=== PATIENT | male | born 1930 | race Caucasian/White ===

== ENCOUNTER 2016-05-31 15:38 | Emergency (ER) | payer MEDICARE, OTHER ==
[2016-05-31] MEDS ORDERED: ONDANSETRON 4MG/2ML VIAL (J2405) As Ordered ONE (16:37)
[2016-05-31 16:49] LABS: BASO # 0.1 K/mm3 (0.0-0.2); BASO % 1.1 % (0.0-1.0); EOS # 0.1 K/mm3 (0.0-0.50); EOS % 0.9 % (0.0-3.0); LARGE UNSTAINED CELL # 0.2 K/mm3 (0.0-0.4); LARGE UNSTAINED CELL % 1.6 % (0.0-4.0); LYMPH # 1.1 K/mm3 (1.5-4.5); LYMPH % 7.3 % (24.0-44.0); MEAN CORPUSCULAR HEMOGLOBIN 31.6 pg (27.0-33.0); MEAN CORPUSCULAR HGB CONC 35.2 g/dl (32.0-36.5); MEAN CORPUSCULAR VOLUME 89.7 fl (80.0-96.0); MONO # 0.8 K/mm3 (0.0-0.8); MONO % 6.9 % (0.0-5.0); NEUTROPHILS % 82.2 % (36.0-66.0); PLATELET COUNT, AUTOMATED 173 k/mm3 (150-450); RED CELL DISTRIBUTION WIDTH 14.6 % (11.5-14.5); WHITE BLOOD COUNT 12.2 K/mm3 (4.0-10.0)
[2016-05-31 16:56] LABS: INR 1.61
[2016-05-31 17:14] LABS: ALBUMIN/GLOBULIN RATIO 1.54 (1.00-1.93); ALKALINE PHOSPHATASE 74 U/L (45-117); ALT/SGPT 21 U/L (12-78); AMYLASE 29 U/L (25-115); ANION GAP 8 MEQ/L (8-16); AST/SGOT 18 U/L (15-37); BILIRUBIN,DIRECT 0.3 MG/DL (0.0-0.2); BILIRUBIN,TOTAL 1.1 MG/DL (0.2-1.0); BLOOD UREA NITROGEN 18 MG/DL (7-18); CALCIUM LEVEL 8.5 MG/DL (8.8-10.2); CARBON DIOXIDE LEVEL 27 MEQ/L (21-32); CHLORIDE LEVEL 103 MEQ/L (98-107); CREATININE FOR GFR 1.11 MG/DL (0.70-1.30); GLOMERULAR FILTRATION RATE > 60.0 (>35); GLUCOSE, FASTING 122 MG/DL (83-110); POTASSIUM SERUM 4.4 MEQ/L (3.5-5.1); SODIUM LEVEL 138 MEQ/L (136-145); TOTAL PROTEIN 6.6 GM/DL (6.4-8.2)
[2016-05-31 17:23] LABS: DIGOXIN LEVEL 0.5 NG/ML (0.5-2.0)
--- NOTE | 2016-05-31 19:16 | EDDOCDS ---
Physician Documentation [facility] Name: Brandon Esqueda Age: 85 yrs Sex: Male : 1930 Arrival Date: 05/31/2016 Time: 15:38 Bed 18 Private MD: [facility] Disposition: 05/31/16 19:02 Discharged to Home/Self Care. Impression: Malaise and fatigue. - Condition is Stable. - Discharge Instructions: Weakness, Fatigue. - Medication Reconciliation, Local Pharmacy Hours form. - Follow up: [facility]; When: 2 - 3 days; Reason: Recheck today's complaints, Continuance of care. - Problem is an ongoing problem. - Symptoms are unchanged. Historical: - Allergies: no known allergies; - Home Meds: 1. warfarin 5 mg Oral tab 2.5 mg nightly all week except for Saturday (Last dose: 05/30/2016) 2. Vitamin C Oral 500 mg daily (Last dose: 05/31/2016 08:00) 3. Vitamin D Oral daily (Last dose: 05/31/2016 08:00) 4. Vitamin D3 1,000 unit oral cap daily (Last dose: 05/31/2016 08:00) 5. ranitidine HCl 150 mg Oral tab 1 tab 2 times per day (Last dose: 05/31/2016 08:00) 6. metoprolol tartrate 25 mg Oral tab 0.5 tab 2 times per day (Last dose: 05/31/2016 08:00) 7. tamsulosin 0.4 mg oral cp24 1 cap once daily 8. simvastatin 20 mg Oral tab 0.5 tab once daily (Last dose: 05/30/2016) 9. digoxin 125 mcg Oral tab 1 tab saturday/saturday/saturday M, W, F (Last dose: 05/30/2016) 10. bicalutamide 50 mg oral tab 1 tab once daily (Last dose: 05/31/2016 08:00) - PMHx: Atrial Fib; High Cholesterol; Hypertension; prostate CA; TIA 1994; [place] 1994; - PSHx: Appendectomy; - Social history: Smoking status: Patient states was never smoker of tobacco. Patient/guardian denies using alcohol, street drugs, No barriers to communication noted, The patient speaks fluent Swedish, Speaks appropriately for age. - Family history: Not pertinent. - : The pt / caregiver states he / she is on anticoagulants: coumadin. Home medication list is obtained from the patient, family members. - Exposure Risk Screening:: None identified. - History obtained from: daughter. Vital Signs: 05/31 15:40 BP 151 / 90; Pulse 117; Resp 18 S; Temp 97.7(O); Weight 59.87 kg / 131.99 lbs (R); gr2 Height 5 ft. 6 in. (167.64 cm) (R); Pain 6/10; 16:33 BP 122 / 66 (auto/); jjr 16:33 Pulse 104 MON; Pulse Ox 98% ; jjr 16:47 Pulse 104 MON; Pulse Ox 90% ; jjr 16:48 BP 144 / 98 (auto/); jjr 17:03 BP 130 / 91 (auto/); jjr 17:33 BP 156 / 87 (auto/); mlb1 17:33 Pulse 114 MON; Pulse Ox 98% ; mlb1 17:48 BP 145 / 105 (auto/); mlb1 17:48 Pulse 104 MON; Pulse Ox 93% ; mlb1 18:03 BP 147 / 97 (auto/); mlb1 18:03 Pulse 112 MON; Pulse Ox 95% ; mlb1 18:18 BP 139 / 80 (auto/); kas2 18:18 Pulse 108 MON; Pulse Ox 94% ; kas2 18:48 BP 149 / 82 (auto/); kas2 18:48 Pulse 106 MON; Pulse Ox 97% ; kas2 19:03 BP 130 / 90 (auto/); kas2 19:03 Pulse 106 MON; Pulse Ox 96% ; kas2 19:04 BP 136 / 79 (auto/); kas2 19:04 Pulse 106 MON; Pulse Ox 96% ; kas2 19:06 BP 136 / 79; Pulse 104; Resp 18; Temp 98.9(TE); Pulse Ox 96% on R/A; Pain 0/10; mdr 15:40 Body Mass Index 21.31 (59.87 kg, 167.64 cm) gr2 15:40 UNABLE TO OBTAIN O2, MACHINE ISN'T READING. gr2 MDM: 16:31 NS 0.9% 1000 ml IV at bolus once ordered. ke 16:31 Ondansetron 4 mg IVP once ordered. ke 16:31 IV Saline Lock ordered. ke 16:31 Undress patient appropriately for examination ordered. ke 16:32 Amylase Ordered. EDMS 16:32 Basic Metabolic Profile Ordered. EDMS 16:32 CBC with Diff Ordered. EDMS 16:32 Cardiac Injury Profile Ordered. EDMS 16:32 Lipase Ordered. EDMS 16:32 Liver Profile Ordered. EDMS 16:32 Prothrombin Time Profile\E\INR Ordered. EDMS 16:32 Troponin Ordered. EDMS 16:32 Urinalysis Ordered. EDMS 16:32 Urine Culture Ordered. EDMS 16:33 Abdomen, Flat\E\Upright,PA Chest Ordered. EDMS 16:33 NOTHING BY MOUTH+DIET ordered. EDMS 16:47 DIGOXIN LEVEL Ordered. EDMS 16:57 Financial registration complete. [facility] 16:58 [facility] Payment Agreement was scanned into [employer] and attached to record. gjb 18:32 Basic Metabolic Profile Reviewed. ke 18:32 CBC with Diff Reviewed. ke 18:32 Liver Profile Reviewed. ke 18:32 Prothrombin Time Profile\E\INR Reviewed. ke 18:32 Amylase Reviewed. ke 18:32 Cardiac Injury Profile Reviewed. ke 18:32 Lipase Reviewed. ke 18:32 Troponin Reviewed. ke 18:32 DIGOXIN LEVEL Reviewed. ke 18:59 Urinalysis Reviewed. ke Administered Medications: 16:41 Drug: NS 0.9% 1000 ml [sodium chloride 0.9 % injection solution] Route: IV; Rate: mlb1 bolus; Site: left antecubital; 16:42 Drug: Ondansetron 4 mg [ondansetron HCl 2 mg/mL intravenous solution (2 mL)] Route: mlb1 IVP; Site: left antecubital; Signatures: Dispatcher [facility] EDNV James Maya, HVAC INSTRUCTOR HVAC INSTRUCTOR Katherine Bai RN RN ttb Beck, Gabriela gjb Smith, Kim, RN RN kristin2 Evan Jordan RN mlb1 The chart was reviewed and I authenticate all verbal orders and agree with the evaluation and treatment provided.Corrections: (The following items were deleted from the chart) 16:47 16:42 DIGOXIN LEVEL+LAB ordered. EDNV EDMS Attachments: 16:58 [facility] Payment Agreement gj MTDD
--- NOTE | 2016-05-31 19:16 | EDDOCDS ---
Nurse's Notes [facility] Name: Brandon Esqueda Age: 85 yrs Sex: Male : 1930 Arrival Date: 05/31/2016 Time: 15:38 Bed 18 Private MD: [facility] [place] Diagnosis: Malaise and fatigue Presentation: 05/31 15:46 Presenting complaint: Patient states: "I can't fit my feet up". Leg cramping at night. ttb Pt was seen at [facility] yesterday -- treated for leg pain/weakness with orthotics, ect. Main complaint is pt felt lightheaded around 6am this morning. Possibly constipated and decreased appetite. Some chest pain this morning, pt states, "their common". Adult Sepsis Screening: The patient does not have new or worsening altered mentation. Patient's respiratory rate is less than 22. Systolic blood pressure is greater than 100. Patient has a qSOFA score of 0- Negative Sepsis Screen. Suicide/Homicide risk assessment- the patient denies having any suicidal and/or homicidal ideations and does not present with any other emotional, behavioral or mental health complaints. Status: Patient is not a automotive service porter or dependent. Transition of care: patient was not received from another setting of care. 15:46 Acuity: ANGELIQUE Level 3 ttb 15:46 Method Of Arrival: Walkin/Carried/Asstd ttb Triage Assessment: 15:52 General: Appears in no apparent distress, well nourished, well groomed, Behavior is ttb appropriate for age, cooperative, pleasant. Pain: Denies pain. Neurological: Level of Consciousness is awake, alert, Speech is normal, Facial symmetry appears normal. Neurological: Reports lightheadedness . Cardiovascular: Chest pain pt states he felt some this morning. None now.. Respiratory: No deficits noted. Airway is patent Respiratory effort is even, unlabored, Denies cough, shortness of breath. GI: Reports constipation, Denies nausea, vomiting, pain. Derm: Skin is normal. Injury Description: No known injury. Historical: - Allergies: no known allergies; - Home Meds: 1. warfarin 5 mg Oral tab 2.5 mg nightly all week except for Saturday (Last dose: 05/30/2016) 2. Vitamin C Oral 500 mg daily (Last dose: 05/31/2016 08:00) 3. Vitamin D Oral daily (Last dose: 05/31/2016 08:00) 4. Vitamin D3 1,000 unit oral cap daily (Last dose: 05/31/2016 08:00) 5. ranitidine HCl 150 mg Oral tab 1 tab 2 times per day (Last dose: 05/31/2016 08:00) 6. metoprolol tartrate 25 mg Oral tab 0.5 tab 2 times per day (Last dose: 05/31/2016 08:00) 7. tamsulosin 0.4 mg oral cp24 1 cap once daily 8. simvastatin 20 mg Oral tab 0.5 tab once daily (Last dose: 05/30/2016) 9. digoxin 125 mcg Oral tab 1 tab saturday/saturday/saturday M, W, F (Last dose: 05/30/2016) 10. bicalutamide 50 mg oral tab 1 tab once daily (Last dose: 05/31/2016 08:00) - PMHx: Atrial Fib; High Cholesterol; Hypertension; prostate CA; TIA 1994; [place] 1994; - PSHx: Appendectomy; - Social history: Smoking status: Patient states was never smoker of tobacco. Patient/guardian denies using alcohol, street drugs, No barriers to communication noted, The patient speaks fluent Slovenian, Speaks appropriately for age. - Family history: Not pertinent. - : The pt / caregiver states he / she is on anticoagulants: coumadin. Home medication list is obtained from the patient, family members. - Exposure Risk Screening:: None identified. - History obtained from: daughter. Screenin:12 Screening information is obtained from the patient. Fall risk: At risk due to age, The mlb1 following interventions are performed due to a positive Fall Risk Screen: Fall Risk is added to Special Handling on the patient Summary Screen. A Fall Risk Bracelet was applied to the patient. Side Rails are placed in the up position. A Call Grier is given with instruction to call for help when getting out of bed. Fall Alert bracelet is placed on the patient. Assistance ADL's: Requires assistance with meal preparation, this assistance is provided by family members, medication administration, assistance is provided by family members. Abuse/DV Screen: The patient / caregiver reports he/she is: not in a situation that causes fear, pain or injury. Nutritional screening: No deficits noted. Advance Directives: There is no active DNR order. home support is adequate. Assessment: 16:20 General: Appears in no apparent distress, Behavior is anxious, cooperative. Pain: mlb1 Denies pain. Neurological: Reports weakness. Neurological: Level of Consciousness is awake, alert, Oriented to person, place, time, Moves all extremities. Full function Speech is normal, Reports. Respiratory: Airway is patent Respiratory effort is even, unlabored, Breath sounds are clear bilaterally. Derm: No deficits noted. 17:30 General: Appears in no apparent distress, comfortable, to be sleeping. Respiratory: mlb1 Airway is patent Respiratory effort is even, unlabored. 18:09 General: Appears in no apparent distress, comfortable, to be sleeping. Respiratory: mlb1 Airway is patent Respiratory effort is even, unlabored. 19:03 General: Verbal report given by Casey Jordan RN. Assumed care of patient at this time.. kas2 Vital Signs: 15:40 BP 151 / 90; Pulse 117; Resp 18 S; Temp 97.7(O); Weight 59.87 kg (R); Height 5 ft. 6 gr2 in. (167.64 cm) (R); Pain 6/10; 16:33 BP 122 / 66 (auto/); jjr 16:33 Pulse 104 MON; Pulse Ox 98% ; jjr 16:47 Pulse 104 MON; Pulse Ox 90% ; jjr 16:48 BP 144 / 98 (auto/); jjr 17:03 BP 130 / 91 (auto/); jjr 17:33 BP 156 / 87 (auto/); mlb1 17:33 Pulse 114 MON; Pulse Ox 98% ; mlb1 17:48 BP 145 / 105 (auto/); mlb1 17:48 Pulse 104 MON; Pulse Ox 93% ; mlb1 18:03 BP 147 / 97 (auto/); mlb1 18:03 Pulse 112 MON; Pulse Ox 95% ; mlb1 18:18 BP 139 / 80 (auto/); kas2 18:18 Pulse 108 MON; Pulse Ox 94% ; kas2 18:48 BP 149 / 82 (auto/); kas2 18:48 Pulse 106 MON; Pulse Ox 97% ; kas2 19:03 BP 130 / 90 (auto/); kas2 19:03 Pulse 106 MON; Pulse Ox 96% ; kas2 19:04 BP 136 / 79 (auto/); kas2 19:04 Pulse 106 MON; Pulse Ox 96% ; kas2 19:06 BP 136 / 79; Pulse 104; Resp 18; Temp 98.9(TE); Pulse Ox 96% on R/A; Pain 0/10; mdr 15:40 Body Mass Index 21.31 (59.87 kg, 167.64 cm) gr2 15:40 UNABLE TO OBTAIN O2, MACHINE ISN'T READING. gr2 Vitals: 15:40 Log In Time: May 31, 2016 at 15:40. gr2 ED Course: 15:39 Patient visited by Baljit Osuna. gr2 15:39 [facility] is Private Physician. gr2 15:39 Patient moved to Waiting gr2 15:43 Patient visited by Baljit Osuna. gr2 15:43 Patient moved to Pre RCE gr2 15:49 Triage Initiated ttb 16:12 Patient moved to 18 mcp 16:15 [facility] FNP [facility]. ke 16:15 Patient visited by James Maya FNP. ke 16:15 Patient visited by James Maya FNP. ke 16:21 The patient / caregiver is instructed regarding the plan of care and ED course. mlb1 Accompanied by Family Member, Patient has correct armband on for positive identification. Placed in gown. Bed in low position. Call light in reach. Side rails up X2. monitor tech on. Pulse ox on. NIBP on. 16:35 CBC with Diff Sent. mlb1 16:35 Cardiac Injury Profile Sent. mlb1 16:35 Lipase Sent. mlb1 16:35 Liver Profile Sent. mlb1 16:35 Prothrombin Time Profile\\E\\INR Sent. mlb1 16:35 Troponin Sent. mlb1 16:35 Inserted saline lock: 20 gauge in left antecubital area and blood collected. The mlb1 patient tolerated the procedure well. Labs drawn. (by ED staff). Sent per order to lab. 16:46 Patient visited by James Maya FNP. ke 16:58 [facility] Payment Agreement was scanned into [employer] and attached to record. gjb 17:03 Patient name changed from Brandon\\S\\\\S\\Esqueda\\S\\ to Brandon\\S\\ \\S\\Dheeraj. EDMS 17:16 Patient visited by James Maya FNP. ke 17:51 Patient visited by James Maya FNP. ke 18:12 Patient visited by Evan Jordan RN. mlb1 18:12 No procedures done that require assistance. mlb1 18:34 Patient visited by James Maya FNP. ke 18:56 Carmen Bond RN is Primary Nurse. [facility] 19:01 [facility] [place] is Referral Physician. ke 19:07 Patient visited by Richard Laura PCA. mdr 19:11 Discontinued IV bleeding controlled, pressure dressing applied, No redness/swelling at [facility] site. 19:12 Patient visited by Carmen Bond RN. [facility] Administered Medications: 16:41 Drug: NS 0.9% 1000 ml [sodium chloride 0.9 % injection solution] Route: IV; Rate: mlb1 bolus; Site: left antecubital; 16:42 Drug: Ondansetron 4 mg [ondansetron HCl 2 mg/mL intravenous solution (2 mL)] Route: mlb1 IVP; Site: left antecubital; Order Results: Lab Order: Amylase; SPEC'M 05/31/16 16:29 Test: AMYLASE; Value: 29; Range: 25-115; Units: U/L; Status: F Lab Order: Basic Metabolic Profile; SPEC'M 05/31/16 16:29 Test: GLUCOSE, FASTING; Value: 122; Range: 83-110; Abnormal: Above high normal; Units: MG/DL; Status: F Test: BLOOD UREA NITROGEN; Value: 18; Range: 7-18; Units: MG/DL; Status: F Test: CREATININE FOR GFR; Value: 1.11; Range: 0.70-1.30; Units: MG/DL; Status: F Test: GLOMERULAR FILTRATION RATE; Value: > 60.0; Range: >35; Status: F Test: SODIUM LEVEL; Value: 138; Range: 136-145; Units: MEQ/L; Status: F Test: POTASSIUM SERUM; Value: 4.4; Range: 3.5-5.1; Units: MEQ/L; Status: F Test: CHLORIDE LEVEL; Value: 103; Range: 98-107; Units: MEQ/L; Status: F Test: CARBON DIOXIDE LEVEL; Value: 27; Range: 21-32; Units: MEQ/L; Status: F Test: ANION GAP; Value: 8; Range: 8-16; Units: MEQ/L; Status: F Test: CALCIUM LEVEL; Value: 8.5; Range: 8.8-10.2; Abnormal: Below low normal; Units: MG/DL; Status: F Test Note: ; Units are mL/min/1.73 m2 Chronic Kidney Disease Staging per NKF: Stage I & II GFR >=60 Normal to Mildly Decreased Stage III GFR 30-59 Moderately Decreased Stage IV GFR 15-29 Severely Decreased Stage V GFR <15 Very Little GFR Left ESRD GFR <15 on AUDITING CODER Lab Order: CBC with Diff; SPEC'M 05/31/16 16:29 Test: WHITE BLOOD COUNT; Value: 12.2; Range: 4.0-10.0; Abnormal: Above high normal; Units: K/mm3; Status: F Test: RED BLOOD COUNT; Value: 3.94; Range: 4.30-6.10; Abnormal: Below low normal; Units: M/mm3; Status: F Test: HEMOGLOBIN; Value: 12.4; Range: 14.0-18.0; Abnormal: Below low normal; Units: g/dl; Status: F Test: HEMATOCRIT; Value: 35.3; Range: 42.0-52.0; Abnormal: Below low normal; Units: %; Status: F Test: MEAN CORPUSCULAR VOLUME; Value: 89.7; Range: 80.0-96.0; Units: fl; Status: F Test: MEAN CORPUSCULAR HEMOGLOBIN; Value: 31.6; Range: 27.0-33.0; Units: pg; Status: F Test: MEAN CORPUSCULAR HGB CONC; Value: 35.2; Range: 32.0-36.5; Units: g/dl; Status: F Test: RED CELL DISTRIBUTION WIDTH; Value: 14.6; Range: 11.5-14.5; Abnormal: Above high normal; Units: %; Status: F Test: PLATELET COUNT, AUTOMATED; Value: 173; Range: 150-450; Units: k/mm3; Status: F Test: NEUTROPHILS %; Value: 82.2; Range: 36.0-66.0; Abnormal: Above high normal; Units: %; Status: F Test: LYMPH %; Value: 7.3; Range: 24.0-44.0; Abnormal: Below low normal; Units: %; Status: F Test: MONO %; Value: 6.9; Range: 0.0-5.0; Abnormal: Above high normal; Units: %; Status: F Test: EOS %; Value: 0.9; Range: 0.0-3.0; Units: %; Status: F Test: BASO %; Value: 1.1; Range: 0.0-1.0; Abnormal: Above high normal; Units: %; Status: F Test: LARGE UNSTAINED CELL %; Value: 1.6; Range: 0.0-4.0; Units: %; Status: F Test: NEUTROPHILS #; Value: 10.0; Range: 1.8-7.7; Abnormal: Above high normal; Units: K/mm3; Status: F Test: LYMPH #; Value: 1.1; Range: 1.5-4.5; Abnormal: Below low normal; Units: K/mm3; Status: F Test: MONO #; Value: 0.8; Range: 0.0-0.8; Units: K/mm3; Status: F Test: EOS #; Value: 0.1; Range: 0.0-0.50; Units: K/mm3; Status: F Test: BASO #; Value: 0.1; Range: 0.0-0.2; Units: K/mm3; Status: F Test: LARGE UNSTAINED CELL #; Value: 0.2; Range: 0.0-0.4; Units: K/mm3; Status: F Lab Order: Cardiac Injury Profile; SPEC'M 05/31/16 16:29 Test: CPK CREATINE PHOSPHOKINASE; Value: 93; Range: 39-308; Units: U/L; Status: F Test: CK-MB VALUE MASS; Value: 1.5; Range: 0.0-3.6; Units: NG/ML; Status: F Test: MB/CK RELATIVE INDEX; Value: 1.61; Range: < OR =4; Status: F Test Note: ; DIAGNOSIS CRITERIA MMB ng/ml Relative Index (RI) NON-AMI < or = 5 N/A [place] > 5 < or = 4 AMI > 5 > 4 Lab Order: Lipase; SPEC'M 05/31/16 16:29 Test: LIPASE; Value: 86; Range: 73-393; Units: U/L; Status: F Lab Order: Liver Profile; [facility] 05/31/16 16:29 Test: AST/SGOT; Value: 18; Range: 15-37; Units: U/L; Status: F Test: ALT/SGPT; Value: 21; Range: 12-78; Units: U/L; Status: F Test: ALKALINE PHOSPHATASE; Value: 74; Range: 45-117; Units: U/L; Status: F Test: BILIRUBIN,TOTAL; Value: 1.1; Range: 0.2-1.0; Abnormal: Above high normal; Units: MG/DL; Status: F Test: BILIRUBIN,DIRECT; Value: 0.3; Range: 0.0-0.2; Abnormal: Above high normal; Units: MG/DL; Status: F Test: TOTAL PROTEIN; Value: 6.6; Range: 6.4-8.2; Units: GM/DL; Status: F Test: ALBUMIN; Value: 4.0; Range: 3.2-5.2; Units: GM/DL; Status: F Test: ALBUMIN/GLOBULIN RATIO; Value: 1.54; Range: 1.00-1.93; Status: F Lab Order: Prothrombin Time Profile\\E\\INR; [facility] 05/31/16 16:29 Test: PROTHROMBIN TIME; Value: 19.2; Range: 12.3-14.5; Abnormal: Above high normal; Units: SECONDS; Status: F Test: INR; Value: 1.61; Status: F Test Note: ; THERAPUTIC HUMAN INR VALUES INDICATIONS NORMAL RANGES PROPHYLAXIS/TREATMENT OF: VENOUS THROMBOSIS 2.0-3.0 PULMONARY EMBOLISM 2.0-3.0 PREVENTION OF SYSTEMIC EMBOLISM FROM: TISSUE HEART VALVES 2.0-3.0 ACUTE MYOCARDIAL INFARCTION 2.0-3.0 VALVULAR HEART DISEASE 2.0-3.0 ATRIAL FIBRILLATION 2.0-3.0 MECHANICAL VALVES(HIGH RISK) 2.5-3.5 RECURRENT MYOCARDIAL INFARCTION 2.5-3.5 Lab Order: Troponin; [facility] 05/31/16 16:29 Test: TROPONIN I; Value: < 0.02; Range: < 0.10; Units: NG/ML; Status: F Test Note: ; Troponin I Reference Interval for [employer] [place] LOCI: 99th Percentile= 0.00-0.045 ng/ml Risk Stratification: <= 0.10 ng/ml Decreased Risk for Adverse Clinical Events. 0.10-1.50 ng/ml Increased Risk for Adverse Clinical Events. Evaluation of additional criterion and/or repeat testing in 2-6 hours is suggested to rule out myocardial damage. >= 1.50 ng/ml Indicative of Myocardial Injury. Lab Order: Urinalysis; SPEC'M 05/31/16 18:31 Test: APPEARANCE, URINE; Value: CLEAR; Range: CLEAR; Status: F Test: COLOR, URINE; Value: YELLOW; Range: YELLOW; Status: F Test: PH,URINE; Value: 5.0; Range: 5.0-9.0; Units: UNITS; Status: F Test: SPECIFIC GRAVITY URINE AUTO; Value: 1.009; Range: 1.002-1.035; Status: F Test: PROTEIN, URINE AUTO; Value: NEGATIVE; Range: NEGATIVE; Units: mg/dL; Status: F Test: GLUCOSE, URINE (UA) AUTO; Value: NEGATIVE; Range: NEGATIVE; Units: mg/dL; Status: F Test: KETONE, URINE AUTO; Value: NEGATIVE; Range: NEGATIVE; Units: mg/dL; Status: F Test: UROBILINOGEN, URINE AUTO; Value: 0.2; Range: 0.0-2.0; Units: mg/dL; Status: F Test: BILIRUBIN, URINE AUTO; Value: NEGATIVE; Range: NEGATIVE; Status: F Test: NITRITE, URINE AUTO; Value: NEGATIVE; Range: NEGATIVE; Status: F Test: LEUKOCYTE ESTERASE, URINE AUTO; Value: NEGATIVE; Range: NEGATIVE; Status: F Test: BLOOD, URINE BLOOD; Value: 1+; Range: NEGATIVE; Abnormal: Above high normal; Status: F Test: WBC, URINE AUTO; Value: 0; Range: 0-3; Units: /HPF; Status: F Test: RBC, URINE AUTO; Value: 5; Range: 0-3; Abnormal: Above high normal; Units: /HPF; Status: F Test: BACTERIA, URINE AUTO; Value: 1+; Range: NEGATIVE; Abnormal: Above high normal; Status: F Test: SQUAMOUS EPITHELIAL CELL UR AU; Value: 0; Range: 0-6; Units: /HPF; Status: F Test: MUCUS, URINE; Value: SMALL; Range: NEGATIVE; Status: F Test: HYALINE CAST, URINE AUTO; Value: 0; Range: 0-1; Units: /LPF; Status: F Lab Order: DIGOXIN LEVEL; SPEC'M 05/31/16 16:29 Test: DIGOXIN LEVEL; Value: 0.5; Range: 0.5-2.0; Units: NG/ML; Status: F Outcome: 19:02 Discharge ordered by Provider. pa 19:12 Discharge Assessment: patient administered narcotics - no. The following High Risk [facility] Discharge criteria are identified: None. Discharged to home via wheelchair, with family. Condition: good Condition: stable Condition: improved. 19:12 No special radiology studies were completed. Property :Personal belongings accompany Pt.[facility] 19:16 Patient left the ED. [facility] Signatures: Dispatcher [employer] EDMS Meaghan Madison, RN RN James Gomez, DIRECTOR OF SCIENTIFIC RESEARCH DIRECTOR OF SCIENTIFIC RESEARCH Evan Maloney RN RN mlb1 Kiera Osuna RN RN jjr Conner, Teresa, RN RN Baljit Smith gr2 Richard Laura, PEDIATRIC PATHOLOGIST PEDIATRIC PATHOLOGIST Alyson Leone Kim,RN RN kas2 MTDD
--- NOTE | 2016-05-31 19:24 | REP ---
Abdominal series 05/31/2016 Indication: Weakness Comparison AP chest 04/06/2016 Findings: Cardiac silhouette i there are atherosclerotic changes are noted in the thoracic aorta. Small amount of fibrotic scarring is present in the lung bases, left greater than right Impression : mild cardiomegaly Small amount of bibasilar fibrotic scarring, left greater than right Flat and upright KUB 05/31/2016 Indication: weakness Findings: There is moderate retained colonic stool. The bowel gas pattern is nonspecific and there is no free intraperitoneal air. Artery calcifications are noted left upper quadrant There is a 5 mm calcification projected over the lower pole right kidney Bones are mildly osteopenic Impression 1. Moderate retained colonic stool with nonspecific bowel gas pattern. No free intraperitoneal air. 2. 5 x 2 mm calcification projected over lower pole right kidney Signed by Yumiko Metzger MD 05/31/2016 07:16 P
--- NOTE | 2016-06-02 20:17 | EDDOCDS ---
Physician Documentation [facility] Name: Brandon Esqueda Age: 85 yrs Sex: Male : 1930 Arrival Date: 05/31/2016 Time: 15:38 Bed 18 Private MD: [facility] Disposition: 05/31/16 19:02 Discharged to Home/Self Care. Impression: Malaise and fatigue. - Condition is Stable. - Discharge Instructions: Weakness, Fatigue. - Medication Reconciliation, Local Pharmacy Hours form. - Follow up: [facility]; When: 2 - 3 days; Reason: Recheck today's complaints, Continuance of care. - Problem is an ongoing problem. - Symptoms are unchanged. Historical: - Allergies: no known allergies; - Home Meds: 1. warfarin 5 mg Oral tab 2.5 mg nightly all week except for Saturday (Last dose: 05/30/2016) 2. Vitamin C Oral 500 mg daily (Last dose: 05/31/2016 08:00) 3. Vitamin D Oral daily (Last dose: 05/31/2016 08:00) 4. Vitamin D3 1,000 unit oral cap daily (Last dose: 05/31/2016 08:00) 5. ranitidine HCl 150 mg Oral tab 1 tab 2 times per day (Last dose: 05/31/2016 08:00) 6. metoprolol tartrate 25 mg Oral tab 0.5 tab 2 times per day (Last dose: 05/31/2016 08:00) 7. tamsulosin 0.4 mg oral cp24 1 cap once daily 8. simvastatin 20 mg Oral tab 0.5 tab once daily (Last dose: 05/30/2016) 9. digoxin 125 mcg Oral tab 1 tab saturday/saturday/saturday M, W, F (Last dose: 05/30/2016) 10. bicalutamide 50 mg oral tab 1 tab once daily (Last dose: 05/31/2016 08:00) - PMHx: Atrial Fib; High Cholesterol; Hypertension; prostate CA; TIA 1994; [place] 1994; - PSHx: Appendectomy; - Social history: Smoking status: Patient states was never smoker of tobacco. Patient/guardian denies using alcohol, street drugs, No barriers to communication noted, The patient speaks fluent Swedish, Speaks appropriately for age. - Family history: Not pertinent. - : The pt / caregiver states he / she is on anticoagulants: coumadin. Home medication list is obtained from the patient, family members. - Exposure Risk Screening:: None identified. - History obtained from: daughter. Vital Signs: 05/31 15:40 BP 151 / 90; Pulse 117; Resp 18 S; Temp 97.7(O); Weight 59.87 kg / 131.99 lbs (R); gr2 Height 5 ft. 6 in. (167.64 cm) (R); Pain 6/10; 16:33 BP 122 / 66 (auto/); jjr 16:33 Pulse 104 MON; Pulse Ox 98% ; jjr 16:47 Pulse 104 MON; Pulse Ox 90% ; jjr 16:48 BP 144 / 98 (auto/); jjr 17:03 BP 130 / 91 (auto/); jjr 17:33 BP 156 / 87 (auto/); mlb1 17:33 Pulse 114 MON; Pulse Ox 98% ; mlb1 17:48 BP 145 / 105 (auto/); mlb1 17:48 Pulse 104 MON; Pulse Ox 93% ; mlb1 18:03 BP 147 / 97 (auto/); mlb1 18:03 Pulse 112 MON; Pulse Ox 95% ; mlb1 18:18 BP 139 / 80 (auto/); kas2 18:18 Pulse 108 MON; Pulse Ox 94% ; kas2 18:48 BP 149 / 82 (auto/); kas2 18:48 Pulse 106 MON; Pulse Ox 97% ; kas2 19:03 BP 130 / 90 (auto/); kas2 19:03 Pulse 106 MON; Pulse Ox 96% ; kas2 19:04 BP 136 / 79 (auto/); kas2 19:04 Pulse 106 MON; Pulse Ox 96% ; kas2 19:06 BP 136 / 79; Pulse 104; Resp 18; Temp 98.9(TE); Pulse Ox 96% on R/A; Pain 0/10; mdr 15:40 Body Mass Index 21.31 (59.87 kg, 167.64 cm) gr2 15:40 UNABLE TO OBTAIN O2, MACHINE ISN'T READING. gr2 MDM: 16:31 NS 0.9% 1000 ml IV at bolus once ordered. ke 16:31 Ondansetron 4 mg IVP once ordered. ke 16:31 IV Saline Lock ordered. ke 16:31 Undress patient appropriately for examination ordered. ke 16:32 Amylase Ordered. EDMS 16:32 Basic Metabolic Profile Ordered. EDMS 16:32 CBC with Diff Ordered. EDMS 16:32 Cardiac Injury Profile Ordered. EDMS 16:32 Lipase Ordered. EDMS 16:32 Liver Profile Ordered. EDMS 16:32 Prothrombin Time Profile\E\INR Ordered. EDMS 16:32 Troponin Ordered. EDMS 16:32 Urinalysis Ordered. EDMS 16:32 Urine Culture Ordered. EDMS 16:33 Abdomen, Flat\E\Upright,PA Chest Ordered. EDMS 16:33 NOTHING BY MOUTH+DIET ordered. EDMS 16:47 DIGOXIN LEVEL Ordered. EDMS 16:57 Financial registration complete. [facility] 16:58 [facility] Payment Agreement was scanned into [employer] and attached to record. gjb 18:32 Basic Metabolic Profile Reviewed. ke 18:32 CBC with Diff Reviewed. ke 18:32 Liver Profile Reviewed. ke 18:32 Prothrombin Time Profile\E\INR Reviewed. ke 18:32 Amylase Reviewed. ke 18:32 Cardiac Injury Profile Reviewed. ke 18:32 Lipase Reviewed. ke 18:32 Troponin Reviewed. ke 18:32 DIGOXIN LEVEL Reviewed. ke 18:59 Urinalysis Reviewed. 06/01 07:50 T-Sheet-- Draft Copy was scanned into [employer] and attached to record. gb Administered Medications: 05/31 16:41 Drug: NS 0.9% 1000 ml [sodium chloride 0.9 % injection solution] Route: IV; Rate: mlb1 bolus; Site: left antecubital; 16:42 Drug: Ondansetron 4 mg [ondansetron HCl 2 mg/mL intravenous solution (2 mL)] Route: mlb1 IVP; Site: left antecubital; Signatures: Dispatcher [employer] EDNY Fatemeh Bartholomew, Bg Reg James Quiles, MACHINE OPERATOR CANE CUTTER MACHINE OPERATOR CANE CUTTER Katherine Bai RN RN Alyson Hoffman Kim, RN RN kas2 Evan Jordan RN mlb1 The chart was reviewed and I authenticate all verbal orders and agree with the evaluation and treatment provided.Corrections: (The following items were deleted from the chart) 16:47 16:42 DIGOXIN LEVEL+LAB ordered. EDMS EDMS Attachments: 16:58 [facility] [place] Payment Agreement gjb 06/01 07:50 T-Sheet-- Draft Copy gb Chart Complete MTDD
--- NOTE | 2016-06-02 20:17 | EDDOCDS ---
Physician Documentation [facility] Name: Brandon Esqueda Age: 85 yrs Sex: Male : 1930 Arrival Date: 05/31/2016 Time: 15:38 Bed 18 Private MD: [facility] Disposition: 05/31/16 19:02 Discharged to Home/Self Care. Impression: Malaise and fatigue. - Condition is Stable. - Discharge Instructions: Weakness, Fatigue. - Medication Reconciliation, Local Pharmacy Hours form. - Follow up: [facility]; When: 2 - 3 days; Reason: Recheck today's complaints, Continuance of care. - Problem is an ongoing problem. - Symptoms are unchanged. Historical: - Allergies: no known allergies; - Home Meds: 1. warfarin 5 mg Oral tab 2.5 mg nightly all week except for Saturday (Last dose: 05/30/2016) 2. Vitamin C Oral 500 mg daily (Last dose: 05/31/2016 08:00) 3. Vitamin D Oral daily (Last dose: 05/31/2016 08:00) 4. Vitamin D3 1,000 unit oral cap daily (Last dose: 05/31/2016 08:00) 5. ranitidine HCl 150 mg Oral tab 1 tab 2 times per day (Last dose: 05/31/2016 08:00) 6. metoprolol tartrate 25 mg Oral tab 0.5 tab 2 times per day (Last dose: 05/31/2016 08:00) 7. tamsulosin 0.4 mg oral cp24 1 cap once daily 8. simvastatin 20 mg Oral tab 0.5 tab once daily (Last dose: 05/30/2016) 9. digoxin 125 mcg Oral tab 1 tab saturday/saturday/saturday M, W, F (Last dose: 05/30/2016) 10. bicalutamide 50 mg oral tab 1 tab once daily (Last dose: 05/31/2016 08:00) - PMHx: Atrial Fib; High Cholesterol; Hypertension; prostate CA; TIA 1994; [place] 1994; - PSHx: Appendectomy; - Social history: Smoking status: Patient states was never smoker of tobacco. Patient/guardian denies using alcohol, street drugs, No barriers to communication noted, The patient speaks fluent Frisian, Speaks appropriately for age. - Family history: Not pertinent. - : The pt / caregiver states he / she is on anticoagulants: coumadin. Home medication list is obtained from the patient, family members. - Exposure Risk Screening:: None identified. - History obtained from: daughter. Vital Signs: 05/31 15:40 BP 151 / 90; Pulse 117; Resp 18 S; Temp 97.7(O); Weight 59.87 kg / 131.99 lbs (R); gr2 Height 5 ft. 6 in. (167.64 cm) (R); Pain 6/10; 16:33 BP 122 / 66 (auto/); jjr 16:33 Pulse 104 MON; Pulse Ox 98% ; jjr 16:47 Pulse 104 MON; Pulse Ox 90% ; jjr 16:48 BP 144 / 98 (auto/); jjr 17:03 BP 130 / 91 (auto/); jjr 17:33 BP 156 / 87 (auto/); mlb1 17:33 Pulse 114 MON; Pulse Ox 98% ; mlb1 17:48 BP 145 / 105 (auto/); mlb1 17:48 Pulse 104 MON; Pulse Ox 93% ; mlb1 18:03 BP 147 / 97 (auto/); mlb1 18:03 Pulse 112 MON; Pulse Ox 95% ; mlb1 18:18 BP 139 / 80 (auto/); kas2 18:18 Pulse 108 MON; Pulse Ox 94% ; kas2 18:48 BP 149 / 82 (auto/); kas2 18:48 Pulse 106 MON; Pulse Ox 97% ; kas2 19:03 BP 130 / 90 (auto/); kas2 19:03 Pulse 106 MON; Pulse Ox 96% ; kas2 19:04 BP 136 / 79 (auto/); kas2 19:04 Pulse 106 MON; Pulse Ox 96% ; kas2 19:06 BP 136 / 79; Pulse 104; Resp 18; Temp 98.9(TE); Pulse Ox 96% on R/A; Pain 0/10; mdr 15:40 Body Mass Index 21.31 (59.87 kg, 167.64 cm) gr2 15:40 UNABLE TO OBTAIN O2, MACHINE ISN'T READING. gr2 MDM: 16:31 NS 0.9% 1000 ml IV at bolus once ordered. ke 16:31 Ondansetron 4 mg IVP once ordered. ke 16:31 IV Saline Lock ordered. ke 16:31 Undress patient appropriately for examination ordered. ke 16:32 Amylase Ordered. EDMS 16:32 Basic Metabolic Profile Ordered. EDMS 16:32 CBC with Diff Ordered. EDMS 16:32 Cardiac Injury Profile Ordered. EDMS 16:32 Lipase Ordered. EDMS 16:32 Liver Profile Ordered. EDMS 16:32 Prothrombin Time Profile\E\INR Ordered. EDMS 16:32 Troponin Ordered. EDMS 16:32 Urinalysis Ordered. EDMS 16:32 Urine Culture Ordered. EDMS 16:33 Abdomen, Flat\E\Upright,PA Chest Ordered. EDMS 16:33 NOTHING BY MOUTH+DIET ordered. EDMS 16:47 DIGOXIN LEVEL Ordered. EDMS 16:57 Financial registration complete. [facility] 16:58 [facility] Payment Agreement was scanned into [employer] and attached to record. gjb 18:32 Basic Metabolic Profile Reviewed. ke 18:32 CBC with Diff Reviewed. ke 18:32 Liver Profile Reviewed. ke 18:32 Prothrombin Time Profile\E\INR Reviewed. ke 18:32 Amylase Reviewed. ke 18:32 Cardiac Injury Profile Reviewed. ke 18:32 Lipase Reviewed. ke 18:32 Troponin Reviewed. ke 18:32 DIGOXIN LEVEL Reviewed. ke 18:59 Urinalysis Reviewed. 06/01 07:50 T-Sheet-- Draft Copy was scanned into [employer] and attached to record. gb Administered Medications: 05/31 16:41 Drug: NS 0.9% 1000 ml [sodium chloride 0.9 % injection solution] Route: IV; Rate: mlb1 bolus; Site: left antecubital; 16:42 Drug: Ondansetron 4 mg [ondansetron HCl 2 mg/mL intravenous solution (2 mL)] Route: mlb1 IVP; Site: left antecubital; Signatures: Dispatcher [employer] EDOK Fatemeh Bartholomew, Bg Reg James Quiles, TOUR NARRATOR TOUR NARRATOR Katherine Bai RN RN Alyson Hoffman Kim, RN RN kas2 Evan Jordan RN mlb1 The chart was reviewed and I authenticate all verbal orders and agree with the evaluation and treatment provided.Corrections: (The following items were deleted from the chart) 16:47 16:42 DIGOXIN LEVEL+LAB ordered. EDMS EDMS Attachments: 16:58 [facility] [place] Payment Agreement gjb 06/01 07:50 T-Sheet-- Draft Copy gb Chart Complete MTDD
--- NOTE | 2016-06-02 20:17 | EDDOCDS ---
Nurse's Notes [facility] Name: Brandon Esqueda Age: 85 yrs Sex: Male : 1930 Arrival Date: 05/31/2016 Time: 15:38 Bed 18 Private MD: [facility] [place] Diagnosis: Malaise and fatigue Presentation: 05/31 15:46 Presenting complaint: Patient states: "I can't fit my feet up". Leg cramping at night. ttb Pt was seen at [facility] yesterday -- treated for leg pain/weakness with orthotics, ect. Main complaint is pt felt lightheaded around 6am this morning. Possibly constipated and decreased appetite. Some chest pain this morning, pt states, "their common". Adult Sepsis Screening: The patient does not have new or worsening altered mentation. Patient's respiratory rate is less than 22. Systolic blood pressure is greater than 100. Patient has a qSOFA score of 0- Negative Sepsis Screen. Suicide/Homicide risk assessment- the patient denies having any suicidal and/or homicidal ideations and does not present with any other emotional, behavioral or mental health complaints. 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 Transition of care: patient was not received from another setting of care. 15:46 Acuity: ANGELIQUE Level 3 ttb 15:46 Method Of Arrival: Walkin/Carried/Asstd ttb Triage Assessment: 15:52 General: Appears in no apparent distress, well nourished, well groomed, Behavior is ttb appropriate for age, cooperative, pleasant. Pain: Denies pain. Neurological: Level of Consciousness is awake, alert, Speech is normal, Facial symmetry appears normal. Neurological: Reports lightheadedness . Cardiovascular: Chest pain pt states he felt some this morning. None now.. Respiratory: No deficits noted. Airway is patent Respiratory effort is even, unlabored, Denies cough, shortness of breath. GI: Reports constipation, Denies nausea, vomiting, pain. Derm: Skin is normal. Injury Description: No known injury. Historical: - Allergies: no known allergies; - Home Meds: 1. warfarin 5 mg Oral tab 2.5 mg nightly all week except for Saturday (Last dose: 05/30/2016) 2. Vitamin C Oral 500 mg daily (Last dose: 05/31/2016 08:00) 3. Vitamin D Oral daily (Last dose: 05/31/2016 08:00) 4. Vitamin D3 1,000 unit oral cap daily (Last dose: 05/31/2016 08:00) 5. ranitidine HCl 150 mg Oral tab 1 tab 2 times per day (Last dose: 05/31/2016 08:00) 6. metoprolol tartrate 25 mg Oral tab 0.5 tab 2 times per day (Last dose: 05/31/2016 08:00) 7. tamsulosin 0.4 mg oral cp24 1 cap once daily 8. simvastatin 20 mg Oral tab 0.5 tab once daily (Last dose: 05/30/2016) 9. digoxin 125 mcg Oral tab 1 tab saturday/saturday/saturday M, W, F (Last dose: 05/30/2016) 10. bicalutamide 50 mg oral tab 1 tab once daily (Last dose: 05/31/2016 08:00) - PMHx: Atrial Fib; High Cholesterol; Hypertension; prostate CA; TIA 1994; RI 1994; - PSHx: Appendectomy; - Social history: Smoking status: Patient states was never smoker of tobacco. Patient/guardian denies using alcohol, street drugs, No barriers to communication noted, The patient speaks fluent Azeri, Speaks appropriately for age. - Family history: Not pertinent. - : The pt / caregiver states he / she is on anticoagulants: coumadin. Home medication list is obtained from the patient, family members. - Exposure Risk Screening:: None identified. - History obtained from: daughter. Screenin:12 Screening information is obtained from the patient. Fall risk: At risk due to age, The mlb1 following interventions are performed due to a positive Fall Risk Screen: Fall Risk is added to Special Handling on the patient Summary Screen. A Fall Risk Bracelet was applied to the patient. Side Rails are placed in the up position. A Call Grier is given with instruction to call for help when getting out of bed. Fall Alert bracelet is placed on the patient. Assistance ADL's: Requires assistance with meal preparation, this assistance is provided by family members, medication administration, assistance is provided by family members. Abuse/DV Screen: The patient / caregiver reports he/she is: not in a situation that causes fear, pain or injury. Nutritional screening: No deficits noted. Advance Directives: There is no active DNR order. home support is adequate. Assessment: 16:20 General: Appears in no apparent distress, Behavior is anxious, cooperative. Pain: mlb1 Denies pain. Neurological: Reports weakness. Neurological: Level of Consciousness is awake, alert, Oriented to person, place, time, Moves all extremities. Full function Speech is normal, Reports. Respiratory: Airway is patent Respiratory effort is even, unlabored, Breath sounds are clear bilaterally. Derm: No deficits noted. 17:30 General: Appears in no apparent distress, comfortable, to be sleeping. Respiratory: mlb1 Airway is patent Respiratory effort is even, unlabored. 18:09 General: Appears in no apparent distress, comfortable, to be sleeping. Respiratory: mlb1 Airway is patent Respiratory effort is even, unlabored. 19:03 General: Verbal report given by Casey Jordan RN. Assumed care of patient at this time.. kas2 Vital Signs: 15:40 BP 151 / 90; Pulse 117; Resp 18 S; Temp 97.7(O); Weight 59.87 kg (R); Height 5 ft. 6 gr2 in. (167.64 cm) (R); Pain 6/10; 16:33 BP 122 / 66 (auto/); jjr 16:33 Pulse 104 MON; Pulse Ox 98% ; jjr 16:47 Pulse 104 MON; Pulse Ox 90% ; jjr 16:48 BP 144 / 98 (auto/); jjr 17:03 BP 130 / 91 (auto/); jjr 17:33 BP 156 / 87 (auto/); mlb1 17:33 Pulse 114 MON; Pulse Ox 98% ; mlb1 17:48 BP 145 / 105 (auto/); mlb1 17:48 Pulse 104 MON; Pulse Ox 93% ; mlb1 18:03 BP 147 / 97 (auto/); mlb1 18:03 Pulse 112 MON; Pulse Ox 95% ; mlb1 18:18 BP 139 / 80 (auto/); kas2 18:18 Pulse 108 MON; Pulse Ox 94% ; kas2 18:48 BP 149 / 82 (auto/); kas2 18:48 Pulse 106 MON; Pulse Ox 97% ; kas2 19:03 BP 130 / 90 (auto/); kas2 19:03 Pulse 106 MON; Pulse Ox 96% ; kas2 19:04 BP 136 / 79 (auto/); kas2 19:04 Pulse 106 MON; Pulse Ox 96% ; kas2 19:06 BP 136 / 79; Pulse 104; Resp 18; Temp 98.9(TE); Pulse Ox 96% on R/A; Pain 0/10; mdr 15:40 Body Mass Index 21.31 (59.87 kg, 167.64 cm) gr2 15:40 UNABLE TO OBTAIN O2, MACHINE ISN'T READING. gr2 Vitals: 15:40 Log In Time: May 31, 2016 at 15:40. gr2 ED Course: 15:39 Patient visited by Baljit Osuna. gr2 15:39 [facility] is Private Physician. gr2 15:39 Patient moved to Waiting gr2 15:43 Patient visited by Baljit Osuna. gr2 15:43 Patient moved to Pre RCE gr2 15:49 Triage Initiated ttb 16:12 Patient moved to 18 mcp 16:15 [facility] ke 16:15 Patient visited by James Maya FNP. ke 16:15 Patient visited by James Maya FNP. ke 16:21 The patient / caregiver is instructed regarding the plan of care and ED course. mlb1 Accompanied by Family Member, Patient has correct armband on for positive identification. Placed in gown. Bed in low position. Call light in reach. Side rails up X2. laborer gold leaf on. Pulse ox on. NIBP on. 16:35 CBC with Diff Sent. mlb1 16:35 Cardiac Injury Profile Sent. mlb1 16:35 Lipase Sent. mlb1 16:35 Liver Profile Sent. mlb1 16:35 Prothrombin Time Profile\\E\\INR Sent. mlb1 16:35 Troponin Sent. mlb1 16:35 Inserted saline lock: 20 gauge in left antecubital area and blood collected. The mlb1 patient tolerated the procedure well. Labs drawn. (by ED staff). Sent per order to lab. 16:46 Patient visited by James Maya FNP. ke 16:58 [facility] Payment Agreement was scanned into [employer] and attached to record. gjb 17:03 Patient name changed from Brandon\\S\\\\S\\Esqueda\\S\\ to Brandon\\S\\ \\S\\Dheeraj. EDMS 17:16 Patient visited by James Maya FNP. ke 17:51 Patient visited by James Maya FNP. ke 18:12 Patient visited by Evan Jordan RN. mlb1 18:12 No procedures done that require assistance. mlb1 18:34 Patient visited by James Maya FNP. ke 18:56 Carmen BondRN is Primary Nurse. [facility] 19:01 [facility] [place] is Referral Physician. ke 19:07 Patient visited by Richard Laura PCA. mdr 19:11 Discontinued IV bleeding controlled, pressure dressing applied, No redness/swelling at [facility] site. 19:12 Patient visited by Carmen Bond RN. [facility] 20:00 Abdomen, Flat\\E\\Upright,PA Chest Returned. EDMS 06/01 07:50 T-Sheet-- Draft Copy was scanned into [employer] and attached to record. gb Administered Medications: 05/31 16:41 Drug: NS 0.9% 1000 ml [sodium chloride 0.9 % injection solution] Route: IV; Rate: mlb1 bolus; Site: left antecubital; 16:42 Drug: Ondansetron 4 mg [ondansetron HCl 2 mg/mL intravenous solution (2 mL)] Route: mlb1 IVP; Site: left antecubital; Order Results: Lab Order: Amylase; SPEC'M 05/31/16 16:29 Test: AMYLASE; Value: 29; Range: 25-115; Units: U/L; Status: F Lab Order: Basic Metabolic Profile; SPEC'M 05/31/16 16:29 Test: GLUCOSE, FASTING; Value: 122; Range: 83-110; Abnormal: Above high normal; Units: MG/DL; Status: F Test: BLOOD UREA NITROGEN; Value: 18; Range: 7-18; Units: MG/DL; Status: F Test: CREATININE FOR GFR; Value: 1.11; Range: 0.70-1.30; Units: MG/DL; Status: F Test: GLOMERULAR FILTRATION RATE; Value: > 60.0; Range: >35; Status: F Test: SODIUM LEVEL; Value: 138; Range: 136-145; Units: MEQ/L; Status: F Test: POTASSIUM SERUM; Value: 4.4; Range: 3.5-5.1; Units: MEQ/L; Status: F Test: CHLORIDE LEVEL; Value: 103; Range: 98-107; Units: MEQ/L; Status: F Test: CARBON DIOXIDE LEVEL; Value: 27; Range: 21-32; Units: MEQ/L; Status: F Test: ANION GAP; Value: 8; Range: 8-16; Units: MEQ/L; Status: F Test: CALCIUM LEVEL; Value: 8.5; Range: 8.8-10.2; Abnormal: Below low normal; Units: MG/DL; Status: F Test Note: ; Units are mL/min/1.73 m2 Chronic Kidney Disease Staging per NKF: Stage I & II GFR >=60 Normal to Mildly Decreased Stage III GFR 30-59 Moderately Decreased Stage IV GFR 15-29 Severely Decreased Stage V GFR <15 Very Little GFR Left ESRD GFR <15 on SHOE STICKS REPAIRER Lab Order: CBC with Diff; SPEC'M 05/31/16 16:29 Test: WHITE BLOOD COUNT; Value: 12.2; Range: 4.0-10.0; Abnormal: Above high normal; Units: K/mm3; Status: F Test: RED BLOOD COUNT; Value: 3.94; Range: 4.30-6.10; Abnormal: Below low normal; Units: M/mm3; Status: F Test: HEMOGLOBIN; Value: 12.4; Range: 14.0-18.0; Abnormal: Below low normal; Units: g/dl; Status: F Test: HEMATOCRIT; Value: 35.3; Range: 42.0-52.0; Abnormal: Below low normal; Units: %; Status: F Test: MEAN CORPUSCULAR VOLUME; Value: 89.7; Range: 80.0-96.0; Units: fl; Status: F Test: MEAN CORPUSCULAR HEMOGLOBIN; Value: 31.6; Range: 27.0-33.0; Units: pg; Status: F Test: MEAN CORPUSCULAR HGB CONC; Value: 35.2; Range: 32.0-36.5; Units: g/dl; Status: F Test: RED CELL DISTRIBUTION WIDTH; Value: 14.6; Range: 11.5-14.5; Abnormal: Above high normal; Units: %; Status: F Test: PLATELET COUNT, AUTOMATED; Value: 173; Range: 150-450; Units: k/mm3; Status: F Test: NEUTROPHILS %; Value: 82.2; Range: 36.0-66.0; Abnormal: Above high normal; Units: %; Status: F Test: LYMPH %; Value: 7.3; Range: 24.0-44.0; Abnormal: Below low normal; Units: %; Status: F Test: MONO %; Value: 6.9; Range: 0.0-5.0; Abnormal: Above high normal; Units: %; Status: F Test: EOS %; Value: 0.9; Range: 0.0-3.0; Units: %; Status: F Test: BASO %; Value: 1.1; Range: 0.0-1.0; Abnormal: Above high normal; Units: %; Status: F Test: LARGE UNSTAINED CELL %; Value: 1.6; Range: 0.0-4.0; Units: %; Status: F Test: NEUTROPHILS #; Value: 10.0; Range: 1.8-7.7; Abnormal: Above high normal; Units: K/mm3; Status: F Test: LYMPH #; Value: 1.1; Range: 1.5-4.5; Abnormal: Below low normal; Units: K/mm3; Status: F Test: MONO #; Value: 0.8; Range: 0.0-0.8; Units: K/mm3; Status: F Test: EOS #; Value: 0.1; Range: 0.0-0.50; Units: K/mm3; Status: F Test: BASO #; Value: 0.1; Range: 0.0-0.2; Units: K/mm3; Status: F Test: LARGE UNSTAINED CELL #; Value: 0.2; Range: 0.0-0.4; Units: K/mm3; Status: F Lab Order: Cardiac Injury Profile; SPEC'M 05/31/16 16:29 Test: CPK CREATINE PHOSPHOKINASE; Value: 93; Range: 39-308; Units: U/L; Status: F Test: CK-MB VALUE MASS; Value: 1.5; Range: 0.0-3.6; Units: NG/ML; Status: F Test: MB/CK RELATIVE INDEX; Value: 1.61; Range: < OR =4; Status: F Test Note: ; DIAGNOSIS CRITERIA MMB ng/ml Relative Index (RI) NON-AMI < or = 5 N/A [place] > 5 < or = 4 AMI > 5 > 4 Lab Order: Lipase; [facility] 05/31/16 16:29 Test: LIPASE; Value: 86; Range: 73-393; Units: U/L; Status: F Lab Order: Liver Profile; [facility] 05/31/16 16:29 Test: AST/SGOT; Value: 18; Range: 15-37; Units: U/L; Status: F Test: ALT/SGPT; Value: 21; Range: 12-78; Units: U/L; Status: F Test: ALKALINE PHOSPHATASE; Value: 74; Range: 45-117; Units: U/L; Status: F Test: BILIRUBIN,TOTAL; Value: 1.1; Range: 0.2-1.0; Abnormal: Above high normal; Units: MG/DL; Status: F Test: BILIRUBIN,DIRECT; Value: 0.3; Range: 0.0-0.2; Abnormal: Above high normal; Units: MG/DL; Status: F Test: TOTAL PROTEIN; Value: 6.6; Range: 6.4-8.2; Units: GM/DL; Status: F Test: ALBUMIN; Value: 4.0; Range: 3.2-5.2; Units: GM/DL; Status: F Test: ALBUMIN/GLOBULIN RATIO; Value: 1.54; Range: 1.00-1.93; Status: F Lab Order: Prothrombin Time Profile\\E\\INR; [facility] 05/31/16 16:29 Test: PROTHROMBIN TIME; Value: 19.2; Range: 12.3-14.5; Abnormal: Above high normal; Units: SECONDS; Status: F Test: INR; Value: 1.61; Status: F Test Note: ; THERAPUTIC HUMAN INR VALUES INDICATIONS NORMAL RANGES PROPHYLAXIS/TREATMENT OF: VENOUS THROMBOSIS 2.0-3.0 PULMONARY EMBOLISM 2.0-3.0 PREVENTION OF SYSTEMIC EMBOLISM FROM: TISSUE HEART VALVES 2.0-3.0 ACUTE MYOCARDIAL INFARCTION 2.0-3.0 VALVULAR HEART DISEASE 2.0-3.0 ATRIAL FIBRILLATION 2.0-3.0 MECHANICAL VALVES(HIGH RISK) 2.5-3.5 RECURRENT MYOCARDIAL INFARCTION 2.5-3.5 Lab Order: Troponin; SPEC'M 05/31/16 16:29 Test: TROPONIN I; Value: < 0.02; Range: < 0.10; Units: NG/ML; Status: F Test Note: ; Troponin I Reference Interval for [employer] LOCI: 99th Percentile= 0.00-0.045 ng/ml Risk Stratification: <= 0.10 ng/ml Decreased Risk for Adverse Clinical Events. 0.10-1.50 ng/ml Increased Risk for Adverse Clinical Events. Evaluation of additional criterion and/or repeat testing in 2-6 hours is suggested to rule out myocardial damage. >= 1.50 ng/ml Indicative of Myocardial Injury. Lab Order: Urinalysis; SPEC'M 05/31/16 18:31 Test: APPEARANCE, URINE; Value: CLEAR; Range: CLEAR; Status: F Test: COLOR, URINE; Value: YELLOW; Range: YELLOW; Status: F Test: PH,URINE; Value: 5.0; Range: 5.0-9.0; Units: UNITS; Status: F Test: SPECIFIC GRAVITY URINE AUTO; Value: 1.009; Range: 1.002-1.035; Status: F Test: PROTEIN, URINE AUTO; Value: NEGATIVE; Range: NEGATIVE; Units: mg/dL; Status: F Test: GLUCOSE, URINE (UA) AUTO; Value: NEGATIVE; Range: NEGATIVE; Units: mg/dL; Status: F Test: KETONE, URINE AUTO; Value: NEGATIVE; Range: NEGATIVE; Units: mg/dL; Status: F Test: UROBILINOGEN, URINE AUTO; Value: 0.2; Range: 0.0-2.0; Units: mg/dL; Status: F Test: BILIRUBIN, URINE AUTO; Value: NEGATIVE; Range: NEGATIVE; Status: F Test: NITRITE, URINE AUTO; Value: NEGATIVE; Range: NEGATIVE; Status: F Test: LEUKOCYTE ESTERASE, URINE AUTO; Value: NEGATIVE; Range: NEGATIVE; Status: F Test: BLOOD, URINE BLOOD; Value: 1+; Range: NEGATIVE; Abnormal: Above high normal; Status: F Test: WBC, URINE AUTO; Value: 0; Range: 0-3; Units: /HPF; Status: F Test: RBC, URINE AUTO; Value: 5; Range: 0-3; Abnormal: Above high normal; Units: /HPF; Status: F Test: BACTERIA, URINE AUTO; Value: 1+; Range: NEGATIVE; Abnormal: Above high normal; Status: F Test: SQUAMOUS EPITHELIAL CELL UR AU; Value: 0; Range: 0-6; Units: /HPF; Status: F Test: MUCUS, URINE; Value: SMALL; Range: NEGATIVE; Status: F Test: HYALINE CAST, URINE AUTO; Value: 0; Range: 0-1; Units: /LPF; Status: F Lab Order: Urine Culture; SPEC'M 05/31/16 18:31 Test: URINE CULTURE; Value: URINE CULTURE RESULT NO GROWTH; Status: F Lab Order: DIGOXIN LEVEL; SPEC'M 05/31/16 16:29 Test: DIGOXIN LEVEL; Value: 0.5; Range: 0.5-2.0; Units: NG/ML; Status: F Radiology Order: Abdomen, Flat\\E\\Upright,PA Chest Test: Abdomen, Flat\\E\\Upright,PA Chest REASON FOR EXAMINATION: weakness; Abdominal series 05/31/2016; ; Indication: Weakness; ; Comparison AP chest 04/06/2016; ; Findings: Cardiac silhouette i there are atherosclerotic changes are noted in; the thoracic aorta. Small amount of fibrotic scarring is present in the lung; bases, left greater than right; ; Impression : mild cardiomegaly; ; Small amount of bibasilar fibrotic scarring, left greater than right; ; ; ; Flat and upright KUB 05/31/2016; ; Indication: weakness; ; Findings: There is moderate retained colonic stool. The bowel gas pattern is; nonspecific and there is no free intraperitoneal air. Artery calcifications are; noted left upper quadrant; ; There is a 5 mm calcification projected over the lower pole right kidney; ; Bones are mildly osteopenic; ; Impression; 1. Moderate retained colonic stool with nonspecific bowel gas pattern. No free; intraperitoneal air.; ; ; 2. 5 x 2 mm calcification projected over lower pole right kidney; ; ; ; ; Signed by; Yumiko Metzger MD 05/31/2016 07:16 P; Outcome: 19:02 Discharge ordered by Provider. pa 19:12 Discharge Assessment: patient administered narcotics - no. The following High Risk [facility] Discharge criteria are identified: None. Discharged to home via wheelchair, with family. Condition: good Condition: stable Condition: improved. 19:12 No special radiology studies were completed. Property :Personal belongings accompany Pt.kas2 19:16 Patient left the ED. kas2 Signatures: Dispatcher [employer] EDMS Meaghan Madison, RN RN Fatemeh Mirza, James De La O, BUILDING MAINTENANCE SUPERINTENDENT BUILDING MAINTENANCE SUPERINTENDENT Evan Maloney RN RN mlb1 Kiera Osuna RN RN Katherine Oliveira RN RN Blajit Smith gr2 Richard Laura, [employer] DEVELOPMENT SPECIALIST Alyson Leone KimRN RN [facility] Chart Complete MTDD
== END 2016-05-31 19:16 | disposition home or self-care (01) ==
LOC: M ED 15:38
DX: R53.83 Other fatigue (principal); R53.81 Other malaise; I48.91 Unspecified atrial fibrillation; I10 Essential (primary) hypertension; C61 Malignant neoplasm of prostate; E78.00 Pure hypercholesterolemia, unspecified; Z86.73 Personal history of transient ischemic attack (TIA), and cerebral infarction without residual deficits; Z79.01 Long term (current) use of anticoagulants; Z79.899 Other long term (current) drug therapy
CPT/HCPCS: 36415; 74022; 80048; 80076; 80162; 81001; 82150; 82550; 82553; 83690; 84484; 85025; 85610; 87086; 96374; 99284; J2405

== ENCOUNTER 2016-08-20 04:25 | Emergency (ER) | payer MEDICARE, OTHER ==
[~2016-08-20] VITALS: Ht 167.6 cm; Wt 59.9 kg
[2016-08-20] MEDS ORDERED: COUM2TAB10 PO (04:47)
[2016-08-20] MEDS ORDERED: SIMV40TA2 PO (04:47)
[2016-08-20] MEDS ORDERED: VITA500055 PO (04:47)
[2016-08-20] MEDS ORDERED: BICA50TA2 PO (04:47)
[2016-08-20] MEDS ORDERED: VITA500C10 PO (04:47)
[2016-08-20] MEDS ORDERED: METO25TA74 PO (04:47)
[2016-08-20] MEDS ORDERED: DIGO0.127 PO (04:47)
[2016-08-20] MEDS ORDERED: RANI1TAB6 PO (04:47)
[2016-08-20] MEDS ORDERED: TESS100C PO (07:47)
--- NOTE | 2016-08-20 07:48 | REP ---
Clinical: Acute cough . Comparison: 05/31/2016 of the . Technique: PA and lateral. Findings: The mediastinum and cardiac silhouette are normal. The lung wilder demonstrate chronic stable changes and without acute consolidation, effusion, or pneumothorax. The skeletal structures are intact and normal. Impression: 1. No acute cardiopulmonary process. Signed by Atif Oswald MD 08/20/2016 07:39 A
[2016-08-20 08:05] VITALS: BP 124/77
== END 2016-08-20 08:09 | disposition home or self-care (01) ==
LOC: M ED 05:49
DX: J06.9 Acute upper respiratory infection, unspecified (principal); I10 Essential (primary) hypertension; I48.91 Unspecified atrial fibrillation; I25.10 Atherosclerotic heart disease of native coronary artery without angina pectoris; Z86.73 Personal history of transient ischemic attack (TIA), and cerebral infarction without residual deficits; Z85.46 Personal history of malignant neoplasm of prostate; Z79.899 Other long term (current) drug therapy; Z79.01 Long term (current) use of anticoagulants; Z87.891 Personal history of nicotine dependence

== ENCOUNTER 2017-05-25 09:26 | Emergency (ER) | payer MEDICARE, OTHER ==
[2017-05-25 10:22] LABS: BASO # 0.1 10^3/uL (0.0-0.2); BASO % 0.7 % (0.0-1.0); EOS # 0.1 10^3/uL (0.0-0.50); EOS % 0.8 % (0.0-3.0); IMMATURE GRANULOCYTE % 0.4 % (0-0); LYMPH # 1.6 10^3/uL (1.5-4.5); LYMPH % 15.5 % (24.0-44.0); MEAN CORPUSCULAR HEMOGLOBIN 32.1 pg (27.0-33.0); MEAN CORPUSCULAR HGB CONC 34.3 g/dl (32.0-36.5); MEAN CORPUSCULAR VOLUME 93.8 fl (80.0-96.0); MONO # 0.7 10^3/uL (0.0-0.8); MONO % 6.8 % (0.0-5.0); NEUTROPHILS # 7.9 10^3/uL (1.8-7.7); NEUTROPHILS % 75.8 % (36.0-66.0); WHITE BLOOD COUNT 10.4 10^3/uL (4.0-10.0)
[2017-05-25 10:45] LABS: INR 1.99
[2017-05-25 10:54] LABS: ADD MANUAL DIFFER NO; DIFF SLIDE NUMBER 121; PLATELET COUNT, AUTOMATED 95 10^3/uL (150-450)
[2017-05-25 10:55] LABS: IMMATURE PLATELET FRACTION % 2.8 % (0.0-10.9)
[2017-05-25 11:25] LABS: ANION GAP 5 MEQ/L (8-16); BLOOD UREA NITROGEN 20 MG/DL (7-18); CALCIUM LEVEL 8.4 MG/DL (8.8-10.2); CARBON DIOXIDE LEVEL 29 MEQ/L (21-32); CHLORIDE LEVEL 106 MEQ/L (98-107); CREATININE FOR GFR 1.06 MG/DL (0.70-1.30); GLOMERULAR FILTRATION RATE > 60.0 (>35); GLUCOSE, FASTING 92 MG/DL (83-110); MAGNESIUM LEVEL 2.2 MG/DL (1.8-2.4); POTASSIUM SERUM 4.4 MEQ/L (3.5-5.1); SODIUM LEVEL 140 MEQ/L (136-145)
[2017-05-25 11:47] LABS: DIGOXIN LEVEL 0.5 NG/ML (0.5-2.0)
[2017-05-25] MEDS: NS 500 ML IV (12:00)
== END 2017-05-25 17:30 | disposition home or self-care (01) ==
LOC: M ED 09:26
DX: R55 Syncope and collapse (principal); I10 Essential (primary) hypertension; I48.91 Unspecified atrial fibrillation; K21.9 Gastro-esophageal reflux disease without esophagitis; Z86.73 Personal history of transient ischemic attack (TIA), and cerebral infarction without residual deficits; Z85.46 Personal history of malignant neoplasm of prostate; Z79.899 Other long term (current) drug therapy; Z79.01 Long term (current) use of anticoagulants
CPT/HCPCS: 93005

== ENCOUNTER 2017-06-06 07:58 | Emergency (ER) | payer MEDICARE, OTHER ==
[2017-06-06 09:33] LABS: BASO # 0.1 10^3/uL (0.0-0.2); BASO % 0.7 % (0.0-1.0); EOS # 0.1 10^3/uL (0.0-0.50); EOS % 0.9 % (0.0-3.0); HEMATOCRIT 35.8 % (42.0-52.0); HEMOGLOBIN 12.3 g/dl (14.0-18.0); IMMATURE GRANULOCYTE # 0.1 10^3/uL (0-0); IMMATURE GRANULOCYTE % 0.7 % (0-0); LYMPH # 1.9 10^3/uL (1.5-4.5); LYMPH % 12.8 % (24.0-44.0); MEAN CORPUSCULAR HEMOGLOBIN 32.3 pg (27.0-33.0); MEAN CORPUSCULAR HGB CONC 34.4 g/dl (32.0-36.5); MONO # 1.2 10^3/uL (0.0-0.8); MONO % 7.7 % (0.0-5.0); NEUTROPHILS # 11.5 10^3/uL (1.8-7.7); NEUTROPHILS % 77.2 % (36.0-66.0); PLATELET COUNT, AUTOMATED 255 10^3/uL (150-450); RED BLOOD COUNT 3.81 10^6/uL (4.30-6.10); RED CELL DISTRIBUTION WIDTH 13.8 % (11.5-14.5); WHITE BLOOD COUNT 14.9 10^3/uL (4.0-10.0)
[2017-06-06 09:54] LABS: ANION GAP 6 MEQ/L (8-16); BLOOD UREA NITROGEN 20 MG/DL (7-18); C REACTIVE PROTEIN QUANTITATIV 0.89 MG/DL (0.00-0.30); CARBON DIOXIDE LEVEL 28 MEQ/L (21-32); CHLORIDE LEVEL 104 MEQ/L (98-107); CREATININE FOR GFR 0.98 MG/DL (0.70-1.30); GLOMERULAR FILTRATION RATE > 60.0 (>35); GLUCOSE, FASTING 97 MG/DL (83-110); POTASSIUM SERUM 4.5 MEQ/L (3.5-5.1); SODIUM LEVEL 138 MEQ/L (136-145)
[2017-06-06 09:55] LABS: PROTHROMBIN TIME 23.4 SECONDS (12.4-14.5)
[2017-06-06 09:56] LABS: PARTIAL THROMBOPLASTIN TIME 39.7 SECONDS (26.8-37.9)
[2017-06-06 09:57] LABS: LACTIC ACID SEPSIS PROTOCOL 1.7 MMOL/L (0.4-2.0)
[2017-06-06 10:09] LABS: ERYTHROCYTE SEDIMENTATION RATE 28 mm/hr (0-30)
[2017-06-06 10:13] LABS: D-DIMER QUANT < 270.0 ng/ml (<500)
== END 2017-06-06 12:46 | disposition home or self-care (01) ==
LOC: M ED 07:58
DX: L95.9 Vasculitis limited to the skin, unspecified (principal); R06.02 Shortness of breath; I10 Essential (primary) hypertension; I48.91 Unspecified atrial fibrillation; E78.5 Hyperlipidemia, unspecified; K21.9 Gastro-esophageal reflux disease without esophagitis; I25.2 Old myocardial infarction; H26.9 Unspecified cataract; Z86.73 Personal history of transient ischemic attack (TIA), and cerebral infarction without residual deficits; Z79.899 Other long term (current) drug therapy; Z79.01 Long term (current) use of anticoagulants
CPT/HCPCS: 73630

== ENCOUNTER 2017-06-26 19:32 | Inpatient (IN) | payer MEDICARE, OTHER ==
[2017-06-26] MEDS: WARFARIN SOD 3 MG TAB PO (21:00)
[2017-06-26] MEDS: BICALUTAMIDE 50 MG TAB PO (21:00)
[2017-06-26] MEDS: FAMOTIDINE 20 MG TAB PO (21:00)
[2017-06-26] MEDS: SIMVASTATIN 20 MG TAB PO (21:00)
[2017-06-26 21:45] LABS: BASO # 0.1 10^3/uL (0.0-0.2); BASO % 0.5 % (0.0-1.0); EOS # 0.1 10^3/uL (0.0-0.50); HEMATOCRIT 36.5 % (42.0-52.0); HEMOGLOBIN 12.3 g/dl (14.0-18.0); IMMATURE GRANULOCYTE # 0.1 10^3/uL (0-0); IMMATURE GRANULOCYTE % 0.5 % (0-0); LYMPH # 0.6 10^3/uL (1.5-4.5); LYMPH % 5.8 % (24.0-44.0); MEAN CORPUSCULAR HEMOGLOBIN 31.7 pg (27.0-33.0); MEAN CORPUSCULAR HGB CONC 33.7 g/dl (32.0-36.5); MEAN CORPUSCULAR VOLUME 94.1 fl (80.0-96.0); MONO # 0.9 10^3/uL (0.0-0.8); MONO % 9.6 % (0.0-5.0); NEUTROPHILS % 82.6 % (36.0-66.0); PLATELET COUNT, AUTOMATED 158 10^3/uL (150-450); RED BLOOD COUNT 3.88 10^6/uL (4.30-6.10); RED CELL DISTRIBUTION WIDTH 14.6 % (11.5-14.5); WHITE BLOOD COUNT 9.6 10^3/uL (4.0-10.0)
[2017-06-26 21:57] LABS: INR 2.43; PROTHROMBIN TIME 27.4 SECONDS (12.4-14.5)
[2017-06-26 21:58] LABS: PARTIAL THROMBOPLASTIN TIME 49.7 SECONDS (26.8-37.9)
[2017-06-26 22:15] LABS: ALBUMIN/GLOBULIN RATIO 1.21 (1.00-1.93); ALKALINE PHOSPHATASE 68 U/L (45-117); ALT/SGPT 19 U/L (12-78); ANION GAP 8 MEQ/L (8-16); AST/SGOT 20 U/L (7-37); BILIRUBIN,DIRECT 0.3 MG/DL (0.0-0.2); BLOOD UREA NITROGEN 13 MG/DL (7-18); CALCIUM LEVEL 8.6 MG/DL (8.8-10.2); CARBON DIOXIDE LEVEL 25 MEQ/L (21-32); CHLORIDE LEVEL 105 MEQ/L (98-107); CPK CREATINE PHOSPHOKINASE 96 U/L (39-308); CREATININE FOR GFR 1.03 MG/DL (0.70-1.30); GLOMERULAR FILTRATION RATE > 60.0 (>35); GLUCOSE, FASTING 115 MG/DL (70-100); LIPASE 137 U/L (73-393); POTASSIUM SERUM 4.1 MEQ/L (3.5-5.1); SODIUM LEVEL 138 MEQ/L (136-145); TOTAL PROTEIN 7.3 GM/DL (6.4-8.2); TROPONIN I 0.02 NG/ML (< 0.10)
[2017-06-26 22:24] LABS: DIGOXIN LEVEL 0.6 NG/ML (0.5-2.0); MB/CK RELATIVE INDEX 1.04 (< OR =4); NT-PRO BNP 6720 PG/ML (<450)
[2017-06-26 22:26] LABS: INFLUENZA A AMPLIFICATION POSITIVE (NEGATIVE); INFLUENZA B AMPLIFICATION NEGATIVE (NEGATIVE)
[2017-06-26] MEDS: FUROSEMIDE 40 MG/4 ML VIAL (J1940) IV (22:59)
[2017-06-26] MEDS: NITROGLYCERIN 2% OINT 1 GM *U/D* PKT TOP (22:59)
[2017-06-27] MEDS ORDERED: guaiFENesin DM LIQ 10ML UD PO (00:15)
[2017-06-27] MEDS: METOPROLOL TART 25 MG TABLET PO ×6 (00:15→23:39)
[2017-06-27] MEDS: METOPROLOL 5 MG/5 ML VIAL IV (00:26)
[2017-06-27] MEDS ORDERED: SALIVA SUBSTITUTE(MOUTHKOTE) BTL MT (00:30)
[2017-06-27] MEDS ORDERED: ONDANSETRON 4MG/2ML VIAL (J2405) IV (01:15)
[2017-06-27] MEDS: ACETAMINOPHEN TAB 650MG DOSE (2X325MG) PO ×2 (04:43→23:41)
[2017-06-27] MEDS: SLF 3 ML SYR IV ×4 (05:01→20:38)
[2017-06-27 05:31] LABS: HEMATOCRIT 34.1 % (42.0-52.0); HEMOGLOBIN 11.5 g/dl (14.0-18.0); MEAN CORPUSCULAR HEMOGLOBIN 31.4 pg (27.0-33.0); MEAN CORPUSCULAR HGB CONC 33.7 g/dl (32.0-36.5); MEAN CORPUSCULAR VOLUME 93.2 fl (80.0-96.0); PLATELET COUNT, AUTOMATED 165 10^3/uL (150-450); RED BLOOD COUNT 3.66 10^6/uL (4.30-6.10); RED CELL DISTRIBUTION WIDTH 14.5 % (11.5-14.5); WHITE BLOOD COUNT 9.1 10^3/uL (4.0-10.0)
[2017-06-27 05:44] LABS: INR 2.44; PROTHROMBIN TIME 27.5 SECONDS (12.4-14.5)
[2017-06-27 05:51] LABS: ANION GAP 9 MEQ/L (8-16); BLOOD UREA NITROGEN 15 MG/DL (7-18); CALCIUM LEVEL 8.4 MG/DL (8.8-10.2); CARBON DIOXIDE LEVEL 28 MEQ/L (21-32); CHLORIDE LEVEL 99 MEQ/L (98-107); CREATININE FOR GFR 1.04 MG/DL (0.70-1.30); GLOMERULAR FILTRATION RATE > 60.0 (>35); GLUCOSE, FASTING 106 MG/DL (70-100); POTASSIUM SERUM 3.7 MEQ/L (3.5-5.1); SODIUM LEVEL 136 MEQ/L (136-145)
[2017-06-27] MEDS ORDERED: METOPROLOL SUCC *XL* 25MG TAB (TopROL *XL*) PO (09:00)
[2017-06-27] MEDS ORDERED: FAMOTIDINE 20 MG TAB PO (09:00)
[2017-06-27] MEDS: VITAMIN D 1,000 INTERNATIONAL UNITS TABLET PO (09:39)
[2017-06-27] MEDS: TAMSULOSIN 0.4 MG CAP PO (09:40)
[2017-06-27] MEDS: FUROSEMIDE 20 MG/2 ML VIAL (J1940) IV (09:40)
[2017-06-27] MEDS: ASCORBIC ACID 500 MG TAB PO (09:40)
[2017-06-27] MEDS: OSELTAMIVIR PHOSPHATE 30MG CAPSULE PO ×2 (09:40→20:26)
[2017-06-27] MEDS: FAMOTIDINE 20 MG TAB PO ×2 (09:42→20:26)
[2017-06-27] MEDS: BICALUTAMIDE 50 MG TAB PO (20:26)
[2017-06-27] MEDS: WARFARIN SOD 2 MG TAB PO (20:26)
[2017-06-27] MEDS: SIMVASTATIN 20 MG TAB PO (20:26)
[2017-06-28] MEDS: SLF 3 ML SYR IV ×3 (06:12→22:00)
[2017-06-28] MEDS: METOPROLOL TART 25 MG TABLET PO ×3 (06:12→17:24)
[2017-06-28 06:19] LABS: HEMATOCRIT 35.3 % (42.0-52.0); HEMOGLOBIN 11.9 g/dl (14.0-18.0); MEAN CORPUSCULAR HEMOGLOBIN 31.4 pg (27.0-33.0); MEAN CORPUSCULAR HGB CONC 33.7 g/dl (32.0-36.5); MEAN CORPUSCULAR VOLUME 93.1 fl (80.0-96.0); PLATELET COUNT, AUTOMATED 169 10^3/uL (150-450); RED BLOOD COUNT 3.79 10^6/uL (4.30-6.10); RED CELL DISTRIBUTION WIDTH 14.8 % (11.5-14.5); WHITE BLOOD COUNT 7.2 10^3/uL (4.0-10.0)
[2017-06-28 06:30] LABS: PROTHROMBIN TIME 31.6 SECONDS (12.4-14.5)
[2017-06-28 06:35] LABS: ANION GAP 7 MEQ/L (8-16); BLOOD UREA NITROGEN 22 MG/DL (7-18); CALCIUM LEVEL 8.5 MG/DL (8.8-10.2); CARBON DIOXIDE LEVEL 32 MEQ/L (21-32); CHLORIDE LEVEL 97 MEQ/L (98-107); CREATININE FOR GFR 1.05 MG/DL (0.70-1.30); GLOMERULAR FILTRATION RATE > 60.0 (>35); GLUCOSE, FASTING 98 MG/DL (70-100); POTASSIUM SERUM 3.7 MEQ/L (3.5-5.1); SODIUM LEVEL 136 MEQ/L (136-145)
[2017-06-28] MEDS: VITAMIN D 1,000 INTERNATIONAL UNITS TABLET PO (08:21)
[2017-06-28] MEDS: TAMSULOSIN 0.4 MG CAP PO (08:22)
[2017-06-28] MEDS: ASCORBIC ACID 500 MG TAB PO (08:22)
[2017-06-28] MEDS: DIGOXIN 0.125 MG TAB PO (08:22)
[2017-06-28] MEDS: FAMOTIDINE 20 MG TAB PO ×2 (08:22→22:31)
[2017-06-28] MEDS: OSELTAMIVIR PHOSPHATE 30MG CAPSULE PO ×2 (08:22→22:31)
[2017-06-28] MEDS: FUROSEMIDE 20 MG/2 ML VIAL (J1940) IV (08:22)
[2017-06-28] MEDS: WARFARIN SOD 3 MG TAB PO (22:31)
[2017-06-28] MEDS: BICALUTAMIDE 50 MG TAB PO (22:31)
[2017-06-28] MEDS: ACETAMINOPHEN TAB 650MG DOSE (2X325MG) PO (22:31)
[2017-06-28] MEDS: SIMVASTATIN 20 MG TAB PO (22:31)
[2017-06-29] MEDS: METOPROLOL TART 25 MG TABLET PO ×4 (00:31→17:48)
[2017-06-29] MEDS: SLF 3 ML SYR IV ×3 (05:52→22:14)
[2017-06-29 07:02] LABS: HEMATOCRIT 36.3 % (42.0-52.0); HEMOGLOBIN 12.4 g/dl (14.0-18.0); MEAN CORPUSCULAR HEMOGLOBIN 31.3 pg (27.0-33.0); MEAN CORPUSCULAR HGB CONC 34.2 g/dl (32.0-36.5); MEAN CORPUSCULAR VOLUME 91.7 fl (80.0-96.0); PLATELET COUNT, AUTOMATED 173 10^3/uL (150-450); RED BLOOD COUNT 3.96 10^6/uL (4.30-6.10); RED CELL DISTRIBUTION WIDTH 14.6 % (11.5-14.5); WHITE BLOOD COUNT 6.2 10^3/uL (4.0-10.0)
[2017-06-29 07:18] LABS: ANION GAP 5 MEQ/L (8-16); BLOOD UREA NITROGEN 28 MG/DL (7-18); CALCIUM LEVEL 8.5 MG/DL (8.8-10.2); CARBON DIOXIDE LEVEL 34 MEQ/L (21-32); CHLORIDE LEVEL 98 MEQ/L (98-107); CREATININE FOR GFR 0.96 MG/DL (0.70-1.30); GLOMERULAR FILTRATION RATE > 60.0 (>35); GLUCOSE, FASTING 94 MG/DL (70-100); POTASSIUM SERUM 3.6 MEQ/L (3.5-5.1); SODIUM LEVEL 137 MEQ/L (136-145)
[2017-06-29 07:19] LABS: INR 3.32; PROTHROMBIN TIME 35.3 SECONDS (12.4-14.5)
[2017-06-29] MEDS: FUROSEMIDE 20 MG/2 ML VIAL (J1940) IV (09:28)
[2017-06-29] MEDS: VITAMIN D 1,000 INTERNATIONAL UNITS TABLET PO (09:28)
[2017-06-29] MEDS: OSELTAMIVIR PHOSPHATE 30MG CAPSULE PO ×2 (09:29→22:13)
[2017-06-29] MEDS: ASCORBIC ACID 500 MG TAB PO (09:29)
[2017-06-29] MEDS: FAMOTIDINE 20 MG TAB PO ×2 (09:29→22:14)
[2017-06-29] MEDS: TAMSULOSIN 0.4 MG CAP PO (09:29)
[2017-06-29] MEDS: SIMVASTATIN 20 MG TAB PO (22:13)
[2017-06-29] MEDS: ACETAMINOPHEN TAB 650MG DOSE (2X325MG) PO (22:14)
[2017-06-29] MEDS: BICALUTAMIDE 50 MG TAB PO (22:14)
[2017-06-30] MEDS: METOPROLOL TART 25 MG TABLET PO ×4 (00:02→17:34)
[2017-06-30] MEDS: SLF 3 ML SYR IV ×3 (06:02→20:10)
[2017-06-30 06:29] LABS: HEMATOCRIT 35.8 % (42.0-52.0); HEMOGLOBIN 12.5 g/dl (14.0-18.0); MEAN CORPUSCULAR HEMOGLOBIN 31.6 pg (27.0-33.0); MEAN CORPUSCULAR HGB CONC 34.9 g/dl (32.0-36.5); MEAN CORPUSCULAR VOLUME 90.6 fl (80.0-96.0); PLATELET COUNT, AUTOMATED 196 10^3/uL (150-450); RED BLOOD COUNT 3.95 10^6/uL (4.30-6.10); RED CELL DISTRIBUTION WIDTH 14.6 % (11.5-14.5); WHITE BLOOD COUNT 6.8 10^3/uL (4.0-10.0)
[2017-06-30 06:38] LABS: INR 3.92; PROTHROMBIN TIME 40.4 SECONDS (12.4-14.5)
[2017-06-30 06:45] LABS: ANION GAP 7 MEQ/L (8-16); BLOOD UREA NITROGEN 27 MG/DL (7-18); CALCIUM LEVEL 8.5 MG/DL (8.8-10.2); CARBON DIOXIDE LEVEL 33 MEQ/L (21-32); CHLORIDE LEVEL 95 MEQ/L (98-107); CREATININE FOR GFR 0.92 MG/DL (0.70-1.30); GLOMERULAR FILTRATION RATE > 60.0 (>35); GLUCOSE, FASTING 95 MG/DL (70-100); POTASSIUM SERUM 3.2 MEQ/L (3.5-5.1); SODIUM LEVEL 135 MEQ/L (136-145)
[2017-06-30] MEDS: VITAMIN D 1,000 INTERNATIONAL UNITS TABLET PO (09:31)
[2017-06-30] MEDS: OSELTAMIVIR PHOSPHATE 30MG CAPSULE PO ×2 (09:32→20:10)
[2017-06-30] MEDS: FUROSEMIDE 20 MG/2 ML VIAL (J1940) IV (09:32)
[2017-06-30] MEDS: ASCORBIC ACID 500 MG TAB PO (09:32)
[2017-06-30] MEDS: TAMSULOSIN 0.4 MG CAP PO (09:32)
[2017-06-30] MEDS: FAMOTIDINE 20 MG TAB PO ×2 (09:33→20:10)
[2017-06-30] MEDS: POTASSIUM CHLORIDE 10 MEQ SR TABLET PO ×2 (14:00→20:10)
[2017-06-30] MEDS: SIMVASTATIN 20 MG TAB PO (20:10)
[2017-06-30] MEDS: BICALUTAMIDE 50 MG TAB PO (20:17)
[2017-07-01] MEDS: METOPROLOL TART 25 MG TABLET PO ×4 (00:53→18:30)
[2017-07-01] MEDS: SLF 3 ML SYR IV ×3 (05:52→20:14)
[2017-07-01 06:10] LABS: HEMATOCRIT 41.1 % (42.0-52.0); HEMOGLOBIN 14.1 g/dl (14.0-18.0); MEAN CORPUSCULAR HEMOGLOBIN 31.1 pg (27.0-33.0); MEAN CORPUSCULAR HGB CONC 34.3 g/dl (32.0-36.5); MEAN CORPUSCULAR VOLUME 90.5 fl (80.0-96.0); PLATELET COUNT, AUTOMATED 233 10^3/uL (150-450); RED BLOOD COUNT 4.54 10^6/uL (4.30-6.10); RED CELL DISTRIBUTION WIDTH 14.4 % (11.5-14.5); WHITE BLOOD COUNT 8.4 10^3/uL (4.0-10.0)
[2017-07-01 06:23] LABS: PROTHROMBIN TIME 38.5 SECONDS (12.4-14.5)
[2017-07-01 06:29] LABS: ANION GAP 7 MEQ/L (8-16); BLOOD UREA NITROGEN 23 MG/DL (7-18); CARBON DIOXIDE LEVEL 30 MEQ/L (21-32); CHLORIDE LEVEL 98 MEQ/L (98-107); CREATININE FOR GFR 0.99 MG/DL (0.70-1.30); GLOMERULAR FILTRATION RATE > 60.0 (>35); GLUCOSE, FASTING 103 MG/DL (70-100); POTASSIUM SERUM 4.4 MEQ/L (3.5-5.1); SODIUM LEVEL 135 MEQ/L (136-145)
[2017-07-01] MEDS: ASCORBIC ACID 500 MG TAB PO (08:41)
[2017-07-01] MEDS: OSELTAMIVIR PHOSPHATE 30MG CAPSULE PO ×2 (08:41→20:08)
[2017-07-01] MEDS: TAMSULOSIN 0.4 MG CAP PO (08:41)
[2017-07-01] MEDS: VITAMIN D 1,000 INTERNATIONAL UNITS TABLET PO (08:41)
[2017-07-01] MEDS: FAMOTIDINE 20 MG TAB PO ×2 (08:41→20:08)
[2017-07-01] MEDS: DIGOXIN 0.125 MG TAB PO (08:41)
[2017-07-01] MEDS: POTASSIUM CHLORIDE 10 MEQ SR TABLET PO ×2 (08:42→20:08)
[2017-07-01] MEDS: SIMVASTATIN 20 MG TAB PO (20:08)
[2017-07-01] MEDS: BICALUTAMIDE 50 MG TAB PO (20:11)
[2017-07-02] MEDS: METOPROLOL TART 25 MG TABLET PO ×5 (00:13→17:33)
[2017-07-02] MEDS: SLF 3 ML SYR IV ×3 (05:43→21:35)
[2017-07-02 05:57] LABS: HEMATOCRIT 39.2 % (42.0-52.0); HEMOGLOBIN 13.5 g/dl (14.0-18.0); MEAN CORPUSCULAR HEMOGLOBIN 31.2 pg (27.0-33.0); MEAN CORPUSCULAR HGB CONC 34.4 g/dl (32.0-36.5); MEAN CORPUSCULAR VOLUME 90.5 fl (80.0-96.0); PLATELET COUNT, AUTOMATED 252 10^3/uL (150-450); RED BLOOD COUNT 4.33 10^6/uL (4.30-6.10); RED CELL DISTRIBUTION WIDTH 14.5 % (11.5-14.5)
[2017-07-02 06:03] LABS: INR 2.39
[2017-07-02 06:19] LABS: ANION GAP 4 MEQ/L (8-16); BLOOD UREA NITROGEN 21 MG/DL (7-18); CALCIUM LEVEL 8.8 MG/DL (8.8-10.2); CARBON DIOXIDE LEVEL 30 MEQ/L (21-32); CHLORIDE LEVEL 101 MEQ/L (98-107); CREATININE FOR GFR 1.07 MG/DL (0.70-1.30); GLOMERULAR FILTRATION RATE > 60.0 (>35); GLUCOSE, FASTING 115 MG/DL (70-100); POTASSIUM SERUM 4.9 MEQ/L (3.5-5.1); SODIUM LEVEL 135 MEQ/L (136-145)
[2017-07-02] MEDS: FAMOTIDINE 20 MG TAB PO ×2 (09:17→21:34)
[2017-07-02] MEDS: TAMSULOSIN 0.4 MG CAP PO (09:17)
[2017-07-02] MEDS: ASCORBIC ACID 500 MG TAB PO (09:18)
[2017-07-02] MEDS: VITAMIN D 1,000 INTERNATIONAL UNITS TABLET PO (09:18)
[2017-07-02] MEDS: POTASSIUM CHLORIDE 10 MEQ SR TABLET PO ×2 (09:18→21:34)
[2017-07-02] MEDS: SIMVASTATIN 20 MG TAB PO (21:34)
[2017-07-02] MEDS: BICALUTAMIDE 50 MG TAB PO (21:34)
[2017-07-03] MEDS: METOPROLOL TART 25 MG TABLET PO ×3 (00:04→12:26)
[2017-07-03 05:44] LABS: HEMATOCRIT 37.5 % (42.0-52.0); HEMOGLOBIN 12.6 g/dl (14.0-18.0); MEAN CORPUSCULAR HEMOGLOBIN 30.4 pg (27.0-33.0); MEAN CORPUSCULAR HGB CONC 33.6 g/dl (32.0-36.5); MEAN CORPUSCULAR VOLUME 90.6 fl (80.0-96.0); PLATELET COUNT, AUTOMATED 261 10^3/uL (150-450); RED BLOOD COUNT 4.14 10^6/uL (4.30-6.10); RED CELL DISTRIBUTION WIDTH 14.6 % (11.5-14.5); WHITE BLOOD COUNT 8.1 10^3/uL (4.0-10.0)
[2017-07-03 05:53] LABS: INR 1.96
[2017-07-03] MEDS: SLF 3 ML SYR IV (05:56)
[2017-07-03 06:12] LABS: ANION GAP 6 MEQ/L (8-16); BLOOD UREA NITROGEN 20 MG/DL (7-18); CALCIUM LEVEL 8.4 MG/DL (8.8-10.2); CARBON DIOXIDE LEVEL 29 MEQ/L (21-32); CHLORIDE LEVEL 104 MEQ/L (98-107); CREATININE FOR GFR 0.89 MG/DL (0.70-1.30); GLOMERULAR FILTRATION RATE > 60.0 (>35); GLUCOSE, FASTING 105 MG/DL (70-100); POTASSIUM SERUM 4.5 MEQ/L (3.5-5.1); SODIUM LEVEL 139 MEQ/L (136-145)
[2017-07-03] MEDS: FAMOTIDINE 20 MG TAB PO (08:31)
[2017-07-03] MEDS: ASCORBIC ACID 500 MG TAB PO (08:31)
[2017-07-03] MEDS: POTASSIUM CHLORIDE 10 MEQ SR TABLET PO (08:31)
[2017-07-03] MEDS: TAMSULOSIN 0.4 MG CAP PO (08:31)
[2017-07-03] MEDS: DIGOXIN 0.125 MG TAB PO (08:33)
[2017-07-03] MEDS: VITAMIN D 1,000 INTERNATIONAL UNITS TABLET PO (08:34)
== END 2017-07-03 12:59 | disposition home health service (06) | DRG 195 ==
LOC: M ED INP 06-27 00:19 → M MSPAV 06-28 03:48 → M PCU 06-27 01:09 → M ED 19:32
DX: J10.1 Influenza due to other identified influenza virus with other respiratory manifestations (principal); Z66 Do not resuscitate; E87.6 Hypokalemia; I48.91 Unspecified atrial fibrillation; I25.10 Atherosclerotic heart disease of native coronary artery without angina pectoris; I50.9 Heart failure, unspecified; K21.9 Gastro-esophageal reflux disease without esophagitis; I25.2 Old myocardial infarction; Z79.01 Long term (current) use of anticoagulants; Z79.899 Other long term (current) drug therapy; Z98.41 Cataract extraction status, right eye; Z98.42 Cataract extraction status, left eye; Z85.46 Personal history of malignant neoplasm of prostate

== ENCOUNTER 2017-07-17 20:50 | Emergency (ER) | payer MEDICARE, OTHER ==
[2017-07-17 21:31] LABS: HEMATOCRIT 34.3 % (42.0-52.0); HEMOGLOBIN 11.5 g/dl (14.0-18.0); MEAN CORPUSCULAR HEMOGLOBIN 31.5 pg (27.0-33.0); MEAN CORPUSCULAR HGB CONC 33.5 g/dl (32.0-36.5); PLATELET COUNT, AUTOMATED 238 10^3/uL (150-450); RED BLOOD COUNT 3.65 10^6/uL (4.30-6.10); RED CELL DISTRIBUTION WIDTH 15.1 % (11.5-14.5); WHITE BLOOD COUNT 9.5 10^3/uL (4.0-10.0)
[2017-07-17 21:50] LABS: ANION GAP 7 MEQ/L (8-16); BLOOD UREA NITROGEN 14 MG/DL (7-18); CALCIUM LEVEL 8.2 MG/DL (8.8-10.2); CARBON DIOXIDE LEVEL 28 MEQ/L (21-32); CHLORIDE LEVEL 105 MEQ/L (98-107); CREATININE FOR GFR 1.06 MG/DL (0.70-1.30); GLOMERULAR FILTRATION RATE > 60.0 (>35); GLUCOSE, FASTING 115 MG/DL (70-100); POTASSIUM SERUM 3.7 MEQ/L (3.5-5.1); SODIUM LEVEL 140 MEQ/L (136-145)
[2017-07-17 21:55] LABS: KETONE, URINE AUTO RFX NEGATIVE (NEGATIVE); LEUKOCYTE ESTERASE UR AUTO RFX NEGATIVE (NEGATIVE); MUCUS, URINE RFX SMALL (NEGATIVE); NITRITE, URINE AUTO RFX NEGATIVE (NEGATIVE); RBC, URINE AUTO RFX 2 /HPF (0-3); SPECIFIC GRAVITY UR AUTO RFX 1.006 (1.002-1.035); SQUAM EPITHELIAL CELL UR AURFX 0 /HPF (0-6); WBC, URINE AUTO RFX 0 /HPF (0-3)
== END 2017-07-17 22:39 | disposition home or self-care (01) ==
LOC: M ED 20:50
DX: N39.3 Stress incontinence (female) (male) (principal); I10 Essential (primary) hypertension; Z85.46 Personal history of malignant neoplasm of prostate; Z79.899 Other long term (current) drug therapy; Z79.01 Long term (current) use of anticoagulants
CPT/HCPCS: 80048

== ENCOUNTER 2017-09-05 09:07 | Inpatient (IN) | payer MEDICARE, OTHER ==
[2017-09-05 09:33] LABS: BASO # 0.1 10^3/uL (0.0-0.2); BASO % 0.6 % (0.0-1.0); EOS # 0.1 10^3/uL (0.0-0.50); HEMATOCRIT 38.7 % (42.0-52.0); IMMATURE GRANULOCYTE % 0.7 % (0-3.0); LYMPH # 2.3 10^3/uL (1.5-4.5); LYMPH % 27.9 % (24.0-44.0); MEAN CORPUSCULAR HEMOGLOBIN 31.6 pg (27.0-33.0); MEAN CORPUSCULAR HGB CONC 33.6 g/dl (32.0-36.5); MEAN CORPUSCULAR VOLUME 94.2 fl (80.0-96.0); MONO # 1.1 10^3/uL (0.0-0.8); NEUTROPHILS # 4.6 10^3/uL (1.8-7.7); NEUTROPHILS % 56.8 % (36.0-66.0); PLATELET COUNT, AUTOMATED 216 10^3/uL (150-450); RED BLOOD COUNT 4.11 10^6/uL (4.30-6.10); RED CELL DISTRIBUTION WIDTH 14.2 % (11.5-14.5); WHITE BLOOD COUNT 8.1 10^3/uL (4.0-10.0)
[2017-09-05 09:43] LABS: INR 2.47; PROTHROMBIN TIME 27.8 SECONDS (12.4-14.5)
[2017-09-05 09:44] LABS: PARTIAL THROMBOPLASTIN TIME 40.4 SECONDS (26.8-37.9)
[2017-09-05 10:04] LABS: ANION GAP 7 MEQ/L (8-16); BLOOD UREA NITROGEN 16 MG/DL (7-18); CALCIUM LEVEL 8.4 MG/DL (8.8-10.2); CARBON DIOXIDE LEVEL 27 MEQ/L (21-32); CHLORIDE LEVEL 104 MEQ/L (98-107); CPK CREATINE PHOSPHOKINASE 79 U/L (39-308); GLOMERULAR FILTRATION RATE > 60.0 (>35); GLUCOSE, FASTING 99 MG/DL (70-100); MAGNESIUM LEVEL 2.1 MG/DL (1.8-2.4); POTASSIUM SERUM 3.8 MEQ/L (3.5-5.1); SODIUM LEVEL 138 MEQ/L (136-145); TROPONIN I < 0.02 NG/ML (< 0.10)
[2017-09-05 10:10] LABS: CK-MB VALUE MASS 1.6 NG/ML (<3.6); MB/CK RELATIVE INDEX 2.02 (< OR =4)
[2017-09-05] MEDS: DERMABOND TOPICAL SKIN ADHESIVE TOP (10:23)
[2017-09-05] MEDS ORDERED: ISOVUE-370 76% 100ML VIAL (Q9967) As Ordered (10:34)
[2017-09-05 10:48] LABS: ALBUMIN 4.2 GM/DL (3.2-5.2); ALBUMIN/GLOBULIN RATIO 1.45 (1.00-1.93); ALKALINE PHOSPHATASE 62 U/L (45-117); ALT/SGPT 18 U/L (12-78); AST/SGOT 23 U/L (7-37); BILIRUBIN,DIRECT 0.2 MG/DL (0.0-0.2); BILIRUBIN,TOTAL 0.8 MG/DL (0.2-1.0); DIGOXIN LEVEL 0.4 NG/ML (0.5-2.0); LIPASE 91 U/L (73-393); TOTAL PROTEIN 7.1 GM/DL (6.4-8.2)
[2017-09-05] MEDS ORDERED: ONDANSETRON 4MG/2ML VIAL (J2405) IV (13:00)
[2017-09-05] MEDS: TETANUS/DIPHTHERIA TOX ADSORB ADULT 0.5ML SYR/VIAL (90714) IM (13:08)
[2017-09-05] MEDS: ASCORBIC ACID 500 MG TAB PO (13:52)
[2017-09-05] MEDS: LR 1,000 ML IV (13:52)
[2017-09-05] MEDS: LACTOBACILLUS ACIDOPHILUS CAP (BACID) PO (18:58)
[2017-09-05 19:30] LABS: CK-MB VALUE MASS 1.4 NG/ML (<3.6); CPK CREATINE PHOSPHOKINASE 68 U/L (39-308); MB/CK RELATIVE INDEX 2.05 (< OR =4); TROPONIN I 0.04 NG/ML (< 0.10)
[2017-09-05] MEDS: WARFARIN SOD 2 MG TAB PO (21:09)
[2017-09-05] MEDS: METOPROLOL TART 12.5 MG PER 1/2 TAB PO (21:09)
[2017-09-05] MEDS: BICALUTAMIDE 50 MG TAB PO (21:09)
[2017-09-05] MEDS: VANCOMYCIN ORAL SOL 250MG/5ML ORAL SYRINGE PO (21:10)
[2017-09-05] MEDS: FAMOTIDINE 20 MG TAB PO (21:11)
[2017-09-05] MEDS: SIMVASTATIN 10 MG TAB PO (21:11)
[2017-09-06] MEDS: ACETAMINOPHEN TAB 650MG DOSE (2X325MG) PO ×3 (00:19→23:31)
[2017-09-06] MEDS: VANCOMYCIN ORAL SOL 250MG/5ML ORAL SYRINGE PO ×5 (06:00→23:31)
[2017-09-06 06:54] LABS: HEMATOCRIT 34.3 % (42.0-52.0); HEMOGLOBIN 11.8 g/dl (13.5-17.5); MEAN CORPUSCULAR HEMOGLOBIN 31.8 pg (27.0-33.0); MEAN CORPUSCULAR HGB CONC 34.4 g/dl (32.0-36.5); MEAN CORPUSCULAR VOLUME 92.5 fl (80.0-96.0); PLATELET COUNT, AUTOMATED 157 10^3/uL (150-450); RED BLOOD COUNT 3.71 10^6/uL (4.30-6.10)
[2017-09-06 07:13] LABS: INR 2.79; PROTHROMBIN TIME 30.6 SECONDS (12.4-14.5)
[2017-09-06 07:17] LABS: ANION GAP 7 MEQ/L (8-16); BLOOD UREA NITROGEN 15 MG/DL (7-18); CALCIUM LEVEL 8.4 MG/DL (8.8-10.2); CARBON DIOXIDE LEVEL 28 MEQ/L (21-32); CHLORIDE LEVEL 105 MEQ/L (98-107); GLOMERULAR FILTRATION RATE > 60.0 (>35); GLUCOSE, FASTING 81 MG/DL (70-100); MAGNESIUM LEVEL 1.8 MG/DL (1.8-2.4); POTASSIUM SERUM 4.1 MEQ/L (3.5-5.1); SODIUM LEVEL 140 MEQ/L (136-145)
[2017-09-06] MEDS: FAMOTIDINE 20 MG TAB PO ×2 (08:37→20:48)
[2017-09-06] MEDS: DIGOXIN 0.125 MG TAB PO (08:37)
[2017-09-06] MEDS: TAMSULOSIN 0.4 MG CAP PO (08:37)
[2017-09-06] MEDS: ASCORBIC ACID 500 MG TAB PO (08:37)
[2017-09-06] MEDS: LACTOBACILLUS ACIDOPHILUS CAP (BACID) PO ×3 (08:37→17:13)
[2017-09-06] MEDS: VITAMIN D (CHOLECALCIFEROL) 400 INTERNATIONAL UNITS TAB PO (08:37)
[2017-09-06] MEDS: METOPROLOL TART 12.5 MG PER 1/2 TAB PO ×2 (08:38→20:48)
[2017-09-06 11:27] LABS: BEDSIDE GLUCOSE 108 MG/DL (83-110)
[2017-09-06] MEDS: WARFARIN SOD 3 MG TAB PO (17:14)
[2017-09-06] MEDS: BICALUTAMIDE 50 MG TAB PO (20:48)
[2017-09-06] MEDS: SIMVASTATIN 10 MG TAB PO (20:48)
[2017-09-07 05:49] LABS: HEMATOCRIT 33.4 % (42.0-52.0); HEMOGLOBIN 11.3 g/dl (13.5-17.5); MEAN CORPUSCULAR HGB CONC 33.8 g/dl (32.0-36.5); MEAN CORPUSCULAR VOLUME 91.5 fl (80.0-96.0); PLATELET COUNT, AUTOMATED 171 10^3/uL (150-450); RED BLOOD COUNT 3.65 10^6/uL (4.30-6.10)
[2017-09-07 06:02] LABS: INR 2.98; PROTHROMBIN TIME 32.3 SECONDS (12.4-14.5)
[2017-09-07 06:07] LABS: ANION GAP 6 MEQ/L (8-16); BLOOD UREA NITROGEN 15 MG/DL (7-18); CALCIUM LEVEL 8.2 MG/DL (8.8-10.2); CARBON DIOXIDE LEVEL 28 MEQ/L (21-32); CHLORIDE LEVEL 106 MEQ/L (98-107); CREATININE FOR GFR 0.84 MG/DL (0.70-1.30); GLOMERULAR FILTRATION RATE > 60.0 (>35); GLUCOSE, FASTING 88 MG/DL (70-100); POTASSIUM SERUM 4.1 MEQ/L (3.5-5.1); SODIUM LEVEL 140 MEQ/L (136-145)
[2017-09-07] MEDS: VANCOMYCIN ORAL SOL 250MG/5ML ORAL SYRINGE PO ×4 (06:23→23:25)
[2017-09-07] MEDS: ASCORBIC ACID 500 MG TAB PO (10:12)
[2017-09-07] MEDS: LACTOBACILLUS ACIDOPHILUS CAP (BACID) PO ×3 (10:13→18:32)
[2017-09-07] MEDS: VITAMIN D (CHOLECALCIFEROL) 400 INTERNATIONAL UNITS TAB PO (10:13)
[2017-09-07] MEDS: FAMOTIDINE 20 MG TAB PO ×2 (10:13→20:54)
[2017-09-07] MEDS: TAMSULOSIN 0.4 MG CAP PO (10:13)
[2017-09-07] MEDS: ACETAMINOPHEN TAB 650MG DOSE (2X325MG) PO ×2 (10:26→20:55)
[2017-09-07] MEDS: METOPROLOL TART 12.5 MG PER 1/2 TAB PO ×2 (10:26→20:54)
[2017-09-07] MEDS: WARFARIN SOD 2 MG TAB PO (18:32)
[2017-09-07] MEDS: SIMVASTATIN 10 MG TAB PO (20:55)
[2017-09-07] MEDS: BICALUTAMIDE 50 MG TAB PO (20:55)
[2017-09-08] MEDS: ACETAMINOPHEN TAB 650MG DOSE (2X325MG) PO ×4 (01:20→23:53)
[2017-09-08] MEDS: VANCOMYCIN ORAL SOL 250MG/5ML ORAL SYRINGE PO ×4 (05:26→23:50)
[2017-09-08 06:12] LABS: HEMATOCRIT 35.8 % (42.0-52.0); HEMOGLOBIN 12.4 g/dl (13.5-17.5); MEAN CORPUSCULAR HEMOGLOBIN 31.5 pg (27.0-33.0); MEAN CORPUSCULAR HGB CONC 34.6 g/dl (32.0-36.5); MEAN CORPUSCULAR VOLUME 90.9 fl (80.0-96.0); PLATELET COUNT, AUTOMATED 176 10^3/uL (150-450); RED BLOOD COUNT 3.94 10^6/uL (4.30-6.10); RED CELL DISTRIBUTION WIDTH 13.8 % (11.5-14.5); WHITE BLOOD COUNT 7.9 10^3/uL (4.0-10.0)
[2017-09-08 06:23] LABS: INR 2.62; PROTHROMBIN TIME 29.1 SECONDS (12.4-14.5)
[2017-09-08 06:30] LABS: ANION GAP 5 MEQ/L (8-16); BLOOD UREA NITROGEN 10 MG/DL (7-18); CALCIUM LEVEL 8.5 MG/DL (8.8-10.2); CARBON DIOXIDE LEVEL 28 MEQ/L (21-32); CHLORIDE LEVEL 106 MEQ/L (98-107); CREATININE FOR GFR 0.87 MG/DL (0.70-1.30); GLOMERULAR FILTRATION RATE > 60.0 (>35); GLUCOSE, FASTING 92 MG/DL (70-100); MAGNESIUM LEVEL 2.2 MG/DL (1.8-2.4); POTASSIUM SERUM 3.9 MEQ/L (3.5-5.1); SODIUM LEVEL 139 MEQ/L (136-145)
[2017-09-08] MEDS: METOPROLOL TART 12.5 MG PER 1/2 TAB PO ×2 (09:00→21:03)
[2017-09-08] MEDS: TAMSULOSIN 0.4 MG CAP PO (09:14)
[2017-09-08] MEDS: VITAMIN D (CHOLECALCIFEROL) 400 INTERNATIONAL UNITS TAB PO (09:14)
[2017-09-08] MEDS: LACTOBACILLUS ACIDOPHILUS CAP (BACID) PO ×3 (09:14→18:19)
[2017-09-08] MEDS: FAMOTIDINE 20 MG TAB PO ×2 (09:14→21:02)
[2017-09-08] MEDS: ASCORBIC ACID 500 MG TAB PO (09:14)
[2017-09-08] MEDS: SENOKOT S TAB PO ×2 (13:45→21:02)
[2017-09-08] MEDS: WARFARIN SOD 2 MG TAB PO (18:20)
[2017-09-08] MEDS: SIMVASTATIN 10 MG TAB PO (21:02)
[2017-09-08] MEDS: BICALUTAMIDE 50 MG TAB PO (21:02)
[2017-09-09] MEDS: VANCOMYCIN ORAL SOL 250MG/5ML ORAL SYRINGE PO ×2 (05:11→12:00)
[2017-09-09 06:00] LABS: HEMATOCRIT 37.1 % (42.0-52.0); HEMOGLOBIN 12.7 g/dl (13.5-17.5); MEAN CORPUSCULAR HEMOGLOBIN 31.2 pg (27.0-33.0); MEAN CORPUSCULAR HGB CONC 34.2 g/dl (32.0-36.5); MEAN CORPUSCULAR VOLUME 91.2 fl (80.0-96.0); PLATELET COUNT, AUTOMATED 205 10^3/uL (150-450); RED BLOOD COUNT 4.07 10^6/uL (4.30-6.10); RED CELL DISTRIBUTION WIDTH 13.9 % (11.5-14.5); WHITE BLOOD COUNT 8.3 10^3/uL (4.0-10.0)
[2017-09-09 06:12] LABS: INR 2.65; PROTHROMBIN TIME 29.4 SECONDS (12.4-14.5)
[2017-09-09 06:21] LABS: ANION GAP 5 MEQ/L (8-16); BLOOD UREA NITROGEN 11 MG/DL (7-18); CARBON DIOXIDE LEVEL 29 MEQ/L (21-32); CHLORIDE LEVEL 105 MEQ/L (98-107); CREATININE FOR GFR 0.95 MG/DL (0.70-1.30); GLOMERULAR FILTRATION RATE > 60.0 (>35); GLUCOSE, FASTING 92 MG/DL (70-100); MAGNESIUM LEVEL 2.2 MG/DL (1.8-2.4); POTASSIUM SERUM 3.9 MEQ/L (3.5-5.1); SODIUM LEVEL 139 MEQ/L (136-145)
[2017-09-09] MEDS: LACTOBACILLUS ACIDOPHILUS CAP (BACID) PO ×2 (08:55→12:00)
[2017-09-09] MEDS: FAMOTIDINE 20 MG TAB PO (08:55)
[2017-09-09] MEDS: TAMSULOSIN 0.4 MG CAP PO (08:56)
[2017-09-09] MEDS: ASCORBIC ACID 500 MG TAB PO (08:56)
[2017-09-09] MEDS: VITAMIN D (CHOLECALCIFEROL) 400 INTERNATIONAL UNITS TAB PO (08:56)
[2017-09-09] MEDS: SENOKOT S TAB PO (08:56)
[2017-09-09] MEDS: METOPROLOL TART 12.5 MG PER 1/2 TAB PO (08:56)
[2017-09-09] MEDS: DIGOXIN 0.125 MG TAB PO (08:57)
[2017-09-09] MEDS: CALCIUM CARBONATE 500 MG CHEW U/D PO (12:00)
== END 2017-09-09 14:25 | disposition home or self-care (01) | DRG 373 ==
LOC: M MSPAV 09-06 14:26 → M ED 09:07 → M ED INP 13:00
DX: A04.72 Enterocolitis due to Clostridium difficile, not specified as recurrent (principal); I48.91 Unspecified atrial fibrillation; N40.0 Benign prostatic hyperplasia without lower urinary tract symptoms; K21.9 Gastro-esophageal reflux disease without esophagitis; I25.10 Atherosclerotic heart disease of native coronary artery without angina pectoris; E78.5 Hyperlipidemia, unspecified; E86.0 Dehydration; B97.89 Other viral agents as the cause of diseases classified elsewhere; Z79.01 Long term (current) use of anticoagulants; Z79.899 Other long term (current) drug therapy; I25.2 Old myocardial infarction; Z85.46 Personal history of malignant neoplasm of prostate; Z86.73 Personal history of transient ischemic attack (TIA), and cerebral infarction without residual deficits; Z98.41 Cataract extraction status, right eye; Z98.42 Cataract extraction status, left eye

== ENCOUNTER 2018-01-04 07:13 | Inpatient (IN) | payer MEDICARE, OTHER ==
[2018-01-04] MEDS: NS 1,000 ML IV ×2 (07:47→18:22)
[2018-01-04 07:57] LABS: BASO # 0.1 10^3/uL (0.0-0.2); BASO % 0.5 % (0.0-1.0); HEMATOCRIT 37.8 % (42.0-52.0); IMMATURE GRANULOCYTE % 0.4 % (0-3.0); LYMPH % 10.3 % (24.0-44.0); MEAN CORPUSCULAR HEMOGLOBIN 32.1 pg (27.0-33.0); MEAN CORPUSCULAR HGB CONC 34.4 g/dl (32.0-36.5); MEAN CORPUSCULAR VOLUME 93.3 fl (80.0-96.0); MONO # 0.3 10^3/uL (0.0-0.8); MONO % 2.7 % (0.0-5.0); NEUTROPHILS # 8.3 10^3/uL (1.8-7.7); NEUTROPHILS % 86.1 % (36.0-66.0); PLATELET COUNT, AUTOMATED 175 10^3/uL (150-450); RED BLOOD COUNT 4.05 10^6/uL (4.30-6.10); WHITE BLOOD COUNT 9.6 10^3/uL (4.0-10.0)
[2018-01-04] MEDS: ONDANSETRON 4MG/2ML VIAL (J2405) IV (07:59)
[2018-01-04] MEDS: NS 500 ML IV (08:00)
[2018-01-04] MEDS: MORPHINE 4 MG/ML 1ML VIAL/SYRINGE (J2270) IV (08:00)
[2018-01-04 08:07] LABS: INR 1.14; PROTHROMBIN TIME 14.8 SECONDS (12.1-14.4)
[2018-01-04 08:28] LABS: ALBUMIN 4.3 GM/DL (3.2-5.2); ALBUMIN/GLOBULIN RATIO 1.48 (1.00-1.93); ALKALINE PHOSPHATASE 67 U/L (45-117); ALT/SGPT 19 U/L (12-78); ANION GAP 11 MEQ/L (8-16); AST/SGOT 23 U/L (7-37); BILIRUBIN,DIRECT 0.3 MG/DL (0.0-0.2); BILIRUBIN,TOTAL 1.2 MG/DL (0.2-1.0); BLOOD UREA NITROGEN 18 MG/DL (7-18); CALCIUM LEVEL 9.3 MG/DL (8.8-10.2); CARBON DIOXIDE LEVEL 23 MEQ/L (21-32); CHLORIDE LEVEL 104 MEQ/L (98-107); CPK CREATINE PHOSPHOKINASE 98 U/L (39-308); CREATININE FOR GFR 1.01 MG/DL (0.70-1.30); GLOMERULAR FILTRATION RATE > 60.0 (>35); GLUCOSE, FASTING 146 MG/DL (70-100); LIPASE 65 U/L (73-393); POTASSIUM SERUM 4.5 MEQ/L (3.5-5.1); SODIUM LEVEL 138 MEQ/L (136-145); TOTAL PROTEIN 7.2 GM/DL (6.4-8.2); TROPONIN I 0.02 NG/ML (< 0.10)
[2018-01-04 08:29] LABS: CK-MB VALUE MASS 3.5 NG/ML (<3.6); MB/CK RELATIVE INDEX 3.57 (< OR =4)
[2018-01-04] MEDS ORDERED: ISOVUE-370 76% 100ML VIAL (Q9967) As Ordered (08:55)
[2018-01-04 13:53] LABS: DIGOXIN LEVEL 0.5 NG/ML (0.5-2.0)
[2018-01-04] MEDS ORDERED: ceFAZolin 1GM INJ (J0690 PER 500MG) As Ordered ×2 (15:07→15:08)
[2018-01-04] MEDS: ceFAZolin SOD 1 GM in D5W MINI-BAG PLUS 50 ML IV ×2 (15:12→22:51)
[2018-01-04] MEDS ORDERED: SUCCINYLCHOLINE 100 MG/5 ML SYRINGE (J0330) As Ordered (15:20)
[2018-01-04] MEDS ORDERED: LIDOCAINE 2% INJ 100 MG/5 ML SDV (FOR ANES.) As Ordered (15:20)
[2018-01-04] MEDS ORDERED: ROCURONIUM BROMIDE 50 MG/5 ML VIAL As Ordered (15:20)
[2018-01-04] MEDS ORDERED: PROPOFOL 200 MG/20 ML VIAL As Ordered (15:20)
[2018-01-04] MEDS ORDERED: fentaNYL 100 MCG/2 ML INJECTION (J3010) As Ordered (15:21)
[2018-01-04] MEDS ORDERED: PHENYLephrine HCL 500 MCG/5 ML (100MCG/ML) SYRINGE (J2370) As Ordered (15:45)
[2018-01-04] MEDS ORDERED: dexameTHASONE 4 MG/ML 1ML VIAL (J1100) As Ordered (15:52)
[2018-01-04] MEDS ORDERED: NEOSTIGMINE 10 MG/10 ML VIAL (J2710) As Ordered ×2 (16:06→16:07)
[2018-01-04] MEDS ORDERED: ONDANSETRON 4MG/2ML VIAL (J2405) As Ordered (16:06)
[2018-01-04] MEDS ORDERED: GLYCOPYRROLATE INJ 0.2 MG/ML 2 ML VIAL As Ordered (16:07)
[2018-01-04] MEDS: BUPIVACAINE/EPIN 0.25% 30 ML VIAL As Ordered (16:37)
[2018-01-04] MEDS ORDERED: PROMETHAZINE INJ 25 MG/ML VIAL (J2550) IV (16:45)
[2018-01-04] MEDS ORDERED: MORPHINE 4 MG/ML 1ML VIAL/SYRINGE (J2270) IV (16:45)
[2018-01-04] MEDS ORDERED: METOPROLOL 5 MG/5 ML VIAL As Ordered (16:46)
[2018-01-04] MEDS: LR 1,000 ML IV (17:00)
[2018-01-04] MEDS ORDERED: fentaNYL 100 MCG/2 ML INJECTION (J3010) IV (17:00)
[2018-01-04] MEDS ORDERED: ONDANSETRON 4MG/2ML VIAL (J2405) IV (17:00)
[2018-01-04] MEDS ORDERED: MORPHINE 10 MG/ML 1ML VIAL (J2270) IV (17:00)
[2018-01-04] MEDS: rOPINIRole 0.25 MG TAB(REQUIP) PO (21:31)
[2018-01-04] MEDS: DOCUSATE SODIUM 100 MG CAP PO (21:31)
[2018-01-04] MEDS: METOPROLOL TART 12.5 MG PER 1/2 TAB PO (21:32)
[2018-01-04] MEDS: SIMVASTATIN 10 MG TAB PO (21:32)
[2018-01-05] MEDS: NS 1,000 ML IV ×4 (02:35→19:42)
[2018-01-05 06:30] LABS: HEMATOCRIT 35.3 % (42.0-52.0); HEMOGLOBIN 11.8 g/dl (13.5-17.5); MEAN CORPUSCULAR HEMOGLOBIN 31.9 pg (27.0-33.0); MEAN CORPUSCULAR HGB CONC 33.4 g/dl (32.0-36.5); MEAN CORPUSCULAR VOLUME 95.4 fl (80.0-96.0); PLATELET COUNT, AUTOMATED 177 10^3/uL (150-450); RED CELL DISTRIBUTION WIDTH 14.3 % (11.5-14.5); WHITE BLOOD COUNT 15.3 10^3/uL (4.0-10.0)
[2018-01-05] MEDS: ceFAZolin SOD 1 GM in D5W MINI-BAG PLUS 50 ML IV ×3 (06:31→22:22)
[2018-01-05 06:53] LABS: ANION GAP 9 MEQ/L (8-16); BLOOD UREA NITROGEN 15 MG/DL (7-18); CALCIUM LEVEL 8.4 MG/DL (8.8-10.2); CARBON DIOXIDE LEVEL 25 MEQ/L (21-32); CHLORIDE LEVEL 106 MEQ/L (98-107); CREATININE FOR GFR 0.96 MG/DL (0.70-1.30); GLOMERULAR FILTRATION RATE > 60.0 (>35); GLUCOSE, FASTING 99 MG/DL (70-100); SODIUM LEVEL 140 MEQ/L (136-145)
[2018-01-05] MEDS: NORCO, ANEXSIA 5/325MG TABLET (HYDROcodone/ACETAMINOPHEN) PO (06:53)
[2018-01-05] MEDS: METOPROLOL TART 12.5 MG PER 1/2 TAB PO ×4 (08:06→21:06)
[2018-01-05] MEDS: DOCUSATE SODIUM 100 MG CAP PO ×2 (08:07→21:05)
[2018-01-05] MEDS: TAMSULOSIN 0.4 MG CAP PO (08:07)
[2018-01-05 10:47] LABS: APPEARANCE, URINE CLEAR (CLEAR); BACTERIA, URINE AUTO NEGATIVE (NEGATIVE); BILIRUBIN, URINE AUTO NEGATIVE (NEGATIVE); BLOOD, URINE BLOOD 3+ (NEGATIVE); COLOR, URINE YELLOW (YELLOW); GLUCOSE, URINE (UA) AUTO NEGATIVE (NEGATIVE); KETONE, URINE AUTO TRACE mg/dL (NEGATIVE); LEUKOCYTE ESTERASE, URINE AUTO NEGATIVE (NEGATIVE); MUCUS, URINE SMALL (NEGATIVE); NITRITE, URINE AUTO NEGATIVE (NEGATIVE); PROTEIN, URINE AUTO NEGATIVE (NEGATIVE); RBC, URINE AUTO 18 /HPF (0-3); SPECIFIC GRAVITY URINE AUTO 1.021 (1.002-1.035); SQUAMOUS EPITHELIAL CELL UR AU 0 /HPF (0-6); UROBILINOGEN, URINE AUTO 0.2 mg/dL (0.0-2.0); WBC, URINE AUTO 1 /HPF (0-3)
[2018-01-05] MEDS: FINASTERIDE 5 MG TAB PO (13:01)
[2018-01-05 18:58] LABS: ANION GAP 8 MEQ/L (8-16); BLOOD UREA NITROGEN 14 MG/DL (7-18); CALCIUM LEVEL 8.2 MG/DL (8.8-10.2); CARBON DIOXIDE LEVEL 26 MEQ/L (21-32); CHLORIDE LEVEL 106 MEQ/L (98-107); CREATININE FOR GFR 0.96 MG/DL (0.70-1.30); GLOMERULAR FILTRATION RATE > 60.0 (>35); GLUCOSE, FASTING 109 MG/DL (70-100); SODIUM LEVEL 140 MEQ/L (136-145)
[2018-01-05 18:59] LABS: MAGNESIUM LEVEL 1.6 MG/DL (1.8-2.4)
[2018-01-05] MEDS: MAG SULF 1GM/100ML (MAG RUN) 1 GM in APPROPRIATE DILUENT 1 EA IV ×2 (19:42→21:05)
[2018-01-05] MEDS ORDERED: METOPROLOL TART 25 MG TABLET PO (21:00)
[2018-01-05] MEDS: SIMVASTATIN 10 MG TAB PO (21:05)
[2018-01-05] MEDS: rOPINIRole 0.25 MG TAB(REQUIP) PO (21:05)
[2018-01-05] MEDS: ONDANSETRON 4MG/2ML VIAL (J2405) IV (21:11)
[2018-01-05] MEDS: ACETAMINOPHEN TAB 650MG DOSE (2X325MG) PO (21:11)
[2018-01-05] MEDS: METOCLOPRAMIDE INJ 10MG/2ML VIAL (J2765) IV (22:22)
[2018-01-05] MEDS: IPRATROPIUM 0.5MG/ALBUTEROL 2.5MG INH SOL UD 3ML (DUONEB)(J7620) NEB (22:53)
[2018-01-05] MEDS: diphenhydrAMINE INJ 50MG/ML VIAL (J1200) IV (22:59)
[2018-01-05] MEDS: methylPREDNISolone INJ 125 MG/2 ML VIAL (J2930) IV (22:59)
[2018-01-05 23:14] LABS: BEDSIDE GLUCOSE 131 MG/DL (83-110)
[2018-01-05] MEDS: FAMOTIDINE IV BAG 20 MG in APPROPRIATE DILUENT 1 EA IV (23:38)
[2018-01-06] MEDS: METOPROLOL 5 MG/5 ML VIAL IV (00:07)
[2018-01-06] MEDS: METOPROLOL TART 12.5 MG PER 1/2 TAB PO ×2 (02:53→03:02)
[2018-01-06] MEDS: NS 1,000 ML IV ×2 (05:00→21:53)
[2018-01-06 05:14] LABS: HEMATOCRIT 35.2 % (42.0-52.0); HEMOGLOBIN 11.8 g/dl (13.5-17.5); MEAN CORPUSCULAR HEMOGLOBIN 31.7 pg (27.0-33.0); MEAN CORPUSCULAR HGB CONC 33.5 g/dl (32.0-36.5); MEAN CORPUSCULAR VOLUME 94.6 fl (80.0-96.0); PLATELET COUNT, AUTOMATED 174 10^3/uL (150-450); RED BLOOD COUNT 3.72 10^6/uL (4.30-6.10); RED CELL DISTRIBUTION WIDTH 14.4 % (11.5-14.5); WHITE BLOOD COUNT 15.2 10^3/uL (4.0-10.0)
[2018-01-06 05:37] LABS: ANION GAP 10 MEQ/L (8-16); BLOOD UREA NITROGEN 15 MG/DL (7-18); C REACTIVE PROTEIN QUANTITATIV 4.76 MG/DL (0.00-0.30); CARBON DIOXIDE LEVEL 24 MEQ/L (21-32); CHLORIDE LEVEL 108 MEQ/L (98-107); CREATININE FOR GFR 0.93 MG/DL (0.70-1.30); GLOMERULAR FILTRATION RATE > 60.0 (>35); GLUCOSE, FASTING 151 MG/DL (70-100); POTASSIUM SERUM 3.7 MEQ/L (3.5-5.1); SODIUM LEVEL 142 MEQ/L (136-145)
[2018-01-06] MEDS: ceFAZolin SOD 1 GM in D5W MINI-BAG PLUS 50 ML IV (06:19)
[2018-01-06 08:01] LABS: MAGNESIUM LEVEL 2.2 MG/DL (1.8-2.4)
[2018-01-06] MEDS: FINASTERIDE 5 MG TAB PO (08:19)
[2018-01-06] MEDS: DOCUSATE SODIUM 100 MG CAP PO ×2 (08:19→21:54)
[2018-01-06] MEDS: DIGOXIN 0.125 MG TAB PO (08:19)
[2018-01-06] MEDS: TAMSULOSIN 0.4 MG CAP PO (08:19)
[2018-01-06] MEDS: POTASSIUM CHLORIDE 10 MEQ SR TABLET PO (08:20)
[2018-01-06] MEDS: METOPROLOL TART 25 MG TABLET PO ×3 (08:20→17:36)
[2018-01-06] MEDS: PIPERACILLIN/TAZOBACTAM SOD 3.375 GM in D5W MINI-BAG PLUS 50 ML IV ×3 (08:20→21:53)
[2018-01-06 08:44] LABS: LACTIC ACID SEPSIS PROTOCOL 1.8 MMOL/L (0.4-2.0)
[2018-01-06] MEDS: SIMVASTATIN 10 MG TAB PO (21:54)
[2018-01-06] MEDS: rOPINIRole 0.25 MG TAB(REQUIP) PO (21:54)
[2018-01-07] MEDS: METOPROLOL TART 25 MG TABLET PO ×4 (00:34→17:53)
[2018-01-07] MEDS: PIPERACILLIN/TAZOBACTAM SOD 3.375 GM in D5W MINI-BAG PLUS 50 ML IV ×4 (03:57→20:08)
[2018-01-07 05:57] LABS: HEMATOCRIT 30.3 % (42.0-52.0); MEAN CORPUSCULAR HEMOGLOBIN 31.5 pg (27.0-33.0); MEAN CORPUSCULAR VOLUME 95.6 fl (80.0-96.0); PLATELET COUNT, AUTOMATED 140 10^3/uL (150-450); RED BLOOD COUNT 3.17 10^6/uL (4.30-6.10); RED CELL DISTRIBUTION WIDTH 14.3 % (11.5-14.5); WHITE BLOOD COUNT 14.4 10^3/uL (4.0-10.0)
[2018-01-07 06:08] LABS: ANION GAP 5 MEQ/L (8-16); BLOOD UREA NITROGEN 24 MG/DL (7-18); C REACTIVE PROTEIN QUANTITATIV 3.17 MG/DL (0.00-0.30); CALCIUM LEVEL 7.7 MG/DL (8.8-10.2); CARBON DIOXIDE LEVEL 26 MEQ/L (21-32); CHLORIDE LEVEL 111 MEQ/L (98-107); CREATININE FOR GFR 0.92 MG/DL (0.70-1.30); GLOMERULAR FILTRATION RATE > 60.0 (>35); GLUCOSE, FASTING 111 MG/DL (70-100); POTASSIUM SERUM 4.2 MEQ/L (3.5-5.1); SODIUM LEVEL 142 MEQ/L (136-145)
[2018-01-07] MEDS: TAMSULOSIN 0.4 MG CAP PO (09:35)
[2018-01-07] MEDS: SENNA 8.6 MG TAB (SENOKOT) PO ×2 (09:35→20:04)
[2018-01-07] MEDS: DOCUSATE SODIUM 100 MG CAP PO ×2 (09:35→20:04)
[2018-01-07] MEDS: FINASTERIDE 5 MG TAB PO (09:35)
[2018-01-07] MEDS: METOCLOPRAMIDE INJ 10MG/2ML VIAL (J2765) IV ×2 (12:21→20:04)
[2018-01-07] MEDS: ACETAMINOPHEN TAB 650MG DOSE (2X325MG) PO (12:23)
[2018-01-07] MEDS: NS 1,000 ML IV ×2 (14:22→20:30)
[2018-01-07] MEDS: rOPINIRole 0.25 MG TAB(REQUIP) PO (20:03)
[2018-01-07] MEDS: SIMVASTATIN 10 MG TAB PO (20:04)
[2018-01-08] MEDS: PIPERACILLIN/TAZOBACTAM SOD 3.375 GM in D5W MINI-BAG PLUS 50 ML IV ×4 (03:34→20:54)
[2018-01-08] MEDS: METOPROLOL TART 25 MG TABLET PO ×4 (05:21→23:51)
[2018-01-08 06:17] LABS: HEMATOCRIT 32.6 % (42.0-52.0); HEMOGLOBIN 10.8 g/dl (13.5-17.5); MEAN CORPUSCULAR HEMOGLOBIN 31.2 pg (27.0-33.0); MEAN CORPUSCULAR HGB CONC 33.1 g/dl (32.0-36.5); MEAN CORPUSCULAR VOLUME 94.2 fl (80.0-96.0); PLATELET COUNT, AUTOMATED 153 10^3/uL (150-450); RED BLOOD COUNT 3.46 10^6/uL (4.30-6.10); WHITE BLOOD COUNT 13.1 10^3/uL (4.0-10.0)
[2018-01-08 06:43] LABS: ANION GAP 7 MEQ/L (8-16); BLOOD UREA NITROGEN 17 MG/DL (7-18); C REACTIVE PROTEIN QUANTITATIV 1.82 MG/DL (0.00-0.30); CALCIUM LEVEL 7.6 MG/DL (8.8-10.2); CARBON DIOXIDE LEVEL 25 MEQ/L (21-32); CHLORIDE LEVEL 107 MEQ/L (98-107); CREATININE FOR GFR 0.77 MG/DL (0.70-1.30); GLOMERULAR FILTRATION RATE > 60.0 (>35); GLUCOSE, FASTING 93 MG/DL (70-100); POTASSIUM SERUM 3.8 MEQ/L (3.5-5.1); SODIUM LEVEL 139 MEQ/L (136-145)
[2018-01-08] MEDS: DOCUSATE SODIUM 100 MG CAP PO ×2 (08:50→20:58)
[2018-01-08] MEDS: TAMSULOSIN 0.4 MG CAP PO (09:00)
[2018-01-08] MEDS: DIGOXIN 0.125 MG TAB PO (09:00)
[2018-01-08] MEDS: FINASTERIDE 5 MG TAB PO (09:00)
[2018-01-08] MEDS: NS 1,000 ML IV (09:01)
[2018-01-08] MEDS ORDERED: SLF 3 ML SYR IV (17:00)
[2018-01-08] MEDS: NORCO, ANEXSIA 5/325MG TABLET (HYDROcodone/ACETAMINOPHEN) PO (17:09)
[2018-01-08] MEDS: SIMVASTATIN 10 MG TAB PO (20:55)
[2018-01-08] MEDS: APIXABAN 2.5 MG TAB (ELIQUIS) PO (20:55)
[2018-01-08] MEDS: rOPINIRole 0.25 MG TAB(REQUIP) PO (20:55)
[2018-01-08] MEDS: SLF 3 ML SYR IV (20:56)
[2018-01-09] MEDS: PIPERACILLIN/TAZOBACTAM SOD 3.375 GM in D5W MINI-BAG PLUS 50 ML IV ×4 (03:57→21:34)
[2018-01-09] MEDS: METOPROLOL TART 25 MG TABLET PO (05:18)
[2018-01-09] MEDS: SLF 3 ML SYR IV ×3 (05:21→21:34)
[2018-01-09 06:33] LABS: MEAN CORPUSCULAR HEMOGLOBIN 31.8 pg (27.0-33.0); MEAN CORPUSCULAR HGB CONC 34.4 g/dl (32.0-36.5); MEAN CORPUSCULAR VOLUME 92.5 fl (80.0-96.0); PLATELET COUNT, AUTOMATED 187 10^3/uL (150-450); RED BLOOD COUNT 3.46 10^6/uL (4.30-6.10); RED CELL DISTRIBUTION WIDTH 14.2 % (11.5-14.5); WHITE BLOOD COUNT 11.4 10^3/uL (4.0-10.0)
[2018-01-09 06:57] LABS: ANION GAP 9 MEQ/L (8-16); BLOOD UREA NITROGEN 14 MG/DL (7-18); C REACTIVE PROTEIN QUANTITATIV 1.56 MG/DL (0.00-0.30); CALCIUM LEVEL 7.9 MG/DL (8.8-10.2); CARBON DIOXIDE LEVEL 25 MEQ/L (21-32); CHLORIDE LEVEL 106 MEQ/L (98-107); CREATININE FOR GFR 0.75 MG/DL (0.70-1.30); GLOMERULAR FILTRATION RATE > 60.0 (>35); GLUCOSE, FASTING 92 MG/DL (70-100); POTASSIUM SERUM 3.6 MEQ/L (3.5-5.1); SODIUM LEVEL 140 MEQ/L (136-145)
[2018-01-09] MEDS: FINASTERIDE 5 MG TAB PO (08:10)
[2018-01-09] MEDS: APIXABAN 2.5 MG TAB (ELIQUIS) PO ×2 (08:10→21:34)
[2018-01-09] MEDS: DOCUSATE SODIUM 100 MG CAP PO ×2 (08:10→21:00)
[2018-01-09] MEDS: TAMSULOSIN 0.4 MG CAP PO (08:10)
[2018-01-09] MEDS: ACETAMINOPHEN TAB 650MG DOSE (2X325MG) PO (08:38)
[2018-01-09] MEDS: METOPROLOL TART 50 MG TAB PO (21:33)
[2018-01-09] MEDS: rOPINIRole 0.25 MG TAB(REQUIP) PO (21:33)
[2018-01-09] MEDS: SIMVASTATIN 10 MG TAB PO (21:34)
[2018-01-10] MEDS: PIPERACILLIN/TAZOBACTAM SOD 3.375 GM in D5W MINI-BAG PLUS 50 ML IV ×2 (04:58→08:54)
[2018-01-10] MEDS: SLF 3 ML SYR IV (06:00)
[2018-01-10 06:08] LABS: HEMATOCRIT 33.7 % (42.0-52.0); HEMOGLOBIN 11.6 g/dl (13.5-17.5); MEAN CORPUSCULAR HEMOGLOBIN 31.2 pg (27.0-33.0); MEAN CORPUSCULAR HGB CONC 34.4 g/dl (32.0-36.5); MEAN CORPUSCULAR VOLUME 90.6 fl (80.0-96.0); PLATELET COUNT, AUTOMATED 220 10^3/uL (150-450); RED BLOOD COUNT 3.72 10^6/uL (4.30-6.10); RED CELL DISTRIBUTION WIDTH 14.2 % (11.5-14.5); WHITE BLOOD COUNT 11.5 10^3/uL (4.0-10.0)
[2018-01-10 06:19] LABS: ANION GAP 9 MEQ/L (8-16); BLOOD UREA NITROGEN 12 MG/DL (7-18); C REACTIVE PROTEIN QUANTITATIV 2.08 MG/DL (0.00-0.30); CALCIUM LEVEL 8.1 MG/DL (8.8-10.2); CARBON DIOXIDE LEVEL 25 MEQ/L (21-32); CHLORIDE LEVEL 104 MEQ/L (98-107); CREATININE FOR GFR 0.78 MG/DL (0.70-1.30); GLOMERULAR FILTRATION RATE > 60.0 (>35); GLUCOSE, FASTING 91 MG/DL (70-100); POTASSIUM SERUM 3.5 MEQ/L (3.5-5.1); SODIUM LEVEL 138 MEQ/L (136-145)
[2018-01-10] MEDS: ACETAMINOPHEN TAB 650MG DOSE (2X325MG) PO (06:48)
[2018-01-10] MEDS: FINASTERIDE 5 MG TAB PO (08:52)
[2018-01-10] MEDS: TAMSULOSIN 0.4 MG CAP PO (08:52)
[2018-01-10] MEDS: DIGOXIN 0.125 MG TAB PO (08:52)
[2018-01-10] MEDS: APIXABAN 2.5 MG TAB (ELIQUIS) PO (08:52)
[2018-01-10] MEDS: METOPROLOL SUCC *XL* 25MG TAB (TopROL *XL*) PO (08:53)
[2018-01-10] MEDS: POTASSIUM CHLORIDE 10 MEQ SR TABLET PO (08:53)
[2018-01-10] MEDS: DOCUSATE SODIUM 100 MG CAP PO (08:54)
== END 2018-01-10 13:30 | disposition home or self-care (01) | DRG 351 ==
LOC: M PCU 01-05 23:45 → M SDC 01-06 12:55 → M PCU 01-06 12:56 → M ED 07:13 → M SDC 13:26 → M MSPAV 18:24
PROC: 0YQ80ZZ Repair Left Femoral Region, Open Approach (ICD-10-PCS; principal; 2018-01-04 15:34)
DX: K41.30 Unilateral femoral hernia, with obstruction, without gangrene, not specified as recurrent (principal); K91.89 Other postprocedural complications and disorders of digestive system; I48.2 Chronic atrial fibrillation; K21.9 Gastro-esophageal reflux disease without esophagitis; N40.0 Benign prostatic hyperplasia without lower urinary tract symptoms; Z85.46 Personal history of malignant neoplasm of prostate; Z79.899 Other long term (current) drug therapy; Z79.01 Long term (current) use of anticoagulants; R33.9 Retention of urine, unspecified; D72.829 Elevated white blood cell count, unspecified; G25.81 Restless legs syndrome; E78.5 Hyperlipidemia, unspecified; I25.10 Atherosclerotic heart disease of native coronary artery without angina pectoris; M51.24 Other intervertebral disc displacement, thoracic region

== ENCOUNTER 2018-01-24 12:24 | Emergency (ER) | payer MEDICARE, OTHER ==
[2018-01-24 13:10] LABS: BASO # 0.1 10^3/uL (0.0-0.2); BASO % 0.9 % (0.0-1.0); EOS # 0.2 10^3/uL (0.0-0.50); EOS % 2.2 % (0.0-3.0); HEMATOCRIT 35.9 % (42.0-52.0); HEMOGLOBIN 12.2 g/dl (13.5-17.5); IMMATURE GRANULOCYTE % 0.4 % (0-3.0); LYMPH # 1.9 10^3/uL (1.5-4.5); LYMPH % 22.8 % (24.0-44.0); MEAN CORPUSCULAR HEMOGLOBIN 31.9 pg (27.0-33.0); MONO # 0.7 10^3/uL (0.0-0.8); MONO % 8.3 % (0.0-5.0); NEUTROPHILS # 5.4 10^3/uL (1.8-7.7); NEUTROPHILS % 65.4 % (36.0-66.0); PLATELET COUNT, AUTOMATED 201 10^3/uL (150-450); RED BLOOD COUNT 3.82 10^6/uL (4.30-6.10); RED CELL DISTRIBUTION WIDTH 14.3 % (11.5-14.5); WHITE BLOOD COUNT 8.2 10^3/uL (4.0-10.0)
[2018-01-24 13:24] LABS: INR 1.26
[2018-01-24 13:25] LABS: PARTIAL THROMBOPLASTIN TIME 32.5 SECONDS (25.4-37.6)
[2018-01-24 13:32] LABS: ANION GAP 9 MEQ/L (8-16); BLOOD UREA NITROGEN 15 MG/DL (7-18); CALCIUM LEVEL 8.8 MG/DL (8.8-10.2); CARBON DIOXIDE LEVEL 27 MEQ/L (21-32); CHLORIDE LEVEL 105 MEQ/L (98-107); CPK CREATINE PHOSPHOKINASE 59 U/L (39-308); CREATININE FOR GFR 0.89 MG/DL (0.70-1.30); GLOMERULAR FILTRATION RATE > 60.0 (>35); GLUCOSE, FASTING 98 MG/DL (70-100); POTASSIUM SERUM 4.4 MEQ/L (3.5-5.1); SODIUM LEVEL 141 MEQ/L (136-145); TROPONIN I 0.02 NG/ML (< 0.10)
[2018-01-24 13:37] LABS: CK-MB VALUE MASS 2.1 NG/ML (<3.6); MB/CK RELATIVE INDEX 3.55 (< OR =4)
[2018-01-24] MEDS: NS 1,000 ML IV (15:08)
== END 2018-01-24 18:50 | disposition home or self-care (01) ==
LOC: M ED 12:24
DX: I48.91 Unspecified atrial fibrillation (principal); R94.31 Abnormal electrocardiogram [ECG] [EKG]; I25.10 Atherosclerotic heart disease of native coronary artery without angina pectoris; Z79.899 Other long term (current) drug therapy; Z85.46 Personal history of malignant neoplasm of prostate
CPT/HCPCS: 71045

== ENCOUNTER 2018-05-10 14:18 | Inpatient (IN) | payer MEDICARE, OTHER ==
[~2018-05-10] VITALS: Ht 167.6 cm; Wt 54.7 kg
[~2018-05-10 14:18] MED LIST: ACET1TAB55 PO; ASCO500T PO; BICA50TA9 PO; CLEO300C2 PO; COUM2TAB22 PO; DIGO0.12 PO; DIGO0.127 PO; ELIQ2.5T PO; FINA5TAB2 PO; FLOM0.4C39 PO; METO1TAB32 PO; METO1TAB87 PO; NORCOTAB PO; PRED20TA PO; RANI1TAB6 PO; ROPI0.5T PO; SIMV20TA2 PO; SIMV40TA2 PO; TESS100C PO; VANC125C2 PO; VANC1SUS PO; VITA-137 PO; VITA500046 PO; VITA500055 PO; VITA500C10 PO; WARF4TAB51 PO; ZOFR4TAB14 PO
[2018-05-10] MEDS ORDERED: D400400C PO (14:34)
[2018-05-10] MEDS ORDERED: DONETAB6 PO (14:34)
[2018-05-10] MEDS ORDERED: VITA10006 PO (14:34)
[2018-05-10] MEDS ORDERED: METO25TA4 PO (14:34)
[2018-05-10 15:00] LABS: BASO # 0.1 10^3/uL (0.0-0.2); BASO % 0.6 % (0.0-1.0); EOS # 0.1 10^3/uL (0.0-0.50); EOS % 1.5 % (0.0-3.0); HEMATOCRIT 35.1 % (42.0-52.0); HEMOGLOBIN 11.5 g/dl (13.5-17.5); LYMPH # 2.2 10^3/uL (1.5-4.5); LYMPH % 24.6 % (24.0-44.0); MEAN CORPUSCULAR HEMOGLOBIN 31.2 pg (27.0-33.0); MEAN CORPUSCULAR HGB CONC 32.8 g/dl (32.0-36.5); MEAN CORPUSCULAR VOLUME 95.1 fl (80.0-96.0); MONO # 0.6 10^3/uL (0.0-0.8); MONO % 7.3 % (0.0-5.0); NEUTROPHILS # 5.7 10^3/uL (1.8-7.7); NEUTROPHILS % 65.7 % (36.0-66.0); PLATELET COUNT, AUTOMATED 160 10^3/uL (150-450); RED BLOOD COUNT 3.69 10^6/uL (4.30-6.10); WHITE BLOOD COUNT 8.7 10^3/uL (4.0-10.0)
[2018-05-10 15:10] LABS: INR 1.27
[2018-05-10 15:11] LABS: PARTIAL THROMBOPLASTIN TIME 29.3 SECONDS (25.4-37.6)
[2018-05-10 15:40] LABS: ALBUMIN 3.6 GM/DL (3.2-5.2); ALT/SGPT 16 U/L (12-78); BILIRUBIN,DIRECT 0.3 MG/DL (0.0-0.2); BILIRUBIN,TOTAL 0.9 MG/DL (0.2-1.0); BLOOD UREA NITROGEN 19 MG/DL (7-18); CALCIUM LEVEL 8.4 MG/DL (8.8-10.2); CARBON DIOXIDE LEVEL 27 MEQ/L (21-32); CHLORIDE LEVEL 104 MEQ/L (98-107); CPK CREATINE PHOSPHOKINASE 79 U/L (39-308); CREATININE FOR GFR 1.07 MG/DL (0.70-1.30); DIGOXIN LEVEL 0.5 NG/ML (0.5-2.0); GLOMERULAR FILTRATION RATE > 60.0 (>35); GLUCOSE, FASTING 96 MG/DL (70-100); MB/CK RELATIVE INDEX 2.66 (< OR =4); POTASSIUM SERUM 4.3 MEQ/L (3.5-5.1); SODIUM LEVEL 140 MEQ/L (136-145); TOTAL PROTEIN 6.2 GM/DL (6.4-8.2); TROPONIN I < 0.02 NG/ML (< 0.10)
[2018-05-10 16:30] LABS: INFLUENZA A AMPLIFICATION NEGATIVE (NEGATIVE); INFLUENZA B AMPLIFICATION NEGATIVE (NEGATIVE)
[2018-05-10] MEDS ORDERED: DIGO0.12 PO (16:51)
[2018-05-10] MEDS ORDERED: FLOM0.4C39 PO (16:53)
--- NOTE | 2018-05-10 17:21 | REPVR ---
EXAM: MR Angiogram Head Without Contrast, Arteries EXAM DATE/TIME: 05/10/2018 4:42 PM CLINICAL HISTORY: 87 years old, male; Signs and symptoms; Cognitive deficit; Type not specified; Patient HX: Confusion, slurred speach; Additional info: CVA TECHNIQUE: MR angiogram head without contrast. Exam focused on the arteries. MIP reconstructed images were created and reviewed. COMPARISON: CT Head without contrast 05/10/2018 3:19 PM FINDINGS: Right internal carotid artery: Unremarkable. Intracranial segment is patent with no significant stenosis. No aneurysm. Right anterior cerebral artery: Unremarkable. No occlusion or significant stenosis. No aneurysm. Right middle cerebral artery: Unremarkable. No occlusion or significant stenosis. No aneurysm. Right posterior cerebral artery: Unremarkable. No occlusion or significant stenosis. No aneurysm. Right vertebral artery: Unremarkable. No occlusion or significant stenosis. No aneurysm. Left internal carotid artery: Unremarkable. Intracranial segment is patent with no significant stenosis. No aneurysm. Left anterior cerebral artery: Unremarkable. No occlusion or significant stenosis. No aneurysm. Left middle cerebral artery: Unremarkable. No occlusion or significant stenosis. No aneurysm. Left posterior cerebral artery: Unremarkable. No occlusion or significant stenosis. No aneurysm. Left vertebral artery: Unremarkable. No occlusion or significant stenosis. No aneurysm. Basilar artery: Tortuous basilar artery. IMPRESSION: No acute findings. Electronically signed by: Abdiel Scott On 05/10/2018 17:20:42 PM
--- NOTE | 2018-05-10 17:24 | REPVR ---
EXAM: MR Head Without Contrast EXAM DATE/TIME: 05/10/2018 4:42 PM CLINICAL HISTORY: 87 years old, male; Signs and symptoms; Altered mental status/memory loss and speech disturbance; Unspecified; Patient HX: Confusion, slurred speach; Additional info: Episode of slurred/garbled speech concerning for TIA HX afib TECHNIQUE: MR of the head without contrast. COMPARISON: CT Head without contrast 05/10/2018 3:19 PM FINDINGS: Brain: Multiple foci of T2 lengthening are demonstrated in the subcortical, periventricular and centrum semiovale white matter consistent with age-related small vessel gliosis. Moderate parenchymal volume loss consistent with advanced patient age. No abnormalities demonstrated on diffusion weighted images or ADC map. Ventricles: The degree of ventricular dilatation is normal for age. No pathologic enlargement demonstrated. Bones/joints: Unremarkable. Soft tissues: Normal. Sinuses: Normal as visualized. No acute sinusitis. Mastoid air cells: Normal as visualized. No mastoid effusion. Orbits: Unremarkable. IMPRESSION: 1. Multiple foci of T2 lengthening are demonstrated in the subcortical, periventricular and centrum semiovale white matter consistent with age-related small vessel gliosis. 2. Moderate parenchymal volume loss consistent with advanced patient age. Electronically signed by: Abdiel Scott On 05/10/2018 17:24:08 PM
--- NOTE | 2018-05-10 19:58 | HPEPDOC ---
[facility] Medical History & Physical Date of Admission May 10, 2018 History and Physical PRIMARY CARE PROVIDER: Unknown ATTENDING: Dr. Nelda Palmer CHIEF COMPLAINT: Slurred speech and altered mental status HISTORY OF PRESENT ILLNESS: This is a 87-year-old male past medical history of atrial fibrillation on Eliquis, ? History of CVA, prostate cancer, restless leg syndrome, hyperlipidemia, BPH who presents with lower 70 weakness and slurred speech. Patient notes that he woke up at 6:00am in the morning and noticed left lower extremity weakness, took his pills at 6:30am, went to sleep and woke up at 9:30 AM, during which he was disoriented with notable slurred speech. Upon presentation to the ED, patient's symptoms have resolved. Patient denies headache/chest pain/shortness of breath/palpitations. No nausea vomiting or diarrhea. PAST MEDICAL HISTORY: As per HPI PAST SURGICAL HISTORY: Appendectomy, right inguinal hernia repair, cataract surgery SOCIAL HISTORY: Denies tobacco, alcohol, illicit drug use. FAMILY HISTORY: Noncontributory ALLERGIES: Please see below. REVIEW OF SYSTEMS: HEENT: Denies sore throat/headache CARDIOVASCULAR: Denies chest pain/palpitations RESPIRATORY: Denies shortness of breath/cough GASTROINTESTINAL: denies nausea/vomiting GENITOURINARY: Denies dysuria/urinary urgency. MUSCULOSKELETAL: Denies myalgias/arthralgias NEUROLOGICAL: Slurred speech HOME MEDICATIONS: Please see below. PHYSICAL EXAMINATION: Vitals: (see below) General: No acute distress, laying comfortably in bed. HEENT: Moist mucous membranes. Neck: No JVD or lymphadenopathy Cardiac: Irregularly irregular, No murmurs Pulm: Clear to auscultation b/l. No wheezing, rhonchi Abd: NT/ND + BS Ext: No edema or cyanosis Neuro: Strength 5/5 BUE and BLE. CN 2-12 intact. F to N intact Negative pronator drift. Negative Babinki. Sensation to fine touch intact. NIH 0 LABORATORY DATA: See below. IMAGING: MRI brain on 09/08/17 with no CVA IMPRESSION: 1. Multiple foci of T2 lengthening are demonstrated in the subcortical, periventricular and centrum semiovale white matter consistent with age-related small vessel gliosis. 2. Moderate parenchymal volume loss consistent with advanced patient age. ASSESSMENT/PLAN: 1. Altered mental status with slurred speech, question TIA. Neurology consult to the ED. Continue patient's Eliquis and statin. Neuro checks every 4. MRI brain with no acute CVA. 2. History of atrial fibrillation on eliquis. Rate controlled. 3. History of dementia on Aricept 4. History of prostate cancer will need outpatient follow-up. 5. History of CAD continue home meds 6. Hyperlipidemia on statin DVT prophylaxis: On eliquis Pt will be followed by Dr. Nelda Palmer starting at 7 AM. Vital Signs Vital Signs Date Time Temp Pulse Resp B/P (MAP) Pulse Ox O2 Delivery O2 Flow Rate FiO2 05/10/18 18:03 86 98 Room Air 05/10/18 18:00 143/78 (99) 05/10/18 14:19 96.4 14 Laboratory Data Labs 24H Laboratory Tests 2 05/10/18 14:45: Immature Granulocyte % (Auto) 0.3, White Blood Count 8.7, Red Blood Count 3.69L, Hemoglobin 11.5L, Hematocrit 35.1L, Mean Corpuscular Volume 95.1, Mean Corpuscular Hemoglobin 31.2, Mean Corpuscular Hemoglobin Concent 32.8, Red Cell Distribution Width 13.8, Platelet Count 160, Neutrophils (%) (Auto) 65.7, Lymph ocytes (%) (Auto) 24.6, Monocytes (%) (Auto) 7.3H, Eosinophils (%) (Auto) 1.5, Basophils (%) (Auto) 0.6, Neutrophils # (Auto) 5.7, Lymphocytes # (Auto) 2.2, Monocytes # (Auto) 0.6, Eosinophils # (Auto) 0.1, Basophils # (Auto) 0.1, Nucleated Red Blood Cells % (auto) 0.0, Prothrombin Time 16.0H, Prothromb Time International Ratio 1.27, Activated Partial Thromboplast Time 29.3, Anion Gap 9, Glomerular Filtration Rate > 60.0, Calcium Level 8.4L, Aspartate Amino Transf (AST/SGOT) 17, Alanine Aminotransferase (ALT/SGPT) 16, Alkaline Phosphatase 64, Total Bilirubin 0.9, Direct Bilirubin 0.3H, Total Creatine Kinase 79, Creatine Kinase MB 2.0, Creatine Kinase MB Relative Index 2.66, Troponin I < 0.02, Total Protein 6.2L, Albumin 3.6, Albumin/Globulin Ratio 1.38, Thyroid Stimulating Hormone (TSH) 2.410, Free Thyroxine 1.00, Digoxin Level 0.5 05/10/18 15:23: Influenza Type A (RT-PCR) NEGATIVE, Influenza Type B (RT-PCR) NEGATIVE 05/10/18 16:25: Urine Color YELLOW, Urine Appearance CLEAR, Urine pH 5.0, Urine Specific [place] 1.021, Urine Protein NEGATIVE, Urine Glucose (UA) NEGATIVE, Urine Ketones NEGATIVE, Urine Blood NEGATIVE, Urine Nitrite NEGATIVE, Urine Bilirubin NEGATIVE, Urine Urobilinogen 0.2, Urine Leukocyte Esterase NEGATIVE, Urine WBC (Auto) 1, Urine RBC (Auto) 15H, Urine Hyaline Casts (Auto) 0, Urine Bacteria (Auto) NEGATIVE, Urine Squamous Epithelial Cells 0, Urine Sperm (Auto) CBC/BMP Laboratory Tests 05/10/18 14:45 Red Blood Count 3.69 L, Mean Corpuscular Volume 95.1, Mean Corpuscular Hemoglobin 31.2, Mean Corpuscular Hemoglobin Concent 32.8, Red Cell Distribution Width 13.8, Neutrophils (%) (Auto) 65.7, Lymphocytes (%) (Auto) 24.6, Monocytes (%) (Auto) 7.3 H, Eosinophils (%) (Auto) 1.5, Basophils (%) (Auto) 0.6, Neutrophils # (Auto) 5.7, Lymphocytes # (Auto) 2.2, Monocytes # (Auto) 0.6, Eosinophils # (Auto) 0.1, Basophils # (Auto) 0.1 Home Medications Scheduled (Digoxin) 125 Mcg Tab, 125 MCG PO 3XW SATURDAY, SATURDAY, SATURDAY Apixaban Base (Eliquis) 2.5 Mg Tab, 2.5 MG PO BID Ascorbic Acid (Vitamin C) 1,000 Mg Tab, 1,000 MG PO DAILY Cholecalciferol (Vitamin D3 400) 400 Unit Cap, 400 UNIT PO DAILY Donepezil Hcl (Donepezil HCl) 10 Mg Tab, 5 MG PO DAILY Metoprolol Tartrate (Metoprolol Tartrate) 25 Mg Tab, 12.5 MG PO BID Ranitidine HCl (Ranitidine [address]) 150 Mg Tab, 1 TAB PO BID Simvastatin (Simvastatin) 20 Mg Tab, 10 MG PO QHS Tamsulosin Hydrochloride (Flomax) 0.4 Mg Cap, 0.4 MG PO DAILY Allergies Coded Allergies: No Known Allergies (Unverified , 09/03/17) TIANA BROWN MD May 10, 2018 19:58
[2018-05-10 20:47] VITALS: BP 176/81
[2018-05-10] MEDS: METOPROLOL TART 12.5 MG PER 1/2 TAB PO SCH (21:57)
[2018-05-10] MEDS: FAMOTIDINE 20 MG TAB PO SCH (21:58)
[2018-05-10] MEDS: APIXABAN 2.5 MG TAB (ELIQUIS) PO SCH (21:58)
[2018-05-10 23:59] VITALS: BP 143/77
[2018-05-11 03:27] LABS: BASO # 0.1 10^3/uL (0.0-0.2); BASO % 0.7 % (0.0-1.0); EOS # 0.2 10^3/uL (0.0-0.50); HEMATOCRIT 33.6 % (42.0-52.0); HEMOGLOBIN 11.2 g/dl (13.5-17.5); LYMPH # 2.1 10^3/uL (1.5-4.5); LYMPH % 24.5 % (24.0-44.0); MEAN CORPUSCULAR HEMOGLOBIN 31.3 pg (27.0-33.0); MEAN CORPUSCULAR HGB CONC 33.3 g/dl (32.0-36.5); MEAN CORPUSCULAR VOLUME 93.9 fl (80.0-96.0); MONO # 0.7 10^3/uL (0.0-0.8); MONO % 8.6 % (0.0-5.0); NEUTROPHILS # 5.4 10^3/uL (1.8-7.7); NEUTROPHILS % 63.8 % (36.0-66.0); PLATELET COUNT, AUTOMATED 166 10^3/uL (150-450); RED BLOOD COUNT 3.58 10^6/uL (4.30-6.10); WHITE BLOOD COUNT 8.5 10^3/uL (4.0-10.0)
[2018-05-11 03:40] LABS: CPK CREATINE PHOSPHOKINASE 56 U/L (39-308); MB/CK RELATIVE INDEX 2.86 (< OR =4); TROPONIN I < 0.02 NG/ML (< 0.10)
[2018-05-11 03:49] LABS: BLOOD UREA NITROGEN 19 MG/DL (7-18); CALCIUM LEVEL 8.4 MG/DL (8.8-10.2); CARBON DIOXIDE LEVEL 27 MEQ/L (21-32); CHLORIDE LEVEL 106 MEQ/L (98-107); CREATININE FOR GFR 0.92 MG/DL (0.70-1.30); GLOMERULAR FILTRATION RATE > 60.0 (>35); GLUCOSE, FASTING 87 MG/DL (70-100); MAGNESIUM LEVEL 1.8 MG/DL (1.8-2.4); POTASSIUM SERUM 4.3 MEQ/L (3.5-5.1); SODIUM LEVEL 140 MEQ/L (136-145)
[2018-05-11 04:00] VITALS: BP 87/65
[2018-05-11 07:39] LABS: CHOLESTEROL LEVEL 137 MG/DL (<200); CHOLESTEROL RISK RATIO 2.107 (<5); HDL CHOLESTEROL 65 MG/DL (>40); LDL CHOLESTEROL 59 MG/DL (<100); NON-HDL-C 72 MG/DL; TRIGLYCERIDES LEVEL 65 MG/DL (<150)
[2018-05-11 08:00] VITALS: BP 124/74
[2018-05-11 08:11] LABS: HEMOGLOBIN A1c 5.4 %
[2018-05-11] MEDS: APIXABAN 2.5 MG TAB (ELIQUIS) PO SCH ×2 (09:15→20:03)
[2018-05-11] MEDS: FAMOTIDINE 20 MG TAB PO SCH ×2 (09:15→20:02)
[2018-05-11] MEDS: ASCORBIC ACID 500 MG TAB PO SCH (09:15)
[2018-05-11] MEDS: VITAMIN D (CHOLECALCIFEROL) 400 INTERNATIONAL UNITS TAB PO SCH (09:15)
[2018-05-11] MEDS: TAMSULOSIN 0.4 MG CAP PO SCH (09:15)
[2018-05-11] MEDS: METOPROLOL TART 12.5 MG PER 1/2 TAB PO SCH ×2 (09:17→20:03)
[2018-05-11] MEDS: ASPIRIN 81 MG CHEW TABLET PO SCH (11:04)
[2018-05-11 11:48] LABS: CPK CREATINE PHOSPHOKINASE 70 U/L (39-308); MB/CK RELATIVE INDEX 2.29 (< OR =4); TROPONIN I < 0.02 NG/ML (< 0.10)
[2018-05-11 12:00] VITALS: BP 116/67
--- NOTE | 2018-05-11 12:28 | REP ---
REASON: Assess for acute stroke. COMPARISON: 09/05/2017 which showed atrophy. There is no change from the prior exam. There is diffuse cerebellar and cerebral atrophy with ventricular and sulcal dilatation status quo. There is no acute shift in the midline structures. There is no evidence of an acute hemorrhagic or nonhemorrhagic intracranial event. There are no acute extra-axial fluid collections. Once again, there is patchy diffuse lucencies seen throughout the deep cerebral white matter status quo. There is no evidence of a skull fracture. There is no change in the imaged paranasal sinuses or mastoid air cells. IMPRESSION: Stable appearing chronic changes. Electronically Signed by Nael Hackett DO 05/11/2018 10:26 A
--- NOTE | 2018-05-11 12:28 | REP ---
REASON: Chest pain. COMPARISON: Multiple, latest 01/24/2018. There is cardiomegaly accentuated by technique. There are mild fibrotic changes throughout the lung wilder status quo and accentuated by technique. No acute patchy parenchymal opacities or pleural effusions have developed. There is no significant change in the appearance of the osseous structures. IMPRESSION: Stable appearing chronic changes and technique as described above. Electronically Signed by Nael Hackett DO 05/11/2018 10:25 A
--- NOTE | 2018-05-11 13:15 | IPN ---
DATE: 05/11/2018 SUBJECTIVE: The patient tells me that he is feeling better today. He denies any further weakness. He tells me that he feels almost back to normal but is not quite there. He is awake, alert, oriented times three. OBJECTIVE: VITAL SIGNS: Temperature 97.8, pulse 72, respiratory rate 20, blood pressure 124/74, oxygen saturation 97% on room air. GENERAL: He is a pleasant, elderly man lying in bed at a 30-degree angle. He does not appear to be in any acute distress. He speaks in complete sentences. HEENT: Face appears symmetric. Tongue is midline. Cranial nerves II-XII appear to be grossly intact. No elevation of central venous pressure (CVP). CARDIOVASCULAR EXAM: S1, S2 regular, not tachycardic. RESPIRATORY EXAM: Quite clear. ABDOMINAL EXAM: Benign. EXTREMITIES: No clubbing, cyanosis, or edema. He spontaneously moves all four extremities and 5/5 strength in all four extremities. NEUROLOGIC: His neurological exam is nonfocal. No gross focal deficits. LABORATORY STUDIES: WBC 8.5, hemoglobin 11.2, platelet count 166. Chemistry panel: Sodium 140, potassium 4.3, chloride 106, bicarbonate 27, BUN 19, creatinine 0.9, TSH within normal limits. INR is 1.2. UA is fairly unremarkable. Digoxin level is 0.5. Influenza swab is negative. IMAGING: The patient has an MRI and MRA of the brain, which was fairly unremarkable. CT of the head and a chest x-ray are currently pending. ASSESSMENT AND PLAN: This is an 87-year-old man who presented with some slurred speech and left lower extremity weakness, concerning for transient ischemic attack (TIA). PROBLEMS: 1. Left lower extremity weakness and slurred speech. This is possibly a TIA. His symptoms do appear to be resolving but not completely resolved. He does not feel back to normal. I will place a physical therapy (PT) and occupational therapy (OT) evaluation. He does not have any slurred speech at this time. He feels as though that has completely resolved. He has already been ordered for a diet. I do not think that he needs to have any speech evaluation to be completed. Neurologic consult order is in the computer. I will reach out to the neurology service and ensure that a consult is placed. An echocardiogram has been ordered. He had one in June that did not reveal any clot. No repeat has been ordered at this time. The immediate etiology is not immediately clear. I will add on an A1c and lipid panel to the labs. 2. Atrial fibrillation. He is rate controlled with metoprolol, anticoagulated with Eliquis, but he is on a 2-1/2 mg twice a day dosing. He normally takes digoxin 125 mcg three times a week. 3. Dementia. He is on Aricept at home. 4. BPH. He is on Flomax. 5. Dyslipidemia. He is on Zocor. 6. Prostate cancer. He is on Flomax. Should continue to followup in the outpatient setting with urology. 7. Vitamin D deficiency. He is on supplementation. 8. Coronary artery disease. He is on Eliquis, statin and beta hilda. He is not on an aspirin. Will defer to the outpatient providers. 9. Gastroesophageal reflux disease. He is on Pepcid.
--- NOTE | 2018-05-11 15:21 | ECGEPIP ---
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
[2018-05-11 16:00] VITALS: BP 130/69
--- NOTE | 2018-05-11 19:05 | CR ---
DATE OF CONSULTATION: 05/11/2018 REFERRING PHYSICIAN: Dr. Nelda Palmer REASON FOR CONSULTATION: Transient ischemic attack. HISTORY OF PRESENT ILLNESS: Brandon Esqueda is an 87-year-old man with history of chronic atrial fibrillation, prostate cancer, restless leg syndrome, dyslipidemia who presented with slurred speech. According to emergency department physician, the patient was being tested for dementia by his neurologist in [place]. The patient states that he goes to [facility]. The patient states that he woke up and his whole body was hurting. He was feeling shaky. He woke up around 6 a.m. yesterday and felt left leg weakness. He took his pills and went back to sleep. He woke up around 9:30 a.m. and was disoriented with slurred speech. His daughter brought him to [facility] for further evaluation. The patient states that his symptoms have resolved and he feels back to his normal self. The patient lives with his daughter, son-in-law and their children. The patient denies any headaches. He has off-and-on neck and back pain. He states his left ankle hurts sometimes. He uses a walker at his baseline. He denies any falls, loss of consciousness or head injuries. He denies dysphagia, dysarthria, diplopia, urinary incontinence. He denies any seizures. PAST MEDICAL HISTORY: Chronic atrial fibrillation, prostate cancer, restless leg syndrome, dyslipidemia, appendectomy, right inguinal hernia repair, cataract surgery. FAMILY HISTORY: Noncontributory. SOCIAL HISTORY: Denies smoking, alcohol or illicit drugs. 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 He goes to [facility]. HOME MEDICATIONS: - Eliquis 2.5 mg by mouth twice a day - vitamin D3 400 units by mouth daily - Aricept 5 mg by mouth daily - metoprolol 12.5 mg by mouth twice a day - ranitidine 150 mg by mouth twice a day - Zocor 20 mg by mouth daily - Flomax 0.4 mg by mouth daily - digoxin 125 mg by mouth three times a week ALLERGIES: None. REVIEW OF SYSTEMS: All systems were reviewed and found to be noncontributory except as mentioned in history of present illness. PHYSICAL EXAMINATION: Temperature 97.8, pulse 72, respiratory rate 20, blood pressure 124/74, 97% saturation on room air. Heart: Regular rate and rhythm. Lungs: Clear to auscultation. Abdomen: Soft, nontender, nondistended. No pedal edema. No musculoskeletal abnormalities or rash. No dysmetria or ataxia. No signs of meningeal irritation. The patient is awake, alert, oriented to place and person. He knows it is April. He is unable to tell me date, month or day of week. He is unable to tell me name of president. His recall is 0/3 at 5 minutes. He is unable to do serial 7s. Speech is normal with normal comprehension and repetition. Extraocular muscles are intact. No facial weakness. Tongue and uvula are midline. Visual wilder are full to confrontation. Pupils are 4 mm, reactive to light bilaterally. 5/5 strength in all four extremities. Deep tendon reflexes are 1+ in arms and knees and absent at ankles. He has slightly decreased cold, pinprick, vibration sensation in his feet. Gait is unsteady without wide-based. DIAGNOSTIC STUDIES: His MRI scan of brain showed small vessel ischemic disease of brain without acute disease. MRA brain was reportedly unremarkable. His hemoglobin is 11.2 with normal basic metabolic profile. ASSESSMENT: 1. Suspected transient ischemic attack. 2. 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 3. Atrial fibrillation. PLAN: 1. Aspirin 81 mg by mouth daily. 2. Eliquis 2.5 mg by mouth twice a day. 3. He should use a walker and exercise fall precautions. 4. Carotid ultrasound to complete workup of his transient ischemic attack. 5. Followup with patient's neurologist in [place]. It appears to me that he goes to [facility] in [place].
[2018-05-11 20:00] VITALS: BP 142/79
[2018-05-11] MEDS: SIMVASTATIN 10 MG TAB PO SCH (20:02)
[2018-05-11] MEDS: DONEPEZIL 5 MG TAB PO SCH (20:03)
[2018-05-12] VITALS (7 sets, daily range): BP systolic 104–138; BP diastolic 62–90
[2018-05-12 05:13] LABS: BASO # 0.1 10^3/uL (0.0-0.2); BASO % 0.6 % (0.0-1.0); EOS # 0.2 10^3/uL (0.0-0.50); EOS % 1.9 % (0.0-3.0); HEMOGLOBIN 12.1 g/dl (13.5-17.5); LYMPH # 2.2 10^3/uL (1.5-4.5); LYMPH % 27.9 % (24.0-44.0); MEAN CORPUSCULAR HEMOGLOBIN 31.3 pg (27.0-33.0); MEAN CORPUSCULAR HGB CONC 33.6 g/dl (32.0-36.5); MONO # 0.8 10^3/uL (0.0-0.8); MONO % 9.4 % (0.0-5.0); NEUTROPHILS # 4.8 10^3/uL (1.8-7.7); NEUTROPHILS % 59.9 % (36.0-66.0); PLATELET COUNT, AUTOMATED 174 10^3/uL (150-450); RED BLOOD COUNT 3.87 10^6/uL (4.30-6.10)
[2018-05-12 05:33] LABS: BLOOD UREA NITROGEN 19 MG/DL (7-18); CALCIUM LEVEL 8.6 MG/DL (8.8-10.2); CARBON DIOXIDE LEVEL 27 MEQ/L (21-32); CHLORIDE LEVEL 105 MEQ/L (98-107); CREATININE FOR GFR 1.02 MG/DL (0.70-1.30); GLOMERULAR FILTRATION RATE > 60.0 (>35); GLUCOSE, FASTING 96 MG/DL (70-100); POTASSIUM SERUM 4.2 MEQ/L (3.5-5.1); SODIUM LEVEL 138 MEQ/L (136-145)
[2018-05-12] MEDS ORDERED: DIGOXIN 0.125 MG TAB PO SCH (09:00)
[2018-05-12] MEDS: TAMSULOSIN 0.4 MG CAP PO SCH (09:45)
[2018-05-12] MEDS: ASCORBIC ACID 500 MG TAB PO SCH (09:45)
[2018-05-12] MEDS: FAMOTIDINE 20 MG TAB PO SCH ×2 (09:45→20:37)
[2018-05-12] MEDS: APIXABAN 2.5 MG TAB (ELIQUIS) PO SCH ×2 (09:45→20:37)
[2018-05-12] MEDS: ASPIRIN 81 MG CHEW TABLET PO SCH (09:45)
[2018-05-12] MEDS: VITAMIN D (CHOLECALCIFEROL) 400 INTERNATIONAL UNITS TAB PO SCH (09:45)
--- NOTE | 2018-05-12 12:56 | REP ---
Duplex carotid sonography: History: TIA. Findings: Antegrade flow was observed in both vertebral arteries. Right carotid: The right common carotid artery is unremarkable on two-dimensional scanning. There is mixed plaquing with some shadowing plaque in the proximal ICA and bulb on the right side on two-dimensional scanning. Color flow and spectral Doppler interrogation are unremarkable on the right. Velocity chart right carotid: Right CCA PSV 47 cm/S, right ICA PSV 75, EDV 13 right ECA PSV 28, right ICA/CCA ratio 1.6. Impression: 16-49% category narrowing in the right ICA by Doppler velocity criteria. Left carotid: The left common carotid artery shows diffuse intimal thickening and minimal soft plaquing. There is mixed plaquing in the bulb, proximal ICA and proximal ECA. The left ICA is markedly tortuous. Color flow and spectral Doppler interrogation are unremarkable however. Velocity chart left carotid: Left CCA PSV 63 cm/S, left ICA PSV 16, 15 left ECA PSV 49 left ICA/CCA ratio 1.0. Impression: 16-49% category narrowing in the left ICA by Doppler velocity criteria. Left ICA is quite tortuous. Electronically Signed by Norman Hubbard MD 05/12/2018 08:02 P
--- NOTE | 2018-05-12 13:21 | IPN ---
DATE: 05/12/2018 SUBJECTIVE: The patient tells me that he is feeling well at this time, tells me his feeling back to normal. He denies weakness, lightheadedness, slurred speech, chest pain or shortness of breath. OBJECTIVE: VITAL SIGNS: Temperature 97.5, pulse 68, respiratory rate 18, blood pressure 120/66, oxygen saturation 98% on room air. GENERAL: He is a very pleasant, slim man lying flat in bed in no acute distress. HEENT: Cranial nerves II through XII are grossly intact. He has moist mucous membranes. No elevation of central venous pressure (CVP). CARDIOVASCULAR EXAM: S1, S2 irregularly irregular, not tachycardic. RESPIRATORY EXAM: Quite clear. ABDOMINAL EXAM: Benign. EXTREMITIES: No clubbing, cyanosis, or edema. NEUROLOGIC: Normal, reveals no gross focal deficits. LABORATORY STUDIES: WBC 8.0, hemoglobin 12.1, platelet count 174. Chemistry panel: Sodium 138, potassium 4.2, chloride 105, bicarbonate 27, BUN 19, creatinine 1.0. IMAGING: No new imaging. ASSESSMENT/PLAN: This is an 87-year-old man with suspected transient ischemic attack (TIA). PROBLEMS: 1. Suspected TIA. He presents with left lower extremity weakness and slurred speech. Appears to have all resolved. The MRI/MRA have been unrevealing. We are currently awaiting the results of an echocardiogram, carotid duplex, and physical therapy/occupational therapy (PT/OT) evaluations. As of his last visit he was not cleared. He has had aspirin 81 mg added to his regimen of Eliquis. He is also on simvastatin. Lipid panel reveals LDL 59. Neurology has seen and evaluated him and feels he would benefit from further neurology outpatient FU through the [place] in [place]. At this time he is doing quite well. His appears to have resolved. 2. Atrial fibrillation. He is rate controlled with metoprolol, anticoagulated with Eliquis. He is also on digoxin 125 mcg three times a week. 3. Dementia. He is on Aricept. He has actually quite oriented and with it during my visits with him. 4. Benign prostatic hypertrophy (BPH). He is on Flomax. 5. Dyslipidemia. He is on Zocor. 6. Prostate cancer. He is on Flomax. He should continue to followup in the outpatient setting with urology as he did prior to his hospitalization. No acute events related to this during this stay. 7. Vitamin D deficiency. He is on supplementation. 8. Coronary artery disease. He is on aspirin, beta-hilda, statin. 9. Gastroesophageal reflux disease. He is on Pepcid. DISPOSITION: If his echocardiogram and carotid duplex are unrevealing, and he clears physical therapy/occupational therapy (PT/OT) I suspect he could be discharged as early as tomorrow.
[2018-05-12] MEDS: IBUPROFEN 400 MG TAB PO PRN (16:46)
[2018-05-12] MEDS: DONEPEZIL 5 MG TAB PO SCH (20:37)
[2018-05-12] MEDS: SIMVASTATIN 10 MG TAB PO SCH (20:37)
[2018-05-13] VITALS (7 sets, daily range): BP systolic 103–148; BP diastolic 62–97
[2018-05-13 05:57] LABS: BASO # 0.1 10^3/uL (0.0-0.2); BASO % 0.9 % (0.0-1.0); EOS # 0.2 10^3/uL (0.0-0.50); EOS % 1.9 % (0.0-3.0); HEMATOCRIT 34.6 % (42.0-52.0); HEMOGLOBIN 11.5 g/dl (13.5-17.5); LYMPH # 1.6 10^3/uL (1.5-4.5); LYMPH % 20.3 % (24.0-44.0); MEAN CORPUSCULAR HEMOGLOBIN 30.7 pg (27.0-33.0); MEAN CORPUSCULAR HGB CONC 33.2 g/dl (32.0-36.5); MEAN CORPUSCULAR VOLUME 92.5 fl (80.0-96.0); MONO # 0.7 10^3/uL (0.0-0.8); MONO % 9.1 % (0.0-5.0); NEUTROPHILS # 5.2 10^3/uL (1.8-7.7); NEUTROPHILS % 67.4 % (36.0-66.0); PLATELET COUNT, AUTOMATED 176 10^3/uL (150-450); RED BLOOD COUNT 3.74 10^6/uL (4.30-6.10); WHITE BLOOD COUNT 7.7 10^3/uL (4.0-10.0)
[2018-05-13 06:20] LABS: BLOOD UREA NITROGEN 22 MG/DL (7-18); CALCIUM LEVEL 8.3 MG/DL (8.8-10.2); CARBON DIOXIDE LEVEL 25 MEQ/L (21-32); CHLORIDE LEVEL 107 MEQ/L (98-107); CREATININE FOR GFR 0.85 MG/DL (0.70-1.30); GLOMERULAR FILTRATION RATE > 60.0 (>35); GLUCOSE, FASTING 102 MG/DL (70-100); MAGNESIUM LEVEL 1.8 MG/DL (1.8-2.4); POTASSIUM SERUM 4.1 MEQ/L (3.5-5.1); SODIUM LEVEL 139 MEQ/L (136-145)
--- NOTE | 2018-05-13 07:14 | ECHO ---
DATE OF PROCEDURE: 05/12/2018 REFERRING PHYSICIAN: Dr. Alonzo Jung. INDICATION: Transient cerebral ischemia, unspecified. HEIGHT: 158 cm. WEIGHT: 62 kg. 2D MEASUREMENTS: Left atrium: 3.5 cm Left atrial volume index: 48 Aortic root: 3.1 cm Proximal ascending aorta: 3.9 cm Ventricular septum: 1.25 cm Posterior wall: 1.17 cm Left ventricle diastole: 4.3 cm Inferior vena cava: 1.9 cm DOPPLER MEASUREMENTS: Moderate aortic regurgitation. Aortic valve velocity: 167 cm/s LVOT velocity: 102 cm/s LVOT VTI: 19.6 cm Very mild mitral regurgitation. Very mild tricuspid regurgitation. Estimated right ventricular systolic pressure 27-32 mmHg assuming an atrial pressure of 5-10 mmHg. Mild to moderate regurgitation. DESCRIPTION: Rhythm was atrial fibrillation with controlled ventricular response. No pericardial effusion. Image quality was fair. This was a 2D, M-mode, color flow Doppler, and pulsed wave Doppler examination and included mitral annular tissue Doppler. CONCLUSIONS: 1. Borderline concentric left ventricular hypertrophy. Normal regional LV wall motion and wall thickening. Normal LV systolic function. LVEF 50% by visual estimate. Unable to determine LV diastolic function in the setting of atrial fibrillation. 2. Moderate aortic valve sclerosis of a 3-cusp aortic valve. No aortic stenosis. Moderate aortic regurgitation. 3. Mild mitral annular calcification. Very mild mitral regurgitation. 4. Mild dilatation of the proximal ascending aorta. 5. Severe left atrial dilatation by left atrial volume index. 1. Mild concentric left ventricular hypertrophy. Hyperdynamic left ventricular systolic function. LVEF 75% by visual estimate. No regional wall motion abnormalities. 2. Moderate left atrial dilatation. 3. Suggestive of severe elevation of estimated right ventricle systolic pressure (75 mmHg).
[2018-05-13] MEDS: TAMSULOSIN 0.4 MG CAP PO SCH (08:22)
[2018-05-13] MEDS: ASCORBIC ACID 500 MG TAB PO SCH (08:22)
[2018-05-13] MEDS: FAMOTIDINE 20 MG TAB PO SCH ×2 (08:22→20:23)
[2018-05-13] MEDS: VITAMIN D (CHOLECALCIFEROL) 400 INTERNATIONAL UNITS TAB PO SCH (08:22)
[2018-05-13] MEDS: ASPIRIN 81 MG CHEW TABLET PO SCH (08:22)
[2018-05-13] MEDS: APIXABAN 2.5 MG TAB (ELIQUIS) PO SCH ×2 (08:22→20:23)
[2018-05-13] MEDS: IBUPROFEN 400 MG TAB PO PRN (08:29)
[2018-05-13] MEDS: METOPROLOL TART 12.5 MG PER 1/2 TAB PO SCH ×2 (09:39→20:23)
--- NOTE | 2018-05-13 15:03 | IPN ---
DATE: 05/13/2018 SUBJECTIVE: The patient is seen and examined in the room today. The patient stated he has been complaining about palpitations during exertion. Denies any fever or chills. Denies any chest pain or shortness of breath. OBJECTIVE: VITAL SIGNS: Temperature is 97.6, pulse is 120, respiratory rate 20, blood pressure is 148/72, pulse oximetry is 96% in room air. GENERAL: No sign of acute distress, alert and oriented times three. HEENT: Normocephalic, atraumatic. Extraocular motor grossly intact. CARDIOVASCULAR: Positive S1, S2, irregularly irregular. Tachycardic during exertion. LUNGS: Clear to auscultation bilaterally. ABDOMEN: Soft, nontender, nondistended. Bowel sounds present. EXTREMITIES: No edema. LABORATORY DATA: WBC is 7.7, hemoglobin 11.5, hematocrit 34.6, platelet count is 176. Sodium is 139, potassium 4.1, chloride 107, carbon dioxide 25, BUN 22, creatinine 0.85, GFR greater than 60, fasting glucose 102, calcium 8.3, magnesium 1.8. ASSESSMENT AND PLAN: 1. Suspected transient ischemic attack (TIA). The patient presented with left lower extremity weakness and slurred speech. MRI/MRA reviewed. Echocardiogram reviewed. Carotid ultrasounds reviewed. The patient passed physical therapy. The patient is on aspirin, Eliquis, and Zocor. 2. Atrial fibrillation. The patient is anticoagulated with Eliquis. Previously, the patient was on metoprolol. At home, the patient is also taking digoxin. On 05/12/2018, the patient had three episodes of cardiac pause. It lasted about 3.16 second, 2.56 seconds, and 2.32 seconds. At the time, beta hilda was discontinued and since then at rest, the patient's heart rate is running around the 90s. During any type of exertion, the patient's heart rate can go up to as high as around 140s to 150s. Discussed with on-call cardiology. We will discontinue the Aricept and restart the patient on the metoprolol. Continue to monitor heart rate. The patient does have a reversible cause for the pause. The patient is not a candidate for a pacemaker at this moment. At baseline, the patient is quite active. 3. Dementia. Due to the cardiac pause, the patient's Aricept will be discontinued. 4. Benign prostatic hypertrophy (BPH), on Flomax. 5. Prostate cancer. Continue to follow with urology. 6. Coronary artery disease, on aspirin, metoprolol and statin. 7. Gastroesophageal reflux disease, on Pepcid. DISPOSITION: Due to the uncontrolled heart rate, the patient's cardiac medication is being adjusted. The case was discussed with the on-call corporate security officer. If heart rate is under better control, we anticipate discharge in the next 24-48 hours.
[2018-05-13] MEDS: SIMVASTATIN 10 MG TAB PO SCH (20:23)
[2018-05-14] VITALS (7 sets, daily range): BP systolic 85–157; BP diastolic 55–87
[2018-05-14 05:48] LABS: BASO # 0.1 10^3/uL (0.0-0.2); BASO % 0.7 % (0.0-1.0); EOS # 0.1 10^3/uL (0.0-0.50); EOS % 1.4 % (0.0-3.0); HEMATOCRIT 36.7 % (42.0-52.0); HEMOGLOBIN 12.3 g/dl (13.5-17.5); LYMPH # 1.8 10^3/uL (1.5-4.5); LYMPH % 23.4 % (24.0-44.0); MEAN CORPUSCULAR HEMOGLOBIN 31.2 pg (27.0-33.0); MEAN CORPUSCULAR HGB CONC 33.5 g/dl (32.0-36.5); MEAN CORPUSCULAR VOLUME 93.1 fl (80.0-96.0); MONO # 0.5 10^3/uL (0.0-0.8); MONO % 6.8 % (0.0-5.0); NEUTROPHILS # 5.1 10^3/uL (1.8-7.7); NEUTROPHILS % 67.3 % (36.0-66.0); PLATELET COUNT, AUTOMATED 189 10^3/uL (150-450); RED BLOOD COUNT 3.94 10^6/uL (4.30-6.10); WHITE BLOOD COUNT 7.6 10^3/uL (4.0-10.0)
[2018-05-14 06:10] LABS: BLOOD UREA NITROGEN 19 MG/DL (7-18); CALCIUM LEVEL 8.3 MG/DL (8.8-10.2); CARBON DIOXIDE LEVEL 26 MEQ/L (21-32); CHLORIDE LEVEL 106 MEQ/L (98-107); CREATININE FOR GFR 0.96 MG/DL (0.70-1.30); GLOMERULAR FILTRATION RATE > 60.0 (>35); GLUCOSE, FASTING 102 MG/DL (70-100); MAGNESIUM LEVEL 1.8 MG/DL (1.8-2.4); POTASSIUM SERUM 4.2 MEQ/L (3.5-5.1); SODIUM LEVEL 139 MEQ/L (136-145)
[2018-05-14] MEDS: METOPROLOL TART 25 MG TABLET PO SCH ×2 (09:07→21:43)
[2018-05-14] MEDS: FAMOTIDINE 20 MG TAB PO SCH ×2 (09:07→21:43)
[2018-05-14] MEDS: VITAMIN D (CHOLECALCIFEROL) 400 INTERNATIONAL UNITS TAB PO SCH (09:07)
[2018-05-14] MEDS: TAMSULOSIN 0.4 MG CAP PO SCH (09:07)
[2018-05-14] MEDS: ASPIRIN 81 MG CHEW TABLET PO SCH (09:07)
[2018-05-14] MEDS: ASCORBIC ACID 500 MG TAB PO SCH (09:07)
[2018-05-14] MEDS: APIXABAN 2.5 MG TAB (ELIQUIS) PO SCH ×2 (09:07→21:43)
--- NOTE | 2018-05-14 18:46 | IPNPDOC ---
Text Note Date of Service The patient was seen on 05/14/18. NOTE SUBJECTIVE: The patient is seen and examined in the room today. Patient denies palpitation during the encounter. Patient still has uncontrolled heart rate with minimal movement. No pause is noted on telemetry. OBJECTIVE: VITAL SIGNS: Listed below. GENERAL: No sign of acute distress, alert and oriented times three. HEENT: Normocephalic, atraumatic. Extraocular motor grossly intact. CARDIOVASCULAR: Positive S1, S2, irregularly irregular. Tachycardic during exertion. LUNGS: Clear to auscultation bilaterally. ABDOMEN: Soft, nontender, nondistended. Bowel sounds present. EXTREMITIES: No edema. LABORATORY DATA: Listed below. ASSESSMENT AND PLAN: #. Uncontrolled atrial fibrillation. - The patient is anticoagulated with Eliquis. - On 05/12/2018, the patient had three episodes of cardiac pauses. It lasted about 3.16 second, 2.56 seconds, and 2.32 seconds. At that time, beta hilda was discontinued. Since then the patient's heart rate is running around the 90s at rest. During any type of movement, the patient's heart rate can go up to as high as around 140s to 150s. Discussed with on-call cardiology. Aricept has been discontinued. Will titrate the dosage of metoprolol. The patient is not a candidate for a pacemaker at this moment due to reversible cause of uncontrolled atrial fib. At baseline, the patient is quite active. #. Suspected transient ischemic attack (TIA). - The patient presented with left lower extremity weakness and slurred speech. MRI/MRA reviewed. Echocardiogram reviewed. Carotid ultrasounds reviewed. The patient passed physical therapy. The patient is on aspirin, Eliquis, and Zocor. #. Dementia. Due to the cardiac pause, the patient's Aricept will be discontinued. #. Benign prostatic hypertrophy (BPH), on Flomax. #. Prostate cancer. Continue to follow with urology. #. Coronary artery disease, on aspirin, metoprolol and statin. #. Gastroesophageal reflux disease, on Pepcid. VS,Fishbone, I+O VS, Fishbone, I+O Laboratory Tests 05/14/18 05:22 Red Blood Count 3.94 L, Mean Corpuscular Volume 93.1, Mean Corpuscular Hemoglobin 31.2, Mean Corpuscular Hemoglobin Concent 33.5, Red Cell Distribution Width 13.5, Neutrophils (%) (Auto) 67.3 H, Lymphocytes (%) (Auto) 23.4 L, Monocytes (%) (Auto) 6.8 H, Eosinophils (%) (Auto) 1.4, Basophils (%) (Auto) 0.7, Neutrophils # (Auto) 5.1, Lymphocytes # (Auto) 1.8, Monocytes # (Auto) 0.5, Eosinophils # (Auto) 0.1, Basophils # (Auto) 0.1, Calcium Level 8.3 L Vital Signs Date Time Temp Pulse Resp B/P (MAP) Pulse Ox O2 Delivery O2 Flow Rate FiO2 05/14/18 16:00 97.6 75 18 122/76 (91) 94 Room Air I&O- Last 24 Hours up to 6 AM 05/14/18 06:00 Intake Total 1760 ml Output Total 1535 ml Balance 225 ml SHILOH VELEZ DO May 14, 2018 18:46
[2018-05-14] MEDS: SIMVASTATIN 10 MG TAB PO SCH (21:43)
[2018-05-15] MEDS ORDERED: LORazepam 0.5 MG TAB PO ONE (02:00)
[2018-05-15] MEDS ORDERED: METOPROLOL TART 25 MG TABLET PO ONE (02:00)
[2018-05-15] MEDS ORDERED: LORazepam 2 MG/ML VIAL (J2060) IV STA (02:06)
[2018-05-15 04:00] VITALS: BP 114/65
[2018-05-15 05:58] LABS: BASO # 0.1 10^3/uL (0.0-0.2); BASO % 0.6 % (0.0-1.0); EOS % 0.4 % (0.0-3.0); HEMATOCRIT 36.2 % (42.0-52.0); LYMPH # 1.8 10^3/uL (1.5-4.5); LYMPH % 15.9 % (24.0-44.0); MEAN CORPUSCULAR HEMOGLOBIN 30.5 pg (27.0-33.0); MEAN CORPUSCULAR HGB CONC 33.1 g/dl (32.0-36.5); MEAN CORPUSCULAR VOLUME 91.9 fl (80.0-96.0); MONO # 0.8 10^3/uL (0.0-0.8); MONO % 6.6 % (0.0-5.0); NEUTROPHILS # 8.7 10^3/uL (1.8-7.7); NEUTROPHILS % 76.1 % (36.0-66.0); PLATELET COUNT, AUTOMATED 223 10^3/uL (150-450); RED BLOOD COUNT 3.94 10^6/uL (4.30-6.10); WHITE BLOOD COUNT 11.4 10^3/uL (4.0-10.0)
[2018-05-15 06:19] LABS: BLOOD UREA NITROGEN 24 MG/DL (7-18); CALCIUM LEVEL 8.3 MG/DL (8.8-10.2); CARBON DIOXIDE LEVEL 24 MEQ/L (21-32); CHLORIDE LEVEL 105 MEQ/L (98-107); CREATININE FOR GFR 1.04 MG/DL (0.70-1.30); GLOMERULAR FILTRATION RATE > 60.0 (>35); GLUCOSE, FASTING 96 MG/DL (70-100); MAGNESIUM LEVEL 1.8 MG/DL (1.8-2.4); POTASSIUM SERUM 4.3 MEQ/L (3.5-5.1); SODIUM LEVEL 138 MEQ/L (136-145)
[2018-05-15 08:00] VITALS: BP 120/56
[2018-05-15] MEDS: ASPIRIN 81 MG CHEW TABLET PO SCH (10:04)
[2018-05-15] MEDS: VITAMIN D (CHOLECALCIFEROL) 400 INTERNATIONAL UNITS TAB PO SCH (10:05)
[2018-05-15] MEDS: ASCORBIC ACID 500 MG TAB PO SCH (10:06)
[2018-05-15] MEDS: TAMSULOSIN 0.4 MG CAP PO SCH (10:11)
[2018-05-15] MEDS: METOPROLOL TART 25 MG TABLET PO SCH ×2 (10:14→20:26)
[2018-05-15] MEDS: APIXABAN 2.5 MG TAB (ELIQUIS) PO SCH ×2 (10:15→20:25)
[2018-05-15] MEDS: FAMOTIDINE 20 MG TAB PO SCH ×2 (10:16→20:25)
[2018-05-15 12:00] VITALS: BP 125/85
[2018-05-15] MEDS ORDERED: SLF 3 ML SYR IV PRN (14:15)
[2018-05-15 16:00] VITALS: BP 122/58
--- NOTE | 2018-05-15 19:04 | IPNPDOC ---
Text Note Date of Service The patient was seen on 05/15/18. NOTE SUBJECTIVE: The patient is seen and examined in the room today. Patient was confused yesterday night. He was very agitated also. During morning encounter, patient was not fully oriented but he was not agitated. Discussed with patient's daughter over the phone. Patient has had intermittent confusion prior to hospitalization. She is in process of obtaining additional help for patient at home. No pause is noted on telemetry. OBJECTIVE: VITAL SIGNS: Listed below. GENERAL: No sign of acute distress, alert and oriented times three. HEENT: Normocephalic, atraumatic. Extraocular motor grossly intact. CARDIOVASCULAR: Positive S1, S2, irregularly irregular. LUNGS: Clear to auscultation bilaterally. ABDOMEN: Soft, nontender, nondistended. Bowel sounds present. EXTREMITIES: No edema. LABORATORY DATA: Listed below. ASSESSMENT AND PLAN: #. Uncontrolled atrial fibrillation. - Anticoagulated with Eliquis. - Aricept has been discontinued. Titrating metoprolol. The patient is not a candidate for a pacemaker at this moment due to reversible cause of uncontrolled atrial fib. #. Dementia with delirium. - Due to the cardiac pause, the patient's Aricept will be discontinued. - Delirium improved. Discussed with patient's caregiver (Daughter). They are in processing applying additional help for the patient at home. #. Suspected transient ischemic attack (TIA). - The patient presented with left lower extremity weakness and slurred speech. MRI/MRA reviewed. Echocardiogram reviewed. Carotid ultrasounds reviewed. The patient passed physical therapy. The patient is on aspirin, Eliquis, and Zocor. #. Benign prostatic hypertrophy (BPH), on Flomax. #. Prostate cancer. Continue to follow with urology. #. Coronary artery disease, on aspirin, metoprolol and statin. #. Gastroesophageal reflux disease, on Pepcid. # DVT prophylaxis. On Eliquis. VS,Fishbone, I+O VS, Fishbone, I+O Laboratory Tests 05/15/18 05:13 Red Blood Count 3.94 L, Mean Corpuscular Volume 91.9, Mean Corpuscular Hemoglobin 30.5, Mean Corpuscular Hemoglobin Concent 33.1, Red Cell Distribution Width 13.4, Neutrophils (%) (Auto) 76.1 H, Lymphocytes (%) (Auto) 15.9 L, Monocytes (%) (Auto) 6.6 H, Eosinophils (%) (Auto) 0.4, Basophils (%) (Auto) 0 .6, Neutrophils # (Auto) 8.7 H, Lymphocytes # (Auto) 1.8, Monocytes # (Auto) 0.8, Eosinophils # (Auto) 0.0, Basophils # (Auto) 0.1, Calcium Level 8.3 L Vital Signs Date Time Temp Pulse Resp B/P (MAP) Pulse Ox O2 Delivery O2 Flow Rate FiO2 05/15/18 16:00 98.1 63 18 122/58 (79) 99 Room Air I&O- Last 24 Hours up to 6 AM 05/15/18 06:00 Intake Total 1020 ml Output Total 350 ml Balance 670 ml SHILOH VELEZ DO May 15, 2018 19:04
[2018-05-15 20:00] VITALS: BP 96/62
[2018-05-15 20:22] VITALS: BP 120/80
[2018-05-15] MEDS: SIMVASTATIN 10 MG TAB PO SCH (20:25)
[2018-05-15] MEDS: SLF 3 ML SYR IV SCH (20:26)
[2018-05-16] VITALS (7 sets, daily range): BP systolic 98–151; BP diastolic 60–97
[2018-05-16] MEDS: SLF 3 ML SYR IV SCH ×3 (05:03→22:00)
[2018-05-16 06:12] LABS: BASO # 0.1 10^3/uL (0.0-0.2); BASO % 0.9 % (0.0-1.0); EOS # 0.1 10^3/uL (0.0-0.50); EOS % 1.6 % (0.0-3.0); HEMATOCRIT 34.3 % (42.0-52.0); LYMPH % 25.4 % (24.0-44.0); MEAN CORPUSCULAR HEMOGLOBIN 31.8 pg (27.0-33.0); MONO # 0.7 10^3/uL (0.0-0.8); MONO % 8.7 % (0.0-5.0); NEUTROPHILS % 62.9 % (36.0-66.0); PLATELET COUNT, AUTOMATED 191 10^3/uL (150-450); RED BLOOD COUNT 3.77 10^6/uL (4.30-6.10); WHITE BLOOD COUNT 7.9 10^3/uL (4.0-10.0)
[2018-05-16 06:31] LABS: BLOOD UREA NITROGEN 23 MG/DL (7-18); CALCIUM LEVEL 8.6 MG/DL (8.8-10.2); CARBON DIOXIDE LEVEL 26 MEQ/L (21-32); CHLORIDE LEVEL 107 MEQ/L (98-107); CREATININE FOR GFR 0.94 MG/DL (0.70-1.30); GLOMERULAR FILTRATION RATE > 60.0 (>35); GLUCOSE, FASTING 96 MG/DL (70-100); POTASSIUM SERUM 4.4 MEQ/L (3.5-5.1); SODIUM LEVEL 140 MEQ/L (136-145)
[2018-05-16] MEDS: ASPIRIN 81 MG CHEW TABLET PO SCH (08:19)
[2018-05-16] MEDS: TAMSULOSIN 0.4 MG CAP PO SCH (08:19)
[2018-05-16] MEDS: VITAMIN D (CHOLECALCIFEROL) 400 INTERNATIONAL UNITS TAB PO SCH (08:19)
[2018-05-16] MEDS: APIXABAN 2.5 MG TAB (ELIQUIS) PO SCH ×2 (08:19→20:05)
[2018-05-16] MEDS: ASCORBIC ACID 500 MG TAB PO SCH (08:20)
[2018-05-16] MEDS: FAMOTIDINE 20 MG TAB PO SCH ×2 (08:20→20:05)
[2018-05-16] MEDS: METOPROLOL TART 25 MG TABLET PO SCH ×2 (08:27→20:05)
--- NOTE | 2018-05-16 16:56 | IPNPDOC ---
Text Note Date of Service The patient was seen on 05/16/18. NOTE SUBJECTIVE: The patient is seen and examined in the room today. Patient remembers the place, month, year but he does not remember the name of president. Patient denies palpitation. No agitation is noted. OBJECTIVE: VITAL SIGNS: Listed below. GENERAL: No sign of acute distress, alert and oriented times three. HEENT: Normocephalic, atraumatic. Extraocular motor grossly intact. CARDIOVASCULAR: Positive S1, S2, irregularly irregular. LUNGS: Clear to auscultation bilaterally. ABDOMEN: Soft, nontender, nondistended. Bowel sounds present. EXTREMITIES: No edema. LABORATORY DATA: Listed below. ASSESSMENT AND PLAN: #. Uncontrolled atrial fibrillation. - Anticoagulated with Eliquis. - Aricept has been discontinued. Titrating metoprolol. The patient is not a candidate for a pacemaker at this moment due to reversible cause of uncontrolled atrial fib. Heart rate is under better control. #. Dementia with delirium. - Due to the cardiac pause, the patient's Aricept will be discontinued. - Delirium on 05/15/18. Discussed with patient's caregiver (Daughter). She is considering [facility] placement. #. Suspected transient ischemic attack (TIA). - The patient presented with left lower extremity weakness and slurred speech. MRI/MRA reviewed. Echocardiogram reviewed. Carotid ultrasounds reviewed. The patient passed physical therapy. The patient is on aspirin, Eliquis, and Zocor. #. Benign prostatic hypertrophy (BPH), on Flomax. #. Prostate cancer. Continue to follow with urology. #. Coronary artery disease, on aspirin, metoprolol and statin. #. Gastroesophageal reflux disease, on Pepcid. # DVT prophylaxis. On Eliquis. VS,Fishbone, I+O VS, Fishbone, I+O Laboratory Tests 05/16/18 05:48 Red Blood Count 3.77 L, Mean Corpuscular Volume 91.0, Mean Corpuscular Hemoglobin 31.8, Mean Corpuscular Hemoglobin Concent 35.0, Red Cell Distribution Width 13.7, Neutrophils (%) (Auto) 62.9, Lymphocytes (%) (Auto) 25.4, Monocytes (%) (Auto) 8.7 H, Eosinophils (%) (Auto) 1.6, Basophils (%) (Auto) 0.9, Neutrophils # (Auto) 5.0, Lymphocytes # (Auto) 2.0, Monocytes # (Auto) 0.7, Eosinophils # (Auto) 0.1, Basophils # (Auto) 0.1, Calcium Level 8.6 L Vital Signs Date Time Temp Pulse Resp B/P (MAP) Pulse Ox O2 Delivery O2 Flow Rate FiO2 05/16/18 16:00 96.6 84 18 139/68 (91) 99 Room Air I&O- Last 24 Hours up to 6 AM 05/16/18 05:59 Intake Total 880 ml Output Total 1025 ml Balance -145 ml SHILOH VELEZ DO May 16, 2018 16:56
[2018-05-16] MEDS: SIMVASTATIN 10 MG TAB PO SCH (20:05)
[2018-05-16] MEDS: IBUPROFEN 400 MG TAB PO PRN (20:06)
[2018-05-17 04:45] VITALS: BP 105/55
[2018-05-17 05:01] LABS: BASO # 0.1 10^3/uL (0.0-0.2); BASO % 0.9 % (0.0-1.0); EOS # 0.2 10^3/uL (0.0-0.50); EOS % 1.6 % (0.0-3.0); HEMATOCRIT 34.7 % (42.0-52.0); HEMOGLOBIN 11.8 g/dl (13.5-17.5); LYMPH # 2.1 10^3/uL (1.5-4.5); LYMPH % 21.8 % (24.0-44.0); MEAN CORPUSCULAR HEMOGLOBIN 31.1 pg (27.0-33.0); MEAN CORPUSCULAR VOLUME 91.6 fl (80.0-96.0); MONO # 0.9 10^3/uL (0.0-0.8); MONO % 9.5 % (0.0-5.0); NEUTROPHILS # 6.4 10^3/uL (1.8-7.7); NEUTROPHILS % 65.8 % (36.0-66.0); PLATELET COUNT, AUTOMATED 191 10^3/uL (150-450); RED BLOOD COUNT 3.79 10^6/uL (4.30-6.10); WHITE BLOOD COUNT 9.8 10^3/uL (4.0-10.0)
[2018-05-17 05:23] LABS: BLOOD UREA NITROGEN 27 MG/DL (7-18); CALCIUM LEVEL 8.1 MG/DL (8.8-10.2); CARBON DIOXIDE LEVEL 25 MEQ/L (21-32); CHLORIDE LEVEL 107 MEQ/L (98-107); CREATININE FOR GFR 0.98 MG/DL (0.70-1.30); GLOMERULAR FILTRATION RATE > 60.0 (>35); GLUCOSE, FASTING 99 MG/DL (70-100); MAGNESIUM LEVEL 1.8 MG/DL (1.8-2.4); POTASSIUM SERUM 4.1 MEQ/L (3.5-5.1); SODIUM LEVEL 140 MEQ/L (136-145)
[2018-05-17] MEDS: SLF 3 ML SYR IV SCH ×3 (06:00→20:40)
[2018-05-17 07:49] VITALS: BP 126/81
[2018-05-17] MEDS: TAMSULOSIN 0.4 MG CAP PO SCH (08:34)
[2018-05-17] MEDS: METOPROLOL TART 25 MG TABLET PO SCH ×2 (08:34→20:57)
[2018-05-17] MEDS: APIXABAN 2.5 MG TAB (ELIQUIS) PO SCH ×2 (08:34→20:40)
[2018-05-17] MEDS: ASPIRIN 81 MG CHEW TABLET PO SCH (08:34)
[2018-05-17] MEDS: ASCORBIC ACID 500 MG TAB PO SCH (08:35)
[2018-05-17] MEDS: FAMOTIDINE 20 MG TAB PO SCH ×2 (08:35→20:40)
[2018-05-17] MEDS: VITAMIN D (CHOLECALCIFEROL) 400 INTERNATIONAL UNITS TAB PO SCH (08:35)
[2018-05-17 12:00] VITALS: BP 90/56
[2018-05-17 16:00] VITALS: BP 134/61
--- NOTE | 2018-05-17 17:17 | IPNPDOC ---
Text Note Date of Service The patient was seen on 05/17/18. NOTE SUBJECTIVE: The patient is seen and examined in the room today. Patient still does not remember the name of president. Patient understands that he may need half-way care placement. Patient denies palpitation. No agitation is noted. OBJECTIVE: VITAL SIGNS: Listed below. GENERAL: No sign of acute distress, alert and oriented times three. HEENT: Normocephalic, atraumatic. Extraocular motor grossly intact. CARDIOVASCULAR: Positive S1, S2, irregularly irregular. LUNGS: Clear to auscultation bilaterally. ABDOMEN: Soft, nontender, nondistended. Bowel sounds present. EXTREMITIES: No edema. LABORATORY DATA: Listed below. ASSESSMENT AND PLAN: #. Uncontrolled atrial fibrillation. - Anticoagulated with Eliquis. - Aricept has been discontinued. The patient is not a candidate for a pacemaker at this moment due to reversible cause of uncontrolled atrial fib. - On metoprolol 50mg BID. #. Dementia with delirium. - Due to the cardiac pause, the patient's Aricept will be discontinued. - Delirium on 05/15/18. No recurrence since. Discussed with patient's caregiver (Daughter). She is considering senior care placement. #. Suspected transient ischemic attack (TIA). - The patient presented with left lower extremity weakness and slurred speech. MRI/MRA reviewed. Echocardiogram reviewed. Carotid ultrasounds reviewed. The patient passed physical therapy. The patient is on aspirin, Eliquis, and Zocor. #. Benign prostatic hypertrophy (BPH), on Flomax. #. Prostate cancer. Continue to follow with urology in outpatient setting. . #. Coronary artery disease, on aspirin, metoprolol and statin. #. Gastroesophageal reflux disease, on Pepcid. # DVT prophylaxis. On Eliquis. VS,Fishbone, I+O VS, Fishbone, I+O Laboratory Tests 05/17/18 04:28 Red Blood Count 3.79 L, Mean Corpuscular Volume 91.6, Mean Corpuscular Hem oglobin 31.1, Mean Corpuscular Hemoglobin Concent 34.0, Red Cell Distribution Width 13.7, Neutrophils (%) (Auto) 65.8, Lymphocytes (%) (Auto) 21.8 L, Monocytes (%) (Auto) 9.5 H, Eosinophils (%) (Auto) 1.6, Basophils (%) (Auto) 0.9, Neutrophils # (Auto) 6.4, Lymphocytes # (Auto) 2.1, Monocytes # (Auto) 0.9 H, Eosinophils # (Auto) 0.2, Basophils # (Auto) 0.1, Calcium Level 8.1 L Vital Signs Date Time Temp Pulse Resp B/P (MAP) Pulse Ox O2 Delivery O2 Flow Rate FiO2 05/17/18 12:00 98.4 92 18 90/56 (67) 96 Room Air I&O- Last 24 Hours up to 6 AM 05/17/18 06:00 Intake Total 660 ml Output Total 250 ml Balance 410 ml SHILOH VELEZ DO May 17, 2018 17:17
[2018-05-17 19:23] VITALS: BP 115/69
[2018-05-17] MEDS: SIMVASTATIN 10 MG TAB PO SCH (20:40)
[2018-05-17 22:00] VITALS: BP 132/74
[2018-05-18 02:00] VITALS: BP 120/61
[2018-05-18 06:00] VITALS: BP 122/85
[2018-05-18] MEDS: SLF 3 ML SYR IV SCH ×3 (06:00→20:01)
[2018-05-18] MEDS: ASPIRIN 81 MG CHEW TABLET PO SCH (09:00)
[2018-05-18] MEDS: APIXABAN 2.5 MG TAB (ELIQUIS) PO SCH ×2 (09:08→20:00)
[2018-05-18] MEDS: ASCORBIC ACID 500 MG TAB PO SCH (09:08)
[2018-05-18] MEDS: VITAMIN D (CHOLECALCIFEROL) 400 INTERNATIONAL UNITS TAB PO SCH (09:09)
[2018-05-18] MEDS: FAMOTIDINE 20 MG TAB PO SCH ×2 (09:09→20:00)
[2018-05-18] MEDS: TAMSULOSIN 0.4 MG CAP PO SCH (09:09)
[2018-05-18] MEDS: METOPROLOL TART 25 MG TABLET PO SCH ×2 (09:09→20:00)
[2018-05-18 09:26] LABS: HEMATOCRIT 39.8 % (42.0-52.0); HEMOGLOBIN 13.2 g/dl (13.5-17.5); MEAN CORPUSCULAR HEMOGLOBIN 31.2 pg (27.0-33.0); MEAN CORPUSCULAR HGB CONC 33.2 g/dl (32.0-36.5); MEAN CORPUSCULAR VOLUME 94.1 fl (80.0-96.0); PLATELET COUNT, AUTOMATED 234 10^3/uL (150-450); RED BLOOD COUNT 4.23 10^6/uL (4.30-6.10); WHITE BLOOD COUNT 9.6 10^3/uL (4.0-10.0)
[2018-05-18 09:32] LABS: BLOOD UREA NITROGEN 22 MG/DL (7-18); CARBON DIOXIDE LEVEL 28 MEQ/L (21-32); CHLORIDE LEVEL 106 MEQ/L (98-107); CREATININE FOR GFR 1.05 MG/DL (0.70-1.30); GLOMERULAR FILTRATION RATE > 60.0 (>35); GLUCOSE, FASTING 204 MG/DL (70-100); MAGNESIUM LEVEL 1.9 MG/DL (1.8-2.4); POTASSIUM SERUM 4.4 MEQ/L (3.5-5.1); SODIUM LEVEL 140 MEQ/L (136-145)
[2018-05-18 10:00] VITALS: BP 121/81
--- NOTE | 2018-05-18 13:46 | IPNPDOC ---
Text Note Date of Service The patient was seen on 05/18/18. NOTE SUBJECTIVE: The patient is seen and examined in the room today. Patient does remember the name of current president today. Denies palpitation. Discussed with patient's daughter, she is in process of applying intermediate placement for the patient. OBJECTIVE: VITAL SIGNS: Listed below. GENERAL: No sign of acute distress, alert and oriented times three. HEENT: Normocephalic, atraumatic. Extraocular motor grossly intact. CARDIOVASCULAR: Positive S1, S2, irregularly irregular. LUNGS: Clear to auscultation bilaterally. ABDOMEN: Soft, nontender, nondistended. Bowel sounds present. EXTREMITIES: No edema. LABORATORY DATA: Listed below. ASSESSMENT AND PLAN: #. Atrial fibrillation. - Anticoagulated with Eliquis. - Aricept has been discontinued. The patient is not a candidate for a pacemaker at this moment due to reversible cause of uncontrolled atrial fib. - On metoprolol 50mg BID. - Patient passed physical therapy. #. Dementia with delirium. - Due to the cardiac pauses, the patient's Aricept will be discontinued. - Delirium on 05/15/18. No recurrence. Discussed with patient's caregiver (Daughter). She is in process of nursing house placement application. #. Suspected transient ischemic attack (TIA). - The patient presented with left lower extremity weakness and slurred speech. MRI/MRA reviewed. Echocardiogram reviewed. Carotid ultrasounds reviewed. The patient passed physical therapy. The patient is on aspirin, Eliquis, and Zocor. #. Benign prostatic hypertrophy (BPH), on Flomax. #. Prostate cancer. Continue to follow with urology in outpatient setting. #. Coronary artery disease, on aspirin, metoprolol and statin. #. Gastroesophageal reflux disease, on Pepcid. # DVT prophylaxis. On Eliquis. VS,Fishbone, I+O VS, Fishbone, I+O Laboratory Tests 05/18/18 08:31 Red Blood Count 4.23 L, Mean Corpuscular Volume 94.1, Mean Corpuscular Hemoglobin 31.2, Mean Corpuscular Hemoglobin Concent 33.2, Red Cell Distribution Width 13.8, Calcium Level 9.0 Vital Signs Date Time Temp Pulse Resp B/P (MAP) Pulse Ox O2 Delivery O2 Flow Rate FiO2 05/18/18 09:09 77 121/84 05/18/18 06:00 97.7 18 98 Room Air I&O- Last 24 Hours up to 6 AM 05/18/18 05:59 Intake Total 840 ml Output Total 250 ml Balance 590 ml SHILOH VELEZ DO May 18, 2018 13:46
[2018-05-18 14:00] VITALS: BP 118/57
[2018-05-18 18:00] VITALS: BP 121/76
[2018-05-18] MEDS: SIMVASTATIN 10 MG TAB PO SCH (19:59)
[2018-05-18 22:00] VITALS: BP 122/56
[2018-05-19] MEDS: IBUPROFEN 400 MG TAB PO PRN (01:43)
[2018-05-19 02:00] VITALS: BP 140/77
[2018-05-19] MEDS: SLF 3 ML SYR IV SCH ×3 (05:22→20:29)
[2018-05-19 05:44] LABS: HEMATOCRIT 35.1 % (42.0-52.0); HEMOGLOBIN 11.9 g/dl (13.5-17.5); MEAN CORPUSCULAR HGB CONC 33.9 g/dl (32.0-36.5); MEAN CORPUSCULAR VOLUME 91.4 fl (80.0-96.0); PLATELET COUNT, AUTOMATED 200 10^3/uL (150-450); RED BLOOD COUNT 3.84 10^6/uL (4.30-6.10); WHITE BLOOD COUNT 8.4 10^3/uL (4.0-10.0)
[2018-05-19 06:00] VITALS: BP 102/59
[2018-05-19 06:11] LABS: BLOOD UREA NITROGEN 19 MG/DL (7-18); CALCIUM LEVEL 8.6 MG/DL (8.8-10.2); CARBON DIOXIDE LEVEL 27 MEQ/L (21-32); CHLORIDE LEVEL 108 MEQ/L (98-107); CREATININE FOR GFR 0.94 MG/DL (0.70-1.30); GLOMERULAR FILTRATION RATE > 60.0 (>35); GLUCOSE, FASTING 99 MG/DL (70-100); MAGNESIUM LEVEL 1.8 MG/DL (1.8-2.4); POTASSIUM SERUM 4.4 MEQ/L (3.5-5.1); SODIUM LEVEL 141 MEQ/L (136-145)
[2018-05-19] MEDS: ASPIRIN 81 MG CHEW TABLET PO SCH (08:58)
[2018-05-19] MEDS: TAMSULOSIN 0.4 MG CAP PO SCH (08:58)
[2018-05-19] MEDS: ASCORBIC ACID 500 MG TAB PO SCH (08:58)
[2018-05-19] MEDS: FAMOTIDINE 20 MG TAB PO SCH ×2 (08:58→20:26)
[2018-05-19] MEDS: VITAMIN D (CHOLECALCIFEROL) 400 INTERNATIONAL UNITS TAB PO SCH (08:59)
[2018-05-19] MEDS: APIXABAN 2.5 MG TAB (ELIQUIS) PO SCH ×2 (09:00→20:26)
[2018-05-19] MEDS: METOPROLOL TART 25 MG TABLET PO SCH ×2 (09:26→20:28)
[2018-05-19 10:00] VITALS: BP 102/49
[2018-05-19 14:00] VITALS: BP 121/63
--- NOTE | 2018-05-19 16:24 | IPNPDOC ---
Text Note Date of Service The patient was seen on 05/19/18. NOTE SUBJECTIVE: The patient is seen and examined in the room today. Denies palpitation. No acute event is reported. . OBJECTIVE: VITAL SIGNS: Listed below. GENERAL: No sign of acute distress, alert and oriented times three. HEENT: Normocephalic, atraumatic. Extraocular motor grossly intact. CARDIOVASCULAR: Positive S1, S2, irregularly irregular. LUNGS: Clear to auscultation bilaterally. ABDOMEN: Soft, nontender, nondistended. Bowel sounds present. EXTREMITIES: No edema. LABORATORY DATA: Listed below. ASSESSMENT AND PLAN: #. Atrial fibrillation. - Anticoagulated with Eliquis. - Aricept has been discontinued since 05/12/18. The patient is not a candidate for a pacemaker at this moment due to reversible cause of uncontrolled atrial fib. - On metoprolol 50mg BID. - Patient passed physical therapy. Waiting for placement. #. Dementia with delirium. - Due to the cardiac pauses, the patient's Aricept will be discontinued. - Delirium on 05/15/18. No recurrence. Discussed with patient's caregiver (Daughter). She is in process of nursing house placement application. #. Suspected transient ischemic attack (TIA). - The patient presented with left lower extremity weakness and slurred speech. MRI/MRA reviewed. Echocardiogram reviewed. Carotid ultrasounds reviewed. The patient passed physical therapy. The patient is on aspirin, Eliquis, and Zocor. #. Benign prostatic hypertrophy (BPH), on Flomax. #. Prostate cancer. Continue to follow with urology in outpatient setting. #. Coronary artery disease, on aspirin, metoprolol and statin. #. Gastroesophageal reflux disease, on Pepcid. # DVT prophylaxis. On Eliquis. VS,Fishbone, I+O VS, Fishbone, I+O Laboratory Tests 05/19/18 05:26 Calcium Level 8.6 L 05/19/18 05:27 Red Blood Count 3.84 L, Mean Corpuscular Volume 91.4, Mean Corpuscular Hemoglobin 31.0, Mean Corpuscular Hemoglobin Concent 33.9, Red Cell Distribution Width 13.6 Vital Signs Date Time Temp Pulse Resp B/P (MAP) Pulse Ox O2 Delivery O2 Flow Rate FiO2 05/19/18 14:00 97.6 75 20 121/63 (82) 97 Room Air I&O- Last 24 Hours up to 6 AM 05/19/18 06:00 Intake Total 840 ml Output Total 550 ml Balance 290 ml SHILOH VELEZ DO May 19, 2018 16:24
[2018-05-19 18:00] VITALS: BP 124/68
[2018-05-19] MEDS: SIMVASTATIN 10 MG TAB PO SCH (20:27)
[2018-05-19 22:00] VITALS: BP 132/74
[2018-05-20 02:00] VITALS: BP 114/60
[2018-05-20] MEDS: SLF 3 ML SYR IV SCH ×3 (04:44→22:00)
[2018-05-20 05:46] LABS: HEMATOCRIT 36.3 % (42.0-52.0); HEMOGLOBIN 12.4 g/dl (13.5-17.5); MEAN CORPUSCULAR HEMOGLOBIN 31.6 pg (27.0-33.0); MEAN CORPUSCULAR HGB CONC 34.2 g/dl (32.0-36.5); MEAN CORPUSCULAR VOLUME 92.6 fl (80.0-96.0); PLATELET COUNT, AUTOMATED 200 10^3/uL (150-450); RED BLOOD COUNT 3.92 10^6/uL (4.30-6.10); WHITE BLOOD COUNT 8.1 10^3/uL (4.0-10.0)
[2018-05-20 06:00] VITALS: BP 124/68
[2018-05-20 06:19] LABS: BLOOD UREA NITROGEN 21 MG/DL (7-18); CALCIUM LEVEL 8.4 MG/DL (8.8-10.2); CARBON DIOXIDE LEVEL 27 MEQ/L (21-32); CHLORIDE LEVEL 106 MEQ/L (98-107); CREATININE FOR GFR 0.97 MG/DL (0.70-1.30); GLOMERULAR FILTRATION RATE > 60.0 (>35); GLUCOSE, FASTING 95 MG/DL (70-100); MAGNESIUM LEVEL 1.9 MG/DL (1.8-2.4); POTASSIUM SERUM 4.2 MEQ/L (3.5-5.1); SODIUM LEVEL 139 MEQ/L (136-145)
[2018-05-20] MEDS: VITAMIN D (CHOLECALCIFEROL) 400 INTERNATIONAL UNITS TAB PO SCH (07:54)
[2018-05-20] MEDS: APIXABAN 2.5 MG TAB (ELIQUIS) PO SCH ×2 (07:55→20:02)
[2018-05-20] MEDS: FAMOTIDINE 20 MG TAB PO SCH ×2 (07:55→20:02)
[2018-05-20] MEDS: ASCORBIC ACID 500 MG TAB PO SCH (07:55)
[2018-05-20] MEDS: TAMSULOSIN 0.4 MG CAP PO SCH (07:55)
[2018-05-20] MEDS: METOPROLOL TART 25 MG TABLET PO SCH ×2 (07:55→20:03)
[2018-05-20] MEDS: ASPIRIN 81 MG CHEW TABLET PO SCH (07:55)
[2018-05-20 10:00] VITALS: BP 139/81
--- NOTE | 2018-05-20 12:16 | IPNPDOC ---
Date Seen The patient was seen on 05/20/18. Progress Note SUBJECTIVE: The patient reports feeling well that he would like to get up and walk more otherwise he has no specific complaints today OBJECTIVE: VITAL SIGNS: Listed below. GENERAL: Lying comfortably in bed in no acute distress he is awake and alert HEENT: Normocephalic, atraumatic. Extraocular motor grossly intact. CARDIOVASCULAR: Positive S1, S2, irregularly irregular. LUNGS: Clear to auscultation bilaterally. ABDOMEN: Soft, nontender, nondistended. Bowel sounds present. EXTREMITIES: No edema. LABORATORY DATA: Listed below. ASSESSMENT AND PLAN: 1. Atrial fibrillation: Overnight telemetry. No concerning causes however he did have some episodes of tachycardia prior to him receiving metoprolol this morning his Aricept has been discontinued since 1216 the case was reportedly discussed with Dr. Estes cardiology who declined any pacemaker offering given that the patient has been on Aricept the potential reversible cause for bradycardia arrhythmia. The patient continues to require some degree of metoprolol my suspicion is on the long-term he will require a pacemaker however this decision will be made outpatient as per cardiology's drug recommendations which have been related to me 2. Dementia with delirium.:Unfortunately as outlined above his Aricept and had to be discontinued, he is cleared PT and OT however appears he did not return to his previous living environment and that his daughter is seeking out Medicaid and possibly penitentiary placement spelled discuss further with PT as well as PFS tomorrow. I suspect he may require a locked unit I will encourage ambulat ion twice a day 3. Suspected transient ischemic attack (TIA). : The patient presented with left lower extremity weakness and slurred speech. MRI/MRA reviewed. Echocardiogram reviewed. Carotid ultrasounds reviewed. The patient is on aspirin, Eliquis, and Zocor. No definitive etiology has been identified 4. Benign prostatic hypertrophy (BPH), on Flomax. 5. Prostate cancer. Continue to follow with urology in outpatient setting. 6. Coronary artery disease, on aspirin, metoprolol and statin. 7. Gastroesophageal reflux disease, on Pepcid. 8. DVT prophylaxis. On Eliquis. Disposition pending PFS possibly penitentiary facility placement VS, I&O, 24H, Fishbone Vital Signs/I&O Vital Signs Date Time Temp Pulse Resp B/P (MAP) Pulse Ox O2 Delivery O2 Flow Rate FiO2 05/20/18 10:00 97.6 69 19 139/81 (100) 98 Room Air I&O- Last 24 Hours up to 6 AM 05/20/18 05:59 Intake Total 1720 ml Output Total 1300 ml Balance 420 ml Laboratory Data 24H LABS Laboratory Tests 2 05/20/18 05:12: Nucleated Red Blood Cells % (auto) 0.0, Anion Gap 6L, Glomerular Filtration Rate > 60.0, Blood Urea Nitrogen 21H, Creatinine 0.97, Sodium Level 139, Potassium Level 4.2, Chloride Level 106, Carbon Dioxide Level 27, Calcium Level 8.4L, Magnesium Level 1.9 CBC/BMP Laboratory Tests 05/20/18 05:12 Red Blood Count 3.92 L, Mean Corpuscular Volume 92.6, Mean Corpuscular Hemoglobin 31.6, Mean Corpuscular Hemoglobin Concent 34.2, Red Cell Distribution Width 13.8, Calcium Level 8.4 L STEVO IQBAL MD May 20, 2018 12:16
[2018-05-20 14:00] VITALS: BP 98/62
[2018-05-20 18:00] VITALS: BP 116/68
[2018-05-20] MEDS: SIMVASTATIN 10 MG TAB PO SCH (20:02)
[2018-05-20 22:00] VITALS: BP 122/69
[2018-05-21 02:00] VITALS: BP 115/60
[2018-05-21] MEDS: SLF 3 ML SYR IV SCH ×2 (05:01→08:37)
[2018-05-21 06:00] VITALS: BP 123/90
[2018-05-21 06:12] LABS: HEMATOCRIT 42.6 % (42.0-52.0); HEMOGLOBIN 14.3 g/dl (13.5-17.5); MEAN CORPUSCULAR HEMOGLOBIN 31.6 pg (27.0-33.0); MEAN CORPUSCULAR HGB CONC 33.6 g/dl (32.0-36.5); MEAN CORPUSCULAR VOLUME 94.2 fl (80.0-96.0); PLATELET COUNT, AUTOMATED 254 10^3/uL (150-450); RED BLOOD COUNT 4.52 10^6/uL (4.30-6.10); WHITE BLOOD COUNT 11.3 10^3/uL (4.0-10.0)
[2018-05-21 06:24] LABS: BLOOD UREA NITROGEN 22 MG/DL (7-18); CALCIUM LEVEL 8.8 MG/DL (8.8-10.2); CARBON DIOXIDE LEVEL 27 MEQ/L (21-32); CHLORIDE LEVEL 105 MEQ/L (98-107); CREATININE FOR GFR 1.18 MG/DL (0.70-1.30); GLOMERULAR FILTRATION RATE > 60.0 (>35); GLUCOSE, FASTING 129 MG/DL (70-100); MAGNESIUM LEVEL 1.9 MG/DL (1.8-2.4); POTASSIUM SERUM 4.5 MEQ/L (3.5-5.1); SODIUM LEVEL 138 MEQ/L (136-145)
[2018-05-21] MEDS: ASCORBIC ACID 500 MG TAB PO SCH (08:34)
[2018-05-21] MEDS: APIXABAN 2.5 MG TAB (ELIQUIS) PO SCH ×2 (08:34→20:13)
[2018-05-21] MEDS: ASPIRIN 81 MG CHEW TABLET PO SCH (08:34)
[2018-05-21] MEDS: VITAMIN D (CHOLECALCIFEROL) 400 INTERNATIONAL UNITS TAB PO SCH (08:34)
[2018-05-21] MEDS: FAMOTIDINE 20 MG TAB PO SCH ×2 (08:34→20:13)
[2018-05-21] MEDS: TAMSULOSIN 0.4 MG CAP PO SCH (08:34)
[2018-05-21] MEDS: METOPROLOL TART 25 MG TABLET PO SCH ×2 (08:35→20:14)
[2018-05-21 10:00] VITALS: BP 101/55
--- NOTE | 2018-05-21 10:51 | IPNPDOC ---
Date Seen The patient was seen on 05/21/18. Progress Note SUBJECTIVE: The patient reports feeling well he is happy that he is up and walking more OBJECTIVE: VITAL SIGNS: Listed below. GENERAL: Lying comfortably in bed in no acute distress he is awake and alert HEENT: Normocephalic, atraumatic. Extraocular motor grossly intact. CARDIOVASCULAR: Positive S1, S2, irregularly irregular mildly tachycardic this morning. LUNGS: Clear to auscultation bilaterally. ABDOMEN: Soft, nontender, nondistended. Bowel sounds present. EXTREMITIES: No edema. LABORATORY DATA: Listed below. ASSESSMENT AND PLAN: 1. Atrial fibrillation: Overnight telemetry. He has had episodes of tachycardia rare episodes of bradycardia at this time, Aricept has been discontinued since 1216 the case was reportedly discussed with Dr. Estes cardiology who declined any pacemaker offering given that the patient has been on Aricept the potential reversible cause for bradycardia arrhythmia. The patient continues to require some degree of metoprolol my suspicion is on the long-term he will require a pacemaker however this decision will be made outpatient as per cardiology's drug recommendations which have been related to me 2. Dementia with delirium:Unfortunately as outlined above his Aricept and had to be discontinued, he is cleared PT and OT however appears he did not return to his previous living environment and that his daughter is seeking out Medicaid and possibly half-way placement. 3. Suspected transient ischemic attack (TIA). : The patient presented with left lower extremity weakness and slurred speech. MRI/MRA reviewed. Echocardiogram reviewed. Carotid ultrasounds reviewed. The patient is on aspirin, Eliquis, and Zocor. No definitive etiology has been identified 4. Benign prostatic hypertrophy (BPH), on Flomax. 5. Prostate cancer. Continue to follow with urology in outpatient setting. 6. Coronary artery disease, on aspirin, metoprolol and statin. 7. Gastroesophageal reflux disease, on Pepcid. 8. DVT prophylaxis. On Eliquis. Disposition pending PFS possibly half-way facility placement VS, I&O, 24H, Onurbonbrittaney Vital Signs/I&O Vital Signs Date Time Temp Pulse Resp B/P (MAP) Pulse Ox O2 Delivery O2 Flow Rate FiO2 05/21/18 10:00 97.6 68 18 101/55 (70) 98 Room Air I&O- Last 24 Hours up to 6 AM 05/21/18 06:00 Intake Total 740 ml Output Total 500 ml Balance 240 ml Laboratory Data 24H LABS Laboratory Tests 2 05/21/18 05:46: Nucleated Red Blood Cells % (auto) 0.0, Anion Gap 6L, Glomerular Filtration Rate > 60.0, Blood Urea Nitrogen 22H, Creatinine 1.18, Sodium Level 138, Potassium Level 4.5, Chloride Level 105, Carbon Dioxide Level 27, Calcium Level 8.8, Magnesium Level 1.9 CBC/BMP Laboratory Tests 05/21/18 05:46 Red Blood Count 4.52, Mean Corpuscular Volume 94.2, Mean Corpuscular Hemoglobin 31.6, Mean Corpuscular Hemoglobin Concent 33.6, Red Cell Distribution Width 13.8, Calcium Level 8.8 STEVO IQBAL MD May 21, 2018 10:51
[2018-05-21 14:00] VITALS: BP 108/57
[2018-05-21 18:00] VITALS: BP 138/81
[2018-05-21] MEDS: SIMVASTATIN 10 MG TAB PO SCH (20:13)
[2018-05-21 22:00] VITALS: BP 107/55
[2018-05-22 02:00] VITALS: BP 101/54
[2018-05-22 06:00] VITALS: BP 119/70
[2018-05-22 06:05] LABS: HEMATOCRIT 37.7 % (42.0-52.0); HEMOGLOBIN 12.6 g/dl (13.5-17.5); MEAN CORPUSCULAR HGB CONC 33.4 g/dl (32.0-36.5); MEAN CORPUSCULAR VOLUME 92.6 fl (80.0-96.0); PLATELET COUNT, AUTOMATED 209 10^3/uL (150-450); RED BLOOD COUNT 4.07 10^6/uL (4.30-6.10); WHITE BLOOD COUNT 8.5 10^3/uL (4.0-10.0)
[2018-05-22 06:30] LABS: BLOOD UREA NITROGEN 23 MG/DL (7-18); CALCIUM LEVEL 8.8 MG/DL (8.8-10.2); CARBON DIOXIDE LEVEL 30 MEQ/L (21-32); CHLORIDE LEVEL 107 MEQ/L (98-107); CREATININE FOR GFR 1.04 MG/DL (0.70-1.30); GLOMERULAR FILTRATION RATE > 60.0 (>35); GLUCOSE, FASTING 95 MG/DL (70-100); MAGNESIUM LEVEL 1.9 MG/DL (1.8-2.4); POTASSIUM SERUM 4.9 MEQ/L (3.5-5.1); SODIUM LEVEL 141 MEQ/L (136-145)
[2018-05-22] MEDS: APIXABAN 2.5 MG TAB (ELIQUIS) PO SCH ×2 (09:25→20:03)
[2018-05-22] MEDS: TAMSULOSIN 0.4 MG CAP PO SCH (09:25)
[2018-05-22] MEDS: VITAMIN D (CHOLECALCIFEROL) 400 INTERNATIONAL UNITS TAB PO SCH (09:26)
[2018-05-22] MEDS: ASCORBIC ACID 500 MG TAB PO SCH (09:26)
[2018-05-22] MEDS: ASPIRIN 81 MG CHEW TABLET PO SCH (09:26)
[2018-05-22] MEDS: METOPROLOL TART 25 MG TABLET PO SCH ×3 (09:26→21:45)
[2018-05-22] MEDS: FAMOTIDINE 20 MG TAB PO SCH ×2 (09:26→20:04)
[2018-05-22 10:00] VITALS: BP 114/82
--- NOTE | 2018-05-22 13:29 | IPNPDOC ---
Date Seen The patient was seen on 05/22/18. Progress Note SUBJECTIVE: The patient reports feeling well he is happy he wants to know when he is going to be able to leave the hospital OBJECTIVE: VITAL SIGNS: Listed below. GENERAL: Lying comfortably in bed in no acute distress he is awake and alert he is jovial HEENT: Normocephalic, atraumatic. Extraocular motor grossly intact. CARDIOVASCULAR: Positive S1, S2, irregularly irregular not tachycardic this morn ing. LUNGS: Clear to auscultation bilaterally. ABDOMEN: Soft, nontender, nondistended. Bowel sounds present. EXTREMITIES: No edema. LABORATORY DATA: Listed below. ASSESSMENT AND PLAN: 1. Atrial fibrillation: He has had episodes of tachycardia no further episodes of bradycardia at this time, Aricept has been discontinued since 1216 the case was reportedly discussed with Dr. Estes cardiology who declined any pacemaker offering given that the patient has been on Aricept the potential reversible cause for bradycardia arrhythmia. The patient continues to require some degree of metoprolol my suspicion is on the long-term he will require a pacemaker however this decision will be made outpatient as per cardiology's drug recommendations which have been related to me. It appears as it may be wearing off is having very rare bradycardic episodes but more tachycardic episodes and as such I'm titrating up on his metoprolol from 25 mg twice a day a 25 mg 3 times a day with holding parameters. 2. Dementia with delirium:Unfortunately as outlined above his Aricept and had to be discontinued, he is cleared PT and OT however appears he did not return to his previous living environment and that his daughter is seeking out Medicaid and possibly [place] [facility] placement. 3. Suspected transient ischemic attack (TIA). : The patient presented with left lower extremity weakness and slurred speech. MRI/MRA reviewed. Echocardiogram reviewed. Carotid ultrasounds reviewed. The patient is on aspirin, Eliquis, and Zocor. No definitive etiology has been identified 4. Benign prostatic hypertrophy (BPH), on Flomax. 5. Prostate cancer. Continue to follow with urology in outpatient setting. 6. Coronary artery disease, on aspirin, metoprolol and statin. 7. Gastroesophageal reflux disease, on Pepcid. 8. DVT prophylaxis. On Eliquis. Disposition pending PFS possibly [place] [facility] facility placement he may end up becoming altered level care status VS, I&O, 24H, Fishbone Vital Signs/I&O Vital Signs Date Time Temp Pulse Resp B/P (MAP) Pulse Ox O2 Delivery O2 Flow Rate FiO2 05/22/18 10:00 98.0 90 17 114/82 (93) 98 Room Air I&O- Last 24 Hours up to 6 AM 05/22/18 06:00 Intake Total 1480 ml Output Total 650 ml Balance 830 ml Laboratory Data 24H LABS Laboratory Tests 2 05/22/18 05:51: Nucleated Red Blood Cells % (auto) 0.0, Anion Gap 4L, Glomerular Filtration Rate > 60.0, Blood Urea Nitrogen 23H, Creatinine 1.04, Sodium Level 141, Potassium Level 4.9, Chloride Level 107, Carbon Dioxide Level 30, Calcium Level 8.8, M agnesium Level 1.9 CBC/BMP Laboratory Tests 05/22/18 05:51 Red Blood Count 4.07 L, Mean Corpuscular Volume 92.6, Mean Corpuscular Hemoglobin 31.0, Mean Corpuscular Hemoglobin Concent 33.4, Red Cell Distribution Width 13.8, Calcium Level 8.8 STEVO IQBAL MD May 22, 2018 13:29
[2018-05-22 14:00] VITALS: BP 113/56
[2018-05-22 18:00] VITALS: BP 127/78
[2018-05-22] MEDS: SIMVASTATIN 10 MG TAB PO SCH (20:03)
[2018-05-22 22:00] VITALS: BP 135/75
[2018-05-23 02:00] VITALS: BP 150/74
[2018-05-23] MEDS: METOPROLOL TART 25 MG TABLET PO SCH ×3 (05:13→21:20)
[2018-05-23 06:00] VITALS: BP 150/70
[2018-05-23 06:08] LABS: HEMATOCRIT 35.9 % (42.0-52.0); HEMOGLOBIN 12.2 g/dl (13.5-17.5); MEAN CORPUSCULAR HEMOGLOBIN 31.5 pg (27.0-33.0); MEAN CORPUSCULAR VOLUME 92.8 fl (80.0-96.0); PLATELET COUNT, AUTOMATED 203 10^3/uL (150-450); RED BLOOD COUNT 3.87 10^6/uL (4.30-6.10); WHITE BLOOD COUNT 8.3 10^3/uL (4.0-10.0)
[2018-05-23 06:28] LABS: BLOOD UREA NITROGEN 23 MG/DL (7-18); CALCIUM LEVEL 8.6 MG/DL (8.8-10.2); CARBON DIOXIDE LEVEL 28 MEQ/L (21-32); CHLORIDE LEVEL 105 MEQ/L (98-107); CREATININE FOR GFR 0.93 MG/DL (0.70-1.30); GLOMERULAR FILTRATION RATE > 60.0 (>35); GLUCOSE, FASTING 102 MG/DL (70-100); POTASSIUM SERUM 4.4 MEQ/L (3.5-5.1); SODIUM LEVEL 140 MEQ/L (136-145)
[2018-05-23] MEDS: VITAMIN D (CHOLECALCIFEROL) 400 INTERNATIONAL UNITS TAB PO SCH (09:36)
[2018-05-23] MEDS: ASCORBIC ACID 500 MG TAB PO SCH (09:36)
[2018-05-23] MEDS: ASPIRIN 81 MG CHEW TABLET PO SCH (09:36)
[2018-05-23] MEDS: FAMOTIDINE 20 MG TAB PO SCH ×2 (09:36→20:04)
[2018-05-23] MEDS: APIXABAN 2.5 MG TAB (ELIQUIS) PO SCH ×2 (09:37→20:05)
[2018-05-23] MEDS: TAMSULOSIN 0.4 MG CAP PO SCH (09:37)
[2018-05-23 10:00] VITALS: BP 109/59
[2018-05-23 14:00] VITALS: BP 120/61
[2018-05-23] MEDS ORDERED: METOPROLOL TART 25 MG TABLET PO ONE (16:15)
[2018-05-23 18:00] VITALS: BP 125/71
[2018-05-23] MEDS: SIMVASTATIN 10 MG TAB PO SCH (20:04)
[2018-05-23] MEDS: IBUPROFEN 400 MG TAB PO PRN (20:05)
[2018-05-23 22:00] VITALS: BP 111/72
[2018-05-24 02:00] VITALS: BP 119/71
[2018-05-24] MEDS: METOPROLOL TART 25 MG TABLET PO SCH ×3 (05:32→20:34)
[2018-05-24 05:57] LABS: HEMATOCRIT 36.1 % (42.0-52.0); HEMOGLOBIN 12.2 g/dl (13.5-17.5); MEAN CORPUSCULAR HGB CONC 33.8 g/dl (32.0-36.5); MEAN CORPUSCULAR VOLUME 91.9 fl (80.0-96.0); PLATELET COUNT, AUTOMATED 194 10^3/uL (150-450); RED BLOOD COUNT 3.93 10^6/uL (4.30-6.10)
[2018-05-24 06:00] VITALS: BP 130/68
[2018-05-24 06:22] LABS: BLOOD UREA NITROGEN 23 MG/DL (7-18); CALCIUM LEVEL 8.4 MG/DL (8.8-10.2); CARBON DIOXIDE LEVEL 27 MEQ/L (21-32); CHLORIDE LEVEL 107 MEQ/L (98-107); CREATININE FOR GFR 1.03 MG/DL (0.70-1.30); GLOMERULAR FILTRATION RATE > 60.0 (>35); GLUCOSE, FASTING 92 MG/DL (70-100); MAGNESIUM LEVEL 1.9 MG/DL (1.8-2.4); POTASSIUM SERUM 4.6 MEQ/L (3.5-5.1); SODIUM LEVEL 139 MEQ/L (136-145)
[2018-05-24] MEDS: TAMSULOSIN 0.4 MG CAP PO SCH (09:03)
[2018-05-24] MEDS: APIXABAN 2.5 MG TAB (ELIQUIS) PO SCH ×2 (09:04→20:34)
[2018-05-24] MEDS: FAMOTIDINE 20 MG TAB PO SCH ×2 (09:04→20:34)
[2018-05-24] MEDS: ASCORBIC ACID 500 MG TAB PO SCH (09:04)
[2018-05-24] MEDS: VITAMIN D (CHOLECALCIFEROL) 400 INTERNATIONAL UNITS TAB PO SCH (09:04)
[2018-05-24] MEDS: ASPIRIN 81 MG CHEW TABLET PO SCH (09:04)
[2018-05-24] MEDS: SIMVASTATIN 10 MG TAB PO SCH (20:34)
[2018-05-25] MEDS: METOPROLOL TART 25 MG TABLET PO SCH ×3 (05:14→20:34)
[2018-05-25 05:58] LABS: HEMATOCRIT 37.1 % (42.0-52.0); HEMOGLOBIN 12.5 g/dl (13.5-17.5); MEAN CORPUSCULAR HEMOGLOBIN 31.1 pg (27.0-33.0); MEAN CORPUSCULAR HGB CONC 33.7 g/dl (32.0-36.5); MEAN CORPUSCULAR VOLUME 92.3 fl (80.0-96.0); PLATELET COUNT, AUTOMATED 199 10^3/uL (150-450); RED BLOOD COUNT 4.02 10^6/uL (4.30-6.10); WHITE BLOOD COUNT 8.7 10^3/uL (4.0-10.0)
[2018-05-25 06:00] VITALS: BP 119/69
[2018-05-25 06:17] LABS: BLOOD UREA NITROGEN 24 MG/DL (7-18); CALCIUM LEVEL 8.6 MG/DL (8.8-10.2); CARBON DIOXIDE LEVEL 27 MEQ/L (21-32); CHLORIDE LEVEL 106 MEQ/L (98-107); CREATININE FOR GFR 0.93 MG/DL (0.70-1.30); GLOMERULAR FILTRATION RATE > 60.0 (>35); GLUCOSE, FASTING 100 MG/DL (70-100); MAGNESIUM LEVEL 1.9 MG/DL (1.8-2.4); POTASSIUM SERUM 4.4 MEQ/L (3.5-5.1); SODIUM LEVEL 140 MEQ/L (136-145)
[2018-05-25] MEDS: TAMSULOSIN 0.4 MG CAP PO SCH (08:45)
[2018-05-25] MEDS: ASPIRIN 81 MG CHEW TABLET PO SCH (08:46)
[2018-05-25] MEDS: APIXABAN 2.5 MG TAB (ELIQUIS) PO SCH ×2 (08:46→20:07)
[2018-05-25] MEDS: ASCORBIC ACID 500 MG TAB PO SCH (08:46)
[2018-05-25] MEDS: FAMOTIDINE 20 MG TAB PO SCH ×2 (08:46→20:07)
[2018-05-25] MEDS: VITAMIN D (CHOLECALCIFEROL) 400 INTERNATIONAL UNITS TAB PO SCH (08:46)
[2018-05-25] MEDS: IBUPROFEN 400 MG TAB PO PRN (20:06)
[2018-05-25] MEDS: SIMVASTATIN 10 MG TAB PO SCH (20:07)
[2018-05-26] MEDS: METOPROLOL TART 25 MG TABLET PO SCH ×3 (05:46→20:11)
[2018-05-26 06:00] VITALS: BP 124/73
[2018-05-26] MEDS: ASPIRIN 81 MG CHEW TABLET PO SCH (09:14)
[2018-05-26] MEDS: ASCORBIC ACID 500 MG TAB PO SCH (09:14)
[2018-05-26] MEDS: APIXABAN 2.5 MG TAB (ELIQUIS) PO SCH ×2 (09:14→20:11)
[2018-05-26] MEDS: TAMSULOSIN 0.4 MG CAP PO SCH (09:14)
[2018-05-26] MEDS: FAMOTIDINE 20 MG TAB PO SCH ×2 (09:14→20:11)
[2018-05-26] MEDS: VITAMIN D (CHOLECALCIFEROL) 400 INTERNATIONAL UNITS TAB PO SCH (09:14)
[2018-05-26] MEDS: SIMVASTATIN 10 MG TAB PO SCH (20:11)
[2018-05-26 22:00] VITALS: BP 132/90
[2018-05-27] MEDS: METOPROLOL TART 25 MG TABLET PO SCH ×3 (06:14→20:46)
[2018-05-27] MEDS: FAMOTIDINE 20 MG TAB PO SCH ×2 (08:42→20:46)
[2018-05-27] MEDS: TAMSULOSIN 0.4 MG CAP PO SCH (08:42)
[2018-05-27] MEDS: APIXABAN 2.5 MG TAB (ELIQUIS) PO SCH ×2 (08:42→20:46)
[2018-05-27] MEDS: ASPIRIN 81 MG CHEW TABLET PO SCH (08:42)
[2018-05-27] MEDS: ASCORBIC ACID 500 MG TAB PO SCH (08:42)
[2018-05-27] MEDS: VITAMIN D (CHOLECALCIFEROL) 400 INTERNATIONAL UNITS TAB PO SCH (08:42)
[2018-05-27] MEDS: SIMVASTATIN 10 MG TAB PO SCH (20:46)
[2018-05-27 22:00] VITALS: BP 102/60
[2018-05-28] MEDS: METOPROLOL TART 25 MG TABLET PO SCH ×3 (05:23→20:25)
[2018-05-28] MEDS: IBUPROFEN 400 MG TAB PO PRN (05:23)
[2018-05-28 05:55] LABS: BASO # 0.1 10^3/uL (0.0-0.2); BASO % 0.8 % (0.0-1.0); EOS # 0.2 10^3/uL (0.0-0.50); EOS % 1.9 % (0.0-3.0); HEMATOCRIT 39.3 % (42.0-52.0); HEMOGLOBIN 13.3 g/dl (13.5-17.5); LYMPH # 2.7 10^3/uL (1.5-4.5); LYMPH % 28.2 % (24.0-44.0); MEAN CORPUSCULAR HEMOGLOBIN 31.3 pg (27.0-33.0); MEAN CORPUSCULAR HGB CONC 33.8 g/dl (32.0-36.5); MEAN CORPUSCULAR VOLUME 92.5 fl (80.0-96.0); MONO # 0.7 10^3/uL (0.0-0.8); MONO % 7.5 % (0.0-5.0); NEUTROPHILS # 5.9 10^3/uL (1.8-7.7); NEUTROPHILS % 60.9 % (36.0-66.0); PLATELET COUNT, AUTOMATED 200 10^3/uL (150-450); RED BLOOD COUNT 4.25 10^6/uL (4.30-6.10); WHITE BLOOD COUNT 9.7 10^3/uL (4.0-10.0)
[2018-05-28 06:00] VITALS: BP 142/80
[2018-05-28 06:24] LABS: BLOOD UREA NITROGEN 24 MG/DL (7-18); CALCIUM LEVEL 8.7 MG/DL (8.8-10.2); CARBON DIOXIDE LEVEL 29 MEQ/L (21-32); CHLORIDE LEVEL 105 MEQ/L (98-107); CREATININE FOR GFR 0.98 MG/DL (0.70-1.30); GLOMERULAR FILTRATION RATE > 60.0 (>35); GLUCOSE, FASTING 94 MG/DL (70-100); MAGNESIUM LEVEL 1.8 MG/DL (1.8-2.4); POTASSIUM SERUM 4.3 MEQ/L (3.5-5.1); SODIUM LEVEL 138 MEQ/L (136-145)
[2018-05-28] MEDS: APIXABAN 2.5 MG TAB (ELIQUIS) PO SCH ×2 (08:17→20:24)
[2018-05-28] MEDS: VITAMIN D (CHOLECALCIFEROL) 400 INTERNATIONAL UNITS TAB PO SCH (08:17)
[2018-05-28] MEDS: FAMOTIDINE 20 MG TAB PO SCH ×2 (08:17→20:24)
[2018-05-28] MEDS: ASCORBIC ACID 500 MG TAB PO SCH (08:17)
[2018-05-28] MEDS: ASPIRIN 81 MG CHEW TABLET PO SCH (08:17)
[2018-05-28] MEDS: TAMSULOSIN 0.4 MG CAP PO SCH (08:17)
[2018-05-28] MEDS ORDERED: SENOKOT S TAB PO PRN (10:45)
[2018-05-28] MEDS: SIMVASTATIN 10 MG TAB PO SCH (20:24)
[2018-05-29 05:31] VITALS: BP 131/58
[2018-05-29] MEDS: IBUPROFEN 400 MG TAB PO PRN (05:31)
[2018-05-29] MEDS: METOPROLOL TART 25 MG TABLET PO SCH ×2 (05:31→14:00)
[2018-05-29 05:52] LABS: BASO # 0.1 10^3/uL (0.0-0.2); BASO % 0.8 % (0.0-1.0); EOS # 0.2 10^3/uL (0.0-0.50); EOS % 2.3 % (0.0-3.0); HEMATOCRIT 40.9 % (42.0-52.0); HEMOGLOBIN 13.8 g/dl (13.5-17.5); LYMPH # 2.5 10^3/uL (1.5-4.5); LYMPH % 26.9 % (24.0-44.0); MEAN CORPUSCULAR HEMOGLOBIN 31.4 pg (27.0-33.0); MEAN CORPUSCULAR HGB CONC 33.7 g/dl (32.0-36.5); MEAN CORPUSCULAR VOLUME 93.2 fl (80.0-96.0); MONO # 0.7 10^3/uL (0.0-0.8); MONO % 7.5 % (0.0-5.0); NEUTROPHILS # 5.7 10^3/uL (1.8-7.7); NEUTROPHILS % 61.8 % (36.0-66.0); PLATELET COUNT, AUTOMATED 220 10^3/uL (150-450); RED BLOOD COUNT 4.39 10^6/uL (4.30-6.10); WHITE BLOOD COUNT 9.2 10^3/uL (4.0-10.0)
[2018-05-29 06:00] VITALS: BP 131/58
[2018-05-29 06:09] LABS: BLOOD UREA NITROGEN 21 MG/DL (7-18); CALCIUM LEVEL 8.7 MG/DL (8.8-10.2); CARBON DIOXIDE LEVEL 30 MEQ/L (21-32); CHLORIDE LEVEL 105 MEQ/L (98-107); CREATININE FOR GFR 1.04 MG/DL (0.70-1.30); GLOMERULAR FILTRATION RATE > 60.0 (>35); GLUCOSE, FASTING 107 MG/DL (70-100); POTASSIUM SERUM 4.8 MEQ/L (3.5-5.1); SODIUM LEVEL 141 MEQ/L (136-145)
[2018-05-29] MEDS: TAMSULOSIN 0.4 MG CAP PO SCH (08:37)
[2018-05-29] MEDS: ASPIRIN 81 MG CHEW TABLET PO SCH (08:37)
[2018-05-29] MEDS: APIXABAN 2.5 MG TAB (ELIQUIS) PO SCH (08:37)
[2018-05-29] MEDS: ASCORBIC ACID 500 MG TAB PO SCH (08:40)
[2018-05-29] MEDS: FAMOTIDINE 20 MG TAB PO SCH (08:40)
[2018-05-29] MEDS: VITAMIN D (CHOLECALCIFEROL) 400 INTERNATIONAL UNITS TAB PO SCH (08:41)
[2018-05-29] MEDS ORDERED: METO25TA4 PO (09:55)
[2018-05-29] MEDS ORDERED: ASPI1TAB PO (09:55)
--- NOTE | 2018-05-29 10:39 | DS.PDOC ---
Discharge Summary General Date of Admission May 10, 2018 at 18:55 Date of Discharge 05/29/2018 Discharge Summary PROCEDURES PERFORMED DURING STAY: [None]. ADMITTING DIAGNOSES / DISCHARGE DIAGNOSES: A. fib; with complications of bradycardia / tachycardia Dementia with Delirium Possible TIA BPH Prostate CA CAD DLP GERD DVT prophylaxis COMPLICATIONS/CHIEF COMPLAINT: Confusion HISTORY OF PRESENT ILLNESS: Patient is an 87-year-old male with a PMHx of A. fib (on Eliquis), DLP, Hx of CVA, Prostate CA, RLS, who presented to the ER with complaints of slurred speech and confusion. Patient was admitted to hospitalist service for potential TIA. Neurology was called on consultation. HOSPITAL COURSE: A. fib; with complications of bradycardia / tachycardia - Currently, patient remains rate controlled; he is asymptomatic - denies chest pain, shortness of breath or palpitations - During hospital course patient had bradycardic episodes; case was discussed with cardiology, Dr. Johns; Donepezil was discontinued / BB were held - Later patient became tachycardic and metoprolol was reintroduced and adjusted dose - Physical without any abnormalities - c/w metoprolol at adjusted dose - c/w for anticoagulation with Eliquis - Cardiology had recommended that no pacemaker is required at this point; however we will have outpatient follow-up with cardiology Dementia with Delirium - s/p Aricept (re: Bradycardia) Possible TIA - No focal neurologic weakness on exam - Head CT 05/10: Stable appearing chronic changes. - MRI Brain 05/10: Multiple foci of T2 lengthening are demonstrated in the subco rtical, periventricular and centrum semiovale white matter consistent with age- related small vessel gliosis. Moderate parenchymal volume loss consistent with advanced patient age. - MRA Brain 05/10: No acute findings. - Duplex Carotid US 05/10: 16-49% category narrowing in the left ICA by Doppler velocity criteria. Left ICA is quite tortuous. 16-49% category narrowing in the right ICA by Doppler velocity criteria. - Neurology has seen patient - c/w ASA, Eliquis, Simvastatin BPH - c/w Tamsulosin Prostate CA - c/w outpatient f/u with Urology CAD - c/w ASA, Metoprolol and Simvastatin DLP - c/w Simvastatin GERD - Famotidine DVT prophylaxis - on full anticoagulation with Eliquis DISCHARGE MEDICATIONS: Please see below. ALLERGIES: Please see below. PHYSICAL EXAMINATION ON DISCHARGE: Vitals (See below) General: Lying in bed, no acute distress, comfortable, Awake / Alert HEENT: NC, AT CVS: RRR, +S1S2 Lungs: Fair air entry b/l, -w/r/r Abdomen: Soft, ND, NT Extremities: - Edema, - Calf tenderness LABORATORY DATA: Please see below. ACTIVITY: [As tolerated]. DISCHARGE PLAN: Follow up with [facility], Cardiology and Neurology within 7 days Remain compliant with treatment plan and medications Return to the ER if you experience any problems DISPOSITION: Home with 17/12 care DISCHARGE CONDITION: [Stable]. TIME SPENT ON DISCHARGE: Greater than [35] minutes. Vital Signs/I&Os Vital Signs Date Time Temp Pulse Resp B/P (MAP) Pulse Ox O2 Delivery O2 Flow Rate FiO2 05/29/18 06:00 97.8 53 16 131/58 (82) 92 Room Air I&O- Last 24 Hours up to 6 AM 05/29/18 06:00 Intake Total 1170 ml Output Total 0 ml Balance 1170 ml Laboratory Data Labs 24H Laboratory Tests 2 05/29/18 05:37: Immature Granulocyte % (Auto) 0.7, White Blood Count 9.2, Red Blood Count 4.39, Hemoglobin 13.8, Hematocrit 40.9L, Mean Corpuscular Volume 93.2, Mean Corpuscular Hemoglobin 31.4, Mean Corpuscular Hemoglobin Concent 33.7, Red Cell Distribution Width 13.7, Platelet Count 220, Neutrophils (%) (Auto) 61.8, Lymphocytes (%) (Auto) 26.9, Monocytes (%) (Auto) 7.5H, Eosinophils (%) (Auto) 2.3, Basophils (%) (Auto) 0.8, Neutrophils # (Auto) 5.7, Lymphocytes # (Auto) 2.5, Monocytes # (Auto) 0.7, Eosinophils # (Auto) 0.2, Basophils # (Auto) 0.1, Nucleated Red Blood Cells % (auto) 0.0, Anion Gap 6L, Glomerular Filtration Rate > 60.0, Blood Urea Nitrogen 21H, Creatinine 1.04, Sodium Level 141, Potassium Level 4.8, Chloride Level 105, Carbon Dioxide Level 30, Calcium Level 8.7L, Magnesium Level 2.0 CBC/BMP Laboratory Tests 05/29/18 05:37 Red Blood Count 4.39, Mean Corpuscular Volume 93.2, Mean Corpuscular Hemoglobin 31.4, Mean Corpuscular Hemoglobin Concent 33.7, Red Cell Distribution Width 13.7, Neutrophils (%) (Auto) 61.8, Lymphocytes (%) (Auto) 26.9, Monocytes (%) (Auto) 7.5 H, Eosinophils (%) (Auto) 2.3, Basophils (%) (Auto) 0.8, Neutrophils # (Auto) 5.7, Lymphocytes # (Auto) 2.5, Monocytes # (Auto) 0.7, Eosinophils # (Auto) 0.2, Basophils # (Auto) 0.1, Calcium Level 8.7 L Discharge Medications Scheduled Apixaban Base (Eliquis) 2.5 Mg Tab, 2.5 MG PO BID, (Reported) Ascorbic Acid (Vitamin C) 1,000 Mg Tab, 1,000 MG PO DAILY, (Reported) Aspirin (Aspirin 81) 81 Mg Tab, 1 TAB PO DAILY for pain Cholecalciferol (Vitamin D3 400) 400 Unit Cap, 400 UNIT PO DAILY, (Reported) Metoprolol Tartrate (Metoprolol Tartrate) 25 Mg Tab, 25 MG PO TID Ranitidine HCl (Ranitidine [address]) 150 Mg Tab, 1 TAB PO BID, (Reported) Simvastatin (Simvastatin) 20 Mg Tab, 10 MG PO QHS, (Reported) Tamsulosin Hydrochloride (Flomax) 0.4 Mg Cap, 0.4 MG PO DAILY, (Reported) Allergies Coded Allergies: No Known Allergies (Unverified , 09/03/17) ASHLEE HOLMAN MD May 29, 2018 10:39
== END 2018-05-29 14:30 | disposition home or self-care (01) | DRG 69 ==
LOC: M ED 14:18 → M ED INP 18:55 → M PCU 20:37 → M MSPAV 05-17 19:18
PROVIDERS: ADMIT Internal Medicine; ATTEND Internal Medicine
DX: G45.9 Transient cerebral ischemic attack, unspecified (principal); F02.81 Dementia in other diseases classified elsewhere, unspecified severity, with behavioral disturbance; N40.0 Benign prostatic hyperplasia without lower urinary tract symptoms; K21.9 Gastro-esophageal reflux disease without esophagitis; I48.2 Chronic atrial fibrillation; C61 Malignant neoplasm of prostate; I25.10 Atherosclerotic heart disease of native coronary artery without angina pectoris; Z86.73 Personal history of transient ischemic attack (TIA), and cerebral infarction without residual deficits; R00.1 Bradycardia, unspecified; Z79.899 Other long term (current) drug therapy; Z79.01 Long term (current) use of anticoagulants; E78.5 Hyperlipidemia, unspecified; E55.9 Vitamin D deficiency, unspecified; G30.9 Alzheimer's disease, unspecified; Z79.82 Long term (current) use of aspirin

== ENCOUNTER 2018-07-05 05:52 | Inpatient (IN) | payer MEDICARE, OTHER ==
[~2018-07-05] VITALS: Ht 167.6 cm; Wt 48.6 kg
[~2018-07-05 05:52] MED LIST changes: +ASPI1TAB PO; +D400400C PO; +DONETAB6 PO; +METO25TA4 PO; +VITA10006 PO
[2018-07-05 07:54] LABS: BASO # 0.1 10^3/uL (0.0-0.2); BASO % 0.4 % (0.0-1.0); EOS % 0.1 % (0.0-3.0); HEMATOCRIT 38.2 % (42.0-52.0); HEMOGLOBIN 12.9 g/dl (13.5-17.5); LYMPH % 7.7 % (24.0-44.0); MEAN CORPUSCULAR HEMOGLOBIN 31.5 pg (27.0-33.0); MEAN CORPUSCULAR HGB CONC 33.8 g/dl (32.0-36.5); MEAN CORPUSCULAR VOLUME 93.4 fl (80.0-96.0); NEUTROPHILS # 10.3 10^3/uL (1.8-7.7); NEUTROPHILS % 83.6 % (36.0-66.0); PLATELET COUNT, AUTOMATED 184 10^3/uL (150-450); RED BLOOD COUNT 4.09 10^6/uL (4.30-6.10); WHITE BLOOD COUNT 12.3 10^3/uL (4.0-10.0)
[2018-07-05 08:05] LABS: APPEARANCE, URINE CLEAR (CLEAR); BACTERIA, URINE AUTO NEGATIVE (NEGATIVE); BILIRUBIN, URINE AUTO NEGATIVE (NEGATIVE); BLOOD, URINE BLOOD 2+ (NEGATIVE); COLOR, URINE YELLOW (YELLOW); GLUCOSE, URINE (UA) AUTO NEGATIVE (NEGATIVE); KETONE, URINE AUTO TRACE mg/dL (NEGATIVE); LEUKOCYTE ESTERASE, URINE AUTO NEGATIVE (NEGATIVE); MUCUS, URINE SMALL (NEGATIVE); NITRITE, URINE AUTO NEGATIVE (NEGATIVE); PROTEIN, URINE AUTO NEGATIVE (NEGATIVE); RBC, URINE AUTO 109 /HPF (0-3); SPECIFIC GRAVITY URINE AUTO 1.017 (1.002-1.035); SQUAMOUS EPITHELIAL CELL UR AU 0 /HPF (0-6); UROBILINOGEN, URINE AUTO 0.2 mg/dL (0.0-2.0); WBC, URINE AUTO 3 /HPF (0-3)
[2018-07-05 08:34] LABS: ALBUMIN 4.1 GM/DL (3.2-5.2); ALT/SGPT 16 U/L (12-78); BILIRUBIN,DIRECT 0.3 MG/DL (0.0-0.2); BILIRUBIN,TOTAL 1.2 MG/DL (0.2-1.0); BLOOD UREA NITROGEN 15 MG/DL (7-18); CALCIUM LEVEL 8.6 MG/DL (8.8-10.2); CARBON DIOXIDE LEVEL 26 MEQ/L (21-32); CHLORIDE LEVEL 99 MEQ/L (98-107); CK-MB VALUE MASS < 1.0 NG/ML (<3.6); CPK CREATINE PHOSPHOKINASE 63 U/L (39-308); CREATININE FOR GFR 1.03 MG/DL (0.70-1.30); FREE THYROXINE INDEX 3.6 % (1.4-3.8); GLOMERULAR FILTRATION RATE > 60.0 (>35); GLUCOSE, FASTING 111 MG/DL (70-100); MB/CK RELATIVE INDEX 1.59 (< OR =4); NT-PRO BNP 3888 PG/ML (<450); POTASSIUM SERUM 4.2 MEQ/L (3.5-5.1); SODIUM LEVEL 132 MEQ/L (136-145); T UPTAKE 36 % (33-40); THYROXINE (T4) 9.9 UG/DL (4.5-12.0); TOTAL PROTEIN 7.5 GM/DL (6.4-8.2); TROPONIN I < 0.02 NG/ML (< 0.10)
[2018-07-05] MEDS ORDERED: ISOVUE-370 76% 100ML VIAL (Q9967) As Ordered ONE (09:09)
[2018-07-05] MEDS ORDERED: FUROSEMIDE 20 MG/2 ML VIAL (J1940) IV ONE (09:15)
[2018-07-05] MEDS ORDERED: ATENOLOL 25 MG TAB PO ONE (09:15)
--- NOTE | 2018-07-05 09:22 | REP ---
CT BRAIN WITHOUT CONTRAST: CT brain performed without IV contrast. Comparison 05/10/2018. There is moderate atrophy. There is no midline shift or mass effect. There are patchy periventricular small vessel ischemic changes as seen on prior study. There is no acute intracranial hemorrhage or extra-axial fluid collection. Vascular calcifications are seen in the carotid siphons. IMPRESSION: Stable chronic findings as above. No acute intracranial process identified. Electronically Signed by Abiel Llamas MD 07/05/2018 07:18 P
--- NOTE | 2018-07-05 09:41 | REP ---
CHEST, TWO VIEWS: Two views of the chest are performed and compared to a prior studies, most recent of which is 05/10/2018. Mild stable bibasilar fibrotic changes seen. There is no acute infiltrate. There is mild cardiomegaly. There is calcification and tortuosity of the thoracic aorta. The mediastinal silhouette is unchanged. There is osteopenia with mild degenerative changes of the spine. IMPRESSION: Mild cardiomegaly and chronic fibrotic change. No acute infiltrate. Electronically Signed by Abiel Llamas MD 07/05/2018 07:19 P
[2018-07-05] MEDS ORDERED: METO1TAB32 PO (09:48)
--- NOTE | 2018-07-05 10:01 | HPEPDOC ---
[facility] Medical History & Physical Date of Admission Jul 05, 2018 History and Physical CHIEF COMPLAINT: Weakness HISTORY OF PRESENT ILLNESS: Several day history of weakness. Recently discharged on 05/29/18 from hospital for confusion. States he has been having difficulty with ambulation secondary to weakness. Denies any other medical complaints. Possible dietary non-compliance. Is aware of issues with tachycardia. PAST MEDICAL HISTORY: #A. fib #tachy/alexandre syndrome? #Dementia with Delirium #Possible TIA #BPH #Prostate CA #CAD #DLP #GERD HOME MEDICATIONS: Please see below. PHYSICAL EXAMINATION: Vitals (See below) General: Lying in bed, no acute distress, comfortable, elderly HEENT: NC, AT, EOMI, PERRL CVS: +S1S2, tachycardic Lungs: CTA B/L Abdomen: Soft, ND, NT, +BS Extremities: no edema Neuro: no gross focal deficits, strength 5/5 b/l upper/lower extremities, sensation intact throughout Psych: AAOx3, in good spirits LABORATORY DATA: See below. MICROBIOLOGY: Please see below. ASSESSMENT: 87 yo male for generalized weakness, gait dysfunction found to be tachycardic. #generalized weakness - no obvious etiology - will check cultures #tachycardia/a-fib/tachy-alexandre? - admit to telemetry - resume home beta blockers - dosage unknown? - consider transition to [facility] - Eliquis for a/c #Dementia with Delirium #BPH - flomax #Prostate CA #CAD - asa, metoprolol, simvastatin #DLP - simvastatin #GERD - famotidine #DVT prophylaxis - Eliquis Vital Signs Vital Signs Date Time Temp Pulse Resp B/P (MAP) Pulse Ox O2 Delivery O2 Flow Rate FiO2 07/05/18 09:30 116 18 134/73 (93) 93 Room Air 07/05/18 05:58 97.9 Laboratory Data Labs 24H Laboratory Tests 2 07/05/18 07:40: Immature Granulocyte % (Auto) 0.2, White Blood Count 12.3H, Red Blood Count 4.09L, Hemoglobin 12.9L, Hematocrit 38.2L, Mean Corpuscular Volume 93.4, Mean Corpuscular Hemoglobin 31.5, Mean Corpuscular Hemoglobin Concent 33.8, Red Cell Distribution Width 14.3, Platelet Count 184, Neutrophils (%) (Auto) 83.6H, Lymphocytes (%) (Auto) 7.7L, Monocytes (%) (Auto) 8.0H, Eosinophils (%) (Auto) 0.1, Basophils (%) (Auto) 0.4, Neutrophils # (Auto) 10.3H, Lymphocytes # (Auto) 1.0L, Monocytes # (Auto) 1.0H, Eosinophils # (Auto) 0.0, Basophils # (Auto) 0.1, Nucleated Red Blood Cells % (auto) 0.0, Anion Gap 7L, Glomerular Filtration Rate > 60.0, Lactic Acid Level 1.4, Calcium Level 8.6L, Aspartate Amino Transf (AST/SGOT) 19, Alanine Aminotransferase (ALT/SGPT) 16, Alkaline Phosphatase 70, Total Bilirubin 1.2H, Direct Bilirubin 0.3H, Total Creatine Kinase 63, Creatine Kinase MB < 1.0, Creatine Kinase MB Relative Index 1.59, Troponin I < 0.02, HV-Ucb-[id number]-Type Natriuretic Peptide 3888H, Total Protein 7.5, Albumin 4.1, Albumin/Globulin Ratio 1.21, Thyroid Stimulating Hormone (TSH) 2.610, Free Thyroxine Index 3.6, Thyroxine (T4) 9.9, Triiodothyronine (T3) Uptake 36 07/05/18 07:41: Urine Appearance CLEAR, Urine Color YELLOW, Urine pH 5.0, Urine Specific [place] 1.017, Urine Protein NEGATIVE, Urine Glucose (UA) NEGATIVE, Urine Ketones TRACEH, Urine Urobilinogen 0.2, Urine Bilirubin NEGATIVE, Urine Leukocyte Esterase NEGATIVE, Urine Blood 2+H, Urine Nitrite NEGATIVE, Urine WBC (Auto) 3, Urine RBC (Auto) 109H, Urine Hyaline Casts (Auto) 0, Urine Bacteria (Auto) NEGATIVE, Urine Squamous Epithelial Cells 0, Urine Mucus (Auto) SMALL, Urine Sperm (Auto) CBC/BMP Laboratory Tests 07/05/18 07:40 Red Blood Count 4.09 L, Mean Corpuscular Volume 93.4, Mean Corpuscular Hemoglobin 31.5, Mean Corpuscular Hemoglobin Concent 33.8, Red Cell Distribution Width 14.3, Neutrophils (%) (Auto) 83.6 H, Lymphocytes (%) (Auto) 7.7 L, Monocytes (%) (Auto) 8.0 H, Eosinophils (%) (Auto) 0.1, Basophils (%) (Auto) 0.4, Neutrophils # (Auto) 10.3 H, Lymphocytes # (Auto) 1.0 L, Monocytes # (Auto) 1.0 H, Eosinophils # (Auto) 0.0, Basophils # (Auto) 0.1 Microbiology Microbiology 07/05/18 Blood Culture, Received Pending 07/05/18 Urine Culture, Received Pending Home Medications Scheduled Apixaban Base (Eliquis) 2.5 Mg Tab, 2.5 MG PO BID Ascorbic Acid (Vitamin C) 1,000 Mg Tab, 1,000 MG PO DAILY Cholecalciferol (Vitamin D3 400) 400 Unit Cap, 400 UNIT PO DAILY Metoprolol Tartrate (Metoprolol Tartrate) 25 Mg Tab, 25 MG PO TID PRESCRIBED FOR TID DOSING, PT STATES ONLY TAKES AT DAILY AT NOON Ranitidine HCl (Ranitidine [address]) 150 Mg Tab, 1 TAB PO BID Simvastatin (Simvastatin) 20 Mg Tab, 10 MG PO QHS Tamsulosin Hydrochloride (Flomax) 0.4 Mg Cap, 0.4 MG PO DAILY Allergies Coded Allergies: No Known Allergies (Unverified , 09/03/17) TALIA PATE MD Jul 05, 2018 10:01
--- NOTE | 2018-07-05 10:09 | REP ---
CT ANGIOGRAM CHEST: TECHNIQUE: Axial contrast enhanced images from the thoracic inlet to the upper abdomen using 100 mL Isovue 370 intravenous contrast material with multiplanar reformations. There is no CT evidence of pulmonary embolism. There is moderate atherosclerotic calcification of the thoracic aorta with mild ectasia of the ascending thoracic aorta 4.1 cm in maximum diameter. There is mild cardiomegaly. There is bilateral gynecomastia. I see no evidence of mediastinal, hilar, or chest wall adenopathy. There is no pleural or pericardial effusion. Mild coarsened interstitial infiltrates are seen in the right middle and lower lobes. Otherwise there are scattered mild fibrotic changes. Visualized upper abdominal structures are unremarkable. There is an old compression deformity of the lower thoracic vertebral body. IMPRESSION: No CT evidence of pulmonary embolism. Coarsened mild interstitial infiltrates in the right middle and lower lobes. No other acute abnormalities. Electronically Signed by Abiel Llamas MD 07/05/2018 07:20 P
[2018-07-05] MEDS ORDERED: METO25TA4 PO (10:13)
[2018-07-05] MEDS: ASCORBIC ACID 500 MG TAB PO SCH (11:29)
[2018-07-05] MEDS: TAMSULOSIN 0.4 MG CAP PO SCH (11:29)
[2018-07-05] MEDS: APIXABAN 2.5 MG TAB (ELIQUIS) PO SCH ×2 (11:29→21:04)
[2018-07-05] MEDS: VITAMIN D (CHOLECALCIFEROL) 400 INTERNATIONAL UNITS TAB PO SCH (14:47)
[2018-07-05] MEDS: METOPROLOL TART 25 MG TABLET PO SCH ×2 (14:49→21:05)
[2018-07-05 14:55] VITALS: BP 122/80
--- NOTE | 2018-07-05 19:17 | ECGEPIP ---
Stationary ECG Study [facility] - ED Test Date: 2018-07-05 Pat Name: KATIE MCCLURE Department: Room: - Gender: M [employer] 1930 Requested By: VICKI HODGES Order Number: [id number] Reading MD: Devante Mckinney Measurements Intervals Rewey Rate: 95 P: MD: 0 QRS: -40 QRSD: 94 T: 167 QT: 354 QTc: 445 Interpretive Statements ATRIAL FIBRILLATION MARKED LEFT AXIS DEVIATION ST DEVIATION AND MODERATE T-WAVE ABNORMALITY, CONSIDER LATERAL ISCHEMIA POOR R WAVE PROGRESSION CW 05/10/[address] T WAVE CHANGES Electronically Signed On 07-05-2018 19:16:54 EST by Devante Mckinney
[2018-07-05 20:00] VITALS: BP 97/68
[2018-07-05] MEDS: SIMVASTATIN 10 MG TAB PO SCH (21:04)
[2018-07-05 23:59] VITALS: BP 89/56
[2018-07-06] VITALS (8 sets, daily range): BP systolic 91–154; BP diastolic 52–84
[2018-07-06 05:41] LABS: HEMATOCRIT 38.8 % (42.0-52.0); HEMOGLOBIN 13.3 g/dl (13.5-17.5); MEAN CORPUSCULAR HEMOGLOBIN 31.2 pg (27.0-33.0); MEAN CORPUSCULAR HGB CONC 34.3 g/dl (32.0-36.5); MEAN CORPUSCULAR VOLUME 91.1 fl (80.0-96.0); PLATELET COUNT, AUTOMATED 197 10^3/uL (150-450); RED BLOOD COUNT 4.26 10^6/uL (4.30-6.10); WHITE BLOOD COUNT 9.9 10^3/uL (4.0-10.0)
[2018-07-06] MEDS: METOPROLOL TART 25 MG TABLET PO SCH (05:47)
[2018-07-06 05:58] LABS: BLOOD UREA NITROGEN 20 MG/DL (7-18); CALCIUM LEVEL 8.6 MG/DL (8.8-10.2); CARBON DIOXIDE LEVEL 29 MEQ/L (21-32); CHLORIDE LEVEL 97 MEQ/L (98-107); CREATININE FOR GFR 1.12 MG/DL (0.70-1.30); GLOMERULAR FILTRATION RATE > 60.0 (>35); GLUCOSE, FASTING 103 MG/DL (70-100); POTASSIUM SERUM 3.4 MEQ/L (3.5-5.1); SODIUM LEVEL 133 MEQ/L (136-145)
--- NOTE | 2018-07-06 07:16 | IPNPDOC ---
Text Note Date of Service The patient was seen on 07/06/18. NOTE Subjective: Patient seen and examined at bedside. No acute overnight events reported. Complains of some abdominal pain this morning. Objective: PHYSICAL EXAMINATION: Vitals (See below) General: Lying in bed, no acute distress, comfortable, elderly HEENT: NC, AT, EOMI, PERRL CVS: +S1S2, tachycardic Lungs: CTA B/L Abdomen: Soft, ND, NT, +BS Extremities: no edema Neuro: no gross focal deficits, strength 5/5 b/l upper/lower extremities, sensation intact throughout Psych: AAOx3, in good spirits ASSESSMENT: 87 yo male for generalized weakness, gait dysfunction found to be t achycardic. #generalized weakness - no obvious etiology - w/u pending - cultures, ct abd/pel #abd pain - no clear etiology - imaging pending #tachycardia/a-fib/tachy-alexandre? - admit to telemetry - decreasing BB dosage - if continues to be tachy/hypotensive will start digoxin - d/w cardiology assistance appreciated - Eliquis for a/c #Dementia with Delirium #BPH - flomax #Prostate CA #CAD - asa, metoprolol, simvastatin #DLP - simvastatin #GERD - famotidine #DVT prophylaxis - Eliquis VS,Fishbone, I+O VS, Fishbone, I+O Laboratory Tests 07/05/18 07:40 Red Blood Count 4.09 L, Mean Corpuscular Volume 93.4, Mean Corpuscular Hemoglobin 31.5, Mean Corpuscular Hemoglobin Concent 33.8, Red Cell Distribution Width 14.3, Neutrophils (%) (Auto) 83.6 H, Lymphocytes (%) (Auto) 7.7 L, Monocytes (%) (Auto) 8.0 H, Eosinophils (%) (Auto) 0.1, Basophils (%) (Auto) 0.4, Neutrophils # (Auto) 10.3 H, Lymphocytes # (Auto) 1.0 L, Monocytes # (Auto) 1.0 H, Eosinophils # (Auto) 0.0, Basophils # (Auto) 0.1 07/06/18 04:44 Red Blood Count 4.26 L, Mean Corpuscular Volume 91.1, Mean Corpuscular Hemoglobin 31.2, Mean Corpuscular Hemoglobin Concent 34.3, Red Cell Distribution Width 14.6 H, Calcium Level 8.6 L Vital Signs Date Time Temp Pulse Resp B/P (MAP) Pulse Ox O2 Delivery O2 Flow Rate FiO2 07/06/18 05:47 72 116/65 07/06/18 04:00 99.6 18 93 07/05/18 14:43 Room Air I&O- Last 24 Hours up to 6 AM 07/06/18 06:00 Intake Total 0 ml Output Total 400 ml Balance -400 ml TALIA PATE MD Jul 06, 2018 07:15
[2018-07-06 07:46] LABS: LIPASE 66 U/L (73-393); MAGNESIUM LEVEL 2.1 MG/DL (1.8-2.4)
[2018-07-06] MEDS ORDERED: POTASSIUM CHLORIDE 10 MEQ SR TABLET PO ONE (08:00)
[2018-07-06] MEDS: TAMSULOSIN 0.4 MG CAP PO SCH (09:08)
[2018-07-06] MEDS: VITAMIN D (CHOLECALCIFEROL) 400 INTERNATIONAL UNITS TAB PO SCH (09:09)
[2018-07-06] MEDS: APIXABAN 2.5 MG TAB (ELIQUIS) PO SCH ×2 (09:09→21:00)
[2018-07-06] MEDS: ASCORBIC ACID 500 MG TAB PO SCH (09:09)
[2018-07-06] MEDS: METOPROLOL TART 12.5 MG PER 1/2 TAB PO SCH ×3 (09:33→21:07)
--- NOTE | 2018-07-06 12:37 | REP ---
CT ABDOMEN AND PELVIS WITHOUT IV CONTRAST: CT abdomen and pelvis performed without IV contrast. Sagittal and coronal reconstruction images are performed. In the visualized lung bases there are again mild interstitial infiltrates in the right lower lobe as seen on prior CT of the chest 07/05/2018. Liver, spleen, adrenals, pancreas, and kidneys are grossly unremarkable. There is a small amount of excreted contrast in the renal collecting systems bilaterally without hydronephrosis. The contrast is from yesterday's CT of the chest with contrast. Urinary bladder is mild to moderately distended with excreted contrast material with no definite filling defect. There is moderate atherosclerotic calcification of the abdominal aorta without aneurysm. There is no adenopathy, free air or free fluid. I see no bowel wall thickening. I see no pelvic mass. There are a few sigmoid diverticula present. There is no acute diverticulitis. Previously noted left inguinal hernia is still apparent with only fat internally. Previously noted trapped small bowel loop is not seen in the hernia. There are mild degenerative changes of the spine. There is an old compression deformity of the T11 vertebral body. IMPRESSION: No evidence of acute intraabdominal or pelvic pathology as discussed above. Electronically Signed by Abiel Llamas MD 07/06/2018 07:04 P
[2018-07-06] MEDS ORDERED: METOPROLOL TART 12.5 MG PER 1/2 TAB PO SCH (14:00)
[2018-07-06] MEDS: SIMVASTATIN 10 MG TAB PO SCH (21:00)
[2018-07-07] VITALS (7 sets, daily range): BP systolic 88–107; BP diastolic 50–80
[2018-07-07] MEDS: METOPROLOL TART 12.5 MG PER 1/2 TAB PO SCH ×3 (05:11→22:19)
[2018-07-07 05:31] LABS: HEMATOCRIT 35.4 % (42.0-52.0); HEMOGLOBIN 11.9 g/dl (13.5-17.5); MEAN CORPUSCULAR HEMOGLOBIN 31.2 pg (27.0-33.0); MEAN CORPUSCULAR HGB CONC 33.6 g/dl (32.0-36.5); MEAN CORPUSCULAR VOLUME 92.7 fl (80.0-96.0); PLATELET COUNT, AUTOMATED 184 10^3/uL (150-450); RED BLOOD COUNT 3.82 10^6/uL (4.30-6.10); WHITE BLOOD COUNT 7.9 10^3/uL (4.0-10.0)
[2018-07-07 05:42] LABS: BLOOD UREA NITROGEN 24 MG/DL (7-18); CALCIUM LEVEL 8.3 MG/DL (8.8-10.2); CARBON DIOXIDE LEVEL 27 MEQ/L (21-32); CHLORIDE LEVEL 100 MEQ/L (98-107); CREATININE FOR GFR 1.06 MG/DL (0.70-1.30); GLOMERULAR FILTRATION RATE > 60.0 (>35); GLUCOSE, FASTING 102 MG/DL (70-100); POTASSIUM SERUM 4.4 MEQ/L (3.5-5.1); SODIUM LEVEL 135 MEQ/L (136-145)
--- NOTE | 2018-07-07 07:54 | IPNPDOC ---
Text Note Date of Service The patient was seen on 07/07/18. NOTE Subjective: Patient seen and examined at bedside. No acute overnight events reported. No medical complaints this morning. Objective: PHYSICAL EXAMINATION: Vitals (See below) General: Lying in bed, no acute distress, comfortable, elderly HEENT: NC, AT, EOMI, PERRL CVS: +S1S2, tachycardic Lungs: CTA B/L Abdomen: Soft, ND, NT, +BS Extremities: no edema Neuro: no gross focal deficits, strength 5/5 b/l upper/lower extremities, sensation intact throughout Psych: AAOx3, in good spirits ASSESSMENT: 87 yo male for generalized weakness, gait dysfunction found to be tachycardic. #generalized weakness - improving - no obvious etiology - w/u negative to date - PT/OT #abd pain - resolved #tachycardia/a-fib/tachy-alexandre? - admit to telemetry - decreasing BB dosage - if continues to be tachy/hypotensive will start digoxin - d/w cardiology assistance appreciated - Dayanna for a/c #Dementia with Delirium #BPH - flomax #Prostate CA #CAD - asa, metoprolol, simvastatin #DLP - simvastatin #GERD - famotidine #DVT prophylaxis - Eliquis VS,Fishbone, I+O VS, Fishbone, I+O Laboratory Tests 07/07/18 04:55 Red Blood Count 3.82 L, Mean Corpuscular Volume 92.7, Mean Corpuscular Hemoglobin 31.2, Mean Corpuscular Hemoglobin Concent 33.6, Red Cell Distribution Width 14.4, Calcium Level 8.3 L Vital Signs Date Time Temp Pulse Resp B/P (MAP) Pulse Ox O2 Delivery O2 Flow Rate FiO2 07/07/18 05:11 118 112/70 07/07/18 04:00 98.2 18 99 07/05/18 14:43 Room Air I&O- Last 24 Hours up to 6 AM 07/07/18 06:00 Intake Total 840 ml Output Total 600 ml Balance 240 ml TALIA PATE MD Jul 07, 2018 07:54
[2018-07-07] MEDS ORDERED: METOPROLOL TART 12.5 MG PER 1/2 TAB PO SCH (09:15)
[2018-07-07] MEDS: APIXABAN 2.5 MG TAB (ELIQUIS) PO SCH ×2 (09:25→19:50)
[2018-07-07] MEDS: ASCORBIC ACID 500 MG TAB PO SCH (09:25)
[2018-07-07] MEDS: VITAMIN D (CHOLECALCIFEROL) 400 INTERNATIONAL UNITS TAB PO SCH (09:25)
[2018-07-07] MEDS: TAMSULOSIN 0.4 MG CAP PO SCH (09:25)
[2018-07-07] MEDS: SLF 3 ML SYR IV SCH ×2 (16:07→22:00)
[2018-07-07] MEDS ORDERED: DIGOXIN INJ 0.5 MG/2 ML AMP (J1160) IV ONE (19:15)
[2018-07-07] MEDS: SIMVASTATIN 10 MG TAB PO SCH (19:50)
[2018-07-08 04:00] VITALS: BP 102/58
[2018-07-08] MEDS: SLF 3 ML SYR IV SCH ×3 (05:56→22:33)
[2018-07-08] MEDS: METOPROLOL TART 12.5 MG PER 1/2 TAB PO SCH ×3 (05:56→21:21)
[2018-07-08 06:00] LABS: HEMATOCRIT 34.8 % (42.0-52.0); HEMOGLOBIN 11.8 g/dl (13.5-17.5); MEAN CORPUSCULAR HEMOGLOBIN 31.1 pg (27.0-33.0); MEAN CORPUSCULAR HGB CONC 33.9 g/dl (32.0-36.5); MEAN CORPUSCULAR VOLUME 91.6 fl (80.0-96.0); PLATELET COUNT, AUTOMATED 185 10^3/uL (150-450); WHITE BLOOD COUNT 8.9 10^3/uL (4.0-10.0)
[2018-07-08 06:09] LABS: BLOOD UREA NITROGEN 23 MG/DL (7-18); CALCIUM LEVEL 8.3 MG/DL (8.8-10.2); CARBON DIOXIDE LEVEL 28 MEQ/L (21-32); CHLORIDE LEVEL 103 MEQ/L (98-107); CREATININE FOR GFR 0.95 MG/DL (0.70-1.30); GLOMERULAR FILTRATION RATE > 60.0 (>35); GLUCOSE, FASTING 104 MG/DL (70-100); POTASSIUM SERUM 4.3 MEQ/L (3.5-5.1); SODIUM LEVEL 136 MEQ/L (136-145)
[2018-07-08 08:00] VITALS: BP 121/69
[2018-07-08] MEDS: VITAMIN D (CHOLECALCIFEROL) 400 INTERNATIONAL UNITS TAB PO SCH (09:02)
[2018-07-08] MEDS: TAMSULOSIN 0.4 MG CAP PO SCH (09:02)
[2018-07-08] MEDS: APIXABAN 2.5 MG TAB (ELIQUIS) PO SCH ×2 (09:02→21:21)
[2018-07-08] MEDS: ASCORBIC ACID 500 MG TAB PO SCH (09:02)
[2018-07-08 09:07] VITALS: BP_SYST 102; BP_SYST 99; BP_DIAS 60; BP_DIAS 68; BP_DIAS 78
[2018-07-08] MEDS ORDERED: METOPROLOL TART 12.5 MG PER 1/2 TAB PO ONE (09:30)
[2018-07-08 11:50] VITALS: BP 128/72
[2018-07-08 15:59] VITALS: BP 113/65
[2018-07-08] MEDS ORDERED: DIGOXIN INJ 0.5 MG/2 ML AMP (J1160) IV ONE ×2 (16:30→22:00)
--- NOTE | 2018-07-08 19:52 | IPN ---
DATE: 07/05/2018 SUBJECTIVE: The patient is seen and examined in the room today. The patient does not have any acute complaints. On telemetry, the patient has been having persistent tachycardia, even during rest. However, the patient denies any palpitations or chest pain. PHYSICAL EXAMINATION: VITAL SIGNS: Temperature 98.6, pulse 100, respirations 18, blood pressure 128/72, pulse oximetry 96% on room air. GENERAL: No sign of acute distress. Alert and awake. HEENT: Normocephalic, atraumatic. Extraocular motors are grossly intact. C CARDIOVASCULAR: Positive S1, S2, tachycardic. Irregularly irregular. LUNGS: Clear to auscultation bilaterally. ABDOMEN: Soft, nontender. Bowel sounds present. EXTREMITIES: No edema. LABORATORY DATA: WBC is 8.9, hemoglobin 11.8, hematocrit 34.8, platelet count is 185. Sodium 136, potassium 4.3, chloride 103, carbon dioxide 28, BUN 23, creatinine 0.95, GFR greater than 60, fasting glucose 104, calcium 8.3. ASSESSMENT AND PLAN: 1. Generalized weakness. The patient is currently being treated for uncontrolled atrial fibrillation. The patient is orthostatic negative. Continue with physical therapy (PT). 2. Uncontrolled atrial fibrillation. Even during rest, the patient will have significant tachycardia. The patient's telemetry reviewed. There is no bradycardia noted. The patient also demonstrates frequent hypotension. The patient is on a low dose of metoprolol. The patient is started on digoxin, loading today. The patient is on Eliquis. 3. Dementia with history of delirium. Continue to monitor. The patient seems to be at his baseline at this time. 4. Benign prostatic hypertrophy (BPH). On Flomax. 5. Coronary artery disease. On metoprolol and simvastatin and aspirin. 6. Dyslipidemia. On statin. 7. History of prostate cancer. Continue outpatient urology followup. 8. Deep vein thrombosis (DVT) prophylaxis. On Eliquis.
[2018-07-08 20:00] VITALS: BP 122/60
[2018-07-08] MEDS: SIMVASTATIN 10 MG TAB PO SCH (21:21)
[2018-07-09] VITALS (9 sets, daily range): BP systolic 88–114; BP diastolic 52–68
[2018-07-09 05:02] LABS: HEMATOCRIT 37.3 % (42.0-52.0); HEMOGLOBIN 12.4 g/dl (13.5-17.5); MEAN CORPUSCULAR HEMOGLOBIN 31.2 pg (27.0-33.0); MEAN CORPUSCULAR HGB CONC 33.2 g/dl (32.0-36.5); MEAN CORPUSCULAR VOLUME 93.7 fl (80.0-96.0); PLATELET COUNT, AUTOMATED 201 10^3/uL (150-450); RED BLOOD COUNT 3.98 10^6/uL (4.30-6.10)
[2018-07-09 05:23] LABS: BLOOD UREA NITROGEN 17 MG/DL (7-18); CALCIUM LEVEL 7.9 MG/DL (8.8-10.2); CARBON DIOXIDE LEVEL 28 MEQ/L (21-32); CHLORIDE LEVEL 101 MEQ/L (98-107); CREATININE FOR GFR 0.86 MG/DL (0.70-1.30); GLOMERULAR FILTRATION RATE > 60.0 (>35); GLUCOSE, FASTING 106 MG/DL (70-100); POTASSIUM SERUM 4.4 MEQ/L (3.5-5.1); SODIUM LEVEL 137 MEQ/L (136-145)
[2018-07-09] MEDS: SLF 3 ML SYR IV SCH ×3 (06:00→21:46)
[2018-07-09] MEDS: METOPROLOL TART 12.5 MG PER 1/2 TAB PO SCH ×3 (06:19→21:46)
[2018-07-09] MEDS: ASPIRIN 81 MG CHEW TABLET PO SCH (07:43)
[2018-07-09] MEDS: VITAMIN D (CHOLECALCIFEROL) 400 INTERNATIONAL UNITS TAB PO SCH (09:06)
[2018-07-09] MEDS: ASCORBIC ACID 500 MG TAB PO SCH (09:07)
[2018-07-09] MEDS: TAMSULOSIN 0.4 MG CAP PO SCH (09:07)
[2018-07-09] MEDS: APIXABAN 2.5 MG TAB (ELIQUIS) PO SCH ×2 (09:07→21:45)
[2018-07-09] MEDS: DIGOXIN 0.125 MG TAB PO SCH (10:43)
[2018-07-09] MEDS: ACETAMINOPHEN TAB 650MG DOSE (2X325MG) PO PRN (14:47)
[2018-07-09 18:53] LABS: BASO # 0.1 10^3/uL (0.0-0.2); BASO % 0.6 % (0.0-1.0); EOS # 0.1 10^3/uL (0.0-0.50); EOS % 0.4 % (0.0-3.0); HEMOGLOBIN 11.9 g/dl (13.5-17.5); MEAN CORPUSCULAR HEMOGLOBIN 31.3 pg (27.0-33.0); MEAN CORPUSCULAR VOLUME 92.1 fl (80.0-96.0); MONO # 1.2 10^3/uL (0.0-0.8); MONO % 8.4 % (0.0-5.0); NEUTROPHILS # 10.6 10^3/uL (1.8-7.7); NEUTROPHILS % 76.2 % (36.0-66.0); PLATELET COUNT, AUTOMATED 210 10^3/uL (150-450); WHITE BLOOD COUNT 13.9 10^3/uL (4.0-10.0)
--- NOTE | 2018-07-09 18:58 | IPNPDOC ---
Text Note Date of Service The patient was seen on 07/09/18. NOTE SUBJECTIVE: The patient is seen and examined in the room this morning. Patient states he feels tired. Patient denies palpitation or chest pain. Denies shortness of breath. PHYSICAL EXAMINATION: VITAL SIGNS: Listed below. GENERAL: No sign of acute distress. Alert and awake. HEENT: Normocephalic, atraumatic. Extraocular motors are grossly intact. CARDIOVASCULAR: Positive S1, S2. Irregularly irregular. LUNGS: Clear to auscultation bilaterally. ABDOMEN: Soft, nontender. Bowel sounds present. EXTREMITIES: No edema. LABORATORY DATA: Listed below. ASSESSMENT AND PLAN: #. Uncontrolled atrial fibrillation. - Patient is on metoprolol. The patient demonstrates frequent hypotension. Started on digoxin. On Eliquis. #. Generalized weakness. - The patient is currently being treated for uncontrolled atrial fibrillation. Continue with physical therapy (PT). #. Dementia with history of delirium. - Continue to monitor. The patient seems to be at his baseline at this time. #. Benign prostatic hypertrophy (BPH). On Flomax. #. Coronary artery disease. On metoprolol and simvastatin and aspirin. #. Dyslipidemia. On statin. #. History of prostate cancer. Continue outpatient urology followup. #. Deep vein thrombosis (DVT) prophylaxis. On Eliquis. VS,Fishbone, I+O VS, Fishbone, I+O Laboratory Tests 07/09/18 04:31 Red Blood Count 3.98 L, Mean Corpuscular Volume 93.7, Mean Corpuscular Hemoglobin 31.2, Mean Corpuscular Hemoglobin Concent 33.2, Red Cell Distribution Width 14.0, Calcium Level 7.9 L Vital Signs Date Time Temp Pulse Resp B/P (MAP) Pulse Ox O2 Delivery O2 Flow Rate FiO2 07/09/18 17:48 100.3 80 20 88/62 (71) 07/09/18 16:00 98 07/05/18 14:43 Room Air I&O- Last 24 Hours up to 6 AM 07/09/18 06:00 Intake Total 1120 ml Output Total 675 ml Balance 445 ml SHILOH VELEZ DO Jul 09, 2018 18:58
--- NOTE | 2018-07-09 19:24 | REP ---
CHEST, SINGLE VIEW: Single view of the chest was performed and compared to prior study of 07/05/2018. There is no acute infiltrate. Heart and mediastinum are unchanged. There is calcification of the thoracic aorta. IMPRESSION: No acute infiltrate. Electronically Signed by Abiel Llamas MD 07/09/2018 08:23 P
[2018-07-09 19:55] LABS: ERYTHROCYTE SEDIMENTATION RATE 29 mm/hr (0-30)
[2018-07-09] MEDS: SIMVASTATIN 10 MG TAB PO SCH (21:45)
[2018-07-10] VITALS (7 sets, daily range): BP systolic 92–133; BP diastolic 50–75
[2018-07-10 05:34] LABS: HEMATOCRIT 35.7 % (42.0-52.0); HEMOGLOBIN 11.9 g/dl (13.5-17.5); MEAN CORPUSCULAR HEMOGLOBIN 31.6 pg (27.0-33.0); MEAN CORPUSCULAR HGB CONC 33.3 g/dl (32.0-36.5); MEAN CORPUSCULAR VOLUME 94.7 fl (80.0-96.0); PLATELET COUNT, AUTOMATED 181 10^3/uL (150-450); RED BLOOD COUNT 3.77 10^6/uL (4.30-6.10); WHITE BLOOD COUNT 12.1 10^3/uL (4.0-10.0)
[2018-07-10 05:55] LABS: BLOOD UREA NITROGEN 18 MG/DL (7-18); CALCIUM LEVEL 8.2 MG/DL (8.8-10.2); CARBON DIOXIDE LEVEL 29 MEQ/L (21-32); CHLORIDE LEVEL 100 MEQ/L (98-107); CREATININE FOR GFR 0.84 MG/DL (0.70-1.30); GLOMERULAR FILTRATION RATE > 60.0 (>35); GLUCOSE, FASTING 106 MG/DL (70-100); POTASSIUM SERUM 4.5 MEQ/L (3.5-5.1); SODIUM LEVEL 135 MEQ/L (136-145)
[2018-07-10] MEDS: METOPROLOL TART 12.5 MG PER 1/2 TAB PO SCH ×2 (06:24→14:00)
[2018-07-10] MEDS: SLF 3 ML SYR IV SCH ×3 (06:24→21:41)
[2018-07-10] MEDS: VITAMIN D (CHOLECALCIFEROL) 400 INTERNATIONAL UNITS TAB PO SCH (08:02)
[2018-07-10] MEDS: ASPIRIN 81 MG CHEW TABLET PO SCH (08:02)
[2018-07-10] MEDS: APIXABAN 2.5 MG TAB (ELIQUIS) PO SCH ×2 (08:02→20:41)
[2018-07-10] MEDS: ASCORBIC ACID 500 MG TAB PO SCH (08:02)
[2018-07-10] MEDS: DIGOXIN 0.125 MG TAB PO SCH (08:03)
[2018-07-10] MEDS: TAMSULOSIN 0.4 MG CAP PO SCH (08:03)
--- NOTE | 2018-07-10 19:24 | IPNPDOC ---
Text Note Date of Service The patient was seen on 07/10/18. NOTE SUBJECTIVE: The patient is seen and examined in the room this morning. No recurrence of fever. Patient states he is feeling better today. Patient denies palpitation or chest pain. Denies shortness of breath. PHYSICAL EXAMINATION: VITAL SIGNS: Listed below. GENERAL: No sign of acute distress. Alert and awake. HEENT: Normocephalic, atraumatic. Extraocular motors are grossly intact. CARDIOVASCULAR: Positive S1, S2. Irregularly irregular. LUNGS: Clear to auscultation bilaterally. ABDOMEN: Soft, nontender. Bowel sounds present. EXTREMITIES: No edema. LABORATORY DATA: Listed below. ASSESSMENT AND PLAN: #. Uncontrolled atrial fibrillation. - Patient is on metoprolol. The patient demonstrates frequent hypotension. Will continue to titrate the dosage and frequency. On digoxin. On Eliquis. # RSV infection. - Continue conservative medical management. No recurrence of fever. #. Generalized weakness. - The patient is currently being treated for uncontrolled atrial fibrillation. Continue with physical therapy (PT). #. Dementia with history of delirium. - Continue to monitor. The patient seems to be at his baseline at this time. #. Benign prostatic hypertrophy (BPH). On Flomax. #. Coronary artery disease. On metoprolol and simvastatin and aspirin. #. Dyslipidemia. On statin. #. History of prostate cancer. Continue outpatient urology followup. #. Deep vein thrombosis (DVT) prophylaxis. On Eliquis. VS,Fishbone, I+O VS, Fishbone, I+O Laboratory Tests 07/10/18 05:08 Red Blood Count 3.77 L, Mean Corpuscular Volume 94.7, Mean Corpuscular Hemoglobin 31.6, Mean Corpuscular Hemoglobin Concent 33.3, Red Cell Distribution Width 14.1, Calcium Level 8.2 L Vital Signs Date Time Temp Pulse Resp B/P (MAP) Pulse Ox O2 Delivery O2 Flow Rate FiO2 07/10/18 14:00 100 114/62 07/10/18 14:00 99.0 18 96 07/05/18 14:43 Room Air I&O- Last 24 Hours up to 6 AM 07/10/18 06:00 Intake Total 540 ml Output Total 975 ml Balance -435 ml SHILOH VELEZ DO Jul 10, 2018 19:24
[2018-07-10] MEDS: SIMVASTATIN 10 MG TAB PO SCH (20:41)
[2018-07-11] MEDS: ACETAMINOPHEN TAB 650MG DOSE (2X325MG) PO PRN (01:51)
[2018-07-11 04:13] LABS: HEMOGLOBIN 11.7 g/dl (13.5-17.5); MEAN CORPUSCULAR HEMOGLOBIN 31.3 pg (27.0-33.0); MEAN CORPUSCULAR HGB CONC 34.4 g/dl (32.0-36.5); MEAN CORPUSCULAR VOLUME 90.9 fl (80.0-96.0); PLATELET COUNT, AUTOMATED 215 10^3/uL (150-450); RED BLOOD COUNT 3.74 10^6/uL (4.30-6.10)
[2018-07-11 04:45] VITALS: BP 107/59
[2018-07-11 04:50] LABS: BLOOD UREA NITROGEN 16 MG/DL (7-18); CALCIUM LEVEL 8.2 MG/DL (8.8-10.2); CARBON DIOXIDE LEVEL 27 MEQ/L (21-32); CHLORIDE LEVEL 100 MEQ/L (98-107); CREATININE FOR GFR 0.87 MG/DL (0.70-1.30); GLOMERULAR FILTRATION RATE > 60.0 (>35); GLUCOSE, FASTING 113 MG/DL (70-100); POTASSIUM SERUM 4.6 MEQ/L (3.5-5.1); SODIUM LEVEL 135 MEQ/L (136-145)
[2018-07-11] MEDS: SLF 3 ML SYR IV SCH ×3 (05:23→20:28)
[2018-07-11 08:00] VITALS: BP 109/61
[2018-07-11] MEDS: VITAMIN D (CHOLECALCIFEROL) 400 INTERNATIONAL UNITS TAB PO SCH (09:00)
[2018-07-11] MEDS: ASCORBIC ACID 500 MG TAB PO SCH (09:14)
[2018-07-11] MEDS: METOPROLOL TART 12.5 MG PER 1/2 TAB PO SCH ×2 (09:14→20:25)
[2018-07-11] MEDS: ASPIRIN 81 MG CHEW TABLET PO SCH (09:14)
[2018-07-11] MEDS: APIXABAN 2.5 MG TAB (ELIQUIS) PO SCH ×2 (09:14→20:25)
[2018-07-11] MEDS: DIGOXIN 0.125 MG TAB PO SCH (09:15)
[2018-07-11] MEDS: TAMSULOSIN 0.4 MG CAP PO SCH (09:15)
[2018-07-11 12:00] VITALS: BP 98/60
[2018-07-11 16:00] VITALS: BP 112/67
--- NOTE | 2018-07-11 19:08 | IPNPDOC ---
Text Note Date of Service The patient was seen on 07/11/18. NOTE SUBJECTIVE: The patient is seen and examined in the room this morning. Denies fever or chill. Patient denies palpitation or chest pain. Denies shortness of breath. PHYSICAL EXAMINATION: VITAL SIGNS: Listed below. GENERAL: No sign of acute distress. Alert and awake. HEENT: Normocephalic, atraumatic. Extraocular motors are grossly intact. CARDIOVASCULAR: Positive S1, S2. Irregularly irregular. LUNGS: Clear to auscultation bilaterally. ABDOMEN: Soft, nontender. Bowel sounds present. EXTREMITIES: No edema. LABORATORY DATA: Listed below. ASSESSMENT AND PLAN: #. Uncontrolled atrial fibrillation. - Patient is on metoprolol. The patient demonstrates frequent hypotension. Titrate dosage and frequency of metoprolol as needed. On digoxin. On Eliquis. # RSV infection. - Continue conservative medical management. No recurrence of fever. #. Generalized weakness. - Atrial fibrillation is under better control. Continue with physical therapy (PT). #. Dementia with history of delirium. - Continue to monitor. The patient seems to be at his baseline at this time. #. Benign prostatic hypertrophy (BPH). On Flomax. #. Coronary artery disease. On metoprolol and simvastatin and aspirin. #. Dyslipidemia. On statin. #. History of prostate cancer. Continue outpatient urology followup. #. Deep vein thrombosis (DVT) prophylaxis. On Eliquis. VS,Fishbone, I+O VS, Fishbone, I+O Laboratory Tests 07/11/18 03:54 Red Blood Count 3.74 L, Mean Corpuscular Volume 90.9, Mean Corpuscular Hemogl obin 31.3, Mean Corpuscular Hemoglobin Concent 34.4, Red Cell Distribution Width 14.0, Calcium Level 8.2 L Vital Signs Date Time Temp Pulse Resp B/P (MAP) Pulse Ox O2 Delivery O2 Flow Rate FiO2 07/11/18 16:00 97.7 96 18 112/67 (82) 94 07/05/18 14:43 Room Air I&O- Last 24 Hours up to 6 AM 07/11/18 06:00 Intake Total 120 ml Output Total 675 ml Balance -555 ml SHILOH VELEZ DO Jul 11, 2018 19:08
[2018-07-11 20:00] VITALS: BP 129/62
[2018-07-11] MEDS: SIMVASTATIN 10 MG TAB PO SCH (20:25)
[2018-07-11 23:59] VITALS: BP 100/52
[2018-07-12 04:00] VITALS: BP 118/58
[2018-07-12 05:31] LABS: HEMATOCRIT 33.6 % (42.0-52.0); MEAN CORPUSCULAR HEMOGLOBIN 30.8 pg (27.0-33.0); MEAN CORPUSCULAR HGB CONC 32.7 g/dl (32.0-36.5); MEAN CORPUSCULAR VOLUME 94.1 fl (80.0-96.0); PLATELET COUNT, AUTOMATED 233 10^3/uL (150-450); RED BLOOD COUNT 3.57 10^6/uL (4.30-6.10); WHITE BLOOD COUNT 9.8 10^3/uL (4.0-10.0)
[2018-07-12 05:49] LABS: BLOOD UREA NITROGEN 18 MG/DL (7-18); CARBON DIOXIDE LEVEL 30 MEQ/L (21-32); CHLORIDE LEVEL 102 MEQ/L (98-107); CREATININE FOR GFR 0.77 MG/DL (0.70-1.30); GLOMERULAR FILTRATION RATE > 60.0 (>35); GLUCOSE, FASTING 102 MG/DL (70-100); POTASSIUM SERUM 4.4 MEQ/L (3.5-5.1); SODIUM LEVEL 136 MEQ/L (136-145)
[2018-07-12] MEDS: SLF 3 ML SYR IV SCH ×4 (06:00→22:07)
[2018-07-12 08:00] VITALS: BP 160/70
[2018-07-12] MEDS: VITAMIN D (CHOLECALCIFEROL) 400 INTERNATIONAL UNITS TAB PO SCH (08:58)
[2018-07-12] MEDS: ASPIRIN 81 MG CHEW TABLET PO SCH (08:58)
[2018-07-12] MEDS: APIXABAN 2.5 MG TAB (ELIQUIS) PO SCH ×2 (08:58→20:49)
[2018-07-12] MEDS: DIGOXIN 0.125 MG TAB PO SCH (08:58)
[2018-07-12] MEDS: TAMSULOSIN 0.4 MG CAP PO SCH (08:59)
[2018-07-12] MEDS: ASCORBIC ACID 500 MG TAB PO SCH (08:59)
[2018-07-12] MEDS: METOPROLOL SUCC *XL* 12.5MG PER 1/2 TAB (TopROL *XL*) PO SCH ×2 (10:24→20:49)
[2018-07-12 12:00] VITALS: BP 114/58
[2018-07-12 16:00] VITALS: BP 130/70
--- NOTE | 2018-07-12 17:02 | IPNPDOC ---
Text Note Date of Service The patient was seen on 07/12/18. NOTE SUBJECTIVE: The patient is seen and examined in the room this morning. Denies fever or chill. Patient states he has been getting better since admission. He denies palpitation or chest pain. Denies shortness of breath. During exertion, patient was noted to have significant tachycardia but patient denies symptoms. PHYSICAL EXAMINATION: VITAL SIGNS: Listed below. GENERAL: No sign of acute distress. Alert and awake. HEENT: Normocephalic, atraumatic. Extraocular motors are grossly intact. CARDIOVASCULAR: Positive S1, S2. Irregularly irregular. LUNGS: Clear to auscultation bilaterally. ABDOMEN: Soft, nontender. Bowel sounds present. EXTREMITIES: No edema. LABORATORY DATA: Listed below. ASSESSMENT AND PLAN: #. Uncontrolled atrial fibrillation. - On metoprolol. Patient demonstrates tachycardia during exertion. Titrate dosage and frequency of metoprolol as needed. On digoxin. On Eliquis. # RSV infection. - Continue conservative medical management. No recurrence of fever. #. Generalized weakness. - Atrial fibrillation is under better control. Continue with physical therapy (PT). #. Dementia with history of delirium. - Continue to monitor. The patient seems to be at his baseline at this time. #. Benign prostatic hypertrophy (BPH). On Flomax. #. Coronary artery disease. On metoprolol and simvastatin and aspirin. #. Dyslipidemia. On statin. #. History of prostate cancer. Continue outpatient urology followup. #. Deep vein thrombosis (DVT) prophylaxis. On Eliquis. VS,Fishbone, I+O VS,Fishbone, I+O VS, Fishbone, I+O Laboratory Tests 07/12/18 04:41 Red Blood Count 3.57 L, Mean Corpuscular Volume 94.1, Mean Corpuscular Hemoglobin 30.8, Mean Corpuscular Hemoglobin Concent 32.7, Red Cell Distribution Width 13.7, Calcium Level 8.0 L Vital Signs Date Time Temp Pulse Resp B/P (MAP) Pulse Ox O2 Delivery O2 Flow Rate FiO2 07/12/18 16:00 96.9 96 18 130/70 (90) 97 I&O- Last 24 Hours up to 6 AM 07/12/18 06:00 Intake Total 720 ml Output Total 425 ml Balance 295 ml SHILOH VELEZ DO Jul 12, 2018 17:02
[2018-07-12 20:00] VITALS: BP 139/62
[2018-07-12] MEDS: SIMVASTATIN 10 MG TAB PO SCH (20:49)
[2018-07-12 23:59] VITALS: BP 131/70
[2018-07-13 04:00] VITALS: BP 106/58
[2018-07-13 06:15] LABS: DIGOXIN LEVEL 1.3 NG/ML (0.5-2.0)
[2018-07-13 08:00] VITALS: BP 110/58
[2018-07-13 08:27] LABS: BASO # 0.1 10^3/uL (0.0-0.2); BASO % 0.6 % (0.0-1.0); EOS # 0.3 10^3/uL (0.0-0.50); EOS % 2.7 % (0.0-3.0); HEMATOCRIT 32.9 % (42.0-52.0); HEMOGLOBIN 10.9 g/dl (13.5-17.5); LYMPH # 2.1 10^3/uL (1.5-4.5); LYMPH % 20.3 % (24.0-44.0); MEAN CORPUSCULAR HEMOGLOBIN 31.6 pg (27.0-33.0); MEAN CORPUSCULAR HGB CONC 33.1 g/dl (32.0-36.5); MEAN CORPUSCULAR VOLUME 95.4 fl (80.0-96.0); MONO # 0.9 10^3/uL (0.0-0.8); MONO % 9.2 % (0.0-5.0); NEUTROPHILS # 6.8 10^3/uL (1.8-7.7); NEUTROPHILS % 66.5 % (36.0-66.0); PLATELET COUNT, AUTOMATED 273 10^3/uL (150-450); RED BLOOD COUNT 3.45 10^6/uL (4.30-6.10); WHITE BLOOD COUNT 10.1 10^3/uL (4.0-10.0)
[2018-07-13 08:31] LABS: BLOOD UREA NITROGEN 18 MG/DL (7-18); CALCIUM LEVEL 8.2 MG/DL (8.8-10.2); CARBON DIOXIDE LEVEL 26 MEQ/L (21-32); CHLORIDE LEVEL 103 MEQ/L (98-107); CREATININE FOR GFR 0.83 MG/DL (0.70-1.30); GLOMERULAR FILTRATION RATE > 60.0 (>35); GLUCOSE, FASTING 105 MG/DL (70-100); MAGNESIUM LEVEL 2.1 MG/DL (1.8-2.4); POTASSIUM SERUM 4.7 MEQ/L (3.5-5.1); SODIUM LEVEL 137 MEQ/L (136-145)
[2018-07-13] MEDS: METOPROLOL SUCC *XL* 12.5MG PER 1/2 TAB (TopROL *XL*) PO SCH (08:45)
[2018-07-13] MEDS: ASCORBIC ACID 500 MG TAB PO SCH (08:45)
[2018-07-13] MEDS: VITAMIN D (CHOLECALCIFEROL) 400 INTERNATIONAL UNITS TAB PO SCH (08:45)
[2018-07-13] MEDS: DIGOXIN 0.125 MG TAB PO SCH (08:46)
[2018-07-13] MEDS: ASPIRIN 81 MG CHEW TABLET PO SCH (08:46)
[2018-07-13] MEDS: TAMSULOSIN 0.4 MG CAP PO SCH (08:46)
[2018-07-13] MEDS: APIXABAN 2.5 MG TAB (ELIQUIS) PO SCH ×2 (08:46→20:20)
[2018-07-13] MEDS: PANTOPRAZOLE 40MG TAB (PROTONIX) PO SCH (10:31)
[2018-07-13 12:00] VITALS: BP 100/52
[2018-07-13] MEDS: SLF 3 ML SYR IV SCH ×2 (13:51→20:22)
[2018-07-13 16:00] VITALS: BP 108/62
--- NOTE | 2018-07-13 18:02 | IPNPDOC ---
Text Note Date of Service The patient was seen on 07/13/18. NOTE SUBJECTIVE: The patient is seen and examined in the room. Patient states he continue to improve. He has noticed his energy level is improving. PHYSICAL EXAMINATION: VITAL SIGNS: Listed below. GENERAL: No sign of acute distress. Alert and awake. HEENT: Normocephalic, atraumatic. Extraocular motors are grossly intact. CARDIOVASCULAR: Positive S1, S2. Irregularly irregular. LUNGS: Clear to auscultation bilaterally. ABDOMEN: Soft, nontender. Bowel sounds present. EXTREMITIES: No edema. LABORATORY DATA: Listed below. ASSESSMENT AND PLAN: #. Uncontrolled atrial fibrillation. - On metoprolol. Patient demonstrates tachycardia during exertion. Titrate dosage and frequency of metoprolol as needed. On digoxin. On Eliquis. - Continue physical therapy. # RSV infection. - Continue conservative medical management. No recurrence of fever. #. Generalized weakness. - Atrial fibrillation is under better control. Continue with physical therapy (PT). #. Dementia with history of delirium. - Continue to monitor. The patient seems to be at his baseline at this time. #. Benign prostatic hypertrophy (BPH). On Flomax. #. Coronary artery disease. On metoprolol and simvastatin and aspirin. #. Dyslipidemia. On statin. #. History of prostate cancer. Continue outpatient urology followup. #. Deep vein thrombosis (DVT) prophylaxis. On Eliquis. VS,Fishbone, I+O VS, Fishbone, I+O Laboratory Tests 07/13/18 05:07 Red Blood Count 3.45 L, Mean Corpuscular Volume 95.4, Mean Corpuscular Hemoglo bin 31.6, Mean Corpuscular Hemoglobin Concent 33.1, Red Cell Distribution Width 13.9, Neutrophils (%) (Auto) 66.5 H, Lymphocytes (%) (Auto) 20.3 L, Monocytes (%) (Auto) 9.2 H, Eosinophils (%) (Auto) 2.7, Basophils (%) (Auto) 0.6, Neutrophils # (Auto) 6.8, Lymphocytes # (Auto) 2.1, Monocytes # (Auto) 0.9 H, Eosinophils # (Auto) 0.3, Basophils # (Auto) 0.1 07/13/18 05:08 Calcium Level 8.2 L Vital Signs Date Time Temp Pulse Resp B/P (MAP) Pulse Ox O2 Delivery O2 Flow Rate FiO2 07/13/18 16:00 98.2 98 17 108/62 (46) 98 I&O- Last 24 Hours up to 6 AM 07/13/18 06:00 Intake Total 1160 ml Output Total 500 ml Balance 660 ml SHILOH VELEZ DO Jul 13, 2018 18:02
[2018-07-13 20:00] VITALS: BP 115/58
[2018-07-13] MEDS: SIMVASTATIN 10 MG TAB PO SCH (20:21)
[2018-07-13] MEDS ORDERED: METOPROLOL SUCC *XL* 25MG TAB (TopROL *XL*) PO SCH (21:00)
[2018-07-13 23:59] VITALS: BP 95/56
--- NOTE | 2018-07-14 01:21 | IPNPDOC ---
Text Note Date of Service The patient was seen on 07/14/18. NOTE Patient was admitted with questionable sick sinus ( tachy/ alexandre) syndrome. It appears he is now being treated for a.fib w/ RVR, attempts being made to control the patients rate with lopressor and digoxin. Pt had 3 seconds sino-atrial arrest overnight, he was alseep during this episode. will recycle pt trops and ekg, check his electrolytes, hold patient AV jose juan blockers ( BB and digitalis), get echo and endorse to day team. Pt may benefit from cardio consult in am . VS,Fishbone, I+O VS, Fishbone, I+O Laboratory Tests 07/13/18 05:07 Red Blood Count 3.45 L, Mean Corpuscular Volume 95.4, Mean Corpuscular Hemoglobin 31.6, Mean Corpuscular Hemoglobin Concent 33.1, Red Cell Distribution Width 13.9, Neutrophils (%) (Auto) 66.5 H, Lymphocytes (%) (Auto) 20.3 L, Monocytes (%) (Auto) 9.2 H, Eosinophils (%) (Auto) 2.7, Basophils (%) (Auto) 0.6, Neutrophils # (Auto) 6.8, Lymphocytes # (Auto) 2.1, Monocytes # (Auto) 0.9 H, Eosinophils # (Auto) 0.3, Basophils # (Auto) 0.1 07/13/18 05:08 Calcium Level 8.2 L Vital Signs Date Time Temp Pulse Resp B/P (MAP) Pulse Ox O2 Delivery O2 Flow Rate FiO2 07/13/18 23:59 98.1 70 18 95/56 (77) 98 I&O- Last 24 Hours up to 6 AM 07/14/18 06:00 Intake Total 1210 ml Output Total 675 ml Balance 535 ml SATURDAY,CALOS ORTIZ Jul 14, 2018 01:21
[2018-07-14 02:02] LABS: MAGNESIUM LEVEL 1.9 MG/DL (1.8-2.4); TROPONIN I 0.02 NG/ML (< 0.10)
[2018-07-14 04:00] VITALS: BP 89/54
[2018-07-14 05:28] LABS: HEMATOCRIT 32.8 % (42.0-52.0); MEAN CORPUSCULAR HEMOGLOBIN 30.9 pg (27.0-33.0); MEAN CORPUSCULAR HGB CONC 33.5 g/dl (32.0-36.5); MEAN CORPUSCULAR VOLUME 92.1 fl (80.0-96.0); PLATELET COUNT, AUTOMATED 280 10^3/uL (150-450); RED BLOOD COUNT 3.56 10^6/uL (4.30-6.10); WHITE BLOOD COUNT 9.3 10^3/uL (4.0-10.0)
[2018-07-14 05:50] LABS: BLOOD UREA NITROGEN 19 MG/DL (7-18); CALCIUM LEVEL 8.3 MG/DL (8.8-10.2); CARBON DIOXIDE LEVEL 29 MEQ/L (21-32); CHLORIDE LEVEL 103 MEQ/L (98-107); CREATININE FOR GFR 0.82 MG/DL (0.70-1.30); GLOMERULAR FILTRATION RATE > 60.0 (>35); GLUCOSE, FASTING 113 MG/DL (70-100); MAGNESIUM LEVEL 2.1 MG/DL (1.8-2.4); SODIUM LEVEL 137 MEQ/L (136-145)
[2018-07-14] MEDS: METOPROLOL TART 12.5 MG PER 1/2 TAB PO SCH ×4 (06:00→23:19)
[2018-07-14] MEDS: SLF 3 ML SYR IV SCH ×3 (06:00→21:42)
[2018-07-14 08:00] VITALS: BP 136/81
[2018-07-14] MEDS: ASPIRIN 81 MG CHEW TABLET PO SCH (09:38)
[2018-07-14] MEDS: PANTOPRAZOLE 40MG TAB (PROTONIX) PO SCH (09:38)
[2018-07-14] MEDS: TAMSULOSIN 0.4 MG CAP PO SCH (09:38)
[2018-07-14] MEDS: VITAMIN D (CHOLECALCIFEROL) 400 INTERNATIONAL UNITS TAB PO SCH (09:39)
[2018-07-14] MEDS: ASCORBIC ACID 500 MG TAB PO SCH (09:39)
[2018-07-14] MEDS: ACETAMINOPHEN TAB 650MG DOSE (2X325MG) PO PRN ×2 (09:55→21:42)
--- NOTE | 2018-07-14 10:09 | ECGEPIP ---
Stationary ECG Study [facility] Test Date: 2018-07-14 Pat Name: KATIE MCCLURE Department: Room: [place] [address] Gender: M Director Foundation: NAINA : 1930 Requested By: CALOS SATURDAY Order Number: [id number] Reading MD: Dk Johns Measurements Intervals [place] Rate: 78 P: FL: 0 QRS: -13 QRSD: 74 T: 210 QT: 366 QTc: 417 Interpretive Statements ATRIAL FIBRILLATION NONSPECIFIC ST & T-WAVE ABNORMALITY Electronically Signed On 07-14-2018 10:08:54 EST by Dk Johns
--- NOTE | 2018-07-14 10:14 | ECGEPIP ---
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
[2018-07-14 12:00] VITALS: BP 117/54
[2018-07-14 16:00] VITALS: BP 98/52
--- NOTE | 2018-07-14 19:08 | ECHO ---
DATE OF STUDY: 07/14/2018 REFERRING PHYSICIAN: Yael Ingram MD INDICATION: Abnormal electrocardiogram (EKG). HEIGHT: 66 inches. WEIGHT 50 kg. DIMENSIONS: IVS 1.6 LV 3.9 LVPW 1.2 LA 3.9 Aorta 3.3 IVC 1.8 Left atrial volume index 43 FINDINGS: The study is of acceptable technical quality. The patient is in atrial fibrillation with heart rate fluctuating between 90 and 120 beats per minute. Left ventricle is normal size. There is hyperdynamic left ventricle (LV) systolic function, I estimate left ventricular ejection fraction (LVEF) around 65% to 70%. There is thickening of the interventricular septum that is out of proportion to the degree of hypertrophy of remaining left ventricular segments. Right ventricle does not appear enlarged. Both atria are severely enlarged, left atrium much more than right. No pericardial effusion is noted. Aortic valve is heavily calcific with prominent sclerosis but mobility of leaflets is preserved. There are also mild mitral degenerative abnormalities. Tricuspid and pulmonic valves appear normal. Inferior vena cava is normal size. Aortic root is normal. Aortic arch was not well seen. Abdominal aorta appears grossly normal. Doppler interrogation reveals no aortic stenosis and approximately mild to moderate or moderate aortic insufficiency. Mitral valve is functionally competent. Mild tricuspid insufficiency is seen. Calculated pulmonary artery pressure is in 30s corresponding to mild pulmonary hypertension. Evaluation of diastolic function is inconclusive due to underlying atrial fibrillation. CONCLUSIONS: 1. Study is of acceptable technical quality. 2. Normal LV size with asymmetrical septal hypertrophy and overall hyperdynamic LV systolic function. 3. Normal RV size and systolic function. 4. Aortic sclerosis but no significant stenosis and approximately moderate insufficiency. 5. Competent mitral valve. 6. Normal central venous pressure and at least mild pulmonary hypertension. 7. Severe biatrial enlargement. COMMENT: Subacute bacterial endocarditis (SBE) prophylaxis is not recommended. The study is very similar to prior echocardiogram from 05/12/2018. The study in April was of better technical quality. [facility]
[2018-07-14 20:00] VITALS: BP 103/60
[2018-07-14] MEDS: SIMVASTATIN 10 MG TAB PO SCH (21:41)
[2018-07-14] MEDS: ENOXAPARIN 40 MG/0.4 ML SYRINGE (J1650) SC SCH (21:42)
--- NOTE | 2018-07-14 22:41 | IPNPDOC ---
Text Note Date of Service The patient was seen on 07/14/18. NOTE SUBJECTIVE: Pt examined at bedside. Pt noted to have 3-sex asymptomatic pause overnight. His Metoprolol and Dig have been held and Cardio will be consulted. Pt has no complaints today. PHYSICAL EXAMINATION: VITAL SIGNS: Listed below. GENERAL: No sign of acute distress. Alert and awake. Pleasantly conversant HEENT: Normocephalic, atraumatic. EOMI, neck supple CARDIOVASCULAR: Irregularly irregular. In Afib LUNGS: Clear to auscultation bilaterally. Mild wheezing b/l ABDOMEN: Soft, nontender, ND. Bowel sounds present. EXTREMITIES: No edema. 2+ radial pulses b/l LABORATORY DATA: Listed below. ASSESSMENT AND PLAN: Uncontrolled atrial fibrillation. - with 3-sec pause on tele overnight. Metoprolol & Dig on hold. Will discuss with Cardio for possible PPM and better management of RVR and soft bp - echo pending. EKG noted. Troponin neg - on Eliquis - Continue physical therapy. RSV infection. continue supportive care Generalized weakness. likely 2/2 uncontrolled Afib on admission, better controlled. Continue PT Dementia with history of delirium. continue reorientation and supportive care. Currently at baseline BPH continue Flomax CAD on asa & statin. Bblocker d/c'ed for hypotension Dyslipidemia continue statin Hx prostate cancer continue outpatient urology followup. DVT ppx: Eliquis DISPO: pending clinical improvement. Possible PPM placement. VS,Fishbone, I+O VS, Fishbone, I+O Laboratory Tests 07/14/18 05:16 Red Blood Count 3.56 L, Mean Corpuscular Volume 92.1, Mean Corpuscular Hemoglobin 30.9, Mean Corpuscular Hemoglobin Concent 33.5, Red Cell Distribution Width 13.8, Calcium Level 8.3 L Vital Signs Date Time Temp Pulse Resp B/P (MAP) Pulse Ox O2 Delivery O2 Flow Rate FiO2 07/14/18 20:00 98.4 99 20 103/60 (74) 98 I&O- Last 24 Hours up to 6 AM 07/14/18 06:00 Intake Total 1210 ml Output Total 875 ml Balance 335 ml GME ATTESTATION GME ATTESTATION My faculty preceptor for this patient encounter was physically present during the encounter and was fully available. All aspects of the patient interview, examination, medical decision making process, and medical care plan development were reviewed and approved by the faculty preceptor. The faculty preceptor is aware and concurs with the plan as stated in the body of this note and will attest to such by his/her cosignature. TANG BARON DO Jul 14, 2018 22:41
[2018-07-14 23:59] VITALS: BP 120/82
[2018-07-15 04:00] VITALS: BP 125/68
[2018-07-15] MEDS: METOPROLOL TART 12.5 MG PER 1/2 TAB PO SCH ×3 (05:49→18:41)
[2018-07-15] MEDS: SLF 3 ML SYR IV SCH ×3 (05:50→20:54)
[2018-07-15 06:01] LABS: HEMATOCRIT 33.1 % (42.0-52.0); HEMOGLOBIN 11.2 g/dl (13.5-17.5); MEAN CORPUSCULAR HEMOGLOBIN 31.8 pg (27.0-33.0); MEAN CORPUSCULAR HGB CONC 33.8 g/dl (32.0-36.5); PLATELET COUNT, AUTOMATED 275 10^3/uL (150-450); RED BLOOD COUNT 3.52 10^6/uL (4.30-6.10); WHITE BLOOD COUNT 9.9 10^3/uL (4.0-10.0)
[2018-07-15 06:22] LABS: BLOOD UREA NITROGEN 20 MG/DL (7-18); CALCIUM LEVEL 8.3 MG/DL (8.8-10.2); CARBON DIOXIDE LEVEL 27 MEQ/L (21-32); CHLORIDE LEVEL 104 MEQ/L (98-107); CREATININE FOR GFR 0.81 MG/DL (0.70-1.30); GLOMERULAR FILTRATION RATE > 60.0 (>35); GLUCOSE, FASTING 101 MG/DL (70-100); MAGNESIUM LEVEL 2.3 MG/DL (1.8-2.4); POTASSIUM SERUM 4.6 MEQ/L (3.5-5.1); SODIUM LEVEL 138 MEQ/L (136-145)
[2018-07-15 08:00] VITALS: BP 114/58
--- NOTE | 2018-07-15 10:16 | CR ---
DATE OF CONSULTATION: 07/15/2018 REFERRING PHYSICIAN: Dr. Bates INDICATION: Atrial fibrillation, suspicion for sick sinus syndrome. HISTORY OF PRESENT ILLNESS: Mr. Esqueda is previously unknown to me. He is a pleasant 87-year-old man who has a history of dementia and chronic atrial fibrillation. He has had several hospitalizations in the last 6 months or so during which there have been issues with his rate control. He originally was on digoxin that looked like it was effective for some time but then he was hospitalized in April and had episodes of bradycardia. Consequently the digoxin was discontinued and eventually also Aricept was discontinued which led to improvement of his heart rate. This time around, he was admitted for generalized weakness and his heart rate if anything was tachycardic, so he was on digoxin and a small dose of metoprolol was added. It has not been terribly effective and I was asked yesterday by Dr. Bates to see him because he started to have episodes of nocturnal bradycardia with pauses exceeding 3 seconds and yet during the day he was tachycardic. It led to discontinuation of digoxin. I gave him yesterday, metoprolol 12.5 mg four times a day and so far it has been successful, during the day his heart rate was much better generally in 80s and 90s. At night time he was bradycardic with heart rate occasionally dropping into high 30s and most of the time in 40s but he did not have any long pauses. This morning he tells me that he feels tired and weak but otherwise well. Unfortunately has not done much ambulation yet even though he did ambulate some yesterday and there had been any real issue with that. PAST MEDICAL HISTORY: 1. Chronic atrial fibrillation. 2. Dementia. 3. Benign prostatic hyperplasia (BPH). 4. History of prostate cancer. 5. Per history there is stated coronary artery disease, but the patient cannot provide any additional information and I could not find any additional information from his admission notes over the last 6 months. 6. Dyslipidemia. 7. Gastroesophageal reflux disease (GERD). SURGICAL HISTORY: Positive for appendectomy, right inguinal hernia repair and cataract surgery. SOCIAL HISTORY: The patient is a . 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 He currently lives with his daughter in his granddaughter's house. Never smoked. Denies any alcohol use. ALLERGIES: No allergies. OUTPATIENT MEDICATIONS: Apixaban 2.5 mg twice a day, vitamin C, vitamin D, metoprolol 25 three times a day, ranitidine 150 mg twice a day, simvastatin 20 mg a day and Flomax 0.4 mg a day. REVIEW OF SYSTEMS: It is somewhat difficult to obtain due to his dementia but he denies any recent fever, chills, nausea or vomiting, chest pain, palpitations and syncope or near-syncope. He does report that he is tired and is difficult for him to walk, but I cannot quite explain why. He does not recall any history of bleeding problems. PHYSICAL EXAMINATION: Mr. Esqueda is a pleasant elderly man who is of fairly small stature. He measures 66 inches and weighs only 49 kg. Currently alert and oriented times three. His jugular venous pulse (JVP) is about 2 cm above clavicle or so. Lungs are reasonably clear to auscultation. I do not appreciate any gallop, rub or murmur. His lungs are clear. Abdomen is soft, no tenderness, or rebound tenderness. Bowel sounds are positive. There is no peripheral edema. His peripheral pulses are fair quality and are palpable. Neurologically he has symmetrical strength. His speech is intact and he answers most questions appropriately even though he does not have any specific recollections of concrete information about his health status. LABORATORY: He has normal basic metabolic panel. He is mildly anemic with hemoglobin 11.2, hematocrit 33, platelet count 275,000. Urinalysis was essentially normal. Digoxin level on the was only 1.3. IMAGING STUDIES: His chest x-ray reveals fairly significant atherosclerosis of thoracic aorta but I do not appreciate any evidence for congestive heart failure and there is no evidence for any distinct infiltrates of cardiomegaly. He has several ECGs, they all reveal atrial fibrillation with variable heart rate and fairly substantial repolarization abnormalities. He had an echocardiogram performed on the interpreted by myself that revealed normal left ventricular systolic function with asymmetrical septal hypertrophy. He did not have any clinically important valvular disease, even though there was approximately moderate aortic insufficiency and the prominent aortic sclerosis. The CVP appeared normal and he had mild pulmonary hypertension and there was severe biatrial enlargement. ASSESSMENT AND PLAN: Mr. Esqueda is an elderly man with dementia and chronic atrial fibrillation who has had trouble with rate control. He had episodes of fairly severe bradycardia in April that resolved after discontinuation of AV jose juan controlling medications but now was admitted with tachycardia and then when the dose of metoprolol was increased he had nocturnal pauses. Currently he is on essentially 25 mg of metoprolol twice a day, even though it is administered in small doses every 6 hours, I would continue monitoring him at least one more day. If there should be evidence for additional episodes of tachy or significant bradycardia I think he probably will need placement of pacemaker because otherwise it will be very challenging to manage his swings in heart rate. I have talked to the patient about it and he has open to this possibility. For that reason, I also discontinued his apixaban and temporally gave him Lovenox that would allow us more flexibility if pacemaker is really needed. At this point though I would wait at least one more day. I will be off for the rest of the week and Dr. Schmitt will provide coverage. ANIL
[2018-07-15] MEDS: ENOXAPARIN 40 MG/0.4 ML SYRINGE (J1650) SC SCH ×2 (10:28→20:54)
[2018-07-15] MEDS: TAMSULOSIN 0.4 MG CAP PO SCH (10:29)
[2018-07-15] MEDS: ASPIRIN 81 MG CHEW TABLET PO SCH (10:29)
[2018-07-15] MEDS: VITAMIN D (CHOLECALCIFEROL) 400 INTERNATIONAL UNITS TAB PO SCH (10:29)
[2018-07-15] MEDS: ASCORBIC ACID 500 MG TAB PO SCH (10:29)
[2018-07-15] MEDS: PANTOPRAZOLE 40MG TAB (PROTONIX) PO SCH (10:29)
[2018-07-15 12:00] VITALS: BP 110/58
[2018-07-15] MEDS: ACETAMINOPHEN TAB 650MG DOSE (2X325MG) PO PRN (13:11)
[2018-07-15 16:00] VITALS: BP 119/72
[2018-07-15 20:00] VITALS: BP 112/65
[2018-07-15] MEDS: SIMVASTATIN 10 MG TAB PO SCH (20:54)
--- NOTE | 2018-07-15 21:05 | IPNPDOC ---
Text Note Date of Service The patient was seen on 07/15/18. NOTE SUBJECTIVE: Pt examined at bedside. Feels better today and no events overni ght. Tele reviewed-had episodes of asymptomatic bradycardia in 40s while asleep, and no additional pauses. HR during the day seems to be well controlled since Dr. Catsano changed Lopressor dosage. Pt has no complaints today. PHYSICAL EXAMINATION: VITAL SIGNS: Listed below. GENERAL: No sign of acute distress. Alert and awake. Pleasantly conversant HEENT: Normocephalic, atraumatic. EOMI, neck supple CARDIOVASCULAR: Irregularly irregular. In Afib LUNGS: Clear to auscultation bilaterally. No w/r/r ABDOMEN: Soft, nontender, ND. Bowel sounds present. EXTREMITIES: No edema. 2+ radial pulses b/l LABORATORY DATA: Listed below. ASSESSMENT AND PLAN: Chronic atrial fibrillation. - No longer having pauses on tele. HR better controlled since Lopressor dosage adjusted. Appreciate Dr. Castano's input. - 07/14 echo noted, with EF 65-70% - Eliquis switched to Lovenox pending possible PPM. Will monitor HR & bp overnight and reassess in am - Continue physical therapy. RSV infection. continue supportive care. On droplet precaution Generalized weakness. improving. likely 2/2 viral infection. Continue PT Dementia with history of delirium. continue reorientation and supportive care BPH continue Flomax CAD on asa & statin. Bblocker d/c'ed for hypotension Dyslipidemia continue statin Hx prostate cancer continue outpatient urology followup. DVT ppx: Lovenox DISPO: monitor HR & bp. Likely d/c tomorrow. VS,Fishbone, I+O VS, Fishbone, I+O Laboratory Tests 07/15/18 05:32 Red Blood Count 3.52 L, Mean Corpuscular Volume 94.0, Mean Corpuscular Hemoglobin 31.8, Mean Corpuscular Hemoglobin Concent 33.8, Red Cell Distribution Width 13.9, Calcium Level 8.3 L Vital Signs Date Time Temp Pulse Resp B/P (MAP) Pulse Ox O2 Delivery O2 Flow Rate FiO2 07/15/18 20:00 97.7 74 18 112/65 (81) 98 07/15/18 16:00 1.0 I&O- Last 24 Hours up to 6 AM 07/15/18 06:00 Intake Total 1200 ml Output Total 1750 ml Balance -550 ml GME ATTESTATION GME ATTESTATION My faculty preceptor for this patient encounter was physically present during the encounter and was fully available. All aspects of the patient interview, examination, medical decision making process, and medical care plan development were reviewed and approved by the faculty preceptor. The faculty preceptor is aware and concurs with the plan as stated in the body of this note and will attest to such by his/her cosignature. TANG BARON DO Jul 15, 2018 21:05
[2018-07-15 23:59] VITALS: BP 103/56
[2018-07-16] MEDS: METOPROLOL TART 12.5 MG PER 1/2 TAB PO SCH ×4 (00:29→18:22)
[2018-07-16 04:00] VITALS: BP 111/55
[2018-07-16] MEDS: SLF 3 ML SYR IV SCH ×3 (04:49→20:09)
[2018-07-16] MEDS: SLF 3 ML SYR IV PRN ×2 (04:49→20:09)
[2018-07-16 05:55] LABS: HEMATOCRIT 32.5 % (42.0-52.0); HEMOGLOBIN 10.6 g/dl (13.5-17.5); MEAN CORPUSCULAR HEMOGLOBIN 30.7 pg (27.0-33.0); MEAN CORPUSCULAR HGB CONC 32.6 g/dl (32.0-36.5); MEAN CORPUSCULAR VOLUME 94.2 fl (80.0-96.0); PLATELET COUNT, AUTOMATED 279 10^3/uL (150-450); RED BLOOD COUNT 3.45 10^6/uL (4.30-6.10); WHITE BLOOD COUNT 8.4 10^3/uL (4.0-10.0)
[2018-07-16 06:06] LABS: BLOOD UREA NITROGEN 21 MG/DL (7-18); CALCIUM LEVEL 7.9 MG/DL (8.8-10.2); CARBON DIOXIDE LEVEL 30 MEQ/L (21-32); CHLORIDE LEVEL 104 MEQ/L (98-107); CREATININE FOR GFR 0.77 MG/DL (0.70-1.30); GLOMERULAR FILTRATION RATE > 60.0 (>35); GLUCOSE, FASTING 103 MG/DL (70-100); MAGNESIUM LEVEL 2.1 MG/DL (1.8-2.4); POTASSIUM SERUM 4.3 MEQ/L (3.5-5.1); SODIUM LEVEL 138 MEQ/L (136-145)
[2018-07-16 08:00] VITALS: BP 135/78
[2018-07-16] MEDS ORDERED: METO1TAB87 PO (08:08)
[2018-07-16] MEDS ORDERED: CHIL81CH2 PO (08:08)
[2018-07-16] MEDS: ENOXAPARIN 40 MG/0.4 ML SYRINGE (J1650) SC SCH ×2 (09:01→20:47)
[2018-07-16] MEDS: TAMSULOSIN 0.4 MG CAP PO SCH (09:01)
[2018-07-16] MEDS: ASPIRIN 81 MG CHEW TABLET PO SCH (09:01)
[2018-07-16] MEDS: VITAMIN D (CHOLECALCIFEROL) 400 INTERNATIONAL UNITS TAB PO SCH (09:01)
[2018-07-16] MEDS: ASCORBIC ACID 500 MG TAB PO SCH (09:01)
[2018-07-16] MEDS: PANTOPRAZOLE 40MG TAB (PROTONIX) PO SCH (09:01)
[2018-07-16 12:00] VITALS: BP 116/63
[2018-07-16 16:00] VITALS: BP 114/66
[2018-07-16 20:00] VITALS: BP 128/64
[2018-07-16] MEDS: SIMVASTATIN 10 MG TAB PO SCH (20:47)
--- NOTE | 2018-07-16 21:21 | IPNPDOC ---
Text Note Date of Service The patient was seen on 07/16/18. NOTE SUBJECTIVE: Pt examined at bedside. Rhinorrhea is improving. No longer expe riencing pauses on tele or bradycardic events. HR & bp overall are well controlled since Lopressor dosage adjusted. Pt has no complaints today. PHYSICAL EXAMINATION: VITAL SIGNS: Listed below. GENERAL: No sign of acute distress. Alert and awake. Pleasantly conversant HEENT: Normocephalic, atraumatic. EOMI, neck supple CARDIOVASCULAR: Irregularly irregular. In Afib, HR controlled LUNGS: Clear to auscultation bilaterally. No w/r/r ABDOMEN: Soft, nontender, ND. Bowel sounds present. EXTREMITIES: No edema. 2+ radial pulses b/l LABORATORY DATA: Listed below. ASSESSMENT AND PLAN: Chronic atrial fibrillation. - No longer having pauses/alexandre on tele. HR better controlled since Lopressor dosage adjusted. Appreciate Dr. Castano's input. Will f/u with Cardio regarding long-term management of cardiac drug regimen prior to discharge. Will switch back to Eliquis as he nears d/c as there are no plans for PPM and he is doing better with new Lopressor dose. - 07/14 echo noted, with EF 65-70% RSV infection. continue supportive care. On droplet precaution Generalized weakness. resolved, cleared PT. Likely 2/2 viral infection Dementia with history of delirium. continue reorientation and supportive care BPH continue Flomax CAD on asa & statin, Bblocker Dyslipidemia continue statin Hx prostate cancer continue outpatient urology followup. DVT ppx: Lovenox DISPO: monitor HR & bp. Possible Bblocker regimen adjustment and likely d/c tomorrow, pending Cardio input. VS,Fishbone, I+O VS, Fishbone, I+O Laboratory Tests 07/16/18 05:09 Red Blood Count 3.45 L, Mean Corpuscular Volume 94.2, Mean Corpuscular Hemoglobin 30.7, Mean Corpuscular Hemoglobin Concent 32.6, Red Cell Distribution Width 13.8, Calcium Level 7.9 L Vital Signs Date Time Temp Pulse Resp B/P (MAP) Pulse Ox O2 Delivery O2 Flow Rate FiO2 07/16/18 20:00 98.1 66 16 128/64 (85) 92 07/15/18 16:00 1.0 I&O- Last 24 Hours up to 6 AM 07/16/18 06:00 Intake Total 620 ml Output Total 600 ml Balance 20 ml GME ATTESTATION GME ATTESTATION My faculty preceptor for this patient encounter was physically present during the encounter and was fully available. All aspects of the patient interview, examination, medical decision making process, and medical care plan development were reviewed and approved by the faculty preceptor. The faculty preceptor is aware and concurs with the plan as stated in the body of this note and will attest to such by his/her cosignature. TANG BARON DO Jul 16, 2018 21:21
[2018-07-16 23:59] VITALS: BP 130/78
[2018-07-17] MEDS: ACETAMINOPHEN TAB 650MG DOSE (2X325MG) PO PRN (00:21)
[2018-07-17] MEDS: METOPROLOL TART 12.5 MG PER 1/2 TAB PO SCH ×3 (00:22→12:34)
[2018-07-17 04:00] VITALS: BP 124/76
[2018-07-17] MEDS: SLF 3 ML SYR IV SCH (05:22)
[2018-07-17 05:31] LABS: HEMATOCRIT 31.6 % (42.0-52.0); HEMOGLOBIN 10.6 g/dl (13.5-17.5); MEAN CORPUSCULAR HEMOGLOBIN 31.3 pg (27.0-33.0); MEAN CORPUSCULAR HGB CONC 33.5 g/dl (32.0-36.5); MEAN CORPUSCULAR VOLUME 93.2 fl (80.0-96.0); PLATELET COUNT, AUTOMATED 286 10^3/uL (150-450); RED BLOOD COUNT 3.39 10^6/uL (4.30-6.10); WHITE BLOOD COUNT 11.1 10^3/uL (4.0-10.0)
[2018-07-17 05:42] LABS: BLOOD UREA NITROGEN 19 MG/DL (7-18); CALCIUM LEVEL 8.3 MG/DL (8.8-10.2); CARBON DIOXIDE LEVEL 29 MEQ/L (21-32); CHLORIDE LEVEL 105 MEQ/L (98-107); CREATININE FOR GFR 0.92 MG/DL (0.70-1.30); GLOMERULAR FILTRATION RATE > 60.0 (>35); GLUCOSE, FASTING 103 MG/DL (70-100); POTASSIUM SERUM 4.2 MEQ/L (3.5-5.1); SODIUM LEVEL 139 MEQ/L (136-145)
[2018-07-17 08:00] VITALS: BP 144/62
[2018-07-17] MEDS: TAMSULOSIN 0.4 MG CAP PO SCH (08:31)
[2018-07-17] MEDS: VITAMIN D (CHOLECALCIFEROL) 400 INTERNATIONAL UNITS TAB PO SCH (08:31)
[2018-07-17] MEDS: ENOXAPARIN 40 MG/0.4 ML SYRINGE (J1650) SC SCH (08:31)
[2018-07-17] MEDS: ASPIRIN 81 MG CHEW TABLET PO SCH (08:31)
[2018-07-17] MEDS: PANTOPRAZOLE 40MG TAB (PROTONIX) PO SCH (08:32)
[2018-07-17] MEDS: ASCORBIC ACID 500 MG TAB PO SCH (08:32)
[2018-07-17] MEDS ORDERED: METO1TAB87 PO (10:07)
--- NOTE | 2018-07-17 10:38 | DS.PDOC ---
Discharge Summary General Date of Admission Jul 05, 2018 at 09:37 Date of Discharge 07/17/2018 Attending Physician: MOO MAHMOOD MD Specialist/Consultants Involve Cardiology: Dr. Castano/Dr. Schmitt Discharge Summary PROCEDURES PERFORMED DURING STAY: 2D echo ADMITTING DIAGNOSES: 1. Generalized weakness DISCHARGE DIAGNOSES: 1. Uncontrolled A. fib, tachycardia with hypotension 2. RSV Chronic A. fib, on long-term Eliquis Dementia with Delirium ?TIA BPH Hx of prostate CA CAD DLP GERD COMPLICATIONS/CHIEF COMPLAINT: Weakness. HISTORY OF PRESENT ILLNESS: 79-year-old male recently discharged from the hospital 05/29/2018 for confusion. He now returns to the ER for difficulty ambulating with generalized weakness. No other complaints. HOSPITAL COURSE: Patient was admitted and monitored on telemetry. Workup was negative. His generalized weakness improved with rest and working with PT. He was found to have persistent tachycardia and hypotension even at rest, although asymptomatic. He was started on digoxin and continued on Metoprolol and Eliquis. There was concern for possible tachybradycardia syndrome, however it was difficult to assess given he was already on a B-hilda per biomathematician Dr. Johns. Given his tachycardia and hypotension, he required multiple adjustments to his regimen of metoprolol and digoxin. Ultimately, he had 3 second asymptomatic pause on telemetry overnight. Core Layer Machine Operator Dr. Castano was consulted after this episode, readjusted his beta hilda to Lopressor 12.5 MG q6h, after which these episodes resolved. He was monitored on telemetry, with 48 hours without any events. He felt much improved and eager to go home. Of note, he was found to have low-grade temperatures and rhinorrhea and dry cough early in the hospitalization, found to have positive RSV, for which he was given supportive care and improved. On day of discharge, on-call biomathematician Dr. Schmitt was called, and recommended to adjust his Lopressor dose to 25 MG bid to assist with patient's daily medication regimen and compliance. Dr. Schmitt recommended he be discharged, with instructions to stop by his office right after the hospital to [place] pumping supervisor an event monitor, and follow-up outpatient. Plan of care was discussed with patient, all questions answered. DISCHARGE MEDICATIONS: Please see below. ALLERGIES: Please see below. PHYSICAL EXAMINATION ON DISCHARGE: VITAL SIGNS: Please see below. GENERAL: No sign of acute distress. Alert and awake. Pleasantly conversant HEENT: Normocephalic, atraumatic. EOMI, neck supple CARDIOVASCULAR: Irregularly irregular. In Afib, HR controlled LUNGS: Clear to auscultation bilaterally. No w/r/r ABDOMEN: Soft, nontender, ND. Bowel sounds present. EXTREMITIES: No edema. 2+ radial pulses b/l: LABORATORY DATA: Please see below. IMAGING: * 07/05/2018 CXR: Mild cardiomegaly and chronic fibrotic change. No acute infiltrate. * 07/05/[address]: Stable chronic findings as above. No acute intracranial process identified. * 07/05/2018 CTA:No CT evidence of pulmonary embolism. Coarsened mild interstitial infiltrates in the right middle and lower lobes. No other acute abnormalities. * 07/06/2018 CT abdomen and pelvis: No evidence of acute intraabdominal or pelvic pathology as discussed above. * 07/09/2018 CXR: No acute infiltrate. * 07/14/2018 2-D echo: 1. Study is of acceptable technical quality. 2. Normal LV size with asymmetrical septal hypertrophy and overall hyperdynamic LV systolic function. 3. Normal RV size and systolic function. 4. Aortic sclerosis but no significant stenosis and approximately moderate insufficiency. 5. Competent mitral valve. 6. Normal central venous pressure and at least mild pulmonary hypertension. 7. Severe biatrial enlargement. PROGNOSIS: fair ACTIVITY: As tolerated. DIET: 2g sodium DISPOSITION: home. Stop by biomathematician office to [place] pumping supervisor event monitor on the way home from hospital DISCHARGE INSTRUCTIONS: 1. Go straight to biomathematician office after discharge from hospital. service support representative event monitor, and follow-up with them with for results 2. Follow-up with PCP within one week 3. MED CHANGES: Start aspirin 81 mg daily, and Lopressor reduced from 25 MG tid to bid. DISCHARGE CONDITION: Stable. TIME SPENT ON DISCHARGE: Greater than 35 minutes. Vital Signs/I&Os Vital Signs Date Time Temp Pulse Resp B/P (MAP) Pulse Ox O2 Delivery O2 Flow Rate FiO2 07/17/18 08:00 97.5 74 20 144/62 (89) 99 07/15/18 16:00 1.0 I&O- Last 24 Hours up to 6 AM 07/17/18 06:00 Intake Total 1300 ml Output Total 745 ml Balance 555 ml Laboratory Data Labs 24H Laboratory Tests 2 07/17/18 05:04: Nucleated Red Blood Cells % (auto) 0.0, Anion Gap 5L, Glomerular Filtration Rate > 60.0, Blood Urea Nitrogen 19H, Creatinine 0.92, Sodium Level 139, Potassium Level 4.2, Chloride Level 105, Carbon Dioxide Level 29, Calcium Level 8.3L, Magnesium Level 2.0 CBC/BMP Laboratory Tests 07/17/18 05:04 Red Blood Count 3.39 L, Mean Corpuscular Volume 93.2, Mean Corpuscular Hemoglobin 31.3, Mean Corpuscular Hemoglobin Concent 33.5, Red Cell Distribution Width 13.8, Calcium Level 8.3 L Microbiology Microbiology 07/09/18 Blood Culture - Final, Complete NO GROWTH AFTER 5 DAYS 07/09/18 Blood Culture - Final, Complete NO GROWTH AFTER 5 DAYS 07/11/18 Gram Stain - Final, Complete 07/11/18 Sputum Culture - Final, Complete 07/09/18 Respiratory Virus Panel (PCR) (KI) - Final, Complete Respiratory Syncytial Virus Discharge Medications Scheduled Apixaban Base (Eliquis) 2.5 Mg Tab, 2.5 MG PO BID, (Reported) Ascorbic Acid (Vitamin C) 1,000 Mg Tab, 1,000 MG PO DAILY, (Reported) Aspirin (Childrens Aspirin) 81 Mg Chew, 81 MG PO DAILY Cholecalciferol (Vitamin D3 400) 400 Unit Cap, 400 UNIT PO DAILY, (Reported) Metoprolol Tartrate (Metoprolol Tartrate) 25 Mg Tab, 25 MG PO TID, (Reported) PRESCRIBED FOR TID DOSING, PT STATES ONLY TAKES AT DAILY AT NOON Metoprolol Tartrate (Metoprolol Tartrate) 25 Mg Tab, 25 MG PO BID Ranitidine HCl (Ranitidine [address]) 150 Mg Tab, 1 TAB PO BID, (Reported) Simvastatin (Simvastatin) 20 Mg Tab, 10 MG PO QHS, (Reported) Tamsulosin Hydrochloride (Flomax) 0.4 Mg Cap, 0.4 MG PO DAILY, (Reported) Allergies Coded Allergies: No Known Allergies (Unverified , 09/03/17) GME ATTESTATION GME ATTESTATION My faculty preceptor for this patient encounter was physically present during the encounter and was fully available. All aspects of the patient interview, examination, medical decision making process, and medical care plan development were reviewed and approved by the faculty preceptor. The faculty preceptor is aware and concurs with the plan as stated in the body of this note and will attest to such by his/her cosignature. TANG BARON DO Jul 17, 2018 10:38
[2018-07-17 12:32] VITALS: BP 122/70
[2018-07-17 12:34] VITALS: BP 122/70
== END 2018-07-17 12:46 | disposition home health service (06) | DRG 309 ==
LOC: M ED 05:52 → M ED INP 09:37 → M PCU 15:04
PROVIDERS: ADMIT Internal Medicine; ATTEND Internal Medicine
DX: I48.2 Chronic atrial fibrillation (principal); F03.91 Unspecified dementia, unspecified severity, with behavioral disturbance; R53.1 Weakness; R00.0 Tachycardia, unspecified; I95.9 Hypotension, unspecified; I25.10 Atherosclerotic heart disease of native coronary artery without angina pectoris; K21.9 Gastro-esophageal reflux disease without esophagitis; N40.0 Benign prostatic hyperplasia without lower urinary tract symptoms; B97.4 Respiratory syncytial virus as the cause of diseases classified elsewhere; Z79.01 Long term (current) use of anticoagulants; Z85.46 Personal history of malignant neoplasm of prostate; Z79.899 Other long term (current) drug therapy; Z79.82 Long term (current) use of aspirin; E78.5 Hyperlipidemia, unspecified

== ENCOUNTER 2018-08-03 22:12 | Emergency (ER) | payer MEDICARE, OTHER ==
[~2018-08-03] VITALS: Ht 167.6 cm; Wt 55.5 kg
[~2018-08-03 22:12] MED LIST changes: +CHIL81CH2 PO
[2018-08-03] MEDS ORDERED: METO1TAB87 PO (22:25)
[2018-08-03 22:51] LABS: BASO # 0.1 10^3/uL (0.0-0.2); BASO % 0.7 % (0.0-1.0); EOS # 0.2 10^3/uL (0.0-0.50); EOS % 1.5 % (0.0-3.0); HEMATOCRIT 38.4 % (42.0-52.0); HEMOGLOBIN 12.5 g/dl (13.5-17.5); LYMPH # 3.2 10^3/uL (1.5-4.5); LYMPH % 24.1 % (24.0-44.0); MEAN CORPUSCULAR HEMOGLOBIN 31.3 pg (27.0-33.0); MEAN CORPUSCULAR HGB CONC 32.6 g/dl (32.0-36.5); MEAN CORPUSCULAR VOLUME 96.2 fl (80.0-96.0); MONO % 7.2 % (0.0-5.0); NEUTROPHILS # 8.8 10^3/uL (1.8-7.7); PLATELET COUNT, AUTOMATED 232 10^3/uL (150-450); RED BLOOD COUNT 3.99 10^6/uL (4.30-6.10); WHITE BLOOD COUNT 13.3 10^3/uL (4.0-10.0)
[2018-08-03 23:11] LABS: VENOUS BASE EXCESS -0.2 (-2.0-2.0); VENOUS HCO3 26.4 MEQ/L (23.0-27.0); VENOUS O2 SATURATION 43.5 % (60.0-80.0); VENOUS PARTIAL PRESSURE CO2 51.3 mmHg (38.0-50.0); VENOUS PARTIAL PRESSURE O2 26.1 mmHg (30.0-50.0); VENOUS STANDARD HCO3 23.1 MEQ/L
[2018-08-03 23:16] LABS: BLOOD UREA NITROGEN 11 MG/DL (7-18); CALCIUM LEVEL 8.5 MG/DL (8.8-10.2); CARBON DIOXIDE LEVEL 26 MEQ/L (21-32); CHLORIDE LEVEL 101 MEQ/L (98-107); GLOMERULAR FILTRATION RATE > 60.0 (>35); GLUCOSE, FASTING 109 MG/DL (70-100); POTASSIUM SERUM 4.7 MEQ/L (3.5-5.1); SODIUM LEVEL 135 MEQ/L (136-145)
[2018-08-03 23:21] LABS: INFLUENZA A AMPLIFICATION NEGATIVE (NEGATIVE); INFLUENZA B AMPLIFICATION NEGATIVE (NEGATIVE)
[2018-08-03 23:37] LABS: CPK CREATINE PHOSPHOKINASE 53 U/L (39-308); MB/CK RELATIVE INDEX 1.89 (< OR =4); NT-PRO BNP 2687 PG/ML (<450); TROPONIN I < 0.02 NG/ML (< 0.10)
[2018-08-04] MEDS ORDERED: TESS100C PO (01:40)
[2018-08-04] MEDS ORDERED: PRED20TA PO (01:40)
[2018-08-04] MEDS ORDERED: MUCI600T37 PO (01:40)
[2018-08-04] MEDS ORDERED: predniSONE 20 MG TAB PO ONE (01:45)
[2018-08-04] MEDS ORDERED: BENZONATATE 100 MG CAP PO ONE (01:45)
[2018-08-04] MEDS ORDERED: ALBUTEROL 90 MCG/ACT 8GM HFA INHALER INH ONE (01:45)
[2018-08-04 02:00] VITALS: BP 156/91
[2018-08-04] MEDS ORDERED: guaiFENesin ER 600 MG TAB PO ONE (02:00)
--- NOTE | 2018-08-04 08:16 | REP ---
Chest AP and lateral views with the patient sitting: Comparison is 07/09/2018. The lung wilder are clear. There is cardiomegaly, unchanged. The susan and mediastinum are unremarkable. The patient is slightly rotated. There has been interval placement of a more tract device in the left axilla. Impression: No acute cardiopulmonary findings. Cardiomegaly is unchanged. New electronic place in the left axilla. Electronically Signed by Abiel Loyola MD 08/04/2018 08:07 A
[2018-08-04] MEDS ORDERED: guaiFENesin ER 600 MG TAB PO SCH (09:00)
--- NOTE | 2018-08-04 21:46 | ECGEPIP ---
Stationary ECG Study [facility] - ED Test Date: 2018-08-03 Pat Name: KATIE MCCLURE Department: Room: - Gender: M Meat Grader: GENNY : 1930 Requested By: ALEJANDRO Ying Order Number: [id number] Reading MD: Dk Herrera Measurements Intervals [place] Rate: 81 P: [place]: 0 QRS: -20 QRSD: 94 T: 97 QT: 379 QTc: 441 Interpretive Statements ATRIAL FIBRILLATION NONSPECIFIC ST & T-WAVE ABNORMALITY evolving from tracing done 07-14-18 Electronically Signed On 08-04-2018 21:46:05 EDT by Dk Herrera
== END 2018-08-04 02:17 | disposition home or self-care (01) ==
LOC: M ED 22:12
DX: J40 Bronchitis, not specified as acute or chronic (principal); R06.02 Shortness of breath; I51.9 Heart disease, unspecified; I48.91 Unspecified atrial fibrillation; Z87.09 Personal history of other diseases of the respiratory system; Z79.899 Other long term (current) drug therapy; Z79.82 Long term (current) use of aspirin; Z79.01 Long term (current) use of anticoagulants

== ENCOUNTER 2018-08-14 23:39 | Emergency (ER) | payer MEDICARE, OTHER ==
[~2018-08-14] VITALS: Ht 167.6 cm; Wt 60.0 kg
[~2018-08-14 23:39] MED LIST changes: +HYDR-3715 PO; +MUCI600T37 PO; -NORCOTAB PO
[2018-08-15] MEDS ORDERED: NS 500 ML IV ONE (01:15)
[2018-08-15] MEDS ORDERED: ONDANSETRON 4MG/2ML VIAL (J2405) IV ONE (01:30)
[2018-08-15 01:59] LABS: BASO % 0.2 % (0.0-1.0); EOS % 0.2 % (0.0-3.0); HEMATOCRIT 38.6 % (42.0-52.0); HEMOGLOBIN 12.8 g/dl (13.5-17.5); LYMPH # 1.3 10^3/uL (1.5-4.5); LYMPH % 10.4 % (24.0-44.0); MEAN CORPUSCULAR HEMOGLOBIN 31.1 pg (27.0-33.0); MEAN CORPUSCULAR HGB CONC 33.2 g/dl (32.0-36.5); MEAN CORPUSCULAR VOLUME 93.9 fl (80.0-96.0); MONO # 0.6 10^3/uL (0.0-0.8); MONO % 4.7 % (0.0-5.0); NEUTROPHILS # 10.3 10^3/uL (1.8-7.7); NEUTROPHILS % 83.6 % (36.0-66.0); PLATELET COUNT, AUTOMATED 194 10^3/uL (150-450); RED BLOOD COUNT 4.11 10^6/uL (4.30-6.10); WHITE BLOOD COUNT 12.4 10^3/uL (4.0-10.0)
[2018-08-15 02:20] LABS: ALBUMIN 3.9 GM/DL (3.2-5.2); ALT/SGPT 18 U/L (12-78); BILIRUBIN,DIRECT 0.2 MG/DL (0.0-0.2); BILIRUBIN,TOTAL 0.7 MG/DL (0.2-1.0); BLOOD UREA NITROGEN 15 MG/DL (7-18); CALCIUM LEVEL 8.7 MG/DL (8.8-10.2); CARBON DIOXIDE LEVEL 28 MEQ/L (21-32); CHLORIDE LEVEL 100 MEQ/L (98-107); CPK CREATINE PHOSPHOKINASE 56 U/L (39-308); CREATININE FOR GFR 0.96 MG/DL (0.70-1.30); GLOMERULAR FILTRATION RATE > 60.0 (>35); GLUCOSE, FASTING 144 MG/DL (70-100); LIPASE 56 U/L (73-393); MB/CK RELATIVE INDEX 5.71 (< OR =4); POTASSIUM SERUM 4.7 MEQ/L (3.5-5.1); SODIUM LEVEL 137 MEQ/L (136-145); TOTAL PROTEIN 6.9 GM/DL (6.4-8.2); TROPONIN I < 0.02 NG/ML (< 0.10)
[2018-08-15] MEDS ORDERED: ZOFR8TAB24 PO (03:40)
[2018-08-15 04:18] VITALS: BP 167/97
--- NOTE | 2018-08-15 06:43 | ECGEPIP ---
Stationary ECG Study [facility] - ED Test Date: 2018-08-15 Pat Name: KATIE MCCLURE Department: Room: - Gender: M Inspector Heating And Refrigeration: GENNY : 1930 Requested By: VICKI HODGES Order Number: [id number] Reading MD: Devon Jaramillo Measurements Intervals [place] Rate: 112 P: [place]: 0 QRS: -22 QRSD: 75 T: 115 QT: 327 QTc: 447 Interpretive Statements ATRIAL FIBRILLATION WITH RAPID VENTRICULAR RESPONSE ST DEVIATION AND MODERATE T-WAVE ABNORMALITY, CONSIDER LATERAL ISCHEMIA RATE CHANGE COMPARED TO 08/03/18 Electronically Signed On 08-15-2018 6:42:40 EDT by Devon Jaramillo
== END 2018-08-15 05:02 | disposition home or self-care (01) ==
LOC: M ED 23:39 → EDBD 23:39 → M ED 08-15 05:02
DX: K52.9 Noninfective gastroenteritis and colitis, unspecified (principal); R00.0 Tachycardia, unspecified; I10 Essential (primary) hypertension; I48.91 Unspecified atrial fibrillation; N40.0 Benign prostatic hyperplasia without lower urinary tract symptoms; Z87.891 Personal history of nicotine dependence; Z79.899 Other long term (current) drug therapy; Z79.82 Long term (current) use of aspirin; Z79.52 Long term (current) use of systemic steroids; Z79.01 Long term (current) use of anticoagulants
CPT/HCPCS: 80048; 80076; 82550; 82553; 83605; 83690; 84484; 85025; 93005; 93041; 96374; 99285; J2405

== ENCOUNTER 2018-08-22 09:18 | Emergency (ER) | payer MEDICARE, OTHER ==
[~2018-08-22] VITALS: Ht 167.6 cm; Wt 55.6 kg
[~2018-08-22 09:18] MED LIST changes: +ASPI-286 PO; -ASPI1TAB PO; +ASPI81TA26 PO; -CHIL81CH2 PO; -VANC125C2 PO; +VANC125C3 PO; +ZOFR8TAB24 PO
[2018-08-22 11:09] LABS: BASO # 0.1 10^3/uL (0.0-0.2); BASO % 0.6 % (0.0-1.0); EOS # 0.1 10^3/uL (0.0-0.50); EOS % 1.1 % (0.0-3.0); HEMATOCRIT 37.8 % (42.0-52.0); HEMOGLOBIN 12.3 g/dl (13.5-17.5); LYMPH # 1.9 10^3/uL (1.5-4.5); LYMPH % 17.3 % (24.0-44.0); MEAN CORPUSCULAR HEMOGLOBIN 30.9 pg (27.0-33.0); MEAN CORPUSCULAR HGB CONC 32.5 g/dl (32.0-36.5); MONO # 0.7 10^3/uL (0.0-0.8); MONO % 6.6 % (0.0-5.0); NEUTROPHILS # 8.1 10^3/uL (1.8-7.7); NEUTROPHILS % 73.8 % (36.0-66.0); PLATELET COUNT, AUTOMATED 276 10^3/uL (150-450); RED BLOOD COUNT 3.98 10^6/uL (4.30-6.10)
[2018-08-22 11:38] LABS: ALT/SGPT 15 U/L (12-78); BILIRUBIN,DIRECT 0.2 MG/DL (0.0-0.2); BILIRUBIN,TOTAL 0.7 MG/DL (0.2-1.0); BLOOD UREA NITROGEN 10 MG/DL (7-18); CALCIUM LEVEL 8.9 MG/DL (8.8-10.2); CARBON DIOXIDE LEVEL 26 MEQ/L (21-32); CHLORIDE LEVEL 101 MEQ/L (98-107); GLOMERULAR FILTRATION RATE > 60.0 (>35); GLUCOSE, FASTING 106 MG/DL (70-100); LIPASE 72 U/L (73-393); POTASSIUM SERUM 4.4 MEQ/L (3.5-5.1); SODIUM LEVEL 136 MEQ/L (136-145); TOTAL PROTEIN 7.3 GM/DL (6.4-8.2)
--- NOTE | 2018-08-22 11:42 | REP ---
ABDOMINAL SERIES: Supine erect views of the abdomen demonstrate no free air. No evidence for bowel obstruction. No dilated small bowel loops are seen. Scattered vascular calcifications are seen in the abdomen and pelvis. There are mild degenerative changes of the spine. An accompanying view of the chest demonstrates no acute infiltrate. There is mild cardiomegaly. There is calcification of the thoracic aorta. The mediastinal silhouette is unremarkable. IMPRESSION: No free air or obstruction. Mild cardiomegaly. Electronically Signed by Abiel Llamas MD 08/22/2018 03:33 P
[2018-08-22 14:05] VITALS: BP 138/84
== END 2018-08-22 14:49 | disposition home or self-care (01) ==
LOC: M ED 09:18
DX: K59.00 Constipation, unspecified (principal); I48.91 Unspecified atrial fibrillation; I50.9 Heart failure, unspecified; I25.10 Atherosclerotic heart disease of native coronary artery without angina pectoris; I25.2 Old myocardial infarction; I10 Essential (primary) hypertension; K21.9 Gastro-esophageal reflux disease without esophagitis; Z86.73 Personal history of transient ischemic attack (TIA), and cerebral infarction without residual deficits; Z79.01 Long term (current) use of anticoagulants; Z79.82 Long term (current) use of aspirin; Z79.899 Other long term (current) drug therapy

== ENCOUNTER 2018-08-31 21:21 | Emergency (ER) | payer MEDICARE, OTHER ==
[~2018-08-31] VITALS: Ht 167.6 cm; Wt 55.5 kg
[2018-08-31] MEDS ORDERED: METOCLOPRAMIDE INJ 10MG/2ML VIAL (J2765) IV ONE (21:45)
[2018-08-31] MEDS ORDERED: NS 500 ML IV ONE (21:45)
[2018-08-31 21:53] LABS: BASO % 0.3 % (0.0-1.0); EOS # 0.1 10^3/uL (0.0-0.50); EOS % 1.1 % (0.0-3.0); HEMOGLOBIN 11.4 g/dl (13.5-17.5); LYMPH # 1.6 10^3/uL (1.5-4.5); LYMPH % 16.4 % (24.0-44.0); MEAN CORPUSCULAR HEMOGLOBIN 31.7 pg (27.0-33.0); MEAN CORPUSCULAR HGB CONC 33.5 g/dl (32.0-36.5); MEAN CORPUSCULAR VOLUME 94.4 fl (80.0-96.0); MONO # 0.8 10^3/uL (0.0-0.8); MONO % 8.5 % (0.0-5.0); NEUTROPHILS # 7.2 10^3/uL (1.8-7.7); NEUTROPHILS % 73.2 % (36.0-66.0); PLATELET COUNT, AUTOMATED 207 10^3/uL (150-450); WHITE BLOOD COUNT 9.8 10^3/uL (4.0-10.0)
[2018-08-31 22:05] LABS: ALBUMIN 3.5 GM/DL (3.2-5.2); ALT/SGPT 12 U/L (12-78); BILIRUBIN,DIRECT 0.2 MG/DL (0.0-0.2); BILIRUBIN,TOTAL 0.9 MG/DL (0.2-1.0); BLOOD UREA NITROGEN 11 MG/DL (7-18); CALCIUM LEVEL 8.1 MG/DL (8.8-10.2); CARBON DIOXIDE LEVEL 26 MEQ/L (21-32); CHLORIDE LEVEL 102 MEQ/L (98-107); CK-MB VALUE MASS < 1.0 NG/ML (<3.6); CPK CREATINE PHOSPHOKINASE 37 U/L (39-308); CREATININE FOR GFR 0.89 MG/DL (0.70-1.30); GLOMERULAR FILTRATION RATE > 60.0 (>35); GLUCOSE, FASTING 118 MG/DL (70-100); LIPASE 73 U/L (73-393); POTASSIUM SERUM 4.4 MEQ/L (3.5-5.1); SODIUM LEVEL 135 MEQ/L (136-145); TOTAL PROTEIN 6.2 GM/DL (6.4-8.2); TROPONIN I < 0.02 NG/ML (< 0.10)
[2018-08-31] MEDS ORDERED: REGL10TA6 PO (22:14)
[2018-08-31 22:40] VITALS: BP 143/78
[2018-08-31] MEDS ORDERED: METOPROLOL TART 25 MG TABLET PO ONE (22:45)
[2018-09-01 01:01] VITALS: BP 133/81
[2018-09-01] MEDS ORDERED: IPRATROPIUM 0.5MG/ALBUTEROL 2.5MG INH SOL UD 3ML (DUONEB)(J7620) As Ordered ONE (01:10)
[2018-09-01] MEDS ORDERED: IPRATROPIUM 0.5MG/ALBUTEROL 2.5MG INH SOL UD 3ML (DUONEB)(J7620) NEB ONE (01:30)
== END 2018-09-01 01:55 | disposition home or self-care (01) ==
LOC: M ED 21:21
DX: R11.2 Nausea with vomiting, unspecified (principal); I48.91 Unspecified atrial fibrillation; E78.5 Hyperlipidemia, unspecified; K21.9 Gastro-esophageal reflux disease without esophagitis; N40.0 Benign prostatic hyperplasia without lower urinary tract symptoms; I25.10 Atherosclerotic heart disease of native coronary artery without angina pectoris; Z79.899 Other long term (current) drug therapy; Z79.82 Long term (current) use of aspirin; Z79.01 Long term (current) use of anticoagulants
CPT/HCPCS: 80048; 80076; 82550; 82553; 83690; 84484; 85025; 96374; 99284; J2765

== ENCOUNTER 2018-10-07 00:06 | Emergency (ER) | payer MEDICARE, OTHER ==
[~2018-10-07] VITALS: Ht 170.2 cm; Wt 58.0 kg
[~2018-10-07 00:06] MED LIST changes: +REGL10TA6 PO
[2018-10-07 01:29] LABS: BASO # 0.1 10^3/uL (0.0-0.2); BASO % 0.7 % (0.0-1.0); EOS # 1.2 10^3/uL (0.0-0.50); EOS % 11.4 % (0.0-3.0); HEMATOCRIT 32.3 % (42.0-52.0); HEMOGLOBIN 10.4 g/dl (13.5-17.5); LYMPH # 2.1 10^3/uL (1.5-4.5); MEAN CORPUSCULAR HEMOGLOBIN 29.6 pg (27.0-33.0); MEAN CORPUSCULAR HGB CONC 32.2 g/dl (32.0-36.5); MONO % 10.1 % (0.0-5.0); NEUTROPHILS # 5.7 10^3/uL (1.8-7.7); NEUTROPHILS % 56.2 % (36.0-66.0); PLATELET COUNT, AUTOMATED 229 10^3/uL (150-450); RED BLOOD COUNT 3.51 10^6/uL (4.30-6.10); WHITE BLOOD COUNT 10.1 10^3/uL (4.0-10.0)
[2018-10-07 02:40] LABS: ALBUMIN 3.3 GM/DL (3.2-5.2); ALT/SGPT 10 U/L (12-78); BILIRUBIN,DIRECT 0.2 MG/DL (0.0-0.2); BILIRUBIN,TOTAL 0.6 MG/DL (0.2-1.0); BLOOD UREA NITROGEN 13 MG/DL (7-18); CALCIUM LEVEL 8.5 MG/DL (8.8-10.2); CARBON DIOXIDE LEVEL 26 MEQ/L (21-32); CHLORIDE LEVEL 104 MEQ/L (98-107); CPK CREATINE PHOSPHOKINASE 52 U/L (39-308); CREATININE FOR GFR 0.89 MG/DL (0.70-1.30); GLOMERULAR FILTRATION RATE > 60.0 (>35); GLUCOSE, FASTING 99 MG/DL (70-100); MB/CK RELATIVE INDEX 1.92 (< OR =4); POTASSIUM SERUM 4.6 MEQ/L (3.5-5.1); SODIUM LEVEL 139 MEQ/L (136-145); TOTAL PROTEIN 6.4 GM/DL (6.4-8.2); TROPONIN I < 0.02 NG/ML (< 0.10)
[2018-10-07] MEDS ORDERED: TETANUS/DIPHTHERIA TOX ADSORB ADULT 0.5ML SYR/VIAL (90714) IM ONE (03:00)
[2018-10-07] MEDS ORDERED: METOPROLOL TART 50 MG TAB PO ONE (04:45)
[2018-10-07] MEDS ORDERED: METOPROLOL TART 25 MG TABLET PO ONE (04:45)
[2018-10-07 05:14] VITALS: BP 156/78
[2018-10-07 05:45] VITALS: BP 146/80
--- NOTE | 2018-10-07 07:12 | REP ---
PA and lateral chest: Comparisons are 08/03/2018, 06/26/2017 and 08/20/2016. The lung wilder are chronically hyperinflated, unchanged. There are no focal infiltrates. There are no pleural effusions. There is demineralization, moderate scoliosis and moderate kyphosis, unchanged. There is grade 1 compression deformity of a lower thoracic vertebral body, unchanged from 08/03/2018 but not present on 06/26/2017. The electronic device implanted in the left axilla 08/03/2018 has been removed. There is chronic cardiomegaly, unchanged. The mediastinum, skeletal structures are otherwise unremarkable. Impression: There are no acute cardiopulmonary findings. Chronic cardiomegaly. Demineralization and grade 1 compression deformity of a lower thoracic vertebral body. The electronic device implanted in the left axilla on 08/03/2018 has been removed. Electronically Signed by Abiel Loyola MD 10/07/2018 07:04 A
--- NOTE | 2018-10-07 07:24 | ECGEPIP ---
Stationary ECG Study [facility] - ED Test Date: 2018-10-07 Pat Name: KATIE MCCLURE Department: Room: - Gender: M Adolescent Specialist: MAGO : 1930 Requested By: VICKI HODGES Order Number: [id number] Reading MD: Rosario Smith Measurements Intervals [place] Rate: 79 P: [place]: 0 QRS: -28 QRSD: 80 T: 72 QT: 387 QTc: 444 Interpretive Statements ATRIAL FIBRILLATION BORDERLINE LEFT AXIS DEVIATION ST DEVIATION AND MODERATE T-WAVE ABNORMALITY, CONSIDER ISCHEMIA DECREASED RATE 08/15/18 Electronically Signed On 10-07-2018 7:24:38 EDT by Rosario Smith
== END 2018-10-07 06:17 | disposition home or self-care (01) ==
LOC: M ED 00:06
DX: R26.2 Difficulty in walking, not elsewhere classified (principal); R54 Age-related physical debility; I10 Essential (primary) hypertension; I48.91 Unspecified atrial fibrillation; E78.5 Hyperlipidemia, unspecified; Z79.899 Other long term (current) drug therapy; Z79.82 Long term (current) use of aspirin; Z79.01 Long term (current) use of anticoagulants

== ENCOUNTER 2018-10-22 16:31 | Inpatient (IN) | payer MEDICARE, OTHER ==
[~2018-10-22] VITALS: Ht 167.6 cm; Wt 52.2 kg
[2018-10-22] MEDS ORDERED: NS 500 ML IV ONE (19:45)
[2018-10-22 19:54] LABS: BASO % 0.4 % (0.0-1.0); HEMATOCRIT 39.5 % (42.0-52.0); HEMOGLOBIN 13.1 g/dl (13.5-17.5); LYMPH # 1.4 10^3/uL (1.5-4.5); LYMPH % 12.1 % (24.0-44.0); MEAN CORPUSCULAR HEMOGLOBIN 29.7 pg (27.0-33.0); MEAN CORPUSCULAR HGB CONC 33.2 g/dl (32.0-36.5); MEAN CORPUSCULAR VOLUME 89.6 fl (80.0-96.0); MONO # 1.4 10^3/uL (0.0-0.8); NEUTROPHILS # 8.5 10^3/uL (1.8-7.7); NEUTROPHILS % 75.2 % (36.0-66.0); PLATELET COUNT, AUTOMATED 282 10^3/uL (150-450); RED BLOOD COUNT 4.41 10^6/uL (4.30-6.10); WHITE BLOOD COUNT 11.3 10^3/uL (4.0-10.0)
[2018-10-22 20:26] LABS: BILIRUBIN,DIRECT 0.4 MG/DL (0.0-0.2); BILIRUBIN,TOTAL 1.2 MG/DL (0.2-1.0); CALCIUM LEVEL 9.9 MG/DL (8.8-10.2); CREATININE FOR GFR 1.23 MG/DL (0.70-1.30); FREE THYROXINE INDEX 4.3 % (1.4-3.8); THYROID STIMULATING HORMONE 2.46 uIU/ML (0.358-3.740); TOTAL PROTEIN 6.8 GM/DL (6.4-8.2)
[2018-10-22] MEDS ORDERED: METOPROLOL SUCC (TopROL XL) 50MG **XL** TAB PO ONE (20:30)
[2018-10-22] MEDS ORDERED: ISOVUE-370 76% 100ML VIAL (Q9967) As Ordered ONE (22:06)
[2018-10-22] MEDS ORDERED: METOPROLOL 5 MG/5 ML VIAL IV STA (22:34)
--- NOTE | 2018-10-22 22:41 | REP ---
Clinical: Abdominal pain with intractable vomiting. Technique: Axial contrast enhanced images from the lung bases to the pubic symphysis using 100 ml Isovue 370 intravenous contrast material with coronal and sagittal re-formations. Comparison: 07/06/2018 Findings: High-grade small bowel obstruction is appreciated including distended stomach and fluid-filled esophagus. Obstruction extends to the right lower quadrant where collapsed loops of small bowel are identified, but the exact point of transition is not definitively visualized. A large bowel is collapsed. There is no free air or free fluid/drainable collection. Liver, spleen, pancreas, gallbladder, bilateral adrenal glands and kidneys are relatively normal. Pelvis demonstrates normal bladder and age appropriate prostate/seminal vesicles. Atherosclerotic changes to the aorta and vasculature noted without aneurysm or dissection. Musculoskeletal structures demonstrate age-related degenerative changes along with mild chronic compression deformity at T11. Lung bases are clear. Impression: 1. High-grade small bowel obstruction with transition in the right lower quadrant. No free air or free fluid to suggest perforation. 2. Chronic changes as above. Electronically Signed by Atif Oswald MD 10/22/2018 10:32 P
[2018-10-22] MEDS ORDERED: METOPROLOL TART 25 MG TABLET PO ONE (23:15)
[2018-10-22] MEDS ORDERED: ASPI81TA26 PO (23:25)
[2018-10-22] MEDS ORDERED: SIMV10TA2 PO (23:25)
[2018-10-22] MEDS ORDERED: C 50TAB PO (23:25)
[2018-10-22] MEDS ORDERED: ROPI0.5T PO (23:39)
[2018-10-22 23:51] LABS: INR 1.39; PROTHROMBIN TIME 17.3 SECONDS (12.1-14.4)
[2018-10-22 23:52] LABS: PARTIAL THROMBOPLASTIN TIME 33.6 SECONDS (25.4-37.6)
[2018-10-23] VITALS (33 sets, daily range): BP systolic 69–154; BP diastolic 51–97
[2018-10-23] MEDS: ONDANSETRON 4MG/2ML VIAL (J2405) IV PRN ×2 (00:18→12:48)
--- NOTE | 2018-10-23 00:21 | HPEPDOC ---
General Date of Admission October 22, 2018 at 23:30 Date of Service: October 22, 2018 Chief Complaint The patient is a 88-year-old male admitted with a reason for visit of Chronic Afib With Rvr, Intestinal Obstruction. Source: Patient, Family, RN/MD, Old records History of Present Illness Mr. Esqueda is an 88 years old man with hx of chronic AF on Eliquis. He presented to Er with c/o nausea and vomiting for two days. Granddaughter reports that pt started with dry heaving a few days earlier. Pt denies abdomnal pain,k fever or chills. He has hx/o appendectomy and surgery for incarcerated inguinal hernia many years ago. Family also report chronic constipation. In the ER, CT abd showed high grade SBO. Dr. Lopez was consulted, recommended conservative medical management with bowel rest, and NG suction. Pt also has AF with RVR; rate ranging between 110-130/min. BP and mental status are good. Labs are unremarkable. Home Medications Scheduled Apixaban (Eliquis) 2.5 Mg Tab, 2.5 MG PO BID, (Reported) Ascorbic Acid (Vitamin C) 500 Mg Tablet, 500 MG PO BID, (Reported) Aspirin (Aspirin EC) 81 Mg Tablet.dr, 81 MG PO DAILY, (Reported) Cholecalciferol (Vitamin D3) (Vitamin D3) 400 Unit Cap, 400 UNIT PO DAILY, (Reported) Metoprolol Tartrate (Metoprolol Tartrate) 25 Mg Tab, 25 MG PO BID, (Reported) Ranitidine HCl (Ranitidine HCl) 150 Mg Tab, 1 TAB PO BID, (Reported) Ropinirole HCl (Ropinirole HCl) 0.5 Mg Tablet, 0.5 MG PO QHS, (Reported) Simvastatin (Simvastatin) 10 Mg Tablet, 10 MG PO QHS, (Reported) Tamsulosin HCl (Flomax) 0.4 Mg Cap, 0.4 MG PO DAILY, (Reported) Allergies Coded Allergies: No Known Allergies (Unverified , 08/31/18) Past Medical History Medical History Chronic AF, Incarcerated inguinal hernia Surgical History appendectomy and surgery for incarcerated inguinal hernia many years ago Family History Significant Family History: No pertinent family hx Social History * Smoker: Denies Alcohol: Denies Drugs: denies A-FIB/CHADSVASC A-FIB History Current/History of A-Fib/PAF?: Yes Current PO Anticoag Therapy: Yes Review of Systems Constitutional: Denies: Chills, Fever Eyes: Denies: Pain ENT: Denies: Head Aches Skin: Denies: Rash, Lesions Pulmonary: Denies: Dyspnea, Cough Cardiovascular: Denies: Chest Pain, Edema Gastrointestinal: Reports: Nausea, Vomiting, Constipation; Denies: Abdominal Pain Genitourinary: Denies: Dysuria, Frequency Musculoskeletal: Denies: Neck Pain, Back Pain Neurological: Denies: Weakness, Numbness Psych: Reports: Mood Normal; Denies: Anxiety Physical Examination General Exam: Positive: Alert, Cooperative, No Acute Distress Eye Exam: Positive: PERRLA ENT Exam: Positive: Atraumatic Neck Exam: Positive: Supple; Negative: JVD Chest Exam: Positive: Clear to auscultation, Normal air movement Heart Exam: Positive: Rate Normal, Regular Rhythm Telemetry: Positive: Atrial fibrillation, Tachycardia Abdomen Exam: Positive: Normal bowel sounds, Soft; Negative: Tenderness Extremity Exam: Positive: Normal pulses; Negative: Edema Skin Exam: Positive: Nl turgor and temperature; Negative: Rash Neuro Exam: Positive: Normal Speech, Strength at 5/5 X4 ext, Normal Tone Psych Exam: Positive: Mental status NL, Mood NL Vital Signs Vital Signs Date Time Temp Pulse Resp B/P (MAP) Pulse Ox O2 Delivery O2 Flow Rate FiO2 10/22/18 23:15 139 18 141/66 (91) 100 Nasal Cannula 2.0 10/22/18 17:38 98.0 Laboratory Data Labs 24H Laboratory Tests 2 10/22/18 19:43: Immature Granulocyte % (Auto) 0.3, White Blood Count 11.3H, Red Blood Count 4.41, Hemoglobin 13.1L, Hematocrit 39.5L, Mean Corpuscular Volume 89.6, Mean Corpuscular Hemoglobin 29.7, Mean Corpuscular Hemoglobin Concent 33.2, Red Cell Distribution Width 15.6H, Platelet Count 282, Neutrophils (%) (Auto) 75.2H, Lymphocytes (%) (Auto) 12.1L, Monocytes (%) (Auto) 12.0H, Eosinophils (%) (Auto) 0.0, Basophils (%) (Auto) 0.4, Neutrophils # (Auto) 8.5H, Lymphocytes # (Auto) 1.4L, Monocytes # (Auto) 1.4H, Eosinophils # (Auto) 0.0, Basophils # (Auto) 0.0, Nucleated Red Blood Cells % (auto) 0.0, Prothrombin Time 17.3H, Prothromb Time International Ratio 1.39, Activated Partial Thromboplast Time 33.6, Anion Gap 11, Glomerular Filtration Rate 59.0, Calcium Level 9.9, Aspartate Amino Transf (AST/SGOT) 16, Alanine Aminotransferase (ALT/SGPT) 9L, Alkaline Phosphatase 66, Total Bilirubin 1.2H, Direct Bilirubin 0.4H, Total Protein 6.8, Albumin 4.0, Albumin/Globulin Ratio 1.43, Lipase 34L, Thyroid Stimulating Hormone (TSH) 2.460, Free Thyroxine Index 4.3H, Thyroxine (T4) 11.0, Triiodothyronine (T3) Uptake 39 CBC/BMP Laboratory Tests 10/22/18 19:43 Red Blood Count 4.41, Mean Corpuscular Volume 89.6, Mean Corpuscular Hemoglobin 29.7, Mean Corpuscular Hemoglobin Concent 33.2, Red Cell Distribution Width 15.6 H, Neutrophils (%) (Auto) 75.2 H, Lymphocytes (%) (Auto) 12.1 L, Monocytes (%) (Auto) 12.0 H, Eosinophils (%) (Auto) 0.0, Basophils (%) (Auto) 0.4, Neutrophils # (Auto) 8.5 H, Lymphocytes # (Auto) 1.4 L, Monocytes # (Auto) 1.4 H, Eosinophils # (Auto) 0.0, Basophils # (Auto) 0.0 Assessment/Plan High Grade SBO, remote hx/o abdominal surgeries - Admit to inpatient - NPO, IV fluid, anti-emetic - NG tube on LIS - Surgical consult - Monitor and supplement electrolytes - Hold Eliquis for possible need for surgery AF RVR - Lopressor 5 mg IVP q6h while NPO - Cardizaem IV drip if needed Plan / VTE VTE Prophylaxis Ordered?: Yes AYANNA SPRAGUE MD October 23, 2018 00:21
[2018-10-23] MEDS: D5W/LR 1,000 ML IV SCH ×3 (01:40→19:45)
[2018-10-23] MEDS ORDERED: diltiaZEM 125 MG in NS 100 ML IV SCH (02:30)
[2018-10-23 04:58] LABS: HEMATOCRIT 35.8 % (42.0-52.0); HEMOGLOBIN 11.6 g/dl (13.5-17.5); MEAN CORPUSCULAR HEMOGLOBIN 29.5 pg (27.0-33.0); MEAN CORPUSCULAR HGB CONC 32.4 g/dl (32.0-36.5); MEAN CORPUSCULAR VOLUME 91.1 fl (80.0-96.0); PLATELET COUNT, AUTOMATED 217 10^3/uL (150-450); RED BLOOD COUNT 3.93 10^6/uL (4.30-6.10); WHITE BLOOD COUNT 10.4 10^3/uL (4.0-10.0)
[2018-10-23] MEDS ORDERED: METOPROLOL 5 MG/5 ML VIAL IV SCH ×2 (05:00)
[2018-10-23] MEDS: HEPARIN SOD (PORCINE) 5000 UNITS/ML VIAL SC SCH ×3 (05:24→21:17)
[2018-10-23 05:27] LABS: ALBUMIN 3.2 GM/DL (3.2-5.2); ALT/SGPT 7 U/L (12-78); BILIRUBIN,TOTAL 0.8 MG/DL (0.2-1.0); BLOOD UREA NITROGEN 30 MG/DL (7-18); CALCIUM LEVEL 8.8 MG/DL (8.8-10.2); CARBON DIOXIDE LEVEL 29 MEQ/L (21-32); CHLORIDE LEVEL 98 MEQ/L (98-107); CREATININE FOR GFR 1.07 MG/DL (0.70-1.30); GLOMERULAR FILTRATION RATE > 60.0 (>35); GLUCOSE, FASTING 152 MG/DL (70-100); MAGNESIUM LEVEL 1.9 MG/DL (1.8-2.4); SODIUM LEVEL 134 MEQ/L (136-145); TOTAL PROTEIN 6.3 GM/DL (6.4-8.2)
--- NOTE | 2018-10-23 08:13 | ECGEPIP ---
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
--- NOTE | 2018-10-23 08:59 | REP ---
Portable chest x-ray: Single view. History: Confirm placement NG tube. Comparison study: October 07, 2018. Findings: EKG monitoring electrodes overlie the chest. A nasogastric tube is seen terminating in the left upper quadrant of the abdomen in good position. Mild cardiomegaly is observed. Interstitial markings are slightly prominent as before. No focal infiltrate is seen. No evidence of pleural effusion. Impression: NG tube appears to be in good position. Electronically Signed by Norman Hubbard MD 10/23/2018 08:51 A
[2018-10-23] MEDS: PANTOPRAZOLE 40MG INJ (PROTONIX) (C9113) IV SCH (10:18)
[2018-10-23] MEDS ORDERED: CHLORASEPTIC SPRAY MT PRN (11:45)
[2018-10-23] MEDS: METOPROLOL 5 MG/5 ML VIAL IV SCH ×3 (12:28→23:50)
--- NOTE | 2018-10-23 13:40 | IPNPDOC ---
Subjective Date Seen The patient was seen on 10/23/18. Subjective Chief Complaint/HPI Patient seen and examined at the bedside. He reports that his abdominal discomfort has improved following placement of NG tube yesterday evening. Denies any passage of stool or flatus at this time. Objective Physical Examination General Exam: Positive: Alert, Cooperative, No Acute Distress ENT Exam: Positive: Atraumatic, Other ENT (+NG Tube draining brown colored output) Neck Exam: Negative: JVD Chest Exam: Positive: Clear to auscultation, Normal air movement Heart Exam: Positive: Rate Normal, Regular Rhythm Telemetry: Positive: Atrial fibrillation, Tachycardia Abdomen Exam: Positive: Soft, Tenderness (Mild tenderness to deep palpation mostly in the RLQ. No rebound tenderness, guarding, or rigidity noted.) Extremity Exam: Negative: Tenderness, Swelling Neuro Exam: Positive: Normal Speech Assessment /Plan Plan/VTE VTE Prophylaxis Ordered?: Yes Plan High Grade SBO with a Remote History of Abdominal surgeries CT abdomen/pelvis notable for high grade small bowel obstruction with transition in the right lower quadrant. No free air, or free fluid to suggest perforation. s/p NG tube on LIS We will keep the patient NPO, on IV fluids, anti-emetic Surgery on board-->Recommends continued conservative treatment Atrial Fibrillation with RVR Patient was initially on Cardizem gtt overnight We have transitioned him to scheduled IV Lopressor and IV Cardizem prn as need Blood pressure remains stable Anticoagulation on hold 2/2 above, risks/benefits discussed We will cont to monitor the patient CAD ASA & Statin, PO Metoprolol on hold 2/2 NPO Status Dyslipidemia Statin on hold 2/2 NPO Status Hx prostate cancer, BPH Flomax on hold 2/2 NPO Status Outpatient urology followup. Restless Leg Syndrome Ropinrole on hold 2/2 NPO Status DVT ppx: SCDs/TEDs VS, I&O, 24H, Fishbone Vital Signs/I&O Vital Signs Date Time Temp Pulse Resp B/P (MAP) Pulse Ox O2 Delivery O2 Flow Rate FiO2 10/23/18 13:00 96 89/54 (66) 10/23/18 12:00 97.7 98 98 1.0 10/23/18 01:00 Nasal Cannula I&O- Last 24 Hours up to 6 AM 10/23/18 06:00 Intake Total 912.5 ml Output Total 1400 ml Balance -487.5 ml Laboratory Data 24H LABS Laboratory Tests 2 10/22/18 19:43: Immature Granulocyte % (Auto) 0.3, White Blood Count 11.3H, Red Blood Count 4.41, Hemoglobin 13.1L, Hematocrit 39.5L, Mean Corpuscular Volume 89.6, Mean Corpuscular Hemoglobin 29.7, Mean Corpuscular Hemoglobin Concent 33.2, Red Cell Distribution Width 15.6H, Platelet Count 282, Neutrophils (%) (Auto) 75.2H, Lymphocytes (%) (Auto) 12.1L, Monocytes (%) (Auto) 12.0H, Eosinophils (%) (Auto) 0.0, Basophils (%) (Auto) 0.4, Neutrophils # (Auto) 8.5H, Lymphocytes # (Auto) 1.4L, Monocytes # (Auto) 1.4H, Eosinophils # (Auto) 0.0, Basophils # (Auto) 0.0, Nucleated Red Blood Cells % (auto) 0.0, Prothrombin Time 17.3H, Prothromb Time International Ratio 1.39, Activated Partial Thromboplast Time 33.6, Anion Gap 11, Glomerular Filtration Rate 59.0, Calcium Level 9.9, Aspartate Amino Transf (AST/SGOT) 16, Alanine Aminotransferase (ALT/SGPT) 9L, Alkaline Phosphatase 66, Total Bilirubin 1.2H, Direct Bilirubin 0.4H, Total Protein 6.8, Albumin 4.0, Albumin/Globulin Ratio 1.43, Lipase 34L, Thyroid Stimulating Hormone (TSH) 2.460, Free Thyroxine Index 4.3H, Thyroxine (T4) 11.0, Triiodothyronine (T3) Uptake 39 10/23/18 04:42: Nucleated Red Blood Cells % (auto) 0.0, Anion Gap 7L, Glomerular Filtration Rate > 60.0, Calcium Level 8.8, Aspartate Amino Transf (AST/SGOT) 15, Alanine Aminotransferase (ALT/SGPT) 7L, Alkaline Phosphatase 53, Total Bilirubin 0.8, Total Protein 6.3L, Albumin 3.2, Albumin/Globulin Ratio 1.03, Blood Urea Nitrogen 30H, Creatinine 1.07, Sodium Level 134L, Potassium Level 4.0, Chloride Level 98, Carbon Dioxide Level 29, Magnesium Level 1.9 10/23/18 05:34: Bedside Glucose (Misc Panel) 141H 10/23/18 12:44: Bedside Glucose (Misc Panel) 148H CBC/BMP Laboratory Tests 10/22/18 19:43 Red Blood Count 4.41, Mean Corpuscular Volume 89.6, Mean Corpuscular Hemoglobin 29.7, Mean Corpuscular Hemoglobin Concent 33.2, Red Cell Distribution Width 15.6 H, Neutrophils (%) (Auto) 75.2 H, Lymphocytes (%) (Auto) 12.1 L, Monocytes (%) (Auto) 12.0 H, Eosinophils (%) (Auto) 0.0, Basophils (%) (Auto) 0.4, Neutrophils # (Auto) 8.5 H, Lymphocytes # (Auto) 1.4 L, Monocytes # (Auto) 1.4 H, Eosinophils # (Auto) 0.0, Basophils # (Auto) 0.0 10/23/18 04:42 Red Blood Count 3.93 L, Mean Corpuscular Volume 91.1, Mean Corpuscular Hemoglobin 29.5, Mean Corpuscular Hemoglobin Concent 32.4, Red Cell Distribution Width 15.5 H, Calcium Level 8.8, Aspartate Amino Transf (AST/SGOT) 15, Alanine Aminotransferase (ALT/SGPT) 7 L, Alkaline Phosphatase 53, Total Bilirubin 0.8, Total Protein 6.3 L, Albumin 3.2 MOO MAHMOOD MD October 23, 2018 13:40
[2018-10-23] MEDS ORDERED: SODIUM CHLORIDE 0.9% 1000ML IV ONE (16:00)
--- NOTE | 2018-10-23 17:56 | CR ---
DATE OF CONSULTATION: 10/23/2018 CHIEF COMPLAINT: Abdominal pain. HISTORY OF PRESENT ILLNESS: The patient is an 88-year-old male. He has had about a 10-day history of lower abdominal pains, nausea, vomiting. He had been trying to get into his primary and was having the trouble getting in, in a timely manner so he came into the emergency room for evaluation. He is found to have a distended abdomen with CT findings suspicious of high-grade distal small-bowel obstruction. He has already been started on NG tube to low intermittent suction. He says his last bowel movement was about 4 or 5 days ago. He has not had anything since. No flatus or bowel movement since admission or since placement of the NG tube. He has had a large amount of dark brown colored fluid returned from his NG tube. No nausea or vomiting since he has been here. His abdominal pain and distension have improved significantly already. He already feels much better, but he still does have some lower abdominal tenderness. He does have previous abdominal surgeries. He had an incarcerated inguinal hernia as well as an appendectomy. Both were done many years ago. No recent surgeries. He says he has had previous problems with bowel obstruction, but he has never been hospitalized for them. He just puts himself on a clear liquid diet for a day or two and they pass on their own. No other significant complaints. PAST MEDICAL HISTORY: Chronic atrial fibrillation (a-fib), incarcerated inguinal hernia. PAST SURGICAL HISTORY: Appendectomy, inguinal hernia repair on the left. FAMILY HISTORY: Noncontributory. ALLERGIES: None. HOME MEDICATIONS: See medical record. However they include Eliquis. SOCIAL HISTORY: Negative. REVIEW OF SYSTEMS: Pertinent positives and negative as stated in HPI. PHYSICAL EXAMINATION: General: Alert and oriented times three. No acute distress. Vitals: Temperature 97.7. [pulse 114, respiration 18, blood pressure 107/63, pulse ox 98%. HEENT: Pupils equal round react to light and accommodation. Heart: S1, S2 regular rhythm. Lungs: Clear to auscultation bilaterally. Abdomen: Soft, slight tenderness to palpation on the right lower quadrant. No rebounding or rigidity. Extremities: No clubbing, cyanosis or edema. LABORATORY DATA White count was 10.4, hemoglobin 11.6, platelets 217. Potassium 4, creatinine 1.07. IMAGING STUDIES CT abdomen and pelvis shows high-grade small bowel obstruction with transition to the right lower quadrant. No signs of any free air or free fluid to suggest perforation. ASSESSMENT/PLAN Again, the patient is an 88-year-old male. Signs and symptoms consistent with distal small bowel obstruction. Currently, he has a non peritoneal abdomen. The bowel obstruction is likely secondary to adhesions from prior appendectomy. Recommendation at this time is to treat medically. NG tube, IV fluids, antibiotics, bowel decompression and ambulation. If he goes beyond 72 hours and has not had any flatus or bowel movements and not showing any signs of improvement then we will discuss laparoscopic lysis of adhesions, possible bowel resection if needed at that time. The patient understands. He is comfortable at this time with the NG tube. Will continue with current management and will reassess in 24 hours.
[2018-10-24] VITALS (12 sets, daily range): BP systolic 98–132; BP diastolic 54–82
[2018-10-24] MEDS: METOPROLOL 5 MG/5 ML VIAL IV SCH (05:50)
[2018-10-24] MEDS: D5W/LR 1,000 ML IV SCH (05:50)
[2018-10-24] MEDS: HEPARIN SOD (PORCINE) 5000 UNITS/ML VIAL SC SCH ×3 (05:51→21:34)
[2018-10-24 07:50] LABS: HEMATOCRIT 29.2 % (42.0-52.0); MEAN CORPUSCULAR HEMOGLOBIN 30.5 pg (27.0-33.0); MEAN CORPUSCULAR HGB CONC 31.5 g/dl (32.0-36.5); MEAN CORPUSCULAR VOLUME 96.7 fl (80.0-96.0); PLATELET COUNT, AUTOMATED 177 10^3/uL (150-450); RED BLOOD COUNT 3.02 10^6/uL (4.30-6.10); WHITE BLOOD COUNT 7.3 10^3/uL (4.0-10.0)
[2018-10-24 08:04] LABS: HEMOGLOBIN 9.2 g/dl (13.5-17.5)
[2018-10-24 08:23] LABS: BLOOD UREA NITROGEN 21 MG/DL (7-18); CALCIUM LEVEL 8.2 MG/DL (8.8-10.2); CARBON DIOXIDE LEVEL 33 MEQ/L (21-32); CHLORIDE LEVEL 105 MEQ/L (98-107); CREATININE FOR GFR 0.84 MG/DL (0.70-1.30); GLOMERULAR FILTRATION RATE > 60.0 (>35); GLUCOSE, FASTING 107 MG/DL (70-100); MAGNESIUM LEVEL 1.9 MG/DL (1.8-2.4); POTASSIUM SERUM 3.6 MEQ/L (3.5-5.1); SODIUM LEVEL 143 MEQ/L (136-145)
[2018-10-24] MEDS: PANTOPRAZOLE 40MG INJ (PROTONIX) (C9113) IV SCH (08:25)
[2018-10-24] MEDS: VITAMIN D (CHOLECALCIFEROL) 400 INTERNATIONAL UNITS TAB PO SCH (10:27)
[2018-10-24] MEDS: FAMOTIDINE 20 MG TAB PO SCH ×2 (10:27→21:34)
[2018-10-24] MEDS: ASPIRIN 81 MG ENTERIC TAB PO SCH (10:27)
[2018-10-24] MEDS: TAMSULOSIN 0.4 MG CAP PO SCH (10:28)
[2018-10-24] MEDS: METOPROLOL TART 25 MG TABLET PO SCH ×2 (10:28→21:00)
[2018-10-24] MEDS: ASCORBIC ACID 500 MG TAB PO SCH ×2 (10:28→21:34)
--- NOTE | 2018-10-24 10:38 | IPNPDOC ---
Text Note Date of Service The patient was seen on 10/24/18. NOTE No acute events overnight. He is tolerating sips and chips with the NGT out w ithout any nausea or emesis. He has had 4 soft BMS, and his abd pain is resolved. VSSAF NAD abd - soft, nt, nd, no rebound or guarding Labs - below A) 88y/o male with SBO due to adhesions that has likely resolved P) full liquid diet ambulate if tolerating diet, may advance to regular and discharge home tomorrow. Nate Lopez DO VS,Dawn, I+O VS, [place], I+O Laboratory Tests 10/24/18 07:25 Red Blood Count 3.02 L, Mean Corpuscular Volume 96.7 H, Mean Corpuscular Hemoglobin 30.5, Mean Corpuscular Hemoglobin Concent 31.5 L, Red Cell Distrib ution Width 15.7 H, Calcium Level 8.2 L Vital Signs Date Time Temp Pulse Resp B/P (MAP) Pulse Ox O2 Delivery O2 Flow Rate FiO2 10/24/18 10:28 107 104/54 10/24/18 06:00 18 91 10/24/18 04:00 96.8 10/24/18 02:00 1.0 10/23/18 01:00 Nasal Cannula I&O- Last 24 Hours up to 6 AM 10/24/18 06:00 Intake Total 2921 ml Output Total 650 ml Balance 2271 ml TELLY LOPEZ DO October 24, 2018 10:38
--- NOTE | 2018-10-24 10:58 | IPNPDOC ---
Subjective Date Seen The patient was seen on 10/24/18. Subjective Chief Complaint/HPI Patient seen and examined the bedside. The patient's NG tube came out yesterday. However, the patient did had several soft bowel movements yesterday. He was advanced to a sips and chips diet, and tolerated this without any issues. Patient seen by surgery this morning, and has had his diet advanced to full liquid. Otherwise, the patient remained hemodynamically stable overnight. We will downgrade the patient to PCU status. PT/OT ordered functional optimization. Objective Physical Examination General Exam: Positive: Alert, Cooperative, No Acute Distress ENT Exam: Positive: Atraumatic, Mucous membr. moist/pink Neck Exam: Negative: JVD Chest Exam: Positive: Clear to auscultation, Normal air movement Heart Exam: Positive: Rate Normal, Normal S1, Normal S2 Telemetry: Positive: Atrial fibrillation Abdomen Exam: Positive: Soft; Negative: Tenderness Extremity Exam: Negative: Tenderness, Swelling Neuro Exam: Positive: Normal Speech Assessment /Plan Plan/VTE VTE Prophylaxis Ordered?: Yes Plan High Grade SBO with a Remote History of Abdominal surgeries CT abdomen/pelvis notable for high grade small bowel obstruction with transition in the right lower quadrant. No free air, or free fluid to suggest perforation. The patient's NG tube came out yesterday. However, the patient did have several soft bowel movements yesterday. He was advanced to a sips and chips diet, and tolerated this without any issues. Patient seen by surgery this morning, and has had his diet advanced to full liquid. Otherwise, the patient remained hemodynamically stable overnight. We will downgrade the patient to PCU status. PT/OT ordered functional optimization. Atrial Fibrillation with RVR, resolved Blood pressure remains stable Patient transitioned to PO Meds We will resume Anticoagulation tomorrow if patient remains stable from above We will cont to monitor the patient CAD ASA & Statin, PO Metoprolol Dyslipidemia Statin Hx prostate cancer, BPH Flomax Outpatient urology followup. Restless Leg Syndrome Ropinrole DVT ppx: Heparin SC VS, I&O, 24H, Fishbone Vital Signs/I&O Vital Signs Date Time Temp Pulse Resp B/P (MAP) Pulse Ox O2 Delivery O2 Flow Rate FiO2 10/24/18 10:28 107 104/54 10/24/18 06:00 18 91 10/24/18 04:00 96.8 10/24/18 02:00 1.0 10/23/18 01:00 Nasal Cannula I&O- Last 24 Hours up to 6 AM 10/24/18 06:00 Intake Total 2921 ml Output Total 650 ml Balance 2271 ml Laboratory Data 24H LABS Laboratory Tests 2 10/23/18 12:44: Bedside Glucose (Misc Panel) 148H 10/23/18 18:08: Bedside Glucose (Misc Panel) 145H 10/23/18 23:36: Bedside Glucose (Misc Panel) 140H 10/24/18 06:05: Bedside Glucose (Misc Panel) 103 10/24/18 07:25: Nucleated Red Blood Cells % (auto) 0.0, Anion Gap 5L, Glomerular Filtration Rate > 60.0, Blood Urea Nitrogen 21H, Creatinine 0.84, Sodium Level 143#, Potassium Level 3.6, Chloride Level 105, Carbon Dioxide Level 33H, Calcium Level 8.2L, Magnesium Level 1.9 CBC/BMP Laboratory Tests 10/24/18 07:25 Red Blood Count 3.02 L, Mean Corpuscular Volume 96.7 H, Mean Corpuscular Hemoglobin 30.5, Mean Corpuscular Hemoglobin Concent 31.5 L, Red Cell Distribution Width 15.7 H, Calcium Level 8.2 L MOO MAHMOOD MD October 24, 2018 10:58
[2018-10-24] MEDS ORDERED: SLF 3 ML SYR IV PRN (16:15)
[2018-10-24] MEDS: SIMVASTATIN 10 MG TAB PO SCH (21:34)
[2018-10-24] MEDS: rOPINIRole 0.25 MG TAB(REQUIP) PO SCH (21:34)
[2018-10-24] MEDS: ACETAMINOPHEN TAB 650MG DOSE (2X325MG) PO PRN (21:34)
[2018-10-24] MEDS: SLF 3 ML SYR IV SCH (21:34)
[2018-10-24] MEDS: ONDANSETRON 4MG/2ML VIAL (J2405) IV PRN (23:57)
[2018-10-25 04:00] VITALS: BP 115/67
[2018-10-25 04:19] LABS: HEMATOCRIT 27.7 % (42.0-52.0); HEMOGLOBIN 8.8 g/dl (13.5-17.5); MEAN CORPUSCULAR HEMOGLOBIN 29.7 pg (27.0-33.0); MEAN CORPUSCULAR HGB CONC 31.8 g/dl (32.0-36.5); MEAN CORPUSCULAR VOLUME 93.6 fl (80.0-96.0); PLATELET COUNT, AUTOMATED 172 10^3/uL (150-450); RED BLOOD COUNT 2.96 10^6/uL (4.30-6.10); WHITE BLOOD COUNT 7.9 10^3/uL (4.0-10.0)
[2018-10-25 04:39] LABS: BLOOD UREA NITROGEN 18 MG/DL (7-18); CARBON DIOXIDE LEVEL 32 MEQ/L (21-32); CHLORIDE LEVEL 104 MEQ/L (98-107); CREATININE FOR GFR 0.75 MG/DL (0.70-1.30); GLOMERULAR FILTRATION RATE > 60.0 (>35); GLUCOSE, FASTING 91 MG/DL (70-100); MAGNESIUM LEVEL 1.9 MG/DL (1.8-2.4); POTASSIUM SERUM 3.4 MEQ/L (3.5-5.1); SODIUM LEVEL 141 MEQ/L (136-145)
[2018-10-25] MEDS: SLF 3 ML SYR IV SCH ×3 (05:59→21:20)
[2018-10-25] MEDS: HEPARIN SOD (PORCINE) 5000 UNITS/ML VIAL SC SCH ×3 (05:59→21:21)
[2018-10-25] MEDS ORDERED: POTASSIUM CHLORIDE 10% LIQ 20 MEQ/15 ML UDC PO ONE (07:45)
[2018-10-25 08:00] VITALS: BP 105/60
[2018-10-25] MEDS: ASPIRIN 81 MG ENTERIC TAB PO SCH (08:22)
[2018-10-25] MEDS: ASCORBIC ACID 500 MG TAB PO SCH ×2 (08:22→21:20)
[2018-10-25] MEDS: PANTOPRAZOLE 40MG INJ (PROTONIX) (C9113) IV SCH (08:22)
[2018-10-25] MEDS: VITAMIN D (CHOLECALCIFEROL) 400 INTERNATIONAL UNITS TAB PO SCH (08:22)
[2018-10-25] MEDS: FAMOTIDINE 20 MG TAB PO SCH ×2 (08:23→21:20)
[2018-10-25] MEDS: TAMSULOSIN 0.4 MG CAP PO SCH (08:23)
[2018-10-25] MEDS: METOPROLOL TART 25 MG TABLET PO SCH ×2 (08:23→21:20)
--- NOTE | 2018-10-25 10:14 | IPNPDOC ---
Subjective General Date/Time Seen The patient was seen on 10/25/18 at 10:13. Subject Chief Complaint/History The patient is a 88-year-old male admitted with a reason for visit of Chronic Afib With Rvr, Intestinal Obstruction. Reports feeling better, tolerating soft diet (ordered this morning) and has had several bms, (+) flatus Current Medications Current Medications Current Medications Acetaminophen (Tylenol Tab) 650 mg Q4HP PRN PO PAIN OR FEVER Last administered on 10/24/18at 21:34; Start 10/24/18 at 21:30 Ascorbic Acid (Vitamin C) 500 mg BID PO Last administered on 10/25/18at 08:22; Start 10/24/18 at 09:00 Aspirin (Ecotrin) 81 mg DAILY PO Last administered on 10/25/18at 08:22; Start 10/24/18 at 09:00 Dextrose/Lactated Ringer's 1,000 ml @ 100 mls/hr Q10H IV Last administered on 10/24/18at 05:50; Start 10/22/18 at 23:45; Stop 10/24/18 at 08:46; Status DC Diltiazem HCl (Cardizem) 10 mg Q4HP PRN IV For HR >90; Start 10/23/18 at 11:45; Stop 10/24/18 at 08:46; Status DC Diltiazem HCl (Cardizem) 10 mg Q6HP PRN IV For HR >110; Start 10/24/18 at 08:45 Diltiazem HCl 125 mg/Sodium Chloride 125 ml @ 5 mls/hr Q24H IV Last administered on 10/23/18at 03:21; Start 10/23/18 at 02:30; Stop 10/23/18 at 11:39; Status DC Famotidine (Pepcid) 20 mg BID PO Last administered on 10/25/18at 08:23; Start 10/24/18 at 09:00 Heparin Sodium (Porcine) (Heparin) 5,000 units Q8H SC Last administered on 10/25/18at 05:59; Start 10/23/18 at 06:00 Home Med (Med Rec Complete!) ASDIRECTED XX ; Start 10/22/18 at 23:30; Stop 10/22/18 at 23:32; Status DC Metoprolol Tartrate (Lopressor) 5 mg Q6H IV Last administered on 10/23/18at 00:16; Start 10/23/18 at 00:00; Stop 10/23/18 at 02:23; Status DC Metoprolol Tartrate (Lopressor) 5 mg Q6H IV ; Start 10/23/18 at 05:00; Stop at 05:00; Status DC Metoprolol Tartrate (Lopressor) 5 mg Q6H IV Last administered on 10/24/18at 05:50; Start 10/23/18 at 12:00; Stop 10/24/18 at 08:46; Status DC Metoprolol Tartrate (Lopressor) 5 mg STAT STAT IV Last administered on 10/22/18at 22:45; Start 10/22/18 at 22:34; Stop 10/22/18 at 22:35; Status DC Metoprolol Tartrate (Lopressor) 25 mg BID PO Last administered on 10/25/18at 08: 23; Start 10/24/18 at 09:00 Ondansetron HCl (ZOFRAN INJection) 4 mg Q4HP PRN IV NAUSEA OR VOMITING Last administered on 10/24/18at 23:57; Start 10/22/18 at 23:45 Pantoprazole Sodium (Protonix) 40 mg DAILY IV Last administered on 10/25/18 08:22; Start 10/23/18 at 09:00 Phenol (Chloraseptic [place]) 1 spray Q2HP PRN MT SORE THROAT; Start 10/23/18 at 11:45 Ropinirole HCl (Requip) 0.5 mg QHS PO Last administered on 10/24/18at 21:34; Start 10/24/18 at 21:00 Simvastatin (Zocor) 10 mg QHS PO Last administered on 10/24/18at 21:34; Start 10/24/18 at 21:00 Sodium Chloride (Saline Lock Flush) 2 ml ASDIRECTED PRN IV SEE LABEL COMMENTS; Start 10/24/18 at 16:15 Sodium Chloride (Saline Lock Flush) 2 ml SLF IV Last administered on 10/25/18at 05:59; Start 10/24/18 at 22:00 Tamsulosin HCl (Flomax) 0.4 mg DAILY PO Last administered on 10/25/18at 08:23; Start 10/24/18 at 09:00 Vitamin D (Vitamin D) 400 units DAILY PO Last administered on 10/25/18at 08:22; Start 10/24/18 at 09:00 Allergies Coded Allergies: No Known Allergies (Unverified , 08/31/18) Objective Physical Examination Examination GENERAL APPEARANCE:comfortable. SKIN: Warm and moist. HEENT: Normocephalic, atraumatic. Daykin palpebral conjunctiva, anicteric scl erae. Lips and mucosa appear moist. NECK: Supple, no thyromegaly. No obvious jugular venous distention. LUNGS: Clear to auscultation bilaterally. No wheezing appreciated. HEART: irregular rhythm, rates 90s. ABDOMEN: Abdomen is nondistended, soft, nontender. . EXTREMITIES: Extremities have no deformities. No edema identified. Vital Signs Vital Signs Date Time Temp Pulse Resp B/P (MAP) Pulse Ox O2 Delivery O2 Flow Rate FiO2 10/25/18 08:23 79 105/60 10/25/18 08:00 97.9 20 91 10/24/18 02:00 1.0 10/23/18 01:00 Nasal Cannula I&Os I&O- Last 24 Hours up to 6 AM 10/25/18 06:00 Intake Total 1160 ml Output Total 400 ml Balance 760 ml Laboratory Data Labs 24H Laboratory Tests 2 10/25/18 03:52: Nucleated Red Blood Cells % (auto) 0.0, Anion Gap 5L, Glomerular Filtration Rate > 60.0, Blood Urea Nitrogen 18, Creatinine 0.75, Sodium Level 141, Potassium Level 3.4L, Chloride Level 104, Carbon Dioxide Level 32, Calcium Level 8.0L, Magnesium Level 1.9 CBC/BMP Laboratory Tests 10/25/18 03:52 Red Blood Count 2.96 L, Mean Corpuscular Volume 93.6, Mean Corpuscular Hemoglobin 29.7, Mean Corpuscular Hemoglobin Concent 31.8 L, Red Cell Distribution Width 15.3 H, Calcium Level 8.0 L Impression Small bowel obstruction seems resolved at this point may advance diet as tolerated Plan / VTE VTE Prophylaxis Ordered?: Yes ALIZA CAMARA MD Oct 25, 2018 10:14
[2018-10-25 12:00] VITALS: BP 105/58
--- NOTE | 2018-10-25 12:54 | IPNPDOC ---
Subjective Date Seen The patient was seen on 10/25/18. Subjective Chief Complaint/HPI Agency and examined at the bedside. Denies any acute complaints of nausea, vomiting. States that he has been able to tolerate a liquid diet without any acute complaints. Notes that he was able to pass a bowel movement overnight. Objective Physical Examination General Exam: Positive: Alert, Cooperative, No Acute Distress ENT Exam: Positive: Atraumatic, Mucous membr. moist/pink Neck Exam: Negative: JVD Chest Exam: Positive: Clear to auscultation, Normal air movement Heart Exam: Positive: Rate Normal, Normal S1, Normal S2 Telemetry: Positive: Atrial fibrillation Abdomen Exam: Positive: Soft; Negative: Tenderness Extremity Exam: Negative: Tenderness, Swelling Neuro Exam: Positive: Normal Speech Assessment /Plan Plan/VTE VTE Prophylaxis Ordered?: Yes Plan High Grade SBO with a Remote History of Abdominal surgeries CT abdomen/pelvis notable for high grade small bowel obstruction with transition in the right lower quadrant. No free air, or free fluid to suggest perforation. s/p N/G Tube Patient's diet being successfully advanced thus far. Denies any N/V. Passing BMs and Flatus with no acute complaints of abdominal pain. Gen Surg input appreciated PT/OT on board for functional optimization. Atrial Fibrillation with RVR, resolved Blood pressure remains stable Patient transitioned to PO Meds We will resume Anticoagulation upon discharge if patient remains stable from above We will cont to monitor the patient CAD ASA & Statin, PO Metoprolol Dyslipidemia Statin Hx prostate cancer, BPH Flomax Outpatient urology followup. Restless Leg Syndrome Ropinrole DVT ppx: Heparin SC Disposition-pending continued clinical improvement, PT clearance. VS, I&O, 24H, [place] Vital Signs/I&O Vital Signs Date Time Temp Pulse Resp B/P (MAP) Pulse Ox O2 Delivery O2 Flow Rate FiO2 10/25/18 08:23 79 105/60 10/25/18 08:00 97.9 20 91 10/24/18 02:00 1.0 10/23/18 01:00 Nasal Cannula I&O- Last 24 Hours up to 6 AM 10/25/18 06:00 Intake Total 1160 ml Output Total 400 ml Balance 760 ml Laboratory Data 24H LABS Laboratory Tests 2 10/25/18 03:52: Nucleated Red Blood Cells % (auto) 0.0, Anion Gap 5L, Glomerular Filtration Rate > 60.0, Blood Urea Nitrogen 18, Creatinine 0.75, Sodium Level 141, Potassium Level 3.4L, Chloride Level 104, Carbon Dioxide Level 32, Calcium Level 8.0L, Magnesium Level 1.9 CBC/BMP Laboratory Tests 10/25/18 03:52 Red Blood Count 2.96 L, Mean Corpuscular Volume 93.6, Mean Corpuscular Hemoglobin 29.7, Mean Corpuscular Hemoglobin Concent 31.8 L, Red Cell Distribution Width 15.3 H, Calcium Level 8.0 L MOO MAHMOOD MD Oct 25, 2018 12:54
[2018-10-25 16:00] VITALS: BP 112/58
[2018-10-25 20:00] VITALS: BP 120/65
[2018-10-25] MEDS: SIMVASTATIN 10 MG TAB PO SCH (21:20)
[2018-10-25] MEDS: rOPINIRole 0.25 MG TAB(REQUIP) PO SCH (21:20)
[2018-10-25] MEDS ORDERED: MIDAZOLAM INJ 2 MG/2 ML VIAL (J2250) IV PRN (22:15)
[2018-10-25] MEDS: ACETAMINOPHEN TAB 650MG DOSE (2X325MG) PO PRN (23:55)
[2018-10-25 23:59] VITALS: BP 104/72
[2018-10-26 04:00] VITALS: BP 100/63
[2018-10-26 04:57] LABS: HEMATOCRIT 27.6 % (42.0-52.0); HEMOGLOBIN 8.8 g/dl (13.5-17.5); MEAN CORPUSCULAR HEMOGLOBIN 29.7 pg (27.0-33.0); MEAN CORPUSCULAR HGB CONC 31.9 g/dl (32.0-36.5); MEAN CORPUSCULAR VOLUME 93.2 fl (80.0-96.0); PLATELET COUNT, AUTOMATED 164 10^3/uL (150-450); RED BLOOD COUNT 2.96 10^6/uL (4.30-6.10); WHITE BLOOD COUNT 8.4 10^3/uL (4.0-10.0)
[2018-10-26 05:18] LABS: BLOOD UREA NITROGEN 16 MG/DL (7-18); CALCIUM LEVEL 7.9 MG/DL (8.8-10.2); CARBON DIOXIDE LEVEL 31 MEQ/L (21-32); CHLORIDE LEVEL 104 MEQ/L (98-107); CREATININE FOR GFR 0.76 MG/DL (0.70-1.30); GLOMERULAR FILTRATION RATE > 60.0 (>35); GLUCOSE, FASTING 99 MG/DL (70-100); MAGNESIUM LEVEL 1.5 MG/DL (1.8-2.4); POTASSIUM SERUM 4.3 MEQ/L (3.5-5.1); SODIUM LEVEL 140 MEQ/L (136-145)
[2018-10-26] MEDS: HEPARIN SOD (PORCINE) 5000 UNITS/ML VIAL SC SCH ×3 (05:23→20:33)
[2018-10-26] MEDS: SLF 3 ML SYR IV SCH ×3 (05:23→20:33)
[2018-10-26] MEDS ORDERED: MAG SULF 1GM/100ML (MAG RUN) 1 GM in APPROPRIATE DILUENT 1 EA IV ONE (06:15)
[2018-10-26 08:00] VITALS: BP 126/70
[2018-10-26] MEDS: FAMOTIDINE 20 MG TAB PO SCH ×2 (08:19→20:33)
[2018-10-26] MEDS: VITAMIN D (CHOLECALCIFEROL) 400 INTERNATIONAL UNITS TAB PO SCH (08:19)
[2018-10-26] MEDS: TAMSULOSIN 0.4 MG CAP PO SCH (08:19)
[2018-10-26] MEDS: ASCORBIC ACID 500 MG TAB PO SCH ×2 (08:19→20:33)
[2018-10-26] MEDS: METOPROLOL TART 25 MG TABLET PO SCH ×2 (08:20→20:32)
[2018-10-26] MEDS: PANTOPRAZOLE 40MG INJ (PROTONIX) (C9113) IV SCH (08:20)
[2018-10-26] MEDS: ASPIRIN 81 MG ENTERIC TAB PO SCH (08:20)
[2018-10-26 12:00] VITALS: BP 118/64
--- NOTE | 2018-10-26 13:15 | IPNPDOC ---
Subjective Date Seen The patient was seen on 10/26/18. Subjective Chief Complaint/HPI Patient seen and examined at the bedside. He reports that he was able to tolerate an advanced diet without any acute complaints. Notes that he has not had a bowel movement in the last 24 hours, but states that he continues to pass flatus and denies any abdominal pain or nausea/vomiting. Objective Physical Examination General Exam: Positive: Alert, Cooperative, No Acute Distress ENT Exam: Positive: Atraumatic, Mucous membr. moist/pink Neck Exam: Negative: JVD Chest Exam: Positive: Clear to auscultation, Normal air movement Heart Exam: Positive: Rate Normal, Normal S1, Normal S2 Telemetry: Positive: Atrial fibrillation Abdomen Exam: Positive: Soft; Negative: Tenderness Extremity Exam: Negative: Tenderness, Swelling Neuro Exam: Positive: Normal Speech Assessment /Plan Plan/VTE VTE Prophylaxis Ordered?: Yes Plan High Grade SBO with a Remote History of Abdominal surgeries CT abdomen/pelvis notable for high grade small bowel obstruction with transition in the right lower quadrant. No free air, or free fluid to suggest perforation on admission. s/p N/G Tube Patient's diet being successfully advanced thus far. Denies any N/V. Passing BMs and Flatus with no acute complaints of abdominal pain. Gen Surg input appreciated PT/OT on board for functional optimization. Atrial Fibrillation with RVR, resolved Blood pressure remains stable Patient transitioned to PO Meds We will resume Anticoagulation upon discharge if patient remains stable from above We will cont to monitor the patient CAD ASA & Statin, PO Metoprolol Dyslipidemia Statin Hx prostate cancer, BPH Flomax Outpatient urology followup. Restless Leg Syndrome Ropinrole DVT ppx: Heparin SC Disposition-pending continued clinical improvement, PT clearance. VS, I&O, 24H, Fishbone Vital Signs/I&O Vital Signs Date Time Temp Pulse Resp B/P (MAP) Pulse Ox O2 Delivery O2 Flow Rate FiO2 10/26/18 12:00 97.1 98 18 118/64 (82) 99 10/24/18 02:00 1.0 10/23/18 01:00 Nasal Cannula I&O- Last 24 Hours up to 6 AM 10/26/18 06:00 Intake Total 640 ml Output Total 200 ml Balance 440 ml Laboratory Data 24H LABS Laboratory Tests 2 10/26/18 04:30: Nucleated Red Blood Cells % (auto) 0.0, Anion Gap 5L, Glomerular Filtration Rate > 60.0, Blood Urea Nitrogen 16, Creatinine 0.76, Sodium Level 140, Potassium Level 4.3#, Chloride Level 104, Carbon Dioxide Level 31, Calcium Level 7.9L, Magnesium Level 1.5L CBC/BMP Laboratory Tests 10/26/18 04:30 Red Blood Count 2.96 L, Mean Corpuscular Volume 93.2, Mean Corpuscular Hemoglobin 29.7, Mean Corpuscular Hemoglobin Concent 31.9 L, Red Cell Distri bution Width 15.2 H, Calcium Level 7.9 L MOO MAHMOOD MD Oct 26, 2018 13:15
[2018-10-26 16:00] VITALS: BP 116/82
[2018-10-26 20:00] VITALS: BP 129/86
[2018-10-26] MEDS: rOPINIRole 0.25 MG TAB(REQUIP) PO SCH (20:32)
[2018-10-26] MEDS: SIMVASTATIN 10 MG TAB PO SCH (20:33)
[2018-10-26 23:59] VITALS: BP 129/84
[2018-10-27 04:00] VITALS: BP 121/96
[2018-10-27 05:38] LABS: HEMOGLOBIN 9.6 g/dl (13.5-17.5); MEAN CORPUSCULAR HEMOGLOBIN 30.1 pg (27.0-33.0); PLATELET COUNT, AUTOMATED 199 10^3/uL (150-450); RED BLOOD COUNT 3.19 10^6/uL (4.30-6.10); WHITE BLOOD COUNT 10.6 10^3/uL (4.0-10.0)
[2018-10-27] MEDS: SLF 3 ML SYR IV SCH ×3 (05:56→20:59)
[2018-10-27] MEDS: HEPARIN SOD (PORCINE) 5000 UNITS/ML VIAL SC SCH ×3 (05:56→20:59)
[2018-10-27 05:58] LABS: BLOOD UREA NITROGEN 13 MG/DL (7-18); CALCIUM LEVEL 7.9 MG/DL (8.8-10.2); CARBON DIOXIDE LEVEL 28 MEQ/L (21-32); CHLORIDE LEVEL 105 MEQ/L (98-107); CREATININE FOR GFR 0.72 MG/DL (0.70-1.30); GLOMERULAR FILTRATION RATE > 60.0 (>35); GLUCOSE, FASTING 99 MG/DL (70-100); MAGNESIUM LEVEL 2.1 MG/DL (1.8-2.4); POTASSIUM SERUM 4.3 MEQ/L (3.5-5.1); SODIUM LEVEL 138 MEQ/L (136-145)
[2018-10-27 08:00] VITALS: BP 127/78
[2018-10-27] MEDS: ASCORBIC ACID 500 MG TAB PO SCH ×2 (08:17→20:59)
[2018-10-27] MEDS: TAMSULOSIN 0.4 MG CAP PO SCH (08:17)
[2018-10-27] MEDS: PANTOPRAZOLE 40MG INJ (PROTONIX) (C9113) IV SCH (08:17)
[2018-10-27] MEDS: ASPIRIN 81 MG ENTERIC TAB PO SCH (08:18)
[2018-10-27] MEDS: FAMOTIDINE 20 MG TAB PO SCH ×2 (08:18→20:59)
[2018-10-27] MEDS: METOPROLOL TART 25 MG TABLET PO SCH ×2 (08:18→20:59)
[2018-10-27] MEDS: ACETAMINOPHEN TAB 650MG DOSE (2X325MG) PO PRN (08:19)
[2018-10-27] MEDS: VITAMIN D (CHOLECALCIFEROL) 400 INTERNATIONAL UNITS TAB PO SCH (10:17)
[2018-10-27 12:00] VITALS: BP 124/78
--- NOTE | 2018-10-27 12:49 | IPNPDOC ---
Subjective Date Seen The patient was seen on 10/27/18. Subjective Chief Complaint/HPI Patient seen and examined at the bedside. No acute overnight events noted. Patient states that he is continuing to tolerate a diet and passing fla tus/having solid BMs without any acute complaints. However, the patient did state that he is having some left sided neck/shoulder pain which is chronic. Objective Physical Examination General Exam: Positive: Alert, Cooperative, No Acute Distress ENT Exam: Positive: Atraumatic, Mucous membr. moist/pink Neck Exam: Negative: JVD Chest Exam: Positive: Clear to auscultation, Normal air movement Heart Exam: Positive: Rate Normal, Normal S1, Normal S2 Telemetry: Positive: Atrial fibrillation Abdomen Exam: Positive: Soft; Negative: Tenderness Extremity Exam: Negative: Tenderness, Swelling Neuro Exam: Positive: Normal Speech Assessment /Plan Plan/VTE VTE Prophylaxis Ordered?: Yes Plan High Grade SBO with a Remote History of Abdominal surgeries CT abdomen/pelvis notable for high grade small bowel obstruction with transition in the right lower quadrant. No free air, or free fluid to suggest perforation o n admission. s/p N/G Tube Patient's diet being successfully advanced thus far. Denies any N/V. Passing BMs and Flatus with no acute complaints of abdominal pain. Gen Surg input appreciated PT/OT on board for functional optimization. Atrial Fibrillation with RVR, resolved Blood pressure remains stable Patient transitioned to PO Meds We will resume Anticoagulation upon discharge if patient remains stable from above We will cont to monitor the patient CAD ASA & Statin, PO Metoprolol Dyslipidemia Statin Hx prostate cancer, BPH Flomax Outpatient urology followup. Restless Leg Syndrome Ropinrole DVT ppx: Heparin SC Disposition-pending continued clinical improvement, PT clearance. VS, I&O, 24H, Fishbone Vital Signs/I&O Vital Signs Date Time Temp Pulse Resp B/P (MAP) Pulse Ox O2 Delivery O2 Flow Rate FiO2 10/27/18 12:00 98.0 113 18 124/78 (93) 99 10/24/18 02:00 1.0 10/23/18 01:00 Nasal Cannula I&O- Last 24 Hours up to 6 AM 10/27/18 06:00 Intake Total 690 ml Output Total 600 ml Balance 90 ml Laboratory Data 24H LABS Laboratory Tests 2 10/27/18 05:00: Nucleated Red Blood Cells % (auto) 0.0, Anion Gap 5L, Glomerular Filtration Rate > 60.0, Blood Urea Nitrogen 13, Creatinine 0.72, Sodium Level 138, Potassium Level 4.3, Chloride Level 105, Carbon Dioxide Level 28, Calcium Level 7.9L, Magnesium Level 2.1 CBC/BMP Laboratory Tests 10/27/18 05:00 Red Blood Count 3.19 L, Mean Corpuscular Volume 94.0, Mean Corpuscular Hemoglobin 30.1, Mean Corpuscular Hemoglobin Concent 32.0, Red Cell Distribution Width 15.0 H, Calcium Level 7.9 L MOO MAHMOOD MD Oct 27, 2018 12:49
[2018-10-27 16:00] VITALS: BP 126/88
[2018-10-27 20:00] VITALS: BP 131/70
[2018-10-27] MEDS: rOPINIRole 0.25 MG TAB(REQUIP) PO SCH (20:59)
[2018-10-27] MEDS: SIMVASTATIN 10 MG TAB PO SCH (20:59)
[2018-10-27 23:59] VITALS: BP 116/77
[2018-10-28] VITALS (8 sets, daily range): BP systolic 115–142; BP diastolic 64–92
[2018-10-28] MEDS: ACETAMINOPHEN TAB 650MG DOSE (2X325MG) PO PRN (04:15)
[2018-10-28 05:48] LABS: HEMOGLOBIN 10.3 g/dl (13.5-17.5); MEAN CORPUSCULAR HGB CONC 32.2 g/dl (32.0-36.5); MEAN CORPUSCULAR VOLUME 93.3 fl (80.0-96.0); PLATELET COUNT, AUTOMATED 215 10^3/uL (150-450); RED BLOOD COUNT 3.43 10^6/uL (4.30-6.10); WHITE BLOOD COUNT 11.8 10^3/uL (4.0-10.0)
[2018-10-28] MEDS: HEPARIN SOD (PORCINE) 5000 UNITS/ML VIAL SC SCH ×3 (05:53→20:56)
[2018-10-28] MEDS: SLF 3 ML SYR IV SCH ×3 (05:53→20:30)
[2018-10-28 06:09] LABS: BLOOD UREA NITROGEN 14 MG/DL (7-18); CALCIUM LEVEL 7.9 MG/DL (8.8-10.2); CARBON DIOXIDE LEVEL 25 MEQ/L (21-32); CHLORIDE LEVEL 104 MEQ/L (98-107); CREATININE FOR GFR 0.78 MG/DL (0.70-1.30); GLOMERULAR FILTRATION RATE > 60.0 (>35); GLUCOSE, FASTING 107 MG/DL (70-100); POTASSIUM SERUM 4.2 MEQ/L (3.5-5.1); SODIUM LEVEL 136 MEQ/L (136-145)
[2018-10-28] MEDS: VITAMIN D (CHOLECALCIFEROL) 400 INTERNATIONAL UNITS TAB PO SCH (08:25)
[2018-10-28] MEDS: PANTOPRAZOLE 40MG INJ (PROTONIX) (C9113) IV SCH (08:25)
[2018-10-28] MEDS: ASCORBIC ACID 500 MG TAB PO SCH ×2 (08:26→20:30)
[2018-10-28] MEDS: ASPIRIN 81 MG ENTERIC TAB PO SCH (08:26)
[2018-10-28] MEDS: FAMOTIDINE 20 MG TAB PO SCH ×2 (08:26→20:30)
[2018-10-28] MEDS: TAMSULOSIN 0.4 MG CAP PO SCH (08:26)
[2018-10-28] MEDS: METOPROLOL TART 25 MG TABLET PO SCH ×2 (08:26→17:02)
--- NOTE | 2018-10-28 09:54 | IPNPDOC ---
Subjective Date Seen The patient was seen on 10/28/18. Subjective Chief Complaint/HPI Patient seen and examined at the bedside. Denies any acute complaints of pain, and notes that he has been tolerating a diet without any acute issues. However, the patient has been noted to be increasingly tachycardic upon activity. Denies any completes of chest pain, short of breath, or palpitations. Objective Physical Examination General Exam: Positive: Alert, Cooperative, No Acute Distress ENT Exam: Positive: Atraumatic, Mucous membr. moist/pink Neck Exam: Negative: JVD Chest Exam: Positive: Clear to auscultation, Normal air movement Heart Exam: Positive: Tachycardic, Normal S1, Normal S2 Telemetry: Positive: Atrial fibrillation Abdomen Exam: Positive: Soft; Negative: Tenderness Extremity Exam: Negative: Tenderness, Swelling Neuro Exam: Positive: Normal Speech Assessment /Plan Plan/VTE VTE Prophylaxis Ordered?: Yes Plan High Grade SBO with a Remote History of Abdominal surgeries CT abdomen/pelvis notable for high grade small bowel obstruction with transition in the right lower quadrant. No free air, or free fluid to suggest perforation on admission. s/p N/G Tube Patient's diet being successfully advanced thus far. Denies any N/V. Passing BMs and Flatus with no acute complaints of abdominal pain. Gen Surg input appreciated PT/OT on board for functional optimization. Atrial Fibrillation with RVR Patient increasingly tachycardic over the last 24 hours upon exertion when working with physical therapy. We have increased the frequency of his metoprolol, Cardizem IV when necessary. Blood pressure remains stable We will resume Anticoagulation upon discharge if patient remains stable from above We will cont to monitor the patient Leukocytosis possibly 2/2 Above Patient without any fevers or any other acute signs of infection at this time. We will continue to monitor off of antibiotics for now However if the patient spikes a fever or his white blood cell count gets worse; we will draw blood cultures and consider antibiotic therapy CAD ASA & Statin, PO Metoprolol Dyslipidemia Statin Hx prostate cancer, BPH Flomax Outpatient urology followup. Restless Leg Syndrome Ropinrole DVT ppx: Heparin SC Disposition-pending continued clinical improvement, PT clearance. VS, I&O, 24H, Fishbone Vital Signs/I&O Vital Signs Date Time Temp Pulse Resp B/P (MAP) Pulse Ox O2 Delivery O2 Flow Rate FiO2 10/28/18 08:26 121 122/92 10/28/18 08:00 96.2 22 96 10/24/18 02:00 1.0 10/23/18 01:00 Nasal Cannula I&O- Last 24 Hours up to 6 AM 10/28/18 06:00 Intake Total 600 ml Output Total 200 ml Balance 400 ml Laboratory Data 24H LABS Laboratory Tests 2 10/28/18 05:14: Nucleated Red Blood Cells % (auto) 0.0, Anion Gap 7L, Glomerular Filtration Rate > 60.0, Blood Urea Nitrogen 14, Creatinine 0.78, Sodium Level 136, Potassium Level 4.2, Chloride Level 104, Carbon Dioxide Level 25, Calcium Level 7.9L, Magnesium Level 2.0 CBC/BMP Laboratory Tests 10/28/18 05:14 Red Blood Count 3.43 L, Mean Corpuscular Volume 93.3, Mean Corpuscular Hemoglobin 30.0, Mean Corpuscular Hemoglobin Concent 32.2, Red Cell Distribution Width 15.4 H, Calcium Level 7.9 L MOO MAHMOOD MD Oct 28, 2018 09:54
--- NOTE | 2018-10-28 12:41 | REP ---
CT Head without contrast HISTORY: Fall COMPARISON: 07/05/2018 Areas of decreased attenuation are present in the periventricular and subcortical white matter. This represents small-vessel ischemic disease. There is no intraparenchymal hemorrhage, acute infarct, mass or midline shift. The ventricular system and cortical sulci as well as subarachnoid space in the posterior fossa are dilated consistent with moderate volume loss. There is no extra cerebral collection. There is no fracture. 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 IMPRESSION: Small-vessel ischemic disease. 2. Moderate volume loss. Electronically Signed by Miguelangel Nicolas MD 10/28/2018 12:32 P
[2018-10-28] MEDS: SIMVASTATIN 10 MG TAB PO SCH (20:30)
[2018-10-28] MEDS: rOPINIRole 0.25 MG TAB(REQUIP) PO SCH (20:30)
[2018-10-29] MEDS: METOPROLOL TART 25 MG TABLET PO SCH ×4 (00:37→18:46)
[2018-10-29] MEDS: SLF 3 ML SYR IV SCH ×3 (03:53→21:25)
[2018-10-29 04:00] VITALS: BP 135/99
[2018-10-29 05:06] LABS: HEMOGLOBIN 9.7 g/dl (13.5-17.5); MEAN CORPUSCULAR HEMOGLOBIN 30.3 pg (27.0-33.0); MEAN CORPUSCULAR HGB CONC 32.3 g/dl (32.0-36.5); MEAN CORPUSCULAR VOLUME 93.8 fl (80.0-96.0); PLATELET COUNT, AUTOMATED 218 10^3/uL (150-450); WHITE BLOOD COUNT 10.8 10^3/uL (4.0-10.0)
[2018-10-29 05:26] LABS: BLOOD UREA NITROGEN 15 MG/DL (7-18); CALCIUM LEVEL 8.7 MG/DL (8.8-10.2); CARBON DIOXIDE LEVEL 28 MEQ/L (21-32); CHLORIDE LEVEL 104 MEQ/L (98-107); CREATININE FOR GFR 0.82 MG/DL (0.70-1.30); GLOMERULAR FILTRATION RATE > 60.0 (>35); GLUCOSE, FASTING 97 MG/DL (70-100); MAGNESIUM LEVEL 1.7 MG/DL (1.8-2.4); POTASSIUM SERUM 4.2 MEQ/L (3.5-5.1); SODIUM LEVEL 137 MEQ/L (136-145)
[2018-10-29] MEDS: HEPARIN SOD (PORCINE) 5000 UNITS/ML VIAL SC SCH ×3 (05:32→21:24)
[2018-10-29 08:00] VITALS: BP 112/64
[2018-10-29] MEDS: VITAMIN D (CHOLECALCIFEROL) 400 INTERNATIONAL UNITS TAB PO SCH (10:28)
[2018-10-29] MEDS: PANTOPRAZOLE 40MG INJ (PROTONIX) (C9113) IV SCH (10:28)
[2018-10-29] MEDS: ASCORBIC ACID 500 MG TAB PO SCH ×2 (10:30→21:25)
[2018-10-29] MEDS: ACETAMINOPHEN TAB 650MG DOSE (2X325MG) PO PRN (10:30)
[2018-10-29] MEDS: FAMOTIDINE 20 MG TAB PO SCH ×2 (10:30→21:25)
[2018-10-29] MEDS: TAMSULOSIN 0.4 MG CAP PO SCH (10:31)
[2018-10-29] MEDS: ASPIRIN 81 MG ENTERIC TAB PO SCH (10:31)
[2018-10-29 12:16] VITALS: BP 118/74
[2018-10-29 20:00] VITALS: BP 123/76
[2018-10-29] MEDS: SIMVASTATIN 10 MG TAB PO SCH (21:25)
[2018-10-29] MEDS: rOPINIRole 0.25 MG TAB(REQUIP) PO SCH (21:25)
--- NOTE | 2018-10-29 22:01 | IPNPDOC ---
Subjective Date Seen The patient was seen on 10/29/18. Subjective Chief Complaint/HPI Pt was seen and examined. Denies any chest pain or lightheadedness. Denies any syncope. Pt is llying comfortable in no acute distress. General: Reports: Normal Appetite; Denies: Chills, Night Sweats, Fatigue, Malaise Constitutional: Denies: Chills, Fever, Night Sweats Eyes: Denies: Pain, Vision change ENT: Denies: Head Aches, Ear Pain, Dysphagia Skin: Denies: Rash, Lesions, Breakdown Pulmonary: Denies: Dyspnea, Cough Cardiovascular: Denies: Chest Pain, Palpitations, Orthopnea, Paroxysmal Noc. Dyspnea, Lt Headedness Gastrointestinal: Denies: Nausea, Vomiting, Abdominal Pain, Diarrhea, Constipation Hematologic: Denies: Bruising, Bleeding Excessively Musculoskeletal: Denies: Neck Pain, Back Pain, Joint Pain, Muscle Pain, Spasms Psych: Reports: Mood Normal; Denies: Depression, Memory Issues Objective Physical Examination General Exam: Positive: Alert, Cooperative, No Acute Distress ENT Exam: Positive: Atraumatic, Mucous membr. moist/pink Neck Exam: Negative: JVD Chest Exam: Positive: Clear to auscultation, Normal air movement Heart Exam: Positive: Tachycardic, Normal S1, Normal S2 Telemetry: Positive: Atrial fibrillation Abdomen Exam: Positive: Soft; Negative: Tenderness Extremity Exam: Negative: Tenderness, Swelling Neuro Exam: Positive: Normal Speech Assessment /Plan Assessment Pt is 88 y/o M who was admitted due to SBO with resolution with conservative management. Pt has Hx of Afib, pt with RVR at 110-120. Will cont to monitor closely on tele. Increase betablocker. Cont current meds. Plan/VTE VTE Prophylaxis Ordered?: Yes VS, I&O, 24H, Fishbone Vital Signs/I&O Vital Signs Date Time Temp Pulse Resp B/P (MAP) Pulse Ox O2 Delivery O2 Flow Rate FiO2 10/29/18 20:00 97.6 66 18 123/76 (92) 99 10/24/18 02:00 1.0 10/23/18 01:00 Nasal Cannula I&O- Last 24 Hours up to 6 AM 10/29/18 06:00 Intake Total 600 ml Output Total 400 ml Balance 200 ml Laboratory Data 24H LABS Laboratory Tests 2 10/29/18 04:52: Nucleated Red Blood Cells % (auto) 0.0, Anion Gap 5L, Glomerular Filtration Rate > 60.0, Blood Urea Nitrogen 15, Creatinine 0.82, Sodium Level 137, Potassium Level 4.2, Chloride Level 104, Carbon Dioxide Level 28, Calcium Level 8.7L, Magnesium Level 1.7L CBC/BMP Laboratory Tests 10/29/18 04:52 Red Blood Count 3.20 L, Mean Corpuscular Volume 93.8, Mean Corpuscular Hemoglobin 30.3, Mean Corpuscular Hemoglobin Concent 32.3, Red Cell Distribution Width 15.8 H, Calcium Level 8.7 L KIARA MASCORRO MD Oct 29, 2018 22:01
[2018-10-29 23:59] VITALS: BP 110/81
[2018-10-30] MEDS: METOPROLOL TART 25 MG TABLET PO SCH ×4 (01:35→18:54)
[2018-10-30 04:00] VITALS: BP 137/85
[2018-10-30 05:19] LABS: HEMATOCRIT 32.3 % (42.0-52.0); HEMOGLOBIN 10.3 g/dl (13.5-17.5); MEAN CORPUSCULAR HEMOGLOBIN 29.5 pg (27.0-33.0); MEAN CORPUSCULAR HGB CONC 31.9 g/dl (32.0-36.5); MEAN CORPUSCULAR VOLUME 92.6 fl (80.0-96.0); PLATELET COUNT, AUTOMATED 294 10^3/uL (150-450); RED BLOOD COUNT 3.49 10^6/uL (4.30-6.10); WHITE BLOOD COUNT 11.2 10^3/uL (4.0-10.0)
[2018-10-30 05:43] LABS: BLOOD UREA NITROGEN 16 MG/DL (7-18); CALCIUM LEVEL 8.5 MG/DL (8.8-10.2); CARBON DIOXIDE LEVEL 25 MEQ/L (21-32); CHLORIDE LEVEL 103 MEQ/L (98-107); CREATININE FOR GFR 0.91 MG/DL (0.70-1.30); GLOMERULAR FILTRATION RATE > 60.0 (>35); GLUCOSE, FASTING 115 MG/DL (70-100); MAGNESIUM LEVEL 1.7 MG/DL (1.8-2.4); POTASSIUM SERUM 3.8 MEQ/L (3.5-5.1); SODIUM LEVEL 136 MEQ/L (136-145)
[2018-10-30] MEDS: HEPARIN SOD (PORCINE) 5000 UNITS/ML VIAL SC SCH ×3 (06:15→20:24)
[2018-10-30] MEDS: SLF 3 ML SYR IV SCH ×3 (06:15→20:29)
[2018-10-30 07:41] VITALS: BP 112/62
[2018-10-30] MEDS: PANTOPRAZOLE 40MG INJ (PROTONIX) (C9113) IV SCH (09:17)
[2018-10-30] MEDS: ASCORBIC ACID 500 MG TAB PO SCH ×2 (09:17→20:24)
[2018-10-30] MEDS: TAMSULOSIN 0.4 MG CAP PO SCH (09:17)
[2018-10-30] MEDS: ASPIRIN 81 MG ENTERIC TAB PO SCH (09:17)
[2018-10-30] MEDS: VITAMIN D (CHOLECALCIFEROL) 400 INTERNATIONAL UNITS TAB PO SCH (09:18)
[2018-10-30] MEDS: FAMOTIDINE 20 MG TAB PO SCH ×2 (09:18→20:25)
[2018-10-30 11:54] VITALS: BP 120/78
--- NOTE | 2018-10-30 15:22 | IPNPDOC ---
Text Note Date of Service The patient was seen on 10/30/18. NOTE Pt was seen and examined at bedside. Pt is lying in bed comfortable, No acute distress. Pt denies any chest pain or dyspnea. Telemonitoring with HR 120s. Pt denies dizziness lightheadedness or palpitations. Subjective: Gen: Denies fever, chills, fatigue, malaise H&N: Denies headache vision change Chest: Denies chest pain, shortness of breath, dizziness, palpitations Abdomen: Denies pain, Nausea or vomiting Ext.: Denies LE edema tenderness : Denies change in urination MS: Denies back pain neck pain Objective: Gen: Pt is awake alert and oriented , speech and memory intact H&N: normocephalic, atraumatic, no icterus Chest: increased HR, S1 S2, no rales, clear lungs Abd: soft nontender no ascites Ext: no edema no tenderness Vital Signs Date Time Temp Pulse Resp B/P (MAP) Pulse Ox O2 Delivery O2 Flow Rate FiO2 10/30/18 11:56 140 120/78 10/30/18 11:54 98.1 140 22 120/78 (92) 99 10/30/18 07:41 96.9 138 22 112/62 (79) 95 10/30/18 06:15 110 10/30/18 04:00 97.3 128 20 137/85 (102) 97 10/30/18 01:46 137 10/30/18 01:35 137 10/29/18 23:59 97.7 126 20 110/81 (91) 98 10/29/18 20:00 97.6 66 18 123/76 (92) 99 10/29/18 18:46 122 118/74 Intake & Output 10/30/18 06:00 Intake Total 420 ml Output Total 400 ml Balance 20 ml Laboratory Tests 10/30/18 04:41: White Blood Count 11.2H, Red Blood Count 3.49L, Hemoglobin 10.3L, Hematocrit 32.3L, Mean Corpuscular Volume 92.6, Mean Corpuscular Hemoglobin 29.5, Mean Corpuscular Hemoglobin Concent 31.9L, Red Cell Distribution Width 16.1H, Platele t Count 294, Nucleated Red Blood Cells % (auto) 0.0, Blood Urea Nitrogen 16, Creatinine 0.91, Sodium Level 136, Potassium Level 3.8, Chloride Level 103, Carbon Dioxide Level 25, Calcium Level 8.5L, Anion Gap 8, Glomerular Filtration Rate > 60.0, Fasting Glucose 115H, Magnesium Level 1.7L Current Medications Medications (Trade) Dose Ordered Sig/Hailee Route PRN Reason Start Time Stop Time Status Last Admin Dose Admin Acetaminophen (Tylenol Tab) 650 mg Q4HP PRN PO PAIN OR FEVER 10/24/18 21:30 10/29/18 10:30 650 MG Ascorbic Acid (Vitamin C) 500 mg BID PO 10/24/18 09:00 10/30/18 09:17 500 MG Aspirin (Ecotrin) 81 mg DAILY PO 10/24/18 09:00 10/30/18 09:17 81 MG Diltiazem HCl (Cardizem) 10 mg Q6HP PRN IV For HR >110 10/24/18 08:45 10/30/18 01:46 10 MG Famotidine (Pepcid) 20 mg BID PO 10/24/18 09:00 10/30/18 09:18 20 MG Heparin Sodium (Porcine) (Heparin) 5,000 units Q8H SC 10/23/18 06:00 10/30/18 06:15 5,000 UNITS Metoprolol Tartrate (Lopressor) 25 mg Q6H PO 10/28/18 18:00 10/30/18 11:56 25 MG Ondansetron HCl (ZOFRAN INJection) 4 mg Q4HP PRN IV NAUSEA OR VOMITING 10/22/18 23:45 10/24/18 23:57 4 MG Pantoprazole Sodium (Protonix) 40 mg DAILY IV 10/23/18 09:00 10/30/18 09:17 40 MG Ropinirole HCl (Requip) 0.5 mg QHS PO 10/24/18 21:00 10/29/18 21:25 0.5 MG Simvastatin (Zocor) 10 mg QHS PO 10/24/18 21:00 10/29/18 21:25 10 MG Sodium Chloride (Saline Lock Flush) 2 ml SLF IV 10/24/18 22:00 10/30/18 06:15 2 ML Tamsulosin HCl (Flomax) 0.4 mg DAILY PO 10/24/18 09:00 10/30/18 09:17 0.4 MG Vitamin D (Vitamin D) 400 units DAILY PO 10/24/18 09:00 10/30/18 09:18 400 UNITS A/P 1-SBO: -resolved with conservative management, pt has been asymptomatic, no abdominal pain 2-Afib with RVR -Pt asymptomatic, Echo from current year NL EF, Pt on betablocker and cardizem prn. Pt HR increases while ambulating. Requires optimization of cardiac medications. Not reday for DC this afternoon. 3-Cont current management for chronic comorbidities. VS,Fishbone, I+O VS, Fishbone, I+O Laboratory Tests 10/30/18 04:41 Red Blood Count 3.49 L, Mean Corpuscular Volume 92.6, Mean Corpuscular Hemoglobin 29.5, Mean Corpuscular Hemoglobin Concent 31.9 L, Red Cell Dis tribution Width 16.1 H, Calcium Level 8.5 L Vital Signs Date Time Temp Pulse Resp B/P (MAP) Pulse Ox O2 Delivery O2 Flow Rate FiO2 10/30/18 11:56 140 120/78 10/30/18 11:54 98.1 22 99 10/24/18 02:00 1.0 I&O- Last 24 Hours up to 6 AM 10/30/18 06:00 Intake Total 420 ml Output Total 400 ml Balance 20 ml KIARA MASCORRO MD Oct 30, 2018 15:22
[2018-10-30 16:00] VITALS: BP 130/86
[2018-10-30] MEDS ORDERED: MAGNESIUM OXIDE 400 MG TAB (MAG-OX) PO ONE (17:30)
[2018-10-30 20:00] VITALS: BP 118/70
[2018-10-30] MEDS: rOPINIRole 0.25 MG TAB(REQUIP) PO SCH (20:24)
[2018-10-30] MEDS: SIMVASTATIN 10 MG TAB PO SCH (20:25)
[2018-10-30 23:59] VITALS: BP 108/65
[2018-10-31] VITALS (7 sets, daily range): BP systolic 95–141; BP diastolic 54–88
[2018-10-31] MEDS: METOPROLOL TART 25 MG TABLET PO SCH ×2 (00:07→06:09)
[2018-10-31 05:39] LABS: HEMATOCRIT 31.8 % (42.0-52.0); HEMOGLOBIN 10.2 g/dl (13.5-17.5); MEAN CORPUSCULAR HEMOGLOBIN 29.9 pg (27.0-33.0); MEAN CORPUSCULAR HGB CONC 32.1 g/dl (32.0-36.5); MEAN CORPUSCULAR VOLUME 93.3 fl (80.0-96.0); PLATELET COUNT, AUTOMATED 268 10^3/uL (150-450); RED BLOOD COUNT 3.41 10^6/uL (4.30-6.10); WHITE BLOOD COUNT 9.1 10^3/uL (4.0-10.0)
[2018-10-31 05:59] LABS: BLOOD UREA NITROGEN 16 MG/DL (7-18); CALCIUM LEVEL 8.8 MG/DL (8.8-10.2); CARBON DIOXIDE LEVEL 27 MEQ/L (21-32); CHLORIDE LEVEL 103 MEQ/L (98-107); CREATININE FOR GFR 0.89 MG/DL (0.70-1.30); GLOMERULAR FILTRATION RATE > 60.0 (>35); GLUCOSE, FASTING 107 MG/DL (70-100); MAGNESIUM LEVEL 1.8 MG/DL (1.8-2.4); POTASSIUM SERUM 4.1 MEQ/L (3.5-5.1); SODIUM LEVEL 137 MEQ/L (136-145)
[2018-10-31] MEDS: HEPARIN SOD (PORCINE) 5000 UNITS/ML VIAL SC SCH ×3 (06:09→20:24)
[2018-10-31] MEDS: SLF 3 ML SYR IV SCH ×3 (06:09→20:25)
[2018-10-31] MEDS: ASPIRIN 81 MG ENTERIC TAB PO SCH (08:49)
[2018-10-31] MEDS: TAMSULOSIN 0.4 MG CAP PO SCH (08:49)
[2018-10-31] MEDS: FAMOTIDINE 20 MG TAB PO SCH ×2 (08:49→20:25)
[2018-10-31] MEDS: ASCORBIC ACID 500 MG TAB PO SCH ×2 (08:49→20:25)
[2018-10-31] MEDS: VITAMIN D (CHOLECALCIFEROL) 400 INTERNATIONAL UNITS TAB PO SCH (08:49)
[2018-10-31] MEDS: PANTOPRAZOLE 40MG TAB (PROTONIX) PO SCH (09:00)
[2018-10-31] MEDS: METOPROLOL TART 50 MG TAB PO SCH ×2 (14:00→20:25)
[2018-10-31] MEDS: rOPINIRole 0.25 MG TAB(REQUIP) PO SCH (20:25)
[2018-10-31] MEDS: SIMVASTATIN 10 MG TAB PO SCH (20:25)
--- NOTE | 2018-10-31 23:21 | IPNPDOC ---
Text Note Date of Service The patient was seen on 10/31/18. NOTE Pt was seen and examined at bedside. Denies any chest pain or palpitations. Denies syncope. He ambulates in room and works with PT. HR under better control now. metoprolol dose has been adjusted. Reviewed pt with Dr. Schmitt from cardiology in the unit. Pt is medically optimized for DC however, requires placement as RN indicates that family would not wish pt to return to home. Subjective: Gen: Denies fever, chills, fatigue, malaise H&N: Denies headache vision change Chest: Denies chest pain, shortness of breath, dizziness, palpitations Abdomen: Denies pain, Nausea or vomiting Ext.: Denies LE edema tenderness : Denies change in urination MS: Denies back pain neck pain Objective: Gen: Pt is awake alert and oriented , speech and memory intact H&N: normocephalic, atraumatic, no icterus Chest: increased HR, S1 S2, no rales, clear lungs Abd: soft nontender no ascites Ext: no edema no tenderness Vital Signs Date Time Temp Pulse Resp B/P (MAP) Pulse Ox O2 Delivery O2 Flow Rate FiO2 10/31/18 23:59 97.2 65 18 121/57 (78) 96 10/31/18 20:25 82 116/54 10/31/18 20:00 97.6 82 16 116/54 (74) 100 10/31/18 16:00 98.1 116 20 103/60 (74) 99 10/31/18 14:23 118 95/65 (75) 10/31/18 12:00 98.0 106 20 133/68 (89) 94 10/31/18 07:57 97.7 105 20 141/67 (91) 95 10/31/18 06:09 89 132/62 10/31/18 04:00 97.5 67 16 114/88 (97) 99 Intake & Output 11/01/18 05:59 Intake Total 840 ml Output Total 750 ml Balance 90 ml Laboratory Tests 10/31/18 04:49: White Blood Count 9.1, Red Blood Count 3.41L, Hemoglobin 10.2L, Hematocrit 31.8L, Mean Corpuscular Volume 93.3, Mean Corpuscular Hemoglobin 29.9, Mean Corpuscular Hemoglobin Concent 32.1, Red Cell Distribution Width 16.1H, Platelet Count 268, Nucleated Red Blood Cells % (auto) 0.0, Blood Urea Nitrogen 16, Creatinine 0.89, Sodium Level 137, Potassium Level 4.1, Chloride Level 103, Carbon Dioxide Level 27, Calcium Level 8.8, Anion Gap 7L, Glomerular Filtration Rate > 60.0, Fasting Glucose 107H, Magnesium Level 1.8 Current Medications Medications (Trade) Dose Ordered Sig/Hailee Route PRN Reason Start Time Stop Time Status Last Admin Dose Admin Acetaminophen (Tylenol Tab) 650 mg Q4HP PRN PO PAIN OR FEVER 10/24/18 21:30 10/29/18 10:30 650 MG Ascorbic Acid (Vitamin C) 500 mg BID PO 10/24/18 09:00 10/31/18 20:25 500 MG Aspirin (Ecotrin) 81 mg DAILY PO 10/24/18 09:00 10/31/18 08:49 81 MG Diltiazem HCl (Cardizem) 10 mg Q6HP PRN IV For HR >110 10/24/18 08:45 10/30/18 01:46 10 MG Famotidine (Pepcid) 20 mg BID PO 10/24/18 09:00 10/31/18 20:25 20 MG Heparin Sodium (Porcine) (Heparin) 5,000 units Q8H SC 10/23/18 06:00 10/31/18 20:24 5,000 UNITS Metoprolol Tartrate (Lopressor) 50 mg Q8H PO 10/31/18 14:00 10/31/18 20:25 50 MG Ondansetron HCl (ZOFRAN INJection) 4 mg Q4HP PRN IV NAUSEA OR VOMITING 10/22/18 23:45 10/24/18 23:57 4 MG Ropinirole HCl (Requip) 0.5 mg QHS PO 10/24/18 21:00 10/31/18 20:25 0.5 MG Simvastatin (Zocor) 10 mg QHS PO 10/24/18 21:00 10/31/18 20:25 10 MG Sodium Chloride (Saline Lock Flush) 2 ml SLF IV 10/24/18 22:00 10/31/18 20:25 2 ML Tamsulosin HCl (Flomax) 0.4 mg DAILY PO 10/24/18 09:00 10/31/18 08:49 0.4 MG Vitamin D (Vitamin D) 400 units DAILY PO 10/24/18 09:00 10/31/18 08:49 400 UNITS 1-Small Bowel Obstruction -resolved with conservative management, pt has been asymptomatic, no abdominal pain 2-Afib with RVR -Pt asymptomatic, Echo from current year NL EF, Pt on betablocker and cardizem prn. Pt HR increases while ambulating. Now under better control. Dr. Schmitt in the unit, discussed with him to adjust medications. 3-Cont current management for chronic comorbidities. PT/OT SW Requires Placement Medically optimized VS,Fishbone, I+O VS, Fishbone, I+O Laboratory Tests 10/31/18 04:49 Red Blood Count 3.41 L, Mean Corpuscular Volume 93.3, Mean Corpuscular Hemoglobin 29.9, Mean Corpuscular Hemoglobin Concent 32.1, Red Cell Distribution Width 16.1 H, Calcium Level 8.8 Vital Signs Date Time Temp Pulse Resp B/P (MAP) Pulse Ox O2 Delivery O2 Flow Rate FiO2 10/31/18 20:25 82 116/54 10/31/18 20:00 97.6 16 100 I&O- Last 24 Hours up to 6 AM 10/31/18 06:00 Intake Total 360 ml Output Total 1425 ml Balance -1065 ml KIARA MASCORRO MD Oct 31, 2018 23:21
[2018-11-01 04:00] VITALS: BP 142/76
[2018-11-01] MEDS: HEPARIN SOD (PORCINE) 5000 UNITS/ML VIAL SC SCH ×3 (05:13→21:41)
[2018-11-01] MEDS: SLF 3 ML SYR IV SCH ×4 (05:13→21:42)
[2018-11-01] MEDS: METOPROLOL TART 50 MG TAB PO SCH ×3 (05:15→21:42)
[2018-11-01 07:39] VITALS: BP 132/58
[2018-11-01] MEDS: VITAMIN D (CHOLECALCIFEROL) 400 INTERNATIONAL UNITS TAB PO SCH (09:50)
[2018-11-01] MEDS: PANTOPRAZOLE 40MG TAB (PROTONIX) PO SCH (09:50)
[2018-11-01] MEDS: ASPIRIN 81 MG ENTERIC TAB PO SCH (09:50)
[2018-11-01] MEDS: ASCORBIC ACID 500 MG TAB PO SCH ×2 (09:51→20:29)
[2018-11-01] MEDS: TAMSULOSIN 0.4 MG CAP PO SCH (09:51)
[2018-11-01] MEDS: FAMOTIDINE 20 MG TAB PO SCH ×2 (09:51→20:30)
[2018-11-01 11:50] VITALS: BP 127/58
[2018-11-01] MEDS: ACETAMINOPHEN TAB 650MG DOSE (2X325MG) PO PRN (13:50)
--- NOTE | 2018-11-01 14:09 | IPNPDOC ---
Text Note Date of Service The patient was seen on 11/01/18. NOTE Pt was seen and examined at bedside. Denies any chest pain or palpitations. Denies syncope. He ambulates in room and works with PT. HR under better control now. metoprolol dose has been adjusted. Reviewed pt with Dr. Schmitt from cardiology in the unit. Pt is medically optimized for DC however, requires placement as RN indicates that family would not wish pt to return to home. Subjective: Gen: Denies fever, chills, fatigue, malaise H&N: Denies headache vision change Chest: Denies chest pain, shortness of breath, dizziness, palpitations Abdomen: Denies pain, Nausea or vomiting Ext.: Denies LE edema tenderness : Denies change in urination MS: Denies back pain neck pain Objective: Gen: Pt is awake alert and oriented , speech and memory intact H&N: normocephalic, atraumatic, no icterus Chest: increased HR, S1 S2, no rales, clear lungs Abd: soft nontender no ascites Ext: no edema no tenderness Vital Signs Date Time Temp Pulse Resp B/P (MAP) Pulse Ox O2 Delivery O2 Flow Rate FiO2 11/01/18 13:50 88 112/59 11/01/18 11:50 97.4 73 18 127/58 (81) 98 11/01/18 07:39 97.0 65 18 132/58 (82) 99 11/01/18 05:15 135 142/76 11/01/18 04:00 97.9 93 18 142/76 (98) 96 10/31/18 23:59 97.2 65 18 121/57 (78) 96 10/31/18 20:25 82 116/54 10/31/18 20:00 97.6 82 16 116/54 (74) 100 10/31/18 16:00 98.1 116 20 103/60 (74) 99 10/31/18 14:23 118 95/65 (75) Intake & Output 11/01/18 05:59 Intake Total 840 ml Output Total 950 ml Balance -110 ml Current Medications Medications (Trade) Dose Ordered Sig/Hailee Route PRN Reason Start Time Stop Time Status Last Admin Dose Admin Acetaminophen (Tylenol Tab) 650 mg Q4HP PRN PO PAIN OR FEVER 10/24/18 21:30 11/01/18 13:50 650 MG Ascorbic Acid (Vitamin C) 500 mg BID PO 10/24/18 09:00 11/01/18 09:51 500 MG Aspirin (Ecotrin) 81 mg DAILY PO 10/24/18 09:00 11/01/18 09:50 81 MG Diltiazem HCl (Cardizem) 10 mg Q6HP PRN IV For HR >110 10/24/18 08:45 10/30/18 01:46 10 MG Famotidine (Pepcid) 20 mg BID PO 10/24/18 09:00 11/01/18 09:51 20 MG Heparin Sodium (Porcine) (Heparin) 5,000 units Q8H SC 10/23/18 06:00 11/01/18 13:51 5,000 UNITS Metoprolol Tartrate (Lopressor) 50 mg Q8H PO 10/31/18 14:00 11/01/18 13:50 50 MG Ondansetron HCl (ZOFRAN INJection) 4 mg Q4HP PRN IV NAUSEA OR VOMITING 10/22/18 23:45 10/24/18 23:57 4 MG Pantoprazole Sodium (Protonix) 40 mg DAILY PO 10/31/18 09:00 11/01/18 09:50 40 MG Ropinirole HCl (Requip) 0.5 mg QHS PO 10/24/18 21:00 10/31/18 20:25 0.5 MG Simvastatin (Zocor) 10 mg QHS PO 10/24/18 21:00 10/31/18 20:25 10 MG Sodium Chloride (Saline Lock Flush) 2 ml SLF IV 10/24/18 22:00 11/01/18 05:13 2 ML Tamsulosin HCl (Flomax) 0.4 mg DAILY PO 10/24/18 09:00 11/01/18 09:51 0.4 MG Vitamin D (Vitamin D) 400 units DAILY PO 10/24/18 09:00 11/01/18 09:50 400 UNITS 1-Small Bowel Obstruction -resolved with conservative management, pt has been asymptomatic, no abdominal pain 2-Afib with RVR -Pt asymptomatic, Echo from current year NL EF, Pt on betablocker and cardizem prn. Pt HR increases while ambulating. Now under better control. Dr. Schmitt in the unit, discussed with him to adjust medications. 3-Cont current management for chronic comorbidities. PT/OT SW Requires Placement Medically optimized for discharge VS,Fishbone, I+O VS, Fishbone, I+O Vital Signs Date Time Temp Pulse Resp B/P (MAP) Pulse Ox O2 Delivery O2 Flow Rate FiO2 11/01/18 13:50 88 112/59 11/01/18 11:50 97.4 18 98 I&O- Last 24 Hours up to 6 AM 11/01/18 05:59 Intake Total 840 ml Output Total 950 ml Balance -110 ml KIARA MASCORRO MD Nov 01, 2018 14:09
[2018-11-01 16:00] VITALS: BP 107/56
[2018-11-01 20:00] VITALS: BP 132/66
[2018-11-01] MEDS: rOPINIRole 0.25 MG TAB(REQUIP) PO SCH (20:30)
[2018-11-01] MEDS: SIMVASTATIN 10 MG TAB PO SCH (20:30)
[2018-11-02] VITALS: BP_SYST 133; BP_SYST 146; BP_DIAS 64; BP_DIAS 81
[2018-11-02 04:00] VITALS: BP 113/59
[2018-11-02] MEDS: HEPARIN SOD (PORCINE) 5000 UNITS/ML VIAL SC SCH ×3 (05:48→21:36)
[2018-11-02] MEDS: METOPROLOL TART 50 MG TAB PO SCH ×3 (05:50→21:37)
[2018-11-02 07:56] VITALS: BP 120/81
[2018-11-02] MEDS: ASCORBIC ACID 500 MG TAB PO SCH ×2 (08:27→21:28)
[2018-11-02] MEDS: FAMOTIDINE 20 MG TAB PO SCH ×2 (08:27→21:28)
[2018-11-02] MEDS: TAMSULOSIN 0.4 MG CAP PO SCH (08:27)
[2018-11-02] MEDS: VITAMIN D (CHOLECALCIFEROL) 400 INTERNATIONAL UNITS TAB PO SCH (08:27)
[2018-11-02] MEDS: ASPIRIN 81 MG ENTERIC TAB PO SCH (08:27)
[2018-11-02] MEDS: PANTOPRAZOLE 40MG TAB (PROTONIX) PO SCH (08:27)
[2018-11-02] MEDS ORDERED: MIRALAX *UNIT DOSE* 17GM PACKET PO PRN (10:45)
--- NOTE | 2018-11-02 11:00 | IPNPDOC ---
Text Note Date of Service The patient was seen on 11/02/18. NOTE Pt was seen and examined at bedside. Pt is awake alert and oriented. Pt is pleasant with no acute distress. Denies any CP, palpitations or syncope. Telemetry no events, HR 80-90. Pt has good po intake. Subjective: Gen: Denies fever, chills, fatigue, malaise H&N: Denies headache vision change Chest: Denies chest pain, shortness of breath, dizziness, palpitations Abdomen: Denies pain, Nausea or vomiting Ext.: Denies LE edema tenderness : Denies change in urination MS: Denies back pain neck pain Objective: Gen: Pt is awake alert and oriented , speech and memory intact H&N: normocephalic, atraumatic, no icterus Chest: S1 S2, no rales, clear lungs Abd: soft nontender no ascites Ext: no edema no tenderness Vital Signs Date Time Temp Pulse Resp B/P (MAP) Pulse Ox O2 Delivery O2 Flow Rate FiO2 11/02/18 07:56 97.0 67 18 120/81 (94) 98 11/02/18 05:50 113/59 11/02/18 04:00 97.4 64 18 113/59 (77) 98 11/02/18 00:00 97.4 58 18 133/64 (87) 96 0.0 11/01/18 21:42 132/66 11/01/18 20:00 97.4 80 16 132/66 (88) 98 11/01/18 16:00 97.7 85 18 107/56 (73) 99 11/01/18 13:50 88 112/59 11/01/18 11:50 97.4 73 18 127/58 (81) 98 Intake & Output 11/02/18 06:00 Intake Total 1320 ml Balance 1320 ml Laboratory Tests 11/01/18 19:55: Bedside Glucose (Misc Panel) 88 Current Medications Medications (Trade) Dose Ordered Sig/Hailee Route PRN Reason Start Time Stop Time Status Last Admin Dose Admin Acetaminophen (Tylenol Tab) 650 mg Q4HP PRN PO PAIN OR FEVER 10/24/18 21:30 11/01/18 13:50 650 MG Ascorbic Acid (Vitamin C) 500 mg BID PO 10/24/18 09:00 11/02/18 08:27 500 MG Aspirin (Ecotrin) 81 mg DAILY PO 10/24/18 09:00 11/02/18 08:27 81 MG Famotidine (Pepcid) 20 mg BID PO 10/24/18 09:00 11/02/18 08:27 20 MG Heparin Sodium (Porcine) (Heparin) 5,000 units Q8H SC 10/23/18 06:00 11/02/18 05:48 5,000 UNITS Metoprolol Tartrate (Lopressor) 50 mg Q8H PO 10/31/18 14:00 11/02/18 05:50 50 MG Ondansetron HCl (ZOFRAN INJection) 4 mg Q4HP PRN IV NAUSEA OR VOMITING 10/22/18 23:45 10/24/18 23:57 4 MG Ropinirole HCl (Requip) 0.5 mg QHS PO 10/24/18 21:00 11/01/18 20:30 0.5 MG Simvastatin (Zocor) 10 mg QHS PO 10/24/18 21:00 11/01/18 20:30 10 MG Sodium Chloride (Saline Lock Flush) 2 ml SLF IV 10/24/18 22:00 11/01/18 21:42 2 ML Tamsulosin HCl (Flomax) 0.4 mg DAILY PO 10/24/18 09:00 11/02/18 08:27 0.4 MG Vitamin D (Vitamin D) 400 units DAILY PO 10/24/18 09:00 11/02/18 08:27 400 UNITS 1-Small Bowel Obstruction -resolved with conservative management, pt has been asymptomatic, no abdominal pain, good po intake, BM normal. 2-Chronic Afib with RVR -Pt asymptomatic, Echo from current year NL EF -Betablocker dose adjusted to 50 mg of metoprolol q8hr, HR on Tele has been 80- 90s better controlled now. 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 PT/OT SW Pt was admitted due to SBO which has been resolved with conservative management, Afib with RVR (120-130) has been acute clinical condition for the last few days, it is now under control with adjustment of betablocker dose. Pt is medically optimized to dc home, however as per RN difficult family dynamic impede the discharge at this time. VS,Dawn, I+O VS, Fishbone, I+O Vital Signs Date Time Temp Pulse Resp B/P (MAP) Pulse Ox O2 Delivery O2 Flow Rate FiO2 11/02/18 07:56 97.0 67 18 120/81 (94) 98 11/02/18 00:00 0.0 I&O- Last 24 Hours up to 6 AM 11/02/18 06:00 Intake Total 1320 ml Balance 1320 ml KIARA MASCORRO MD Nov 02, 2018 11:00
[2018-11-02 11:41] VITALS: BP 110/54
[2018-11-02] MEDS: SLF 3 ML SYR IV SCH ×2 (14:00→21:37)
[2018-11-02 20:00] VITALS: BP 132/65
[2018-11-02] MEDS: SIMVASTATIN 10 MG TAB PO SCH (21:28)
[2018-11-02] MEDS: rOPINIRole 0.25 MG TAB(REQUIP) PO SCH (21:28)
[2018-11-03] VITALS (7 sets, daily range): BP systolic 104–135; BP diastolic 58–76
[2018-11-03] MEDS: METOPROLOL TART 50 MG TAB PO SCH ×3 (05:44→21:41)
[2018-11-03] MEDS: SLF 3 ML SYR IV SCH ×3 (05:44→22:00)
[2018-11-03] MEDS: HEPARIN SOD (PORCINE) 5000 UNITS/ML VIAL SC SCH ×3 (05:44→21:41)
[2018-11-03] MEDS: TAMSULOSIN 0.4 MG CAP PO SCH (08:10)
[2018-11-03] MEDS: ASPIRIN 81 MG ENTERIC TAB PO SCH (08:10)
[2018-11-03] MEDS: VITAMIN D (CHOLECALCIFEROL) 400 INTERNATIONAL UNITS TAB PO SCH (08:10)
[2018-11-03] MEDS: ASCORBIC ACID 500 MG TAB PO SCH ×2 (08:10→20:10)
[2018-11-03] MEDS: FAMOTIDINE 20 MG TAB PO SCH ×2 (08:10→20:10)
[2018-11-03] MEDS: rOPINIRole 0.25 MG TAB(REQUIP) PO SCH (20:10)
[2018-11-03] MEDS: SIMVASTATIN 10 MG TAB PO SCH (20:10)
[2018-11-04 04:00] VITALS: BP 113/59
[2018-11-04] MEDS: SLF 3 ML SYR IV SCH (06:00)
[2018-11-04] MEDS: METOPROLOL TART 50 MG TAB PO SCH ×3 (06:17→21:06)
[2018-11-04] MEDS: HEPARIN SOD (PORCINE) 5000 UNITS/ML VIAL SC SCH (06:17)
[2018-11-04 08:00] VITALS: BP 101/64
[2018-11-04] MEDS: VITAMIN D (CHOLECALCIFEROL) 400 INTERNATIONAL UNITS TAB PO SCH (10:01)
[2018-11-04] MEDS: FAMOTIDINE 20 MG TAB PO SCH ×2 (10:01→21:04)
[2018-11-04] MEDS: TAMSULOSIN 0.4 MG CAP PO SCH (10:01)
[2018-11-04] MEDS: ASPIRIN 81 MG ENTERIC TAB PO SCH (10:01)
[2018-11-04] MEDS: ASCORBIC ACID 500 MG TAB PO SCH ×2 (10:01→21:04)
--- NOTE | 2018-11-04 13:35 | IPNPDOC ---
Subjective Date Seen The patient was seen on 11/04/18. Subjective Chief Complaint/HPI Patient seen and examined at the bedside. Denies any acute complaints at this time. Objective Physical Examination General Exam: Positive: Alert, Cooperative, No Acute Distress ENT Exam: Positive: Atraumatic, Mucous membr. moist/pink Neck Exam: Negative: JVD Chest Exam: Positive: Clear to auscultation, Normal air movement Heart Exam: Positive: Rate Normal, Normal S1, Normal S2 Telemetry: Positive: Atrial fibrillation Abdomen Exam: Positive: Soft; Negative: Tenderness Extremity Exam: Negative: Tenderness, Swelling Neuro Exam: Positive: Normal Speech Assessment /Plan Plan/VTE VTE Prophylaxis Ordered?: Yes Plan High Grade SBO with a Remote History of Abdominal surgeries, resolved CT abdomen/pelvis notable for high grade small bowel obstruction with transition in the right lower quadrant. No free air, or free fluid to suggest perforation on admission. s/p N/G Tube Patient's diet being successfully advanced thus far. Denies any N/V. Passing BMs and Flatus with no acute complaints of abdominal pain. Atrial Fibrillation with RVR, improved Continue metoprolol as ordered Blood pressure remains stable Eliquis resumed (CHADs-VASc: 2, Age, Hx of CAD?)--Risks, benefits, and alternative options discussed at length with the patient. He has verbalized understanding of the same and states that he would like to continue anticoagulation given the aforementioned factors. CAD ASA & Statin, PO Metoprolol Dyslipidemia Statin Hx prostate cancer, BPH Flomax Outpatient urology followup. Restless Leg Syndrome Ropinrole DVT ppx: on Eliquis Disposition-as per PFS VS, I&O, 24H, [facility] Vital Signs/I&O Vital Signs Date Time Temp Pulse Resp B/P (MAP) Pulse Ox O2 Delivery O2 Flow Rate FiO2 11/04/18 08:00 96.4 91 18 101/64 (76) 96 11/02/18 00:00 0.0 I&O- Last 24 Hours up to 6 AM 11/04/18 06:00 Intake Total 860 ml Output Total 0 ml Balance 860 ml MOO MAHMOOD MD Nov 04, 2018 13:35
[2018-11-04] MEDS: APIXABAN 2.5 MG TAB (ELIQUIS) PO SCH ×2 (14:12→21:04)
[2018-11-04 17:13] VITALS: BP 126/80
[2018-11-04] MEDS: rOPINIRole 0.25 MG TAB(REQUIP) PO SCH (21:04)
[2018-11-04] MEDS: SIMVASTATIN 10 MG TAB PO SCH (21:04)
[2018-11-04 22:00] VITALS: BP 105/67
[2018-11-05] MEDS: METOPROLOL TART 50 MG TAB PO SCH ×3 (05:14→21:56)
[2018-11-05 06:00] VITALS: BP 109/54
[2018-11-05] MEDS: ASPIRIN 81 MG ENTERIC TAB PO SCH (08:48)
[2018-11-05] MEDS: VITAMIN D (CHOLECALCIFEROL) 400 INTERNATIONAL UNITS TAB PO SCH (08:48)
[2018-11-05] MEDS: ASCORBIC ACID 500 MG TAB PO SCH ×2 (08:48→20:16)
[2018-11-05] MEDS: APIXABAN 2.5 MG TAB (ELIQUIS) PO SCH ×2 (08:48→20:16)
[2018-11-05] MEDS: FAMOTIDINE 20 MG TAB PO SCH ×2 (08:48→20:16)
[2018-11-05] MEDS: TAMSULOSIN 0.4 MG CAP PO SCH (08:48)
[2018-11-05 08:53] LABS: HEMATOCRIT 38.3 % (42.0-52.0); HEMOGLOBIN 11.9 g/dl (13.5-17.5); MEAN CORPUSCULAR HEMOGLOBIN 29.5 pg (27.0-33.0); MEAN CORPUSCULAR HGB CONC 31.1 g/dl (32.0-36.5); MEAN CORPUSCULAR VOLUME 94.8 fl (80.0-96.0); PLATELET COUNT, AUTOMATED 347 10^3/uL (150-450); RED BLOOD COUNT 4.04 10^6/uL (4.30-6.10); WHITE BLOOD COUNT 12.8 10^3/uL (4.0-10.0)
[2018-11-05 09:06] LABS: BLOOD UREA NITROGEN 19 MG/DL (7-18); CALCIUM LEVEL 9.1 MG/DL (8.8-10.2); CARBON DIOXIDE LEVEL 25 MEQ/L (21-32); CHLORIDE LEVEL 102 MEQ/L (98-107); CREATININE FOR GFR 0.96 MG/DL (0.70-1.30); GLOMERULAR FILTRATION RATE > 60.0 (>35); GLUCOSE, FASTING 149 MG/DL (70-100); POTASSIUM SERUM 4.5 MEQ/L (3.5-5.1); SODIUM LEVEL 137 MEQ/L (136-145)
--- NOTE | 2018-11-05 10:37 | IPNPDOC ---
Subjective Date Seen The patient was seen on 11/05/18. Subjective Chief Complaint/HPI Patient seen and examined at the bedside this morning. He reports having an episode of urinary retention overnight. He was straight catheterized and 400+ cc of urine was drained. The patient has had no issue voiding thereafter. However, his white blood cell count was elevated this morning, and a UA with reflex has been ordered. Objective Physical Examination General Exam: Positive: Alert, Cooperative, No Acute Distress ENT Exam: Positive: Atraumatic, Mucous membr. moist/pink Neck Exam: Negative: JVD Chest Exam: Positive: Clear to auscultation, Normal air movement Heart Exam: Positive: Rate Normal, Irregular Rhythm, Normal S1, Normal S2 Abdomen Exam: Positive: Soft; Negative: Tenderness Extremity Exam: Negative: Tenderness, Swelling Neuro Exam: Positive: Normal Speech Assessment /Plan Plan/VTE VTE Prophylaxis Ordered?: Yes Plan High Grade SBO with a Remote History of Abdominal surgeries, resolved CT abdomen/pelvis notable for high grade small bowel obstruction with transition in the right lower quadrant. No free air, or free fluid to suggest perforation on admission. s/p N/G Tube Patient's diet being successfully advanced thus far. Denies any N/V. Passing BMs and Flatus with no acute complaints of abdominal pain. Atrial Fibrillation with RVR, improved Continue metoprolol as ordered Blood pressure remains stable Eliquis resumed (CHADs-VASc: 2, Age, Hx of CAD?)--Risks, benefits, and alternative options discussed at length with the patient. He has verbalized understanding of the same and states that he would like to continue anticoagulation given the aforementioned factors. Episode of Urinary Retention s/p Straight Catheterization overnight UA with Reflex ordered We will consider starting the patient on Abx if UA is positive CAD ASA & Statin, PO Metoprolol Dyslipidemia Statin Hx prostate cancer, BPH Flomax Outpatient urology followup. Restless Leg Syndrome Ropinrole DVT ppx: on Eliquis Disposition-as per PFS VS, I&O, 24H, Fishbone Vital Signs/I&O Vital Signs Date Time Temp Pulse Resp B/P (MAP) Pulse Ox O2 Delivery O2 Flow Rate FiO2 11/05/18 06:00 96.7 66 18 109/54 (72) 100 11/02/18 00:00 0.0 I&O- Last 24 Hours up to 6 AM 11/05/18 06:00 Intake Total 640 ml Output Total 475 ml Balance 165 ml Laboratory Data 24H LABS Laboratory Tests 2 11/05/18 08:09: Nucleated Red Blood Cells % (auto) 0.0, Anion Gap 10, Glomerular Filtration Rate > 60.0, Blood Urea Nitrogen 19H, Creatinine 0.96, Sodium Level 137, Potassium Level 4.5, Chloride Level 102, Carbon Dioxide Level 25, Calcium Level 9.1 CBC/BMP Laboratory Tests 11/05/18 08:09 Red Blood Count 4.04 L, Mean Corpuscular Volume 94.8, Mean Corpuscular Hemoglobin 29.5, Mean Corpuscular Hemoglobin Concent 31.1 L, Red Cell Distribution Width 16.4 H, Calcium Level 9.1 MOO MAHMOOD MD Nov 05, 2018 10:36
[2018-11-05 14:00] VITALS: BP 104/60
[2018-11-05] MEDS: rOPINIRole 0.25 MG TAB(REQUIP) PO SCH (20:16)
[2018-11-05] MEDS: ACETAMINOPHEN TAB 650MG DOSE (2X325MG) PO PRN (20:16)
[2018-11-05] MEDS: SIMVASTATIN 10 MG TAB PO SCH (20:16)
[2018-11-05 22:00] VITALS: BP 102/56
[2018-11-06 06:00] VITALS: BP 102/54
[2018-11-06] MEDS: METOPROLOL TART 50 MG TAB PO SCH ×2 (06:00→14:00)
[2018-11-06 08:36] LABS: HEMATOCRIT 38.2 % (42.0-52.0); MEAN CORPUSCULAR HEMOGLOBIN 29.6 pg (27.0-33.0); MEAN CORPUSCULAR HGB CONC 31.4 g/dl (32.0-36.5); MEAN CORPUSCULAR VOLUME 94.1 fl (80.0-96.0); PLATELET COUNT, AUTOMATED 328 10^3/uL (150-450); RED BLOOD COUNT 4.06 10^6/uL (4.30-6.10); WHITE BLOOD COUNT 11.4 10^3/uL (4.0-10.0)
[2018-11-06] MEDS: TAMSULOSIN 0.4 MG CAP PO SCH (08:56)
[2018-11-06] MEDS: VITAMIN D (CHOLECALCIFEROL) 400 INTERNATIONAL UNITS TAB PO SCH (08:56)
[2018-11-06] MEDS: FAMOTIDINE 20 MG TAB PO SCH (08:56)
[2018-11-06] MEDS: ASPIRIN 81 MG ENTERIC TAB PO SCH (08:56)
[2018-11-06] MEDS: ASCORBIC ACID 500 MG TAB PO SCH (08:56)
[2018-11-06] MEDS: APIXABAN 2.5 MG TAB (ELIQUIS) PO SCH (08:56)
[2018-11-06] MEDS ORDERED: LOPR1TAB6 PO (10:40)
--- NOTE | 2018-11-06 13:50 | DS.PDOC ---
Discharge Summary General Date of Admission October 22, 2018 at 23:30 Date of Discharge 11/06/18 Specialist/Consultants Involve Dr. Lopez and Dr. Deras of General Surgery Discharge Summary PROCEDURES PERFORMED DURING STAY: None. ADMITTING/DISCHARGE DIAGNOSES: High Grade SBO with a Remote History of Abdominal surgeries, resolved Atrial Fibrillation with RVR, improved Episode of Urinary Retention History of coronary artery disease History of dyslipidemia History of prostate cancer, BPH COMPLICATIONS/CHIEF COMPLAINT: Chronic Afib With Rvr, Intestinal Obstruction. HISTORY OF PRESENT ILLNESS: . 88-year-old male with past medical history listed below presented to the ER initially on 10/22/18 with a chief complaint of nausea and vomiting for 2 days. The patient stated that he was unable to keep anything down. He denies any complaints of fevers, chills, chest pain, palpitations, or any diarrhea. The patient did endorse some right lower quadrant abdominal pain. In the ER, a CT scan of the abdomen revealed high-grade small bowel obstruction. General surgery was consulted, and the patient was admitted under the hospitalist service for further evaluation and management. High Grade SBO with a Remote History of Abdominal surgeries, resolved CT abdomen/pelvis notable for high grade small bowel obstruction with transition in the right lower quadrant. No free air, or free fluid to suggest perforation on admission. Conservative treatment with bowel rest, s/p N/G Tube--and patients symptoms resolved Patient's diet successfully advanced. Denies any N/V. Passing BMs and Flatus with no acute complaints of abdominal pain. Atrial Fibrillation with RVR, improved Metoprolol titrated to 50mg q8h with better control of heart rate Blood pressure remains stable Eliquis resumed (CHADs-VASc: 2, Age, Hx of CAD?)--Risks, benefits, and alternative options discussed at length with the patient. He has verbalized understanding of the same and states that he would like to continue a nticoagulation given the aforementioned factors. Episode of Urinary Retention s/p Straight Catheterization overnight UA negative Patient with no episodes of urinary retention thereafter Persistent Leukocytosis The patient does not have any active signs or symptoms of infection at this time. Looking back at his records, it does appear that the patient has had isolated leukocytosis for several years. Outpatient hematology follow-up upon discharge CAD ASA & Statin, PO Metoprolol Dyslipidemia Statin Hx prostate cancer, BPH Flomax Outpatient urology followup. Restless Leg Syndrome Ropinrole DISCHARGE MEDICATIONS: Please see below. ALLERGIES: Please see below. PHYSICAL EXAMINATION ON DISCHARGE: VITAL SIGNS: Please see below. General Exam: Positive: Alert, Cooperative, No Acute Distress ENT Exam: Positive: Atraumatic, Mucous membr. moist/pink Neck Exam: Negative: JVD Chest Exam: Positive: Clear to auscultation, Normal air movement Heart Exam: Positive: Rate Normal, Irregular Rhythm, Normal S1, Normal S2 Abdomen Exam: Positive: Soft; Negative: Tenderness Extremity Exam: Negative: Tenderness, Swelling Neuro Exam: Positive: Normal Speech LABORATORY DATA: Please see below. IMAGING: Clinical: Abdominal pain with intractable vomiting. Technique: Axial contrast enhanced images from the lung bases to the pubic symphysis using 100 ml Isovue 370 intravenous contrast material with coronal and sagittal re-formations. Comparison: 07/06/2018 Findings: High-grade small bowel obstruction is appreciated including distended stomach and fluid-filled esophagus. Obstruction extends to the right lower quadrant where collapsed loops of small bowel are identified, but the exact point of transition is not definitively visualized. A large bowel is collapsed. There is no free air or free fluid/drainable collection. Liver, spleen, pancreas, gallbladder, bilateral adrenal glands and kidneys are relatively normal. Pelvis demonstrates normal bladder and age appropriate prostate/seminal vesicles. Atherosclerotic changes to the aorta and vasculature noted without aneurysm or dissection. Musculoskeletal structures demonstrate age-related degenerative changes along with mild chronic compression deformity at T11. Lung bases are clear. Impression: 1. High-grade small bowel obstruction with transition in the right lower quadrant. No free air or free fluid to suggest perforation. 2. Chronic changes as above Portable chest x-ray: Single view. History: Confirm placement NG tube. Comparison study: October 07, 2018. Findings: EKG monitoring electrodes overlie the chest. A nasogastric tube is seen terminating in the left upper quadrant of the abdomen in good position. Mild cardiomegaly is observed. Interstitial markings are slightly prominent as before. No focal infiltrate is seen. No evidence of pleural effusion. Impression: NG tube appears to be in good position. CT Head without contrast HISTORY: Fall COMPARISON: 07/05/2018 Areas of decreased attenuation are present in the periventricular and subcortical white matter. This represents small-vessel ischemic disease. There is no intraparenchymal hemorrhage, acute infarct, mass or midline shift. The ventricular system and cortical sulci as well as subarachnoid space in the posterior fossa are dilated consistent with moderate volume loss. There is no extra cerebral collection. There is no fracture. 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 IMPRESSION: Small-vessel ischemic disease. 2. Moderate volume loss. PROGNOSIS: Fair ACTIVITY: As tolerated. DIET: 2 g low sodium diet DISCHARGE PLAN: DISPOSITION: . Discharge to [facility] DISCHARGE INSTRUCTIONS: Follow-up with primary care physician within one week. Follow-up with hematology as outpatient. Return to the ER for any acute emergencies. DISCHARGE CONDITION: Stable. TIME SPENT ON DISCHARGE: Greater than 30 minutes. Vital Signs/I&Os Vital Signs Date Time Temp Pulse Resp B/P (MAP) Pulse Ox O2 Delivery O2 Flow Rate FiO2 11/06/18 06:00 72 102/54 11/06/18 06:00 97.5 18 98 11/02/18 00:00 0.0 I&O- Last 24 Hours up to 6 AM 11/06/18 06:00 Intake Total 1860 ml Output Total 2400 ml Balance -540 ml Laboratory Data Labs 24H Laboratory Tests 2 11/06/18 08:03: Nucleated Red Blood Cells % (auto) 0.0 CBC/BMP Laboratory Tests 11/06/18 08:03 Red Blood Count 4.06 L, Mean Corpuscular Volume 94.1, Mean Corpuscular Hemoglobin 29.6, Mean Corpuscular Hemoglobin Concent 31.4 L, Red Cell Dis tribution Width 16.2 H Discharge Medications Scheduled Apixaban (Eliquis) 2.5 Mg Tab, 2.5 MG PO BID, (Reported) Ascorbic Acid (Vitamin C) 500 Mg Tablet, 500 MG PO BID, (Reported) Aspirin (Aspirin EC) 81 Mg Tablet.dr, 81 MG PO DAILY, (Reported) Cholecalciferol (Vitamin D3) (Vitamin D3) 400 Unit Cap, 400 UNIT PO DAILY, (Reported) Metoprolol Tartrate (Lopressor) 50 Mg Tablet, 50 MG PO Q8H Hold for HR <70, SBP <100, DBP <60 Ranitidine HCl (Ranitidine HCl) 150 Mg Tab, 1 TAB PO BID, (Reported) Ropinirole HCl (Ropinirole HCl) 0.5 Mg Tablet, 0.5 MG PO QHS, (Reported) Simvastatin (Simvastatin) 10 Mg Tablet, 10 MG PO QHS, (Reported) Tamsulosin HCl (Flomax) 0.4 Mg Cap, 0.4 MG PO DAILY, (Reported) Allergies Coded Allergies: No Known Allergies (Unverified , 08/31/18) MOO MAHMOOD MD Nov 06, 2018 13:50
[2018-11-06 14:00] VITALS: BP 95/57
== END 2018-11-06 15:08 | DRG 390 ==
LOC: EDBD 16:31 → M ED 16:31 → M ED INP 23:30 → M ICU 10-23 01:25 → M PCU 10-24 15:55 → M MSPAV 11-04 17:07
PROVIDERS: ADMIT Internal Medicine; ATTEND Internal Medicine
DX: K56.52 Intestinal adhesions [bands] with complete obstruction (principal); I48.2 Chronic atrial fibrillation; K59.00 Constipation, unspecified; E78.5 Hyperlipidemia, unspecified; I25.10 Atherosclerotic heart disease of native coronary artery without angina pectoris; N40.1 Benign prostatic hyperplasia with lower urinary tract symptoms; R33.9 Retention of urine, unspecified; G25.81 Restless legs syndrome; Z79.01 Long term (current) use of anticoagulants; Z79.82 Long term (current) use of aspirin; Z79.899 Other long term (current) drug therapy; Z85.46 Personal history of malignant neoplasm of prostate; Z90.49 Acquired absence of other specified parts of digestive tract